=== PATIENT | female | born 1950 | race Caucasian/White ===

== ENCOUNTER 2019-12-15 11:54 | Outpatient (CLI) | payer MEDICARE, MEDICAID, SELFPAY ==
--- NOTE | 2019-12-15 12:04 | US_ITS ---
WS: [id number] ULTRASOUND-GUIDED RIGHT BREAST BIOPSY HISTORY: RIGHT breast masses at 12. COMPARISON: 09/24/2019 Procedure, risks and complications are explained to the patient. Medications are reviewed. Consent is obtained. RIGHT breast mass is localized with ultrasound. Skin is cleansed with ChloraPrep and anesthetized w ith 1% buffered lidocaine. Small dermatome is made. Under sterile conditions mass is biopsied with a 14-gauge Achieve needle. Multiple core biopsies are performed. Material placed in formalin and sent t o pathology for review. No complications encountered. Breast tissue marker ([employer] ultrasound enhanced ribbon): Clip is placed in the mass at 12:00. Patient left the radiology suite with no complications. Patient is instructed to return to [facility] or critical access hospital with any concerns. 1. Uncomplicated core needle biopsy RIGHT breast mass at 12:00. US/[place] [id number] IMPRESSION: PATHOLOGY: Moderately differentiated invasive ductal carcinoma. RECOMMENDATION: Follow-up with oncology and surgeon. 2. There is an additional mass in the posterior RIGHT breast which I cannot jessica ntified by ultrasound or on 2 views of mammography. This additional mass is hig hly suspicious for malignancy. Patient's physical condition limits evaluation o f the breast adequately.
--- NOTE | 2019-12-15 12:04 | US_ITS ---
WS: [id number] ULTRASOUND-GUIDED LEFT BREAST BIOPSY x 2 HISTORY: LEFT breast masses at 10 and 6:00. COMPARISON: 09/24/2019 Procedure, risks and complications are explained to the patient. Medications are reviewed. Consent is obtained. There is an additional hypoechoic mass in the axilla which is probably a sebaceous cyst. No lymph nod es. 2 masses in the LEFT breast are localized with ultrasound. Skin is cleansed with ChloraPrep and anest hetized with 1% buffered lidocaine. Small dermatome is made. Under sterile conditions mass is biopsie d with a 14-gauge Achieve needle. Multiple core biopsies are performed. Material placed in formalin a nd sent to pathology for review. No complications encountered. There is an additional hypoechoic mass in the LEFT axilla just beneath the skin surface without incre ased vascularity. Probably representing a sebaceous cyst. Recommend follow-up ultrasound in 6 months. Breast tissue marker ([employer] ultrasound enhanced ribbon): Yes, clips are LEFT within each biopsy site. Patient left the radiology suite with no complications. Patient is instructed to return to [facility] or [facility] with any concerns. 1. Uncomplicated core needle biopsy LEFT breast mass at 6:00. 2. Uncomplicated core needle biopsy LEFT breast mass at 10:00. US/[place] [id number] IMPRESSION: PATHOLOGY: Fibrocystic changes with apocrine metaplasia. No malignancy. RECOMMENDATION: No excision. PATHOLOGY: Moderately differentiated invasive ductal carcinoma. Breast tumor st udies are pending. RECOMMENDATION: Follow-up with breast surgeon and oncology. 3. Superficial mass in the LEFT axilla may be a sebaceous cyst. Follow-up ultra sound in 6 months. 4. Extremely difficult evaluation of the breast due to patient's clinical condi tion.
[2019-12-15 12:50] LABS: INR 1.01 (0.8-1.2)
[2019-12-23 10:35] LABS: Miscellaneous Test See Scanned Lab Rpt
== END 2019-12-15 11:55 | disposition home or self-care (01) ==
LOC: RAD 11:54
PROVIDERS: Radiology Diagnostic Radiology; Family Provider Nurse Practitioner; PCP Nurse Practitioner; Visit Provider Surgery
DX: C50.912 Malignant neoplasm of unspecified site of left female breast (principal); C50.911 Malignant neoplasm of unspecified site of right female breast; N63.10 Unspecified lump in the right breast, unspecified quadrant; N63.22 Unspecified lump in the left breast, upper inner quadrant; N63.20 Unspecified lump in the left breast, unspecified quadrant; N60.82 Other benign mammary dysplasias of left breast; Z01.812 Encounter for preprocedural laboratory examination
CPT/HCPCS: 19083; 19084; 85610; 88305; 88361; 88367; 88374; J2001

== ENCOUNTER 2019-12-31 13:45 | Outpatient (CLI) | payer MEDICARE, MEDICAID, SELFPAY ==
--- NOTE | 2020-01-01 08:23 | ONC CON_ITS ---
Dr. Ledbetter New Patient Note Patient: Deborah Mchugh Unit #: [id number]: 1950 Dicatated By: Remigio Ledbetter M.D.Date of Visit: Dec 31, 2019 Onc MED New Patient/Consult Referring Physician: Petr Ivy MD Chief Complaint: Breast cancer. History of Present Illness: This is a 69 year-old woman with multifocal, bilateral invasive breast cancer, ER/NH positive and HER-2/shelia negative. 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 She had complete surgical resection with sigmoid colectomy and omentectomy in July 2003, and she was then given adjuvant chemotherapy with 6 cycles of carboplatin/Taxotere, completed in January 2004. She has had no recurrence of either malignancy. I had last seen her for follow-up in April 2014. She had recently presented to [facility] with a palpable mass in the right breast. Bilateral diagnostic mammogram/ultrasound on 09/24/2019 showed a 16.2 mm nodule at the 12 o'clock position corresponding to the palpable mass. An additional mass was present in the posterior central right breast measured 10 mm. A 14 mm nodule was noted in the central left breast just inferior to the nipple and an additional 7 mm nodule is noted in the medial left breast. The right breast ultrasound showed a hypoechoic nodule at the 12 o'clock position measuring 15 x 16 mm, a superficial hypoechoic mass measuring 5 x 3 mm at the 6 o'clock position, an additional hypoechoic masses at 11:00 measuring 8 x 5 mm and at 7:00 measuring 11 mm. The left breast ultrasound showed a 16 x 6 mm mass at 6:00, a 5 x 5 mm hypoechoic mass at 11:00 and an additional adjacent smaller nodule. The findings were BI-RADS 5, highly suggestive of malignancy. She underwent ultrasound guided biopsies of the left breast 10:00 and 6:00 lesions and of the right breast 12:00 lesion. Pathology of the left breast at 6:00 showed fibrocystic changes with no malignancy identified. The left breast 10:00 lesion showed grade 2 invasive ductal carcinoma which was ER positive at 97% and NH positive at 91%. The HER-2/shelia was 2+ by IHC but negative by FISH with amplification ratio 1.1 and 2.0 HER-2 copies/cell. The Ki-67 was favorable at 5%. The right breast 12:00 lesion also showed grade 2 invasive ductal carcinoma. It was ER positive at 96% and NH positive at 97%. HER-2/shelia was 2+ by IHC but negative by FISH with amplification ratio 1.4 and 3.9 HER-2 copies/cell. The KI 67 was intermediate at 14%. She has multiple underlying medical illnesses including hypertension, hyperlipidemia, type II diabetes, hyperthyroidism, COPD, obstructive sleep apnea, GERD, osteoporosis, degenerative arthritis/degenerative disease of the spine, and chronic anxiety. She has a history of depression, history of multiple strokes, and a history of ocular histoplasmosis. In 2013 she had developed nonhealing abdominal wall ulcerations in association with cellulitis which had developed following a prolonged episode of colitis. She had multiple hospitalizations during that time and she required surgical debridement, but it eventually resolved. She is seen for further management of the breast cancer. She says that she does not feel so good. She gets tired very easily, and she has very limited activity. She has had very limited ambulation following ORIF for a traumatic fracture of her distal left femur in August 2018. Her ECOG score is 3. She has good appetite, and she has gained weight. She does not have fever or night sweats. She has hot flashes, which have been getting a little worse. She occasionally has sore throat. She is short of breath, and she is on continuous oxygen. She has nonproductive cough. She does not complain of chest pain. She says she has episodes of nausea about twice a week, and she has been having acid reflux despite taking medication for it. She has constipation. She says her bladder leaks quite a bit. She has arthritis pain in the shoulders and knees. She also has pain in her neck and back. She has chronic swelling in both legs. She does not complain of headache. She has dizziness if she gets up too quick. She has no numbness/paresthesia or other focal neurologic symptoms. Past Medical History: Her medical history includes anxiety, chronic obstructive pulmonary disease, degenerative arthritis, degenerative disease of the spine, gastroesophageal reflux disease, history of abdominal wall cellulitiis, history of depression, history of strokes, hyperlipidemia, hypertension, hyperthyroidism, obstructive sleep apnea, ocular histoplasmosis, osteoporosis, type II diabetes, primary peritoneal carcinoma in 2002, and endometrial cancer in 1978. Past Surgical History: Her surgical/procedural history includes ORIF of distal left femur fracture in 2017, excision of benign abdominal wall mass in 2014, lumbar laminectomy for spinal stenosis in 2014, surgical debridement of necrotic abdominal wall wound in 2013, right total knee arthroplasty in 2012, repair of upper abdominal incisional hernia in 2009, cervical laminectomy in 2009, incisional hernia repair with mesh in 2006, exploratory laparotomy with omentectomy and sigmoid colon resection in 2002, cholecystectomy in 1990, and hysterectomy/bilateral salpingo-oophorectomy for endometrial cancer in 1978. Medications: Allopurinol 1 Tablet (of 100 mg) Oral daily, FLUoxetine HCl Capsule Oral, Furosemide 1.5 Tablet (of 40 mg) Oral daily, Gemfibrozil 600 mg - Take 1 Tablet Oral b.i.d., Hydrocodone-Acetaminophen 10-325 mg - Take 1 Tablet Oral q 4 hours PRN, Levothyroxine Sodium 1 Tablet (of 50 mcg) Oral daily, Lisinopril 1 Tablet (of 2.5 mg) Oral daily, metOLazone 1 Tablet (of 5 mg) Oral daily, Nitrolingual 1 Tablet (of 0.4 mg/spray) Solution Translingual PRN, OLANZapine 1 Tablet (of 5 mg) Oral at bedtime, Pantoprazole Sodium 40 mg - Take 1 Tablet, enteric coated Oral daily, Potassium Chloride ER 1 Tablet (of 20 meq) Tablet, controlled release Oral b.i.d., rOPINIRole HCl 2 Tablet (of 0.5 mg) Oral at bedtime Allergies: teramycin, dilaudid, tagement, tape, morphine, colchine, allopurinol, Social History: Ms. Mchugh is . She has a history of smoking 1 pack of cigarettes daily. She has cut down to 3-5 cigarettes per day. She does not drink alcohol. Family History: Mother of leukemia at age 99. Father of heart attack at age 81. A brother had small cell lung cancer. Review Of Symptoms: Constitutional - She does physical therapy for her knee, but she does not walk very much. Her appetite is good and her weight is stable. No fever, chills, hot flashes, or night sweats. 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 No sinus congestion/drainage. No mouth sores. No sore throat or difficulty swallowing, Hematologic/Lymphatic - No abnormal bruising or bleeding, Respiratory - She has shortness of breath and she wears continuous oxygen. She has a cough. No pleuritic pain or hemoptysis, Cardiovascular - No angina pain. No palpitations, Gastrointestinal - She has nausea and heartburn. She has constipation. No blood in the stool or black stools, Genitourinary (F) - No dysuria or hematuria. No urinary frequency. She has urinary incontinence, Musculoskeletal - She has pain in her shoulders, knees, neck and back, Integumentary - No skin complications, Neurologic - No headache. She has dizziness if she stands up too quickly. No numbness/paresthesias or other focal neurologic symptoms, Psychiatric - She has anxiety and depression. No insomnia. Vital Signs: Performed on Dec 31, 2019 14:26: 5, 39.48 (HIGH), 2.08 sq.m, 64.00 in, 94 % (LOW), 77 /min, 25 /min, 143/68 mm(hg) (HIGH), 97.4 F (LOW), and 230 lbs (LOW). Physical Examination: Constitutional - She has limited mobility, but she does not appear acutely ill. , Eyes - Sclerae nonicteric. Conjunctivae clear, ENMT - No lesions noted in the oral cavity, Neck - There is chronic, generalized soft tissue swelling in the neck area. There is no mass or thyromegaly noted, Hematologic/Lymphatic - No cervical or clavicular adenopathy, Respiratory - Lungs are clear with some decrease in air movement bilaterally, Cardiovascular - Heart rhythm is regular. There is no murmur, gallop, or rub noted, Breasts - There is a firm mass palpable in the superior aspect of the right breast. It measures approximately 1 cm. I am not able to palpate a mass in the left breast. There is a superficial subcutaneous nodule in the left axilla. This clinically appears consistent with a cyst. There is no axillary adenopathy noted, Abdomen - Moderately distended. Liver and spleen are not enlarged. There is no abdominal mass or ascites noted and there is no inguinal adenopathy, Back/Spine - No spine or CVA tenderness noted, Extremities - Chronic lower extremity edema, 2 to 3+, Integumentary - No suspicious skin lesions noted, Neurologic - No focal neurologic deficits noted. Impression: 1. Patient with bilateral breast cancer, both with grade 2 invasive ductal carcinoma, ER/NH positive and HER-2/shelia negative. Staging is incomplete. By imaging, her disease appears to be multifocal in both breasts, but that has not been confirmed histologically. 2. She has multiple underlying medical illnesses and comorbidities, and she would be a very high risk for any type of general anesthesia. 3. In July 2003 she underwent exploratory laparotomy with sigmoid colon resection and omentectomy for metastatic adenocarcinoma, clinically consistent with primary peritoneal carcinoma. She had complete resection of gross disease with the surgery, following which she was given adjuvant chemotherapy with 6 cycles of carboplatin/docetaxel, completed in January 2004. She has had no evidence of recurrence. 4. In 1978 she underwent hysterectomy/bilateral salpingo-oophorectomy for endometrial cancer. Her other medical illnesses include: 5. Hypertension. 6. Hyperlipidemia. 7. Type 2 diabetes. 8. Hyperthyroidism. 9. History of prior strokes. 10. COPD. 11. Obstructive sleep apnea. 12. GERD. 13. Osteoporosis with baseline right proximal femur T score -3.6 in April 2019. 14. Degenerative arthritis/degenerative disease of the spine. 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 16. Chronic anxiety. 17. History of depression. 18. She has a history of abdominal wall cellulitis with nonhealing skin ulcerations. Plan: She has hormone receptor positive breast cancer which appears to be multifocal bilaterally. Ideally she should undergo bilateral mastectomy, but she is a high surgical risk due to her underlying medical illnesses and comorbidities. She had, in fact, been previously advised not to have any further general anesthesia, and I think that pretty much excludes the mastectomy option. She also would be at some risk with a lumpectomy procedure, and even if that were feasible I am not sure she would be able to get through a course of radiation. As such, I think the best option may just be a trial of hormonal therapy, though she is aware that it would have no curative potential. She is agreeable, and she will now begin treatment with anastrozole 1 mg daily. She is aware that it may cause joint pain as a side effect and that it also may worsen her osteoporosis. In that regard I also will have her start treatment with Prolia, subject to verification of insurance coverage. She will have baseline laboratory studies including CBC, CMP, and a 25-hydroxy vitamin D level with her initial Prolia injection, and she will be scheduled for a 3-month interval follow-up visit. Signed By: Remigio Ledbetter M.D. <<Signature on File>>
== END 2019-12-31 13:46 | disposition home or self-care (01) ==
LOC: ONCMED 13:49
PROVIDERS: Family Provider Nurse Practitioner; PCP Nurse Practitioner; Referring Provider Surgery; Visit Provider Internal Medicine Medical Oncology
DX: C50.811 Malignant neoplasm of overlapping sites of right female breast (principal); C50.812 Malignant neoplasm of overlapping sites of left female breast; I10 Essential (primary) hypertension; E78.5 Hyperlipidemia, unspecified; E11.9 Type 2 diabetes mellitus without complications; E05.90 Thyrotoxicosis, unspecified without thyrotoxic crisis or storm; J44.9 Chronic obstructive pulmonary disease, unspecified; G47.33 Obstructive sleep apnea (adult) (pediatric); K21.9 Gastro-esophageal reflux disease without esophagitis; M81.0 Age-related osteoporosis without current pathological fracture; M19.90 Unspecified osteoarthritis, unspecified site; F41.8 Other specified anxiety disorders; F17.210 Nicotine dependence, cigarettes, uncomplicated; Z17.0 Estrogen receptor positive status [ER+]; Z79.891 Long term (current) use of opiate analgesic; Z90.49 Acquired absence of other specified parts of digestive tract; Z92.21 Personal history of antineoplastic chemotherapy; Z85.89 Personal history of malignant neoplasm of other organs and systems; Z86.73 Personal history of transient ischemic attack (TIA), and cerebral infarction without residual deficits; Z85.42 Personal history of malignant neoplasm of other parts of uterus; Z90.710 Acquired absence of both cervix and uterus
CPT/HCPCS: 99205

== ENCOUNTER 2020-01-11 11:57 | Outpatient (CLI) | payer MEDICARE, MEDICAID, SELFPAY ==
[2020-01-11 12:24] LABS: Basophils % 0.3 %; Eosinophils # 0.4 10^3/uL (0.0-0.8); Eosinophils % 4.2 %; Hematocrit 36.9 % (37.0-47.0); Lymphocytes # 1.3 10^3/uL (0.8-4.8); Lymphocytes % 13.4 %; Mean Corpuscular HGB Conc 29.8 g/dL (30.0-36.0); Mean Corpuscular Hemoglobin 28.4 pg (28.0-34.0); Mean Corpuscular Volume 95.3 fL (81-99); Mean Platelet Volume 10.5 fL (7.4-10.4); Monocytes # 0.5 10^3/uL (0.2-0.9); Monocytes % 5.6 %; Neutrophils # 7.3 10^3/uL (1.8-7.7); Neutrophils % 76.2 %; Nucleated Red Blood Cells % 0 %; Platelet Count 284 10^3/cmm (130-400); Red Blood Count 3.87 10^6/uL (4.1-5.3); Red Cell Distribution Width 15.5 % (12.1-15.1); White Blood Count 9.6 10^3/uL (4.0-10.0)
[2020-01-11] MEDS: denosumab 60 mg SDV SUBCUT (12:35)
[2020-01-11 12:44] LABS: Alanine Aminotransferase < 5 U/L (0-33); Albumin Level 3.6 g/dL (3.5-5.2); Alkaline Phosphatase 162 IU/L (35-105); Anion Gap 20.5 (5-19); Aspartate Amino Transferase 13 U/L (0-32); Blood Urea Nitrogen 39 mg/dL (8-23); Calcium 10.3 mg/dL (8.5-10.5); Carbon Dioxide 28 mmol/L (22-29); Chloride 88 mmol/L (98-107); Globulin 3.8 g/dL (1.3-4.6); Glucose 154 mg/dL (65-115); Potassium 4.5 mmol/L (3.5-5.1); Sodium 132 mmol/L (136-145); Total Bilirubin 0.3 mg/dL (0.15-1.2); Total Protein 7.4 g/dL (6.6-8.7)
[2020-01-11 13:04] LABS: 25 Hydroxy Vitamin D 7 ng/mL (30-100)
== END 2020-01-11 11:58 | disposition home or self-care (01) ==
LOC: ONCMED 11:57
PROVIDERS: Family Provider Nurse Practitioner; PCP Nurse Practitioner; Visit Provider Internal Medicine Medical Oncology
DX: M81.0 Age-related osteoporosis without current pathological fracture (principal); C50.811 Malignant neoplasm of overlapping sites of right female breast
CPT/HCPCS: 36415; 80053; 82306; 85025; 96372; J0897

== ENCOUNTER 2020-01-31 05:38 | Emergency (ER) | payer MEDICARE, MEDICAID, SELFPAY ==
[2020-01-31 05:39] VITALS: BP 124/61; PULSE 85; RESP 18; TEMP 36.9; O2SAT 91; BMI 51.5
--- NOTE | 2020-01-31 05:53 | XRR_ITS ---
PROCEDURE INFORMATION: Exam: XR Left Tibia and Fibula Exam date and time: 01/31/2020 6:26 AM Age: 69 years old Clinical indication: Injury or trauma; Fall; Initial encounter; Blunt trauma; Knee and lower leg; Prior surgery; Surgery date: 6+ months; Surgery type: Left femur, date of surgery not provided TECHNIQUE: Imaging protocol: XR Left tibia and fibula. Views: 2 views. COMPARISON: CR Femur 2 views LEFT* [id number] 10/11/2018 10:37 PM FINDINGS: Bones/joints: Prior surgical fixation of the distal femur Osseous structures unremarkable. No erosive changes. No periosteal response. No fracture. No soft tissue calcifications. Mild degenerative changes within the knee. Soft tissues: See Bones/joints Finding. XR/XR tibia fibula LT 2V [id number] IMPRESSION: 1. Osseous structures unremarkable. No erosive changes. No periosteal response. No fracture. No soft tissue calcifications. 2. Mild degenerative changes within the knee.
--- NOTE | 2020-01-31 05:53 | XR_ITS ---
WS: [id number] KNEE LEFT TECHNIQUE: 3 views of the left knee CLINICAL INFORMATION: fall FINDINGS: Prior postoperative changes plate and screw fixation left femur with fracture healing. Fracture appea rs to extend to the femoral articular surface. Hardware is unchanged since December 17, 2018. Osteopen ia. Hypertrophic patella. Small suprapatellar effusion. Soft tissue edema. XR/XR knee LT 3V* [id number] IMPRESSION: 1. Prior postoperative changes plate and screw fixation left femur with fractu re healing. 2. Fracture extends to the femoral articular surface. This appears new since . See following CT for further detail.
--- NOTE | 2020-01-31 05:53 | W.ED.EXTPRO ---
HPI - Extremity Problem General: Chief complaint: Extremity Injury, Lower Stated complaint: LT KNEE PAIN Time Seen by Provider: 01/31/20 05:52 History of Present Illness: MD Complaint: extremity pain and joint swelling Onset (ago): day(s) (3) Pain Consistency: constant Location: left, lower extremity and knee Quality: constant Radiation: none Exacerbating factors: weight bearing Associated symptoms: Deny chest pain, fever(s), myalgias or rash Context: recent travel Review of Systems Const: Denies: fever Eyes: Denies: change in vision ENMT: Denies: painful swallowing, nose bleeds or post nasal drip Card: Denies: chest pain, palpitations, irregular heart rhythm or edema Resp: Denies: shortness of breath, productive cough, non-productive cough or wheezing GI: Denies: abdominal pain, nausea or vomiting : Denies: painful urination Musc: Reports: back pain; Denies: neck pain, redness or joint warmth Skin/Breast: Denies: rash Neuro: Denies: headache, dizziness or vertigo Psych: Denies: anxiety PFSH ED PFSH: Social History Smoking and tobacco status: current every day smoker cigarettes [ Other cigarette details: 11/27-11/25 PPD ] Alcohol intake: never Lives independently: Yes Household members: spouse Marital status: Current occupational status: disabled History of recent travel: No Physical Exam Const: GENERAL APPEARANCE: well developed ORIENTATION/CONSCIOUSNESS: Yes oriented to person, Yes oriented to place and Yes oriented to time HENMT: COMMON NORMALS: external ears normal and external nose normal FACE & SINUS: normal facial exam NOSE: external nose normal and no nasal discharge EXTERNAL EAR: Yes external ears normal Eye: COMMON NORMALS: PERRL, EOMs intact bilaterally and conjunctivae normal EYELID: eyelids normal CONJUNCTIVA: Yes conjunctivae normal PUPIL: Yes PERRL Neck/C-Spine: GENERAL: No tracheal deviation Chest: COMMONS NORMALS: inspection of chest normal CHEST: No tenderness Resp: COMMON NORMALS: clear to auscultation bilaterally EFFORT & INSPECTION: No tachypneic, No respiratory distress, No retractions, No uses accessory muscles and No tracheal deviation AUSCULTATION: clear to auscultation bilaterally, no rhonchi, no wheezes and lung sounds not diminished Cardio: COMMON NORMALS: regular rate and regular rhythm RATE: regular rate RHYTHM: regular rhythm HEART SOUNDS: no murmurs PERIPHERAL PULSES: radial pulses present GI: INSPECTION: No abdominal distension PALPATION: No guarding and No rigid Extremity: LEFT LOWER EXTREMITY: Yes knee joint (Left knee warm effusion present. Limited range of motion, especially flexion due to pain. No deformity. Tenderness to palpation of the patella, and proximal tibia.) Left knee: Yes palpation and Yes ROM Neuro: SENSORIUM/ORIENTATION: Yes oriented to person, Yes oriented to place and Yes oriented to time Psych: COMMON NORMALS: mental status grossly normal Skin: COMMON NORMALS: no rashes or lesions noted GENERAL SKIN EXAM: no rashes or lesions noted Course Vital Signs: Vital signs: Vital Signs Temperature 98.5 F 01/31/20 05:39 Pulse Rate 85 01/31/20 05:39 Respiratory Rate 18 01/31/20 05:39 Blood Pressure 124/61 01/31/20 05:39 Pulse Oximetry 91 01/31/20 05:39 MDM - Extremity (Nontraumatic) MDM Narrative: Medical decision making narrative: Fall 3 days ago with inability to bear weight, knee effusion, and limited range of motion. She is tender. X-rays are pending. Discharge Plan Discharge Prescriptions: No Action potassium chloride 20 mEq packet 20 meq PO BID RF: 0 metolazone 5 mg tablet 5 mg PO QDAY RF: 0 olanzapine 5 mg tablet 5 mg PO QDAY RF: 0 levothyroxine 50 mcg capsule 50 mcg PO QDAY RF: 0 pantoprazole 20 mg tablet,delayed release (DR/EC) 20 mg PO QDAY RF: 0 fluoxetine 10 mg capsule 10 mg PO QDAY RF: 0 cetirizine 10 mg capsule 10 mg PO QDAY RF: 0 ropinirole 0.5 mg tablet 1 mg PO QDAY RF: 0 gemfibrozil 600 mg tablet 600 mg PO BID RF: 0 docusate sodium [Colace] 100 mg capsule 200 mg PO BID RF: 0 allopurinol 100 mg tablet 100 mg PO TID RF: 0 furosemide [Lasix] 40 mg tablet 80 mg PO QDAY RF: 0 simvastatin 40 mg tablet 40 mg PO QDAY RF: 0 Movantik 12.5 mg tablet 12.5 mg PO QAM RF: 0 Narcan 4 mg/actuation spray,non-aerosol 1 spray INTRANASAL Q2M RF: 0 Hysingla ER 40 mg tablet,oral only,ext.rel.24 hr 40 mg PO QDAY RF: 0 hydrocodone-acetaminophen [Russell] 10-325 mg tablet See Rx Instructions PO Q6H PRNRF: 0 albuterol sulfate 2.5 mg /3 mL (0.083 %) solution for nebulization 2.5 mg INHALATION .COMPLEX RF: 0 nitroglycerin [Nitrostat] 0.4 mg tablet, sublingual 0.4 mg SUBLINGUAL Q5M PRNRF: 0 phenolphthalein 90 mg tablet 90 mg PO QDAY RF: 0 Coding Level of Care Code ED [employer]ite [employer]per for Ted San
--- NOTE | 2020-01-31 06:39 | CTR_ITS ---
PROCEDURE INFORMATION: Exam: CT Left Lower Extremity Without Contrast, Knee Exam date and time: 01/31/2020 6:41 AM Age: 69 years old Clinical indication: Injury or trauma; Fall; Initial encounter; Blunt trauma; Knee; Left; Injury date: Today; Prior surgery; Surgery date: 6+ months; Additional info: Tibial platuea fracture - HX of tibial platuea FX, fell and now there is new pain in knee. TECHNIQUE: Imaging protocol: CT of the Left lower extremity without contrast was performed. Exam focused on the knee. Total DLP: 1600.94 mGy-cm Radiation optimization: All CT scans at this facility use at least one of these dose optimization techniques: automated exposure control; mA and/or kV adjustment per patient size (includes targeted exams where dose is matched to clinical indication); or iterative reconstruction. COMPARISON: CR XR knee LT 3V* [id number] 01/31/2020 6:15 AM FINDINGS: Bones/joints: Malleable surgical plate and screws stabilizing the distal femoral metaphyseal complex fracture. Fracture extends to the lateral femoral condyle. Much of this is likely chronic. Moderate joint effusion. Degenerative changes within the proximal tibia. Soft tissues: Swelling/edema in the subcutaneous soft tissues about the proximal calf. Gonzalez cyst. CT/CT lower leg LT wo con* [id number] IMPRESSION: 1. Malleable surgical plate and screws stabilizing the distal femoral metaphyseal complex fracture. Fracture extends to the lateral femoral condyle. Much of this is likely chronic. No significant soft tissue swelling in the adjacent soft tissues. 2. Moderate joint effusion. Hounsfield units of approximately 30. 3. Swelling/edema in the subcutaneous soft tissues about the proximal calf. 4. Gonzalez cyst. 5. Degenerative changes within the proximal tibia. Radiation Dose CTDIVOL = (mGy): DLP = 1600.94 (mGy-cm)
[2020-01-31 09:10] VITALS: BP 145/89; PULSE 79; RESP 20; O2SAT 93
== END 2020-01-31 09:11 | disposition home or self-care (01) ==
PROVIDERS: Emergency Provider Family Medicine; Family Provider Nurse Practitioner; PCP Nurse Practitioner
DX: S83.92XA Sprain of unspecified site of left knee, initial encounter (principal); X58.XXXA Exposure to other specified factors, initial encounter; F17.210 Nicotine dependence, cigarettes, uncomplicated
CPT/HCPCS: 12345; 73562; 73590; 73700; 99281; 99283

== ENCOUNTER 2020-02-02 10:24 | Emergency (ER) | payer MEDICARE, MEDICAID, SELFPAY ==
[2020-02-02 10:25] VITALS: BMI 48.0
[2020-02-02 10:33] VITALS: BP 109/57
--- NOTE | 2020-02-02 10:42 | XRR_ITS ---
PROCEDURE INFORMATION: Exam: XR Left Ankle Exam date and time: 02/02/2020 11:24 AM Age: 69 years old Clinical indication: Injury or trauma; Fall; Initial encounter; Blunt trauma; Ankle; Left; Injury date: Today; Injury details: Fell getting into chair TECHNIQUE: Imaging protocol: XR Left ankle. Views: 1 or 2 views. COMPARISON: No relevant prior studies available. FINDINGS: Bones/joints: The bones are diffusely osteopenic. No fracture. No dislocation. The ankle mortise is intact. Soft tissues: There is superficial soft tissue swelling at the ankle, adjacent lower calf, as well as the mid and hindfoot. XR/XR ankle LT 2V [id number] IMPRESSION: 1. No acute osseous abnormality. 2. Nonspecific superficial soft tissue swelling.
--- NOTE | 2020-02-02 10:42 | XRR_ITS ---
PROCEDURE INFORMATION: Exam: XR Left Knee Exam date and time: 02/02/2020 11:20 AM Age: 69 years old Clinical indication: Injury or trauma; Fall; Initial encounter; Blunt trauma; Knee; Left; Injury date: Today; Injury details: Fell getting into chair; Prior surgery; Surgery type: Orif femur TECHNIQUE: Imaging protocol: XR Left knee. Views: 3 views. COMPARISON: XR LEFT KNEE 01/31/2020 6:15 AM XR LEFT KNEE 10/11/2018 10:37 PM FINDINGS: Bones/joints: Prior ORIF with a side plate and screws across a comminuted fracture of the distal left femur. There has been healing of the fracture with deformity. No acute fracture. No dislocation. Soft tissues: There is superficial soft tissue swelling, more so in the medial distal thigh. XR/XR knee LT 3V* [id number] IMPRESSION: 1. Prior posttraumatic and postsurgical changes. 2. Osteoarthritis.
--- NOTE | 2020-02-02 10:43 | ED_ITS ---
HPI - Fall General: Chief Complaint: Fall Stated Complaint: fall Time Seen by Provider: 02/02/20 10:34 History of Present Illness: HPI Narrative: Patient stumbled at home today and fell landing on her right knee and twisting her left ankle. She arrives here vi a ambulance with complaints of left knee and left ankle pain. complaint: fall Onset (ago): hour(s) Fall from: standing Fall witnessed: no Place fall occurred: home Loss of consciousness: None Prolonged down time: no Symptoms prior to fall: none Context: tripped/slipped Location of injury - extremities: Left: knee and ankle Severity: mild Severity scale (1-10): 3 Quality: aching Associated symptoms-after fall: Reports no associated symptoms; Denies abdominal pain, chest pain or headache(s) Review of Systems Const: Denies: fever, chills or body aches Eyes: Denies: change in vision or blurry vision ENMT: Denies: throat pain or nasal congestion Card: Denies: chest pain or shortness of breath on exertion Resp: Denies: shortness of breath, productive cough or non-productive cough GI: Denies: abdominal pain, nausea or vomiting Musc: Reports: extremity pain (Left knee and left ankle) and joint pain Skin/Breast: Denies: rash Neuro: Denies: headache Psych: Denies: anxiety or depression Jeovanny/Lymph: Reports: other (Appears to have lymphedema and also has webbed neck); Denies: easy bruising PFS ED PFSH: Social History Smoking and tobacco status: current every day smoker cigarettes [ Other cigarette details: 11/27-11/25 PPD ] Alcohol intake: never Lives independently: Yes Household members: spouse Marital status: Current occupational status: disabled History of recent travel: No Physical Exam Const: COMMON NORMALS: no apparent distress, average body habitus and oriented x3 HENMT: COMMON NORMALS: normocephalic HEAD & SCALP: normal to inspection and normocephalic FACE & SINUS: normal facial exam Eye: COMMON NORMALS: conjunctivae normal GENERAL EYE: normal appearance of both eyes CONJUNCTIVA: Yes conjunctivae normal Neck/C-Spine: COMMON NORMALS: no JVD Chest: COMMONS NORMALS: inspection of chest normal Resp: COMMON NORMALS: normal respiratory effort and clear to auscultation bilaterally AUSCULTATION: clear to auscultation bilaterally Cardio: COMMON NORMALS: no JVD, regular rate and regular rhythm RATE: regular rate RHYTHM: regular rhythm GI: COMMON NORMALS: normal to inspection, nondistended, normoactive bowel sounds Extremity: COMMON NORMALS: normal to inspection and full ROM LEFT LOWER EXTREMITY: Yes knee joint (Tender) and Yes ankle joint OTHER: Tender mild swelling Neuro: COMMON NORMALS: oriented x3 Skin: OTHER: Does have lymphedema to lower extremities Course Vital Signs: Vital signs: Vital Signs Blood Pressure 109/57 02/02/20 10:33 Discharge Plan Discharge Prescriptions: No Action potassium chloride 20 mEq packet 20 meq PO BID RF: 0 metolazone 5 mg tablet 5 mg PO QDAY RF: 0 olanzapine 5 mg tablet 5 mg PO QDAY RF: 0 levothyroxine 50 mcg capsule 50 mcg PO QDAY RF: 0 pantoprazole 20 mg tablet,delayed release (DR/EC) 20 mg PO QDAY RF: 0 fluoxetine 10 mg capsule 10 mg PO QDAY RF: 0 cetirizine 10 mg capsule 10 mg PO QDAY RF: 0 ropinirole 0.5 mg tablet 1 mg PO QDAY RF: 0 gemfibrozil 600 mg tablet 600 mg PO BID RF: 0 docusate sodium [Colace] 100 mg capsule 200 mg PO BID RF: 0 allopurinol 100 mg tablet 100 mg PO TID RF: 0 furosemide [Lasix] 40 mg tablet 80 mg PO QDAY RF: 0 simvastatin 40 mg tablet 40 mg PO QDAY RF: 0 Movantik 12.5 mg tablet 12.5 mg PO QAM RF: 0 Narcan 4 mg/actuation spray,non-aerosol 1 spray INTRANASAL Q2M RF: 0 Hysingla ER 40 mg tablet,oral only,ext.rel.24 hr 40 mg PO QDAY RF: 0 hydrocodone-acetaminophen [[place]] 10-325 mg tablet See Rx Instructions PO Q6H PRNRF: 0 albuterol sulfate 2.5 mg /3 mL (0.083 %) solution for nebulization 2.5 mg INHALATION .COMPLEX RF: 0 nitroglycerin [Nitrostat] 0.4 mg tablet, sublingual 0.4 mg SUBLINGUAL Q5M PRNRF: 0 phenolphthalein 90 mg tablet 90 mg PO QDAY RF: 0 Coding Level of Care Code ED Automatic [employer]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
[2020-02-02 12:58] VITALS: BP 109/57; PULSE 96; RESP 18; O2SAT 96
== END 2020-02-02 12:59 | disposition home or self-care (01) ==
PROVIDERS: Emergency Provider Nurse Practitioner Family; Family Provider Nurse Practitioner; PCP Nurse Practitioner
DX: M25.562 Pain in left knee (principal); M25.572 Pain in left ankle and joints of left foot; I89.0 Lymphedema, not elsewhere classified; F17.210 Nicotine dependence, cigarettes, uncomplicated
CPT/HCPCS: 12345; 73562; 73600; 99281; 99283

== ENCOUNTER 2020-05-15 12:27 | Outpatient (CLI) | payer MEDICARE, MEDICAID, SELFPAY ==
--- NOTE | 2020-05-16 08:31 | ONC FU_ITS ---
Dr. Ledbetter Patient Follow-Up Note Patient: Deborah Mchugh Unit #: [id number]: 1950 Dicatated By: Remigio Ledbetter M.D.Date of Visit:May 15, 2020 Onc Med Follow-up/Prog Note Chief Complaint: Breast cancer. History of Present Illness: This is a 70 year-old woman with multifocal, bilateral invasive breast cancer, ER/WV positive and HER-2/shelia negative. 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 She had complete surgical resection with sigmoid colectomy and omentectomy in July 2003, and she was then given adjuvant chemotherapy with 6 cycles of carboplatin/Taxotere, completed in January 2004. She has had no recurrence of either malignancy. I had last seen her for follow-up in April 2014. She has multiple underlying medical illnesses including hypertension, hyperlipidemia, type II diabetes, hyperthyroidism, COPD, obstructive sleep apnea, GERD, osteoporosis, degenerative arthritis/degenerative disease of the spine, and chronic anxiety. She has a history of depression, history of multiple strokes, and a history of ocular histoplasmosis. In 2013 she had developed nonhealing abdominal wall ulcerations in association with cellulitis which had developed following a prolonged episode of colitis. She had multiple hospitalizations during that time and she required surgical debridement, but it eventually resolved. She had presented to [facility] with a palpable mass in the right breast. Bilateral diagnostic mammogram/ultrasound on 09/24/2019 showed a 16.2 mm nodule at the 12 o'clock position corresponding to the palpable mass. An additional mass was present in the posterior central right breast measured 10 mm. A 14 mm nodule was noted in the central left breast just inferior to the nipple and an additional 7 mm nodule is noted in the medial left breast. The right breast ultrasound showed a hypoechoic nodule at the 12 o'clock position measuring 15 x 16 mm, a superficial hypoechoic mass measuring 5 x 3 mm at the 6 o'clock position, an additional hypoechoic masses at 11:00 measuring 8 x 5 mm and at 7:00 measuring 11 mm. The left breast ultrasound showed a 16 x 6 mm mass at 6:00, a 5 x 5 mm hypoechoic mass at 11:00 and an additional adjacent smaller nodule. The findings were BI-RADS 5, highly suggestive of malignancy. She underwent ultrasound guided biopsies of the left breast 10:00 and 6:00 lesions and of the right breast 12:00 lesion. Pathology of the left breast at 6:00 showed fibrocystic changes with no malignancy identified. The left breast 10:00 lesion showed grade 2 invasive ductal carcinoma which was ER positive at 97% and WV positive at 91%. The HER-2/shelia was 2+ by IHC but negative by FISH with amplification ratio 1.1 and 2.0 HER-2 copies/cell. The Ki-67 was favorable at 5%. The right breast 12:00 lesion also showed grade 2 invasive ductal carcinoma. It was ER positive at 96% and WV positive at 97%. HER-2/shelia was 2+ by IHC but negative by FISH with amplification ratio 1.4 and 3.9 HER-2 copies/cell. The KI 67 was intermediate at 14%. She was seen here on 12/31/2019 for further management of the breast cancer. Given her numerous underlying medical illnesses and high risk for any further surgical procedures, we opted to limit treatment to a trial of hormonal therapy with anastrozole 1 mg daily. She is seen for a follow-up visit. Thus far she seems to be tolerating the anastrozole with no adverse effects. She does have chronic pain for which she was started on a fentanyl patch along with her hydrocodone/APAP. That does seem to be knocking the edge off the pain, so that it is more tolerable for her. She still has very limited activity, and she mostly just sits and watches TV. Her ECOG score is 3. She has good appetite. She has no fever, night sweats, or hot flashes. She has no shortness of breath, cough, or chest pain. She has been having episodes of nausea and gagging about every 2 to 3 days. She also has been having some constipation, which she has been managing with Correctol. She has no complaints. Her pain is mainly in the legs, and especially from the knees on down. She also has soreness in her neck. She says her back has not been bothering her too much lately. She has numbness/tingling in her legs, and she has chronic swelling in the lower extremities. Medications: Allopurinol 1 Tablet (of 100 mg) Oral daily, Anastrozole 1 Tablet (of 1 mg) Oral daily, FLUoxetine HCl 1 Capsule (of 10 mg) Oral daily, Furosemide 1.5 Tablet (of 40 mg) Oral daily, Gemfibrozil 600 mg - Take 1 Tablet Oral b.i.d., Hydrocodone-Acetaminophen 10-325 mg - Take 1 Tablet Oral q 4 hours PRN, Levothyroxine Sodium 1 Tablet (of 50 mcg) Oral daily, Lisinopril 1 Tablet (of 2.5 mg) Oral daily, metOLazone 1 Tablet (of 5 mg) Oral daily, Nitrolingual 1 Tablet (of 0.4 mg/spray) Solution Translingual PRN, OLANZapine 1 Tablet (of 5 mg) Oral at bedtime, Pantoprazole Sodium 40 mg - Take 1 Tablet, enteric coated Oral daily, Potassium Chloride ER 1 Tablet (of 20 meq) Tablet, controlled release Oral b.i.d., rOPINIRole HCl 2 Tablet (of 0.5 mg) Oral at bedtime Allergies: teramycin, dilaudid, tagement, tape, morphine, colchine, allopurinol, Review of Systems: Constitutional - She continues to have very limited activity. Appetite is good and weight is stable. No fever, night sweats, or hot flashes. ECOG score is 3, ENMT - She has some sinus congestion/drainage. No mouth sores. No sore throat or difficulty swallowing, Hematologic/Lymphatic - No abnormal bruising or bleeding, Respiratory - No shortness of breath. No cough. No pleuritic pain or hemoptysis, Cardiovascular - No angina pain. No palpitations, Gastrointestinal - She occasionally has nausea/gagging. No heartburn or acid reflux. She has constipation. No blood in the stool or black stools, Genitourinary (F) - No dysuria or hematuria. No urinary frequency. No urgency or incontinence, Musculoskeletal - She has pain in both legs, especially from the knees down. She complains that her neck is sore, Integumentary - No skin rash, Neurologic - No headache or dizziness. She has numbness/tingling in her legs. No other focal neurologic symptoms, Psychiatric - She has anxiety and depression. No insomnia. Vital Signs: Performed on May 15, 2020 12:41 Height - 64.00 in Weight - lbs Temperature - 97.2 F (LOW) Pulse - 72 /min Respiration - 26 /min BP - 132/69 mm(hg) O2 Sat - 98 % Pain - 5 Physical Examination: Constitutional - She appears somewhat weak generally, and she has limited mobility. , Eyes - Sclerae nonicteric. Conjunctivae clear, ENMT - No lesions noted in the oral cavity, Hematologic/Lymphatic - No cervical or clavicular adenopathy, Respiratory - Lungs sound clear, Cardiovascular - Heart rhythm is regular. There is no murmur, gallop, or rub noted, Breasts - There is no residual mass noted in the right breast and there is no axillary adenopathy noted, Abdomen - Distended. Liver and spleen are not enlarged. There is no abdominal mass or ascites noted and there is no inguinal adenopathy, Extremities - Chronic lower extremity edema and induration, Neurologic - No focal neurologic deficits noted. Impression: 1. Patient with bilateral breast cancer, both grade 2 invasive ductal carcinoma, ER/WV positive and HER-2/shelia negative. She did not have complete staging. By imaging her disease appeared to be multifocal in both breasts. 2. Due to her multiple underlying medical illnesses and comorbidities she was felt to be a very high risk for any type of general anesthesia, and her further treatment was limited to tiral of hormonal therapy with anastrozole 1 mg daily, which she started in December 2019. 3. Her baseline DEXA scan on 05/17/2019 showed evidence of osteoporosis with T score -1.8 in the lumbar spine and -3.6 in the right proximal femur. She began treatment with Prolia on 01/11/2020. 4. In July 2003 she underwent exploratory laparotomy with sigmoid colon resection and omentectomy for metastatic adenocarcinoma, clinically consistent with primary peritoneal carcinoma. She had complete resection of gross disease with the surgery, following which she was given adjuvant chemotherapy with 6 cycles of carboplatin/docetaxel, completed in January 2004. She has had no evidence of recurrence. 5. In 1978 she underwent hysterectomy/bilateral salpingo-oophorectomy for endometrial cancer. Her other medical illnesses include: 6. Hypertension. 7. Hyperlipidemia. 8. Type 2 diabetes. 9. Hyperthyroidism. 10. History of prior strokes. 11. COPD. 12. Obstructive sleep apnea. 13. GERD. 14. Degenerative arthritis/degenerative disease of the spine. 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 16. Chronic anxiety. 17. History of depression. 18. She has a history of abdominal wall cellulitis with nonhealing skin ulcerations. She began hormonal therapy with anastrozole 1 mg daily in December 2019. Thus far she appears to be tolerating it with no adverse effects. She appears to be showing a good clinical response with complete resolution of her palpable right breast mass. Her overall clinical status appears stable. Plan: She continues hormonal therapy with anastrozole 1 mg daily. She returns in 2 months, at which time she will be due for her next Prolia injection. In the meantime, she is given instructions for a bowel regimen with senna/docusate, and she is advised to take Correctol only as needed. Signed By: Remigio Ledbetter M.D. <<Signature on File>>
== END 2020-05-15 12:28 | disposition home or self-care (01) ==
LOC: ONCMED 12:41
PROVIDERS: Family Provider Nurse Practitioner; PCP Nurse Practitioner; Visit Provider Internal Medicine Medical Oncology
DX: C50.812 Malignant neoplasm of overlapping sites of left female breast (principal); C50.811 Malignant neoplasm of overlapping sites of right female breast; Z17.0 Estrogen receptor positive status [ER+]; Z79.811 Long term (current) use of aromatase inhibitors; Z85.42 Personal history of malignant neoplasm of other parts of uterus; I10 Essential (primary) hypertension; E78.5 Hyperlipidemia, unspecified; E11.9 Type 2 diabetes mellitus without complications; E05.90 Thyrotoxicosis, unspecified without thyrotoxic crisis or storm; J44.9 Chronic obstructive pulmonary disease, unspecified; G47.33 Obstructive sleep apnea (adult) (pediatric); K21.9 Gastro-esophageal reflux disease without esophagitis; M19.90 Unspecified osteoarthritis, unspecified site; M47.9 Spondylosis, unspecified; F41.9 Anxiety disorder, unspecified; Z86.73 Personal history of transient ischemic attack (TIA), and cerebral infarction without residual deficits; Z86.19 Personal history of other infectious and parasitic diseases; Z86.69 Personal history of other diseases of the nervous system and sense organs
CPT/HCPCS: 99214

== ENCOUNTER 2020-05-18 15:10 | Outpatient (CLI) | payer MEDICARE, MEDICAID, SELFPAY ==
--- NOTE | 2020-05-18 15:17 | US_ITS ---
WS: [id number] ULTRASOUND SOFT TISSUES bilateral neck. HISTORY: ENLARGED LYMPH NODES COMPARISON: None available. TECHNIQUE: 2-D and color Doppler imaging is submitted. Ultrasound is directed along the cervical chains. No enlarged lymph nodes are identified. No solid or cystic masses. Normal soft tissue. US/US soft tissue head neck [id number] IMPRESSION: Normal neck soft tissues. No adenopathy.
== END 2020-05-18 15:11 | disposition home or self-care (01) ==
LOC: RAD 15:15
PROVIDERS: PCP Nurse Practitioner; Visit Provider Nurse Practitioner
DX: R59.1 Generalized enlarged lymph nodes (principal)
CPT/HCPCS: 76536

== ENCOUNTER 2020-07-17 10:37 | Outpatient (CLI) | payer MEDICARE, MEDICAID, SELFPAY ==
[2020-07-17] MEDS: denosumab 60 mg SDV SUBCUT (11:39)
--- NOTE | 2020-07-17 18:42 | ONC FU_ITS ---
Dr. Ledbetter Patient Follow-Up Note Patient: Deborah Mchugh Unit #: [id number]: [id number] Dicatated By: Remigio Ledbetter M.D.Date of Visit:Jul 17, 2020 Onc Med Follow-up/Prog Note Chief Complaint: Breast cancer. History of Present Illness: This is a 70 year-old woman with multifocal, bilateral invasive breast cancer, ER/NY positive and HER-2/shelia negative. 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 She had complete surgical resection with sigmoid colectomy and omentectomy in July 2003, and she was then given adjuvant chemotherapy with 6 cycles of carboplatin/Taxotere, completed in January 2004. She has had no recurrence of either malignancy. I had last seen her for follow-up in April 2014. She has multiple underlying medical illnesses including hypertension, hyperlipidemia, type II diabetes, hyperthyroidism, COPD, obstructive sleep apnea, GERD, osteoporosis, degenerative arthritis/degenerative disease of the spine, and chronic anxiety. She has a history of depression, history of multiple strokes, and a history of ocular histoplasmosis. In 2013 she had developed nonhealing abdominal wall ulcerations in association with cellulitis which had developed following a prolonged episode of colitis. She had multiple hospitalizations during that time and she required surgical debridement, but it eventually resolved. She had presented to [facility] with a palpable mass in the right breast. Bilateral diagnostic mammogram/ultrasound on 09/24/2019 showed a 16.2 mm nodule at the 12 o'clock position corresponding to the palpable mass. An additional mass was present in the posterior central right breast measured 10 mm. A 14 mm nodule was noted in the central left breast just inferior to the nipple and an additional 7 mm nodule is noted in the medial left breast. The right breast ultrasound showed a hypoechoic nodule at the 12 o'clock position measuring 15 x 16 mm, a superficial hypoechoic mass measuring 5 x 3 mm at the 6 o'clock position, an additional hypoechoic masses at 11:00 measuring 8 x 5 mm and at 7:00 measuring 11 mm. The left breast ultrasound showed a 16 x 6 mm mass at 6:00, a 5 x 5 mm hypoechoic mass at 11:00 and an additional adjacent smaller nodule. The findings were BI-RADS 5, highly suggestive of malignancy. She underwent ultrasound guided biopsies of the left breast 10:00 and 6:00 lesions and of the right breast 12:00 lesion. Pathology of the left breast at 6:00 showed fibrocystic changes with no malignancy identified. The left breast 10:00 lesion showed grade 2 invasive ductal carcinoma which was ER positive at 97% and NY positive at 91%. The HER-2/shelia was 2+ by IHC but negative by FISH with amplification ratio 1.1 and 2.0 HER-2 copies/cell. The Ki-67 was favorable at 5%. The right breast 12:00 lesion also showed grade 2 invasive ductal carcinoma. It was ER positive at 96% and NY positive at 97%. HER-2/shelia was 2+ by IHC but negative by FISH with amplification ratio 1.4 and 3.9 HER-2 copies/cell. The KI 67 was intermediate at 14%. She was seen here on 12/31/2019 for further management of the breast cancer. Given her numerous underlying medical illnesses and high risk for any further surgical procedures, we opted to limit treatment to a trial of hormonal therapy with anastrozole 1 mg daily. She is seen for a follow-up visit. She has been feeling okay. Her main complaint is that she continues to have significant pain, mainly in the arms, shoulders, and legs. She does not feel that it is particularly worse, but it is not managed adequately with her current medication. She has very limited activity. She is nonambulatory. ECOG score is 3. She has good appetite and she has gained weight. She does not have fever, night sweats, or hot flashes. She says her breathing is pretty good on oxygen. She does not complain of cough, and she has not been having chest pain. She sometimes has nausea at night. She has had constipation, but lately her bowel function has been better. She has no complaints. She does not have headache or dizziness. She has numbness in the right leg. She says it keeps getting worse. Medications: Allopurinol 1 Tablet (of 100 mg) Oral daily, Anastrozole 1 Tablet (of 1 mg) Oral daily, fentaNYL 1 Patch(es) (of 25 mcg/hr) Patch 72 Hr Transdermal q 72 hours, FLUoxetine HCl 1 Capsule (of 10 mg) Oral daily, Furosemide 1.5 Tablet (of 40 mg) Oral daily, Gemfibrozil 600 mg - Take 1 Tablet Oral b.i.d., Hydrocodone-Acetaminophen 10-325 mg - Take 1 Tablet Oral q 4 hours PRN, Levothyroxine Sodium 1 Tablet (of 50 mcg) Oral daily, Lisinopril 1 Tablet (of 2.5 mg) Oral daily, metOLazone 1 Tablet (of 5 mg) Oral daily, Nitrolingual 1 Tablet (of 0.4 mg/spray) Solution Translingual PRN, OLANZapine 1 Tablet (of 5 mg) Oral at bedtime, Pantoprazole Sodium 40 mg - Take 1 Tablet, enteric coated Oral daily, Potassium Chloride ER 1 Tablet (of 20 meq) Tablet, controlled release Oral b.i.d., rOPINIRole HCl 2 Tablet (of 0.5 mg) Oral at bedtime Allergies: teramycin, dilaudid, tagement, tape, morphine, colchine, allopurinol, Review of Systems: Constitutional - She has very limited activity due to pain. She has been mainly sedentary at home. Her appetite is good. She has gained weight. No fever, night sweats, or hot flashes. ECOG score is 3, ENMT - She has a little sinus drainage. No mouth sores. No sore throat or difficulty swallowing, Hematologic/Lymphatic - No abnormal bruising or bleeding, Respiratory - She has shortness of breath, and she wears continuous oxygen. No cough. No pleuritic pain or hemoptysis, Cardiovascular - No angina pain. No palpitations. She has chronic swelling in her legs, Gastrointestinal - She sometiimes has nausea at night. No heartburn or acid reflux. No diarrhea. She is taking Senna-S for constipation. No blood in the stool or black stools, Genitourinary (F) - No dysuria or hematuria. No urinary frequency. No urgency or incontinence, Musculoskeletal - She is having significant pain in her arms, shoulders, and legs. This is not controlled with her current pain regimen, Neurologic - No headache or dizziness. She has numbness and tingling in her right leg. It has worsened. No other focal neurologic symptoms, Psychiatric - She has depression. No insomnia. Vital Signs: Performed on Jul 17, 2020 11:03 Height - 64.00 in Weight - 282.0 lbs (HIGH) BSA - 2.26 sq.m BMI - 48.41 (HIGH) Temperature - 97.3 F (LOW) Pulse - 77 /min Respiration - 24 /min BP - 114/54 mm(hg) O2 Sat - 92 % (LOW) Pain - 7 Physical Examination: Constitutional - She has very limited mobility. , Eyes - Sclerae nonicteric. Conjunctivae clear, ENMT - No lesions noted in the oral cavity, Hematologic/Lymphatic - No cervical or clavicular adenopathy, Respiratory - Lungs sound clear, Cardiovascular - Heart rhythm is regular. There is no murmur, gallop, or rub noted, Breasts - There are no breast masses noted. There is no axillary adenopathy, Abdomen - Moderately distended. Liver and spleen are not enlarged. There is no abdominal mass or ascites noted and there is no inguinal adenopathy, Extremities - There is 2+ lower extremity edema. It appears chronic, Neurologic - No focal neurologic deficits noted. Lab/Imaging: She recently had lab studies done by [facility], and those results are pending. Impression: 1. Patient with bilateral breast cancer, both grade 2 invasive ductal carcinoma, ER/NY positive and HER-2/shelia negative. She did not have complete staging. By imaging her disease appeared to be multifocal in both breasts. 2. Due to her multiple underlying medical illnesses and comorbidities she was felt to be a very high risk for any type of general anesthesia, and her further treatment was limited to tiral of hormonal therapy with anastrozole 1 mg daily, which she started in December 2019. 3. Her baseline DEXA scan on 05/17/2019 showed evidence of osteoporosis with T score -1.8 in the lumbar spine and -3.6 in the right proximal femur. She began treatment with Prolia on 01/11/2020. 4. In July 2003 she underwent exploratory laparotomy with sigmoid colon resection and omentectomy for metastatic adenocarcinoma, clinically consistent with primary peritoneal carcinoma. She had complete resection of gross disease with the surgery, following which she was given adjuvant chemotherapy with 6 cycles of carboplatin/docetaxel, completed in January 2004. She has had no evidence of recurrence. 5. In 1978 she underwent hysterectomy/bilateral salpingo-oophorectomy for endometrial cancer. Her other medical illnesses include: 6. Hypertension. 7. Hyperlipidemia. 8. Type 2 diabetes. 9. Hyperthyroidism. 10. History of prior strokes. 11. COPD. 12. Obstructive sleep apnea. 13. GERD. 14. Degenerative arthritis/degenerative disease of the spine. 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 16. Chronic anxiety. 17. History of depression. 18. She has a history of abdominal wall cellulitis with nonhealing skin ulcerations. She began hormonal therapy with anastrozole 1 mg daily in December 2019. By clinical evaluation she appears to be showing a good response. She also appears to be tolerating it well, though it is somewhat difficult to determine to what extent it may be contributing to her pain. She has no other obvious side effects with it. Plan: She continues hormonal therapy with anastrozole 1 mg daily. She will be given Prolia 60 mg by subcutaneous injection for the osteoporosis. I will see her again in 6 months. In the meantime, she will increase her fentanyl dosage to 50 mcg/h. She continues hydrocodone/APAP as needed. Signed By: Remigio Ledbetter M.D. <<Signature on File>>
== END 2020-07-17 10:38 | disposition home or self-care (01) ==
LOC: ONCMED 10:40
PROVIDERS: PCP Nurse Practitioner; Visit Provider Internal Medicine Medical Oncology
DX: C50.811 Malignant neoplasm of overlapping sites of right female breast (principal); C50.812 Malignant neoplasm of overlapping sites of left female breast; Z17.0 Estrogen receptor positive status [ER+]; M81.0 Age-related osteoporosis without current pathological fracture; I10 Essential (primary) hypertension; Z85.89 Personal history of malignant neoplasm of other organs and systems; E78.5 Hyperlipidemia, unspecified; E11.9 Type 2 diabetes mellitus without complications; E05.90 Thyrotoxicosis, unspecified without thyrotoxic crisis or storm; Z86.73 Personal history of transient ischemic attack (TIA), and cerebral infarction without residual deficits; J44.9 Chronic obstructive pulmonary disease, unspecified; G47.33 Obstructive sleep apnea (adult) (pediatric); K21.9 Gastro-esophageal reflux disease without esophagitis; M19.90 Unspecified osteoarthritis, unspecified site; M47.9 Spondylosis, unspecified; B39.9 Histoplasmosis, unspecified; F41.9 Anxiety disorder, unspecified; F32.9 Major depressive disorder, single episode, unspecified; Z79.811 Long term (current) use of aromatase inhibitors
CPT/HCPCS: 96372; 99214; J0897

== ENCOUNTER 2021-01-17 12:39 | Outpatient (CLI) | payer MEDICARE, MEDICAID, SELFPAY ==
[2021-01-17 13:15] LABS: Basophils % 0.4 %; Eosinophils # 0.1 10^3/uL (0.0-0.8); Eosinophils % 1.2 %; Hematocrit 33.7 % (37.0-47.0); Hemoglobin 10.3 g/dL (11.5-15.3); Lymphocytes # 1.4 10^3/uL (0.8-4.8); Lymphocytes % 16.4 %; Mean Corpuscular HGB Conc 30.6 g/dL (30.0-36.0); Mean Corpuscular Hemoglobin 29.6 pg (28.0-34.0); Mean Corpuscular Volume 96.8 fL (81-99); Mean Platelet Volume 9.8 fL (7.4-10.4); Monocytes # 0.7 10^3/uL (0.2-0.9); Monocytes % 8.4 %; Neutrophils # 6.06 10^3/uL (1.8-7.7); Neutrophils % 73.4 %; Nucleated Red Blood Cells % 0 %; Platelet Count 378 10^3/cmm (130-400); Red Blood Count 3.48 10^6/uL (4.1-5.3); White Blood Count 8.3 10^3/uL (4.0-10.0)
[2021-01-17 13:51] LABS: 25 Hydroxy Vitamin D 30 ng/mL (30-100); Alanine Aminotransferase < 5 U/L (0-33); Albumin Level 3.8 g/dL (3.5-5.2); Alkaline Phosphatase 120 IU/L (35-105); Anion Gap 13.5 (5-19); Aspartate Amino Transferase 10 U/L (0-32); Blood Urea Nitrogen 26 mg/dL (8-23); Carbon Dioxide 27 mmol/L (22-29); Chloride 99 mmol/L (98-107); Globulin 3.1 g/dL (1.3-4.6); Glucose 101 mg/dL (65-115); Osmolality Calculated 285 mOsm/kg (285-295); Potassium 4.5 mmol/L (3.5-5.1); Sodium 135 mmol/L (136-145); Total Bilirubin 0.2 mg/dL (0.15-1.2); Total Protein 6.9 g/dL (6.6-8.7)
[2021-01-17] MEDS: denosumab 60 mg SDV SUBCUT (14:50)
[2021-01-18 16:20] LABS: Iron 62 ug/dL (37-145); Percent Saturation 23.4 % (20-50); Total Iron Binding Capacity 264 mcg/dl; Unsaturated Iron Binding 202 ug/dL (112-347)
[2021-01-18 16:37] LABS: Vitamin B12 339 pg/mL (232-1245)
--- NOTE | 2021-01-20 16:44 | ONC FU_ITS ---
Dr. Ledbetter Patient Follow-Up Note Patient: Deborah Mchugh Unit #: [id number]: [id number] Dicatated By: Remigio Ledbetter M.D.Date of Visit:Jan 17, 2021 Onc Med Follow-up/Prog Note Chief Complaint: Breast cancer. History of Present Illness: This is a 70 year-old woman with multifocal, bilateral invasive breast cancer, ER/NY positive and HER-2/shelia negative. 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 She had complete surgical resection with sigmoid colectomy and omentectomy in July 2003, and she was then given adjuvant chemotherapy with 6 cycles of carboplatin/Taxotere, completed in January 2004. She has had no recurrence of either malignancy. I had last seen her for follow-up in April 2014. She has multiple underlying medical illnesses including hypertension, hyperlipidemia, type II diabetes, hyperthyroidism, COPD, obstructive sleep apnea, GERD, osteoporosis, degenerative arthritis/degenerative disease of the spine, and chronic anxiety. She has a history of depression, history of multiple strokes, and a history of ocular histoplasmosis. In 2013 she had developed nonhealing abdominal wall ulcerations in association with cellulitis which had developed following a prolonged episode of colitis. She had multiple hospitalizations during that time and she required surgical debridement, but it eventually resolved. She had presented to [facility] with a palpable mass in the right breast. Bilateral diagnostic mammogram/ultrasound on 09/24/2019 showed a 16.2 mm nodule at the 12 o'clock position corresponding to the palpable mass. An additional mass was present in the posterior central right breast measured 10 mm. A 14 mm nodule was noted in the central left breast just inferior to the nipple and an additional 7 mm nodule is noted in the medial left breast. The right breast ultrasound showed a hypoechoic nodule at the 12 o'clock position measuring 15 x 16 mm, a superficial hypoechoic mass measuring 5 x 3 mm at the 6 o'clock position, an additional hypoechoic masses at 11:00 measuring 8 x 5 mm and at 7:00 measuring 11 mm. The left breast ultrasound showed a 16 x 6 mm mass at 6:00, a 5 x 5 mm hypoechoic mass at 11:00 and an additional adjacent smaller nodule. The findings were BI-RADS 5, highly suggestive of malignancy. She underwent ultrasound guided biopsies of the left breast 10:00 and 6:00 lesions and of the right breast 12:00 lesion. Pathology of the left breast at 6:00 showed fibrocystic changes with no malignancy identified. The left breast 10:00 lesion showed grade 2 invasive ductal carcinoma which was ER positive at 97% and NY positive at 91%. The HER-2/shelia was 2+ by IHC but negative by FISH with amplification ratio 1.1 and 2.0 HER-2 copies/cell. The Ki-67 was favorable at 5%. The right breast 12:00 lesion also showed grade 2 invasive ductal carcinoma. It was ER positive at 96% and NY positive at 97%. HER-2/shelia was 2+ by IHC but negative by FISH with amplification ratio 1.4 and 3.9 HER-2 copies/cell. The KI 67 was intermediate at 14%. She was seen here on 12/31/2019 for further management of the breast cancer. Given her numerous underlying medical illnesses and high risk for any further surgical procedures, we opted to limit treatment to a trial of endocrine therapy with anastrozole 1 mg daily. She is seen for a follow-up visit. She complains that she has been sleepy a lot and that she can hardly stay awake. She has limited activity, as before. Her ECOG score is 3. Her appetite is not too good. She does not have fever. She does complain that she sweats a lot. She also complains that her whole body aches. The most significant pain is in her shoulders and arms. She also has pain in her neck and back. She has been itching all over. She broke out in a rash a couple of weeks ago. The distribution was limited to the upper back on the left side and the left arm, I suspect it was herpes zoster. She is sometimes short of breath, but she says her breathing is pretty good. She has nonproductive cough. She does not complain of chest pain. She has nausea and she has constipation. Her acid reflux symptoms are adequately managed with medication. Bladder function has been okay. She has headache and she has dizziness. She has tingling in her hands and feet. Medications: Allopurinol 1 Tablet (of 100 mg) Oral daily, Anastrozole 1 Tablet (of 1 mg) Oral daily, fentaNYL 1 Patch(es) (of 25 mcg/hr) Patch 72 Hr Transdermal q 72 hours, FLUoxetine HCl 1 Capsule (of 10 mg) Oral daily, Furosemide 1.5 Tablet (of 40 mg) Oral daily, Gemfibrozil 600 mg - Take 1 Tablet Oral b.i.d., Hydrocodone-Acetaminophen 10-325 mg - Take 1 Tablet Oral q 4 hours PRN, Levothyroxine Sodium 1 Tablet (of 50 mcg) Oral daily, Lisinopril 1 Tablet (of 2.5 mg) Oral daily, metOLazone 1 Tablet (of 5 mg) Oral daily, Nitrolingual 1 Tablet (of 0.4 mg/spray) Solution Translingual PRN, OLANZapine 1 Tablet (of 5 mg) Oral at bedtime, Pantoprazole Sodium 40 mg - Take 1 Tablet, enteric coated Oral daily, Potassium Chloride ER 1 Tablet (of 20 meq) Tablet, controlled release Oral b.i.d., rOPINIRole HCl 2 Tablet (of 0.5 mg) Oral at bedtime Allergies: teramycin, dilaudid, tagement, tape, morphine, colchine, allopurinol, Vital Signs: Performed on Jan 17, 2021 14:04 Height - 64.00 in Temperature - 97.5 F (LOW) Pulse - 70 /min Respiration - 18 /min BP - 111/76 mm(hg) O2 Sat - 91 % (LOW) Pain - 7 Fatigue - 8 Physical Examination: Constitutional - She appears generally weak and she has very limited mobility. , Eyes - Sclerae nonicteric. Conjunctivae clear, ENMT - No lesions noted in the oral cavity, Hematologic/Lymphatic - No cervical or clavicular adenopathy, Respiratory - Lungs sound clear, Cardiovascular - Heart rhythm is regular. There is no murmur, gallop, or rub noted, Breasts - There are no breast masses noted. There is no axillary adenopathy, Abdomen - Moderately distended. Liver and spleen are not enlarged. There is no abdominal mass or ascites noted and there is no inguinal adenopathy, Extremities - There is chronic lower extremity edema, worse on the right. There are purpuric lesions on both arms, Neurologic - No focal neurologic deficits noted. Lab/Imaging: Test performed on Jan 17, 2021 12:58 Iron 62 mcg/dL Sodium 135 mmol/L Vitamin B12 339 pg/mL Vitamin D (25-Hydroxy), Total 30 ng/mL Iron Binding Capacity (TIBC) 264 mcg/dl Potassium 4.5 mmol/L % Iron Saturation 23.4 % Chloride 99 mmol/L CO2 27 mmol/L UIBC 202 mcg/dL Anion Gap 13.5 BUN 26 mg/dL Creatinine 1.1 mg/dL Cr Clearance (Est) 93.3500 mL/min Glucose 101 mg/dL Osmolality - Calculated 285 mOsm/kg Calcium 10.0 mg/dL Protein, Total 6.9 g/dL Albumin 3.8 g/dL Globulin 3.1 g/dL Bilirubin, Total 0.2 mg/dL ALT (SGPT) < 5 U/L AST (SGOT) 10 U/L Alkaline Phosphatase 120 IU/L WBC 8.3 10 3/uL RBC 3.48 10 6/uL HGB 10.3 g/dL HCT 33.7 % MCV 96.8 fL MCH 29.6 pg MCHC 30.6 g/dL RDW 12.0 % Platelet Count 378 10 3/cmm MPV 9.8 fL Neutrophils 6.06 10 3/uL Lymphocytes 1.4 10 3/uL Monocytes 0.7 10 3/uL Eosinophils 0.1 10 3/uL Basophils 0.0 10 3/uL Neutrophil % 73.4 % Lymphocyte % 16.4 % Monocyte % 8.4 % Eosinophil % 1.2 % Basophils % 0.4 % NRBC % 0 % Problem List: 1. Patient with bilateral breast cancer, both grade 2 invasive ductal carcinoma, ER/NY positive and HER-2/shelia negative. She did not have complete staging. By imaging her disease appeared to be multifocal in both breasts. 2. Due to her multiple underlying medical illnesses and comorbidities she was felt to be a very high risk for any type of general anesthesia, and her further treatment was limited to tiral of endocrine therapy with anastrozole 1 mg daily, which she started in December 2019. 3. Her baseline DEXA scan on 05/17/2019 showed evidence of osteoporosis with T score -1.8 in the lumbar spine and -3.6 in the right proximal femur. She began treatment with Prolia on 01/11/2020. 4. In July 2003 she underwent exploratory laparotomy with sigmoid colon resection and omentectomy for metastatic adenocarcinoma, clinically consistent with primary peritoneal carcinoma. She had complete resection of gross disease with the surgery, following which she was given adjuvant chemotherapy with 6 cycles of carboplatin/docetaxel, completed in January 2004. She has had no evidence of recurrence. 5. In 1978 she underwent hysterectomy/bilateral salpingo-oophorectomy for endometrial cancer. 6. Hypertension. 7. Hyperlipidemia. 8. Type 2 diabetes. 9. Hyperthyroidism. 10. History of prior strokes. 11. COPD. 12. Obstructive sleep apnea. 13. GERD. 14. Degenerative arthritis/degenerative disease of the spine. 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 16. Chronic anxiety. 17. History of depression. 18. She has a history of abdominal wall cellulitis with nonhealing skin ulcerations. Problems Addressed with this Encounter and Plan: 1. Patient with bilateral breast cancer, both grade 2 invasive ductal carcinoma, ER/NY positive and HER-2/shelia negative. She did not have complete staging. By imaging her disease appeared to be multifocal in both breasts. Due to her multiple underlying medical illnesses and comorbidities she was felt to be a very high risk for any type of general anesthesia, and her further treatment was limited to tiral of endocrine therapy with anastrozole 1 mg daily, which she started in December 2019. By clinical exam, she does appear to have had a good response to the anastrozole. However, she comes in now with significant worsening of her musculoskeletal pain. I suspect at least some component of this is due to the anastrozole. As such, I will have her stop treatment. She will be scheduled for a follow-up visit in 1 month. 2. Her baseline DEXA scan on 05/17/2019 showed evidence of osteoporosis with T score -1.8 in the lumbar spine and -3.6 in the right proximal femur. She began treatment with Prolia in December 2019. She also had evidence of vitamin D deficiency, for which she has on replacement therapy. Signed By: Remigio Ledbetter M.D. <<Signature on File>>
== END 2021-01-17 12:40 | disposition home or self-care (01) ==
LOC: ONCMED 12:44
PROVIDERS: PCP Nurse Practitioner; Visit Provider Internal Medicine Medical Oncology
DX: C50.811 Malignant neoplasm of overlapping sites of right female breast (principal); C50.812 Malignant neoplasm of overlapping sites of left female breast; C48.1 Malignant neoplasm of specified parts of peritoneum; D64.9 Anemia, unspecified; M81.0 Age-related osteoporosis without current pathological fracture; I10 Essential (primary) hypertension; E78.5 Hyperlipidemia, unspecified; E11.9 Type 2 diabetes mellitus without complications; Z85.038 Personal history of other malignant neoplasm of large intestine; Z17.0 Estrogen receptor positive status [ER+]; Z79.811 Long term (current) use of aromatase inhibitors
CPT/HCPCS: 80053; 82306; 82607; 83540; 83550; 85025; 96372; 99214; J0897

== ENCOUNTER 2021-02-08 14:05 | Emergency (ER) | payer MEDICARE, MEDICAID, SELFPAY ==
[2021-02-08 14:08] VITALS: BP 141/68; PULSE 75; RESP 18; TEMP 37; O2SAT 97; BMI 34.3
--- NOTE | 2021-02-08 14:16 | CTR_ITS ---
PROCEDURE INFORMATION: Exam: CT Chest With Contrast; Diagnostic Exam date and time: 02/08/2021 2:20 PM Age: 70 years old Clinical indication: Injury or trauma; Fall; Generalized; Blunt trauma (contusions or hematomas); Prior surgery; Surgery type: Gb, hyst, appy; Additional info: Fall, chest pain, abd pain, back pain, hip pain TECHNIQUE: Imaging protocol: Diagnostic computed tomography of the chest with contrast. Radiation optimization: All CT scans at this facility use at least one of these dose optimization techniques: automated exposure control; mA and/or kV adjustment per patient size (includes targeted exams where dose is matched to clinical indication); or iterative reconstruction. Contrast material: VISI 320; Contrast volume: 95 ml; Contrast route: INTRAVENOUS (IV); COMPARISON: CT abdomen pelvis w con* [id number] 05/07/2019 11:08 PM RADIATION DOSE METRICS: Total DLP (mGy-cm): 3111.67 FINDINGS: Lungs: The calcified granuloma in the lateral right upper lobe. No pulmonary hemorrhage. No pulmonary consolidation. No endobronchial lesion. Pleural spaces: Unremarkable. No pneumothorax. No pleural effusion. Heart: Unremarkable. No cardiomegaly. No pericardial effusion. Mediastinal space: Numerous small calcified granulomas in the mediastinum. [place] no mediastinal lymphadenopathy. Aorta: Unremarkable. No aortic aneurysm. Lymph nodes: Multiple small granulomatous lymph nodes in the upper abdomen. Liver: Numerous calcified granulomas in the liver. Spleen: Numerous calcified granulomas in the spleen. Bones/joints: The severe arthritis bilateral shoulders worse on right than left. Bones are diffusely demineralized. Partial visualization of lower cervical spine ACDF. Negative for acute thoracic fracture. Thoracic spinal alignment is anatomic. Soft tissues: Unremarkable. IMPRESSION: No acute thoracic injury. PROCEDURE INFORMATION: Exam: CT Abdomen And Pelvis With Contrast Exam date and time: 02/08/2021 2:20 PM Age: 70 years old Clinical indication: Injury or trauma; Fall; Generalized; Blunt trauma (contusions or hematomas); Prior surgery; Surgery type: Gb, hyst, appy; Additional info: Fall, chest pain, abd pain, back pain, hip pain TECHNIQUE: Imaging protocol: Computed tomography of the abdomen and pelvis with contrast. Radiation optimization: All CT scans at this facility use at least one of these dose optimization techniques: automated exposure control; mA and/or kV adjustment per patient size (includes targeted exams where dose is matched to clinical indication); or iterative reconstruction. Contrast material: VISI 320; Contrast volume: 95 ml; Contrast route: INTRAVENOUS (IV); COMPARISON: CT abdomen pelvis w con* [id number] 05/07/2019 11:08 PM RADIATION DOSE METRICS: Total DLP (mGy-cm): 3111.67 FINDINGS: Liver: Granulomas in the liver. No liver mass. No liver laceration. Gallbladder and bile ducts: Cholecystectomy. No ductal dilation. Pancreas: Mild fatty atrophy of pancreas. No laceration injury. Spleen: Granulomas in the spleen. No splenic injury. No splenomegaly. Adrenal glands: Normal. No mass. Kidneys and ureters: Atrophic renal parenchyma. No hydronephrosis. No renal laceration injury. Within the anterior interpolar renal sinus area of the right kidney is a nodular soft tissue density area measuring 15 mm greatest transverse diameter; 12 mm on comparison 05/07/2019. This may represent normal renal parenchyma, however given its somewhat rounded conspicuous appearance a small mass cannot be excluded. Stomach and bowel: No inflammatory changes of bowel loops. No features of obstruction or perforation. Appendix: No evidence of appendicitis. Intraperitoneal space: Negative for hemoperitoneum. Negative for pneumoperitoneum. Vasculature: Unremarkable. No abdominal aortic aneurysm. Scattered atherosclerotic wall plaque. No dissection. No active bleeding. Lymph nodes: Unremarkable. No enlarged lymph nodes. Urinary bladder: Unremarkable as visualized. Reproductive: Hysterectomy. Bones/joints: No pelvic fractures. Partial visualization of a surgical plate on the lateral side of the proximal left femur. Lumbar spinal alignment is anatomic. Diffuse spondyloarthropathy of lumbar spine. No acute compression fracture. Soft tissues: Small right paramedian periumbilical ventral abdominal wall hernia. CT/CT chest abd pel w con* IMPRESSION: 1. No acute injuries in the abdomen or pelvis. 2. No acute abdominopelvic pathology. 3. Cannot exclude a small nodular right renal anterior interpolar sinus region mass. This is most likely normal renal parenchyma, but there is subtle changes in size from the comparison which is possibly related to slice selection but consideration for follow-up CT scan in 1 year recommended to confirm stability. Radiation Dose CTDIVOL = (mGy): DLP = 3111.67~3111.67 (mGy-cm)
--- NOTE | 2021-02-08 14:16 | XR_ITS ---
WS: [id number] XR shoulder RT min 2V* [id number] REASON FOR EXAM: fall, shoulder pain. FINDINGS: Severe deformity of the glenohumeral articulation secondary to old healed fracture of the surgical ne ck. Severe narrowing of the glenohumeral joint superiorly. Hypertrophic reactive bone. No definite findings of an acute fracture are identified. 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 No definite findings for acute fracture.
--- NOTE | 2021-02-08 14:29 | W.ED.BACK ---
HPI - Back Pain/Injury General: Chief Complaint: Back Pain/Injury Stated Complaint: FALL Time Seen by Provider: 02/08/21 14:05 Source: patient and EMS Mode of arrival: EMS Limitations: no limitations History of Present Illness: HPI Narrative: Patient is a 70-year-old female who is legally blind and who fell when she got out of her bed and try to get onto her bedside commode. She denies hitting her head or losing consciousness. She complains of pain in her back and her left shoulder. She also complains of chest pain and abdominal pain from the fall. MD elicited complaint: back pain, back injury and fall Onset (ago): hour(s) (1) Timing: constant Severity: severe Pain scale (0-10): 9 Similar Symptoms Previously: No Quality: sharp Location: lumbar spine Radiation: none Exacerbating factors: movement Relieving factors: none Context: fall Associated symptoms: Reports abdominal pain and myalgias; Deny arthralgias, chills, change in bowel habits, difficulty walking, dysuria, fatigue, fecal incontinence, fever(s), hematuria, nausea, numbness, syncope, tingling/numbness/burning, urinary frequency, urinary urgency, vomiting or weakness Review of Systems General: Reports: 10 or more systems reviewed and unremarkable except in HPI and below Const: Denies: fever(s), chills or fatigue Eyes: Denies: change in vision or blurry vision ENMT: Denies: throat pain, enlarged tonsils, odynophagia, hoarseness, mouth pain or swelling of lips/tongue Card: Denies: syncope Resp: Denies: dyspnea, productive cough or non-productive cough GI: Reports: abdominal pain; Denies: nausea, vomiting, fecal incontinence or change in bowel habits : Denies: dysuria, urinary urgency or hematuria Musc: Denies: neck pain, back pain or extremity swelling Skin/Breast: Denies: rash, pruritus or erythema Neuro: Denies: difficulty walking Endo: Denies: polyuria, polydipsia or tired all the time PFS ED PFSH: Medical History Anxiety COPD (chronic obstructive pulmonary disease) CVA (cerebral vascular accident) GERD (gastroesophageal reflux disease) Hyperlipidemia Hypertension Hyperthyroidism Morbid obesity ROSEMARIE (obstructive sleep apnea) Surgical History H/O cervical spine surgery H/O: hysterectomy History of bilateral breast biopsy History of cholecystectomy History of colon resection History of open reduction and internal fixation (ORIF) procedure left femur Status post right knee replacement Family History Grandfather Diabetes Maternal Grandmother Diabetes Maternal Kidney failure Maternal Grandmother Diabetes Paternal Grandfather Diabetes Paternal Family/Other Diabetes Aunt Mother , Age 99 Hypertension Cancer Leukemia Father Myocardial infarction Hypertension Brother Hypertension Cancer Prostate Denies family history of Anesthesia complication Bleeding disorder Social History Smoking and tobacco status: current every day smoker cigarettes [ Other cigarette details: 11/27-11/25 PPD ] Alcohol intake: never Lives independently: Yes Household members: spouse Marital status: Current occupational status: disabled History of recent travel: No Physical Exam Const: COMMON NORMALS: no acute distress, average body habitus, patient oriented x3, no limitations, healthy appearing, alert and well nourished HENMT: COMMON NORMALS: normocephalic, atraumatic and moist oral mucous membranes HEAD & SCALP: normocephalic and atraumatic Neck/C-Spine: COMMON NORMALS: full ROM, supple, no meningeal signs, no JVD and No carotid bruits Chest: COMMONS NORMALS: normal inspection of the chest CHEST: Yes tenderness (diffuse chest tenderness) Resp: COMMON NORMALS: normal respiratory effort, No retractions, No use of accessory muscles, clear to auscultation bilaterally and percussion normal AUSCULTATION: clear to auscultation bilaterally PERCUSSION: percussion normal Cardio: COMMON NORMALS: no JVD, regular rate, regular rhythm, S1 normal heart sound present, S2 normal heart sound present, No gallops present (Cardio), No clicks present (Cardio), No murmurs present (Cardio), No rub (Cardio) and Peripheral pulses 2+ throughout RATE: regular rate RHYTHM: regular rhythm HEART SOUNDS: S1 normal heart sound present and S2 normal heart sound present PERIPHERAL PULSES: Peripheral pulses 2+ throughout GI: COMMON NORMALS: Normal to inspection, nondistended, normoactive bowel sounds present, Soft to palpation, No hepatosplenomegaly present, no masses and no bruits PALPATION: Yes Soft to palpation, Yes Tenderness to palpation present (GI) and Yes No hepatosplenomegaly present : COMMON NORMALS: Yes no CVA tenderness BLADDER/KIDNEY EXAM: Yes no CVA tenderness Back/Pelvis: COMMON NORMALS: no CVA tenderness Extremity: COMMON NORMALS: normal to inspection, full ROM, capillary refill normal, no calf tenderness and no pedal edema Neuro: COMMON NORMALS: patient oriented x3 SENSORIUM/ORIENTATION: Yes alert MENINGEAL SIGNS: Yes no meningeal signs Skin: COMMON NORMALS: no rashes or lesions noted, no wounds, turgor normal, no jaundice, no petechiae and no mottling GENERAL SKIN EXAM: no rashes or lesions noted and turgor normal Procedures EJ/Peripheral Line Arm L: Time Out Performed: Yes Skin Cleansed in Sterile Fashion: Yes Size (gauge): 20 IV Secured and Dressing Applied: Yes Patient Tolerated Procedure: well Additional Comments: The nurses had difficulty obtaining a peripheral IV on this patient including via ultrasound. I therefore attempted unsuccessfully obtained a peripheral IV is in the left cephalic vein at the first attempt with a 20-gauge IV catheter. Course Reevaluation(s): Reevaluation #1: Discussed imaging findings with her, negative for acute findings. We will discharge her home with no new orders. She voiced understanding and is in agreement with the plan. Time: 16:53 Vital Signs: Vital signs: Vital Signs Temperature 98.6 F 02/08/21 14:08 Pulse Rate 72 02/08/21 17:21 Respiratory Rate 24 H 02/08/21 17:21 Blood Pressure 141/68 02/08/21 14:08 Pulse Oximetry 98 02/08/21 17:21 MDM - Back Pain/Injury MDM Narrative: Medical decision making narrative: 70-year-old female patient who fell while trying to get on her bedside commode. She complained of back pain and abdominal and chest pain following the fall. Imaging done in the emergency department was negative for acute findings and she is discharged home with no new orders. She already has a prescription for fentanyl and hydrocodone. Medical Records: Attestation: I reviewed the patient's medical records. Imaging Data^: CT Abd/Pel: Attestation: I personally reviewed and interpreted this imaging study as follows: Radiologist's impression: [address] [place] [address] CT Scan Report Signed Patient: Deborah Mchugh #: [id number] : 8Acct#:[id number] Age/Sex: 70 / FADM Date: 02/08/21 Loc: ERRoom/Bed: Attending Dr: Ordering Provider/Ordering MD: Whitney Webb MD, [facility] [place] Date of Service: 02/08/21 Procedure(s): CT chest abd pel w con* Accession Number(s): [id number] Report Number: [id number] PROCEDURE INFORMATION: Exam: CT Chest With Contrast; Diagnostic Exam date and time: 02/08/2021 2:20 PM Age: 70 years old Clinical indication: Injury or trauma; Fall; Generalized; Blunt trauma (contusions or hematomas); Prior surgery; Surgery type: Gb, hyst, appy; Additional info: Fall, chest pain, abd pain, back pain, hip pain TECHNIQUE: Imaging protocol: Diagnostic computed tomography of the chest with contrast. Radiation optimization: All CT scans at this facility use at least one of these dose optimization techniques: automated exposure control; mA and/or kV adjustment per patient size (includes targeted exams where dose is matched to clinical indication); or iterative reconstruction. Contrast material: VISI 320; Contrast volume: 95 ml; Contrast route: INTRAVENOUS (IV); COMPARISON: CT abdomen pelvis w con* [id number] 05/07/2019 11:08 PM RADIATION DOSE METRICS: Total DLP (mGy-cm): 3111.67 FINDINGS: Lungs: The calcified granuloma in the lateral right upper lobe. No pulmonary hemorrhage. No pulmonary consolidation. No endobronchial lesion. Pleural spaces: Unremarkable. No pneumothorax. No pleural effusion. Heart: Unremarkable. No cardiomegaly. No pericardial effusion. Mediastinal space: Numerous small calcified granulomas in the mediastinum. [place] no mediastinal lymphadenopathy. Aorta: Unremarkable. No aortic aneurysm. Lymph nodes: Multiple small granulomatous lymph nodes in the upper abdomen. Liver: Numerous calcified granulomas in the liver. Spleen: Numerous calcified granulomas in the spleen. Bones/joints: The severe arthritis bilateral shoulders worse on right than left. Bones are diffusely demineralized. Partial visualization of lower cervical spine ACDF. Negative for acute thoracic fracture. Thoracic spinal alignment is anatomic. Soft tissues: Unremarkable. IMPRESSION: No acute thoracic injury. PROCEDURE INFORMATION: Exam: CT Abdomen And Pelvis With Contrast Exam date and time: 02/08/2021 2:20 PM Age: 70 years old Clinical indication: Injury or trauma; Fall; Generalized; Blunt trauma (contusions or hematomas); Prior surgery; Surgery type: Gb, hyst, appy; Additional info: Fall, chest pain, abd pain, back pain, hip pain TECHNIQUE: Imaging protocol: Computed tomography of the abdomen and pelvis with contrast. Radiation optimization: All CT scans at this facility use at least one of these dose optimization techniques: automated exposure control; mA and/or kV adjustment per patient size (includes targeted exams where dose is matched to clinical indication); or iterative reconstruction. Contrast material: VISI 320; Contrast volume: 95 ml; Contrast route: INTRAVENOUS (IV); COMPARISON: CT abdomen pelvis w con* [id number] 05/07/2019 11:08 PM RADIATION DOSE METRICS: Total DLP (mGy-cm): 3111.67 FINDINGS: Liver: Granulomas in the liver. No liver mass. No liver laceration. Gallbladder and bile ducts: Cholecystectomy. No ductal dilation. Pancreas: Mild fatty atrophy of pancreas. No laceration injury. Spleen: Granulomas in the spleen. No splenic injury. No splenomegaly. Adrenal glands: Normal. No mass. Kidneys and ureters: Atrophic renal parenchyma. No hydronephrosis. No renal laceration injury. Within the anterior interpolar renal sinus area of the right kidney is a nodular soft tissue density area measuring 15 mm greatest transverse diameter; 12 mm on comparison 05/07/2019. This may represent normal renal parenchyma, however given its somewhat rounded conspicuous appearance a small mass cannot be excluded. Stomach and bowel: No inflammatory changes of bowel loops. No features of obstruction or perforation. Appendix: No evidence of appendicitis. Intraperitoneal space: Negative for hemoperitoneum. Negative for pneumoperitoneum. Vasculature: Unremarkable. No abdominal aortic aneurysm. Scattered atherosclerotic wall plaque. No dissection. No active bleeding. Lymph nodes: Unremarkable. No enlarged lymph nodes. Urinary bladder: Unremarkable as visualized. Reproductive: Hysterectomy. Bones/joints: No pelvic fractures. Partial visualization of a surgical plate on the lateral side of the proximal left femur. Lumbar spinal alignment is anatomic. Diffuse spondyloarthropathy of lumbar spine. No acute compression fracture. Soft tissues: Small right paramedian periumbilical ventral abdominal wall hernia. CT/CT chest abd pel w con* IMPRESSION: 1. No acute injuries in the abdomen or pelvis. 2. No acute abdominopelvic pathology. 3. Cannot exclude a small nodular right renal anterior interpolar sinus region mass. This is most likely normal renal parenchyma, but there is subtle changes in size from the comparison which is possibly related to slice selection but consideration for follow-up CT scan in 1 year recommended to confirm stability. Radiation Dose CTDIVOL = (mGy): DLP = 3111.67~3111.67 (mGy-cm) Dictated By:Sorin Napoles Signed By:Sara Napolesigned Date/Time:02/08/211632 DD/ 163 Xray Ortho: Attestation: I personally reviewed and interpreted this imaging study as follows: Radiologist's impression: MARQUIS Isbell [id number] XRay Report Signed Patient: Deborah Mchugh #: [id number] : 8Acct#:[id number] Age/Sex: 70 / FADM Date: 02/08/21 Loc: ERRoom/Bed: Attending Dr: Ordering Provider/Ordering MD: Whitney Webb MD, [facility] [place] Date of Service: 02/08/21 Procedure(s): XR shoulder RT min 2V* [id number] Accession Number(s): [id number] Report Number: [id number] WS: [id number] XR shoulder RT min 2V* [id number] REASON FOR EXAM: fall, shoulder pain. FINDINGS: Severe deformity of the glenohumeral articulation secondary to old healed fracture of the surgical neck. Severe narrowing of the glenohumeral joint superiorly. Hypertrophic reactive bone. No definite findings of an acute fracture are identified. XR/XR shoulder RT min 2V* [id number] IMPRESSION: Old healed proximal humeral fracture with severe degenerative arthropathy in the right shoulder joint. No definite findings for acute fracture. Dictated By:Kris Shaw Jr, MD Signed By:Kris Shaw Jr MDSigned Date/Time:02/08/21 1502 DD/ 1454 Discharge Plan Discharge Patient Disposition: Home Clinical Impression: Fall Qualifiers: Encounter type: initial encounter Qualified Code(s): W19.XXXA - Unspecified fall, initial encounter Condition: Stable Prescriptions: Continued pantoprazole 20 mg tablet,delayed release (DR/EC) 20 mg PO BID@ RF: 0 ropinirole 0.5 mg tablet 0.5 mg PO TID RF: 0 gemfibrozil 600 mg tablet 600 mg PO BID@ RF: 0 docusate sodium [Colace] 100 mg capsule 200 mg PO DAILY@08 RF: 0 furosemide [Lasix] 40 mg tablet See Rx Instructions .ROUTE .COMPLEX RF: 0 simvastatin 40 mg tablet 40 mg PO BEDTIME RF: 0 Narcan 4 mg/actuation spray,non-aerosol See Rx Instructions .ROUTE .COMPLEX PRN (Reason: overdose) RF: 0 albuterol sulfate 2.5 mg /3 mL (0.083 %) solution for nebulization 2.5 mg INHALATION Q4H PRN (Reason: Shortness Of Breath) RF: 0 nitroglycerin [Nitrostat] 0.4 mg tablet, sublingual 0.4 mg SUBLINGUAL Q5M PRN (Reason: Chest Pain) RF: 0 fluoxetine 40 mg capsule 40 mg PO DAILY RF: 0 fentanyl 50 mcg/hr patch 72 hour 50 mcg transdermal Q72H RF: 0 hydrocodone-acetaminophen 10-325 mg tablet See Rx Instructions .ROUTE .COMPLEX RF: 0 potassium chloride 20 mEq tablet,ER particles/crystals 20 meq PO BID@ RF: 0 ibuprofen 200 mg Tablet 400 mg PO PRN RF: 0 hydroxyzine HCl 10 mg tablet See Rx Instructions .ROUTE .COMPLEX RF: 0 spironolactone 25 mg Tablet 25 mg PO DAILY RF: 0 ergocalciferol (vitamin D2) 1,250 mcg (50,000 unit) Capsule 50,000 unit PO Q30D RF: 0 lisinopril 2.5 mg Tablet 2.5 mg PO DAILY@08 RF: 0 anastrozole 1 mg tablet 1 mg PO DAILY@08 RF: 0 Discharge Orders: Discharge ED (Routine); Ordered 02/08/21 Ordered By: Whitney Webb Referrals: Lo Avalos [facility] [Primary Care Provider] - 1-3 days Discharge Diet: Usual diet Discharge Activity: Increase activity as tolerated Patient Instructions: Opioid Safety Activity Restrictions/Additional Instructions: Return for any new or worsening symptoms. Follow-up with your primary care provider within 3 days. Continue home medications. Your pain will probably get worse over the next few days before it starts to get better. Coding Level of Care Code ED Assistant Manager [employer] for [employer] Fwd Exam Comprehensive
[2021-02-08] MEDS: fentaNYL 50 mcg/mL INJ 2mL IVP (15:39)
[2021-02-08] MEDS: iodixanol 320 mg/mL 100mL Btl IV (15:52)
[2021-02-08 16:06] VITALS: PULSE 72; RESP 18; O2SAT 92
[2021-02-08] MEDS: ketorolac 30 mg/mL INJ 15 MG IVP (17:05)
[2021-02-08 17:21] VITALS: PULSE 72; RESP 24; O2SAT 98
== END 2021-02-08 17:22 | disposition home or self-care (01) ==
PROVIDERS: Emergency Provider Family Medicine; PCP Nurse Practitioner
DX: M54.9 Dorsalgia, unspecified (principal); R07.9 Chest pain, unspecified; W06.XXXA Fall from bed, initial encounter; J44.9 Chronic obstructive pulmonary disease, unspecified; Z86.73 Personal history of transient ischemic attack (TIA), and cerebral infarction without residual deficits; E78.5 Hyperlipidemia, unspecified; I10 Essential (primary) hypertension; F17.210 Nicotine dependence, cigarettes, uncomplicated
CPT/HCPCS: 71260; 73030; 74177; 96374; 96375; 99284; J1885; J3010; Q9967

== ENCOUNTER 2021-02-14 10:09 | Outpatient (CLI) | payer MEDICARE, MEDICAID, SELFPAY ==
[2021-02-14 11:26] LABS: Basophils % 0.3 %; Eosinophils # 0.2 10^3/uL (0.0-0.8); Eosinophils % 2.6 %; Hematocrit 34.2 % (37.0-47.0); Hemoglobin 10.1 g/dL (11.5-15.3); Lymphocytes # 0.8 10^3/uL (0.8-4.8); Lymphocytes % 9.2 %; Mean Corpuscular HGB Conc 29.5 g/dL (30.0-36.0); Mean Corpuscular Hemoglobin 29.5 pg (28.0-34.0); Mean Platelet Volume 9.8 fL (7.4-10.4); Monocytes # 0.8 10^3/uL (0.2-0.9); Monocytes % 8.9 %; Neutrophils % 78.7 %; Nucleated Red Blood Cells % 0 %; Platelet Count 350 10^3/cmm (130-400); Red Blood Count 3.42 10^6/uL (4.1-5.3); Red Cell Distribution Width 12.6 % (12.1-15.1); White Blood Count 8.9 10^3/uL (4.0-10.0)
[2021-02-14 12:06] LABS: 25 Hydroxy Vitamin D 24 ng/mL (30-100); Alanine Aminotransferase < 5 U/L (0-33); Albumin Level 3.6 g/dL (3.5-5.2); Alkaline Phosphatase 146 IU/L (35-105); Anion Gap 16.6 (5-19); Aspartate Amino Transferase 9 U/L (0-32); Blood Urea Nitrogen 20 mg/dL (8-23); Calcium 8.8 mg/dL (8.5-10.5); Carbon Dioxide 24 mmol/L (22-29); Chloride 103 mmol/L (98-107); Globulin 3.1 g/dL (1.3-4.6); Glucose 89 mg/dL (65-115); Osmolality Calculated 290 mOsm/kg (285-295); Potassium 4.6 mmol/L (3.5-5.1); Sodium 139 mmol/L (136-145); Total Bilirubin 0.2 mg/dL (0.15-1.2); Total Protein 6.7 g/dL (6.6-8.7)
--- NOTE | 2021-02-22 08:56 | ONC FU_ITS ---
[facility] Patient Note Patient: Deborah Mchugh Unit #: [id number]: [id number] Dictated By: Alonso FelizDate of Visit: Feb 14, 2021 Onc MED Follow-Up/Prog Note Chief Complaint: Breast cancer. History of Present Illness: Ms Mchugh is a 70 year-old woman with multifocal, bilateral invasive breast cancer, ER/TN positive and HER-2/shelia negative. 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 She had complete surgical resection with sigmoid colectomy and omentectomy in July 2003, and she was then given adjuvant chemotherapy with 6 cycles of carboplatin/Taxotere, completed in January 2004. She has had no recurrence of either malignancy. Dr Ledbetter had last seen her for follow-up in April 2014. She has multiple underlying medical illnesses including hypertension, hyperlipidemia, type II diabetes, hyperthyroidism, COPD, obstructive sleep apnea, GERD, osteoporosis, degenerative arthritis/degenerative disease of the spine, and chronic anxiety. She has a history of depression, history of multiple strokes, and a history of ocular histoplasmosis. In 2013 she had developed nonhealing abdominal wall ulcerations in association with cellulitis which had developed following a prolonged episode of colitis. She had multiple hospitalizations during that time and she required surgical debridement, but it eventually resolved. She had presented to [facility] with a palpable mass in the right breast. Bilateral diagnostic mammogram/ultrasound on 09/24/2019 showed a 16.2 mm nodule at the 12 o'clock position corresponding to the palpable mass. An additional mass was present in the posterior central right breast measured 10 mm. A 14 mm nodule was noted in the central left breast just inferior to the nipple and an additional 7 mm nodule is noted in the medial left breast. The right breast ultrasound showed a hypoechoic nodule at the 12 o'clock position measuring 15 x 16 mm, a superficial hypoechoic mass measuring 5 x 3 mm at the 6 o'clock position, an additional hypoechoic masses at 11:00 measuring 8 x 5 mm and at 7:00 measuring 11 mm. The left breast ultrasound showed a 16 x 6 mm mass at 6:00, a 5 x 5 mm hypoechoic mass at 11:00 and an additional adjacent smaller nodule. The findings were BI-RADS 5, highly suggestive of malignancy. She underwent ultrasound guided biopsies of the left breast 10:00 and 6:00 lesions and of the right breast 12:00 lesion. Pathology of the left breast at 6:00 showed fibrocystic changes with no malignancy identified. The left breast 10:00 lesion showed grade 2 invasive ductal carcinoma which was ER positive at 97% and TN positive at 91%. The HER-2/shelia was 2+ by IHC but negative by FISH with amplification ratio 1.1 and 2.0 HER-2 copies/cell. The Ki-67 was favorable at 5%. The right breast 12:00 lesion also showed grade 2 invasive ductal carcinoma. It was ER positive at 96% and TN positive at 97%. HER-2/shelia was 2+ by IHC but negative by FISH with amplification ratio 1.4 and 3.9 HER-2 copies/cell. The KI 67 was intermediate at 14%. She was seen here on 12/31/2019 for further management of the breast cancer. Given her numerous underlying medical illnesses and high risk for any further surgical procedures, we opted to limit treatment to a trial of endocrine therapy with anastrozole 1 mg daily. Mrs. Mchugh is here today for follow-up. She presents today with pain in her ribs that is not controlled with her current dose of Duragesic. She is on 50 mcg every 72 hours. She states she is having some constipation but is using stool softeners and that seems to be working relatively well for her right now. She feels that she needs better pain control. She states that she has not had any fever or chills. She denies any new shortness of breath orthopnea. She states that her ribs shoulders and arms continue to hurt pretty well. She is also having pain in her neck and back. She denies any hemoptysis. She denies any nausea or vomiting. She still has some tingling in her hands and feet but states is no worse than what it has been. She has occasional headache and occasional dizziness. But she has no other new concerns today. Her ECOG is 3. Past Medical History: Anxiety Chronic obstructive pulmonary disease Degenerative arthritis Degenerative disease of the spine Gastroesophageal reflux disease History of abdominal wall cellulitiis History of depression History of strokes Hyperlipidemia Hypertension Hyperthyroidism Obstructive sleep apnea Ocular histoplasmosis Osteoporosis Type II diabetes Primary peritoneal carcinoma in 2002 Endometrial cancer in 1978 Past Surgical History: ORIF of distal left femur fracture in 2018 Excision of benign abdominal wall mass in 2014 Lumbar laminectomy for spinal stenosis in 2014 Surgical debridement of necrotic abdominal wall wound in 2013 Right total knee arthroplasty in 2012 Repair of upper abdominal incisional hernia in 2009 Cervical laminectomy in 2009 Incisional hernia repair with mesh in 2006 Exploratory laparotomy with omentectomy and sigmoid colon resection in 2002 Cholecystectomy in 1990 Hysterectomy/bilateral salpingo-oophorectomy for endometrial cancer in 1978 Allergies: teramycin, dilaudid, tagement, tape, morphine, colchine, allopurinol, Medications: Allopurinol 1 Tablet (of 100 mg) Oral daily Anastrozole 1 Tablet (of 1 mg) Oral daily fentaNYL 1 Patch(es) (of 25 mcg/hr) Patch 72 Hr Transdermal q 72 hours FLUoxetine HCl 1 Capsule (of 10 mg) Oral daily Furosemide 1.5 Tablet (of 40 mg) Oral daily Gemfibrozil 600 mg - Take 1 Tablet Oral b.i.d. Hydrocodone-Acetaminophen 10-325 mg - Take 1 Tablet Oral q 4 hours PRN Levothyroxine Sodium 1 Tablet (of 50 mcg) Oral daily Lisinopril 1 Tablet (of 2.5 mg) Oral daily metOLazone 1 Tablet (of 5 mg) Oral daily Nitrolingual 1 Tablet (of 0.4 mg/spray) Solution Translingual PRN OLANZapine 1 Tablet (of 5 mg) Oral at bedtime Pantoprazole Sodium 40 mg - Take 1 Tablet, enteric coated Oral daily Potassium Chloride ER 1 Tablet (of 20 meq) Tablet, controlled release Oral b.i.d. rOPINIRole HCl 2 Tablet (of 0.5 mg) Oral at bedtime Family History: Ms. Mchugh's mother at age 99: medical history includes leukemia (cause of ). Ms. Mchugh's father at age 81: heart attack. Mother of leukemia at age 99. Father of heart attack at age 81. A brother had small cell lung cancer. Social History: Ms. Mchugh is . She is a daily smoker who has smoked 1.0 pack/day for 37 years. She has no history of drinking. She has a history of smoking 1 pack of cigarettes daily. She has cut down to 3-5 cigarettes per day. She does not drink alcohol. Review Of Symptoms: Constitutional Denies fevers, chills, night sweats or weight loss. She has fatigue. Allergic/Immunologic No reactions. Eyes Denies significant visual changes. No diplopia. No amaurosis. ENMT Denies changes in hearing, sore throat, mouth sores, difficulty or changes in swallowing ability, and/or sinus drainage. Hematologic/Lymphatic Denies easy bruising or bleeding. The patient denies any tender or palpable lymph nodes. Respiratory Denies dyspnea on exertion, chest pain, cough or hemoptysis. Denies orthopnea. Cardiovascular Denies anginal chest pain, palpitations or orthopnea. Gastrointestinal Denies nausea, vomiting, diarrhea, GI bleeding, or constipation. Denies change in bowel habits and/or stool color, no heartburn or early satiety. Genitourinary (F) No hematuria, hesitancy, incontinence, vaginal bleeding, discharge or other problems with urination. Musculoskeletal see above Integumentary Denies chronic rashes, inflammation, ulcerations or skin changes. Neurologic Denies headache, blurred vision, and no areas of focal weakness or numbness. assisted gait. No sensory problems. Psychiatric Denies insomnia, depression, milan or mood swings. Vital Signs: Performed on Feb 14, 2021 11:26 Height - 64.00 in Temperature - 96.9 F (LOW) Pulse - 73 /min Respiration - 20 /min BP - 134/81 mm(hg) O2 Sat - 93 % (LOW) Pain - 8 Fatigue - 9,3 - Capable of only limited self-care, confined to bed or chair more than 50% of waking hours. (ECOG) Physical Examination: Constitutional Alert, oriented, no acute distress. Skin pink, warm and dry. Head Normocephalic; atraumatic. Eyes Conjunctivae and sclerae are clear and without icterus. Pupils are reactive and equal. Neck Supple without masses or thyromegaly. No jugular venous distension. Hematologic/Lymphatic No petechiae or purpura. No tender or palpable lymph nodes in the cervical or supraclavicular areas. Respiratory Lungs are clear to auscultation without rhonchi or wheezing. Cardiovascular Regular rate and rhythm of heart without murmurs,clicks, gallops or rubs. Abdomen Non-tender, non-distended, no masses or ascites. Good bowel sounds noted in all quads. No guarding or rebound tenderness. No pulsatile masses. Back/Spine Non-tender to palpation. Extremities No visible deformities, no cyanosis, clubbing or edema. Musculoskeletal No tenderness or swelling, normal range of motion without obvious weakness. Integumentary No rashes or lesions. Neurologic No sensory or motor deficits, normal cerebellar function, normal gait. Psychiatric Alert and oriented times three. Coherent speech. Verbalizes understanding of our discussions today. Laboratory:Test performed on Feb 14, 2021 11:08 Sodium 139 mmol/L Vitamin D (25-Hydroxy), Total 24 ng/mL Potassium 4.6 mmol/L Chloride 103 mmol/L CO2 24 mmol/L Anion Gap 16.6 BUN 20 mg/dL Creatinine 1.0 mg/dL Cr Clearance (Est) 102.6900 mL/min Glucose 89 mg/dL Osmolality - Calculated 290 mOsm/kg Calcium 8.8 mg/dL Protein, Total 6.7 g/dL Albumin 3.6 g/dL Globulin 3.1 g/dL Bilirubin, Total 0.2 mg/dL ALT (SGPT) < 5 U/L AST (SGOT) 9 U/L Alkaline Phosphatase 146 IU/L WBC 8.9 10 3/uL RBC 3.42 10 6/uL HGB 10.1 g/dL HCT 34.2 % MCV 100.0 fL MCH 29.5 pg MCHC 29.5 g/dL RDW 12.6 % Platelet Count 350 10 3/cmm MPV 9.8 fL Neutrophils 7.00 10 3/uL Lymphocytes 0.8 10 3/uL Monocytes 0.8 10 3/uL Eosinophils 0.2 10 3/uL Basophils 0.0 10 3/uL Neutrophil % 78.7 % Lymphocyte % 9.2 % Monocyte % 8.9 % Eosinophil % 2.6 % Basophils % 0.3 % NRBC % 0 % Test performed on Jan 17, 2021 12:58 Iron 62 mcg/dL Vitamin B12 339 pg/mL Iron Binding Capacity (TIBC) 264 mcg/dl % Iron Saturation 23.4 % UIBC 202 mcg/dL Impression: 1. Patient with bilateral breast cancer, both grade 2 invasive ductal carcinoma, ER/TN positive and HER-2/shelia negative. She did not have complete staging. By imaging her disease appeared to be multifocal in both breasts. 2. Due to her multiple underlying medical illnesses and comorbidities she was felt to be a very high risk for any type of general anesthesia, and her further treatment was limited to tiral of endocrine therapy with anastrozole 1 mg daily, which she started in December 2019. 3. Her baseline DEXA scan on 05/17/2019 showed evidence of osteoporosis with T score -1.8 in the lumbar spine and -3.6 in the right proximal femur. She began treatment with Prolia on 01/11/2020. 4. In July 2003 she underwent exploratory laparotomy with sigmoid colon resection and omentectomy for metastatic adenocarcinoma, clinically consistent with primary peritoneal carcinoma. She had complete resection of gross disease with the surgery, following which she was given adjuvant chemotherapy with 6 cycles of carboplatin/docetaxel, completed in January 2004. She has had no evidence of recurrence. 5. In 1978 she underwent hysterectomy/bilateral salpingo-oophorectomy for endometrial cancer. 6. Hypertension. 7. Hyperlipidemia. 8. Type 2 diabetes. 9. Hyperthyroidism. 10. History of prior strokes. 11. COPD. 12. Obstructive sleep apnea. 13. GERD. 14. Degenerative arthritis/degenerative disease of the spine. 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 16. Chronic anxiety. 17. History of depression. 18. She has a history of abdominal wall cellulitis with nonhealing skin ulcerations. Plan: 1. Patient with bilateral breast cancer, both grade 2 invasive ductal carcinoma, ER/TN positive and HER-2/shelia negative. She did not have complete staging. By imaging her disease appeared to be multifocal in both breasts. Due to her multiple underlying medical illnesses and comorbidities she was felt to be a very high risk for any type of general anesthesia, and her further treatment was limited to tiral of endocrine therapy with anastrozole 1 mg daily, which she started in December 2019. By clinical exam, she does appear to have had a good response to the anastrozole. However, she comes in with significant worsening of her musculoskeletal pain. It is suspectd at least some component of this is due to the anastrozole. She stopped anastrozole in December 2020. She has been on Duragesic 50 mcg but does not think that is controlling her pain. A. She will continue to hold anastrozole. B. Today's labs reviewed in detail with . Mrs. Mchugh and a copy was given to them. WBC 8.9, hemoglobin 10.1 platelets 350,000 ANC is 7000. C. After consulting with Dr. Ledbetter she is advised to increase her Duragesic to 75 mcg every 72 hours. She does have 25 mcg patches as well as the 50 mcg patches and will just add 25 patch to the 50 and see how this works for her over the weekend. D. She is encouraged to let us know early next week how she is doing so that we could get her a new prescription. I would like to try her on the name brand if insurance will allow as she does have itching underneath the patch which is most likely due to the adhesive. She is currently receiving the generic fentanyl. 2. Her baseline DEXA scan on 05/17/2019 showed evidence of osteoporosis with T score -1.8 in the lumbar spine and -3.6 in the right proximal femur. A. She began treatment with Prolia in December 2019. Her last dose was on January 17, 2021. B. She also had evidence of vitamin D deficiency, for which she has on replacement therapy. Her vitamin D level on January 17, 2021 was 30. She will continue her current replacement therapy. 3. Follow-up plan A. We will plan to see her back within 1 month to reevaluate her pain B. I encouraged him to call us prior to that she will need prescriptions for the Duragesic we also wanted know how it is working for her pain. C. . Ms. Mchugh were encouraged to contact us in interim should any questions or problems arise. Signed By: Alonso Feliz-, [facility] Remigio Ledbetter MD <<Signature on File>>
== END 2021-02-14 10:10 | disposition home or self-care (01) ==
LOC: ONCMED 10:13
PROVIDERS: PCP Nurse Practitioner; Visit Provider Nurse Practitioner
DX: C50.812 Malignant neoplasm of overlapping sites of left female breast (principal); C50.811 Malignant neoplasm of overlapping sites of right female breast; M79.10 Myalgia, unspecified site; T45.1X5D Adverse effect of antineoplastic and immunosuppressive drugs, subsequent encounter; L29.9 Pruritus, unspecified; M81.0 Age-related osteoporosis without current pathological fracture; Z85.42 Personal history of malignant neoplasm of other parts of uterus; Z85.038 Personal history of other malignant neoplasm of large intestine; Z17.0 Estrogen receptor positive status [ER+]; Z92.23 Personal history of estrogen therapy; Z79.891 Long term (current) use of opiate analgesic; Z90.49 Acquired absence of other specified parts of digestive tract
CPT/HCPCS: 36415; 80053; 82306; 85025; 99214

== ENCOUNTER 2021-03-26 12:55 | Outpatient (CLI) | payer MEDICARE, MEDICAID, SELFPAY ==
[2021-03-26 14:40] LABS: Alanine Aminotransferase < 5 U/L (0-33); Albumin Level 3.9 g/dL (3.5-5.2); Alkaline Phosphatase 118 IU/L (35-105); Aspartate Amino Transferase 9 U/L (0-32); Blood Urea Nitrogen 23 mg/dL (8-23); Calcium 8.8 mg/dL (8.5-10.5); Carbon Dioxide 28 mmol/L (22-29); Chloride 102 mmol/L (98-107); Globulin 2.4 g/dL (1.3-4.6); Glucose 83 mg/dL (65-115); Osmolality Calculated 289 mOsm/kg (285-295); Sodium 138 mmol/L (136-145); Total Bilirubin 0.2 mg/dL (0.15-1.2); Total Protein 6.3 g/dL (6.6-8.7)
[2021-03-26 15:02] LABS: Basophils % 0.5 %; Eosinophils # 0.2 10^3/uL (0.0-0.8); Eosinophils % 3.8 %; Hematocrit 33.7 % (37.0-47.0); Hemoglobin 9.9 g/dL (11.5-15.3); Lymphocytes # 1.4 10^3/uL (0.8-4.8); Lymphocytes % 23.3 %; Mean Corpuscular HGB Conc 29.4 g/dL (30.0-36.0); Mean Corpuscular Hemoglobin 29.4 pg (28.0-34.0); Mean Platelet Volume 10.2 fL (7.4-10.4); Monocytes # 0.6 10^3/uL (0.2-0.9); Monocytes % 9.8 %; Neutrophils # 3.62 10^3/uL (1.8-7.7); Neutrophils % 62.4 %; Nucleated Red Blood Cells % 0 %; Platelet Count 291 10^3/cmm (130-400); Red Blood Count 3.37 10^6/uL (4.1-5.3); White Blood Count 5.8 10^3/uL (4.0-10.0)
--- NOTE | 2021-04-02 07:12 | ONC FU_ITS ---
Dr. Ledbetter Patient Follow-Up Note Patient: Deborah Mchugh Unit #: [id number]: 1950 Dicatated By: Remigio Ledbetter M.D.Date of Visit:March 26, 2021 Onc Med Follow-up/Prog Note Chief Complaint: Breast cancer. History of Present Illness: This is a 70 year-old woman with multifocal, bilateral invasive breast cancer, ER/TX positive and HER-2/shelia negative. 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 She had complete surgical resection with sigmoid colectomy and omentectomy in July 2003, and she was then given adjuvant chemotherapy with 6 cycles of carboplatin/Taxotere, completed in January 2004. She has had no recurrence of either malignancy. I had last seen her for follow-up in April 2014. She has multiple underlying medical illnesses including hypertension, hyperlipidemia, type II diabetes, hyperthyroidism, COPD, obstructive sleep apnea, GERD, osteoporosis, degenerative arthritis/degenerative disease of the spine, and chronic anxiety. She has a history of depression, history of multiple strokes, and a history of ocular histoplasmosis. In 2013 she had developed nonhealing abdominal wall ulcerations in association with cellulitis which had developed following a prolonged episode of colitis. She had multiple hospitalizations during that time and she required surgical debridement, but it eventually resolved. She had presented to [facility] with a palpable mass in the right breast. Bilateral diagnostic mammogram/ultrasound on 09/24/2019 showed a 16.2 mm nodule at the 12 o'clock position corresponding to the palpable mass. An additional mass was present in the posterior central right breast measured 10 mm. A 14 mm nodule was noted in the central left breast just inferior to the nipple and an additional 7 mm nodule is noted in the medial left breast. The right breast ultrasound showed a hypoechoic nodule at the 12 o'clock position measuring 15 x 16 mm, a superficial hypoechoic mass measuring 5 x 3 mm at the 6 o'clock position, an additional hypoechoic masses at 11:00 measuring 8 x 5 mm and at 7:00 measuring 11 mm. The left breast ultrasound showed a 16 x 6 mm mass at 6:00, a 5 x 5 mm hypoechoic mass at 11:00 and an additional adjacent smaller nodule. The findings were BI-RADS 5, highly suggestive of malignancy. She underwent ultrasound guided biopsies of the left breast 10:00 and 6:00 lesions and of the right breast 12:00 lesion. Pathology of the left breast at 6:00 showed fibrocystic changes with no malignancy identified. The left breast 10:00 lesion showed grade 2 invasive ductal carcinoma which was ER positive at 97% and TX positive at 91%. The HER-2/shelia was 2+ by IHC but negative by FISH with amplification ratio 1.1 and 2.0 HER-2 copies/cell. The Ki-67 was favorable at 5%. The right breast 12:00 lesion also showed grade 2 invasive ductal carcinoma. It was ER positive at 96% and TX positive at 97%. HER-2/shelia was 2+ by IHC but negative by FISH with amplification ratio 1.4 and 3.9 HER-2 copies/cell. The KI 67 was intermediate at 14%. She was seen here on 12/31/2019 for further management of the breast cancer. Given her numerous underlying medical illnesses and high risk for any further surgical procedures, we opted to limit treatment to a trial of endocrine therapy with anastrozole 1 mg daily. During follow-up she appeared to have a very good clinical response to the anastrozole. Initially she was tolerating it well. However, as of her follow-up visit in December 2020 I did opt to put her treatment on hold due to increased musculoskeletal pain. She is seen for a follow-up visit. Thus far she has remained off the anastrozole. She continues to have significant musculoskeletal pain, particularly in her neck and shoulders. It is being managed with a combination of fentanyl and hydrocodone/APAP. She still has very limited activity. Her ECOG score is 3. Her appetite is not good and she has early satiety. She says she is eating very little. She has not had fever. She has occasional hot flashes and sweating. She has had sinus drainage and she has been having a cough productive of thick clear sputum. The cough, though, is improving. She has shortness of breath and she sometimes has chest pain. She reports having vomiting or gagging on a pretty regular basis, least every 2 to 3 days if not up to daily. She developed diarrhea taking laxatives, and she now has constipation again. She has some bladder incontinence. She does not complain of headache. She sometimes has dizziness. She has numbness/tingling in her hands and feet. She reports having some depression despite taking fluoxetine. Medications: Allopurinol 1 Tablet (of 100 mg) Oral daily, Anastrozole 1 Tablet (of 1 mg) Oral daily, fentaNYL 1 Patch(es) (of 25 mcg/hr) Patch 72 Hr Transdermal q 72 hours, FLUoxetine HCl 1 Capsule (of 10 mg) Oral daily, Furosemide 1.5 Tablet (of 40 mg) Oral daily, Gemfibrozil 600 mg - Take 1 Tablet Oral b.i.d., Hydrocodone-Acetaminophen 10-325 mg - Take 1 Tablet Oral q 4 hours PRN, Levothyroxine Sodium 1 Tablet (of 50 mcg) Oral daily, Lisinopril 1 Tablet (of 2.5 mg) Oral daily, metOLazone 1 Tablet (of 5 mg) Oral daily, MiraLax (17 g) Pack Oral daily, Nitrolingual 1 Tablet (of 0.4 mg/spray) Solution Translingual PRN, OLANZapine 1 Tablet (of 5 mg) Oral at bedtime, Pantoprazole Sodium 40 mg - Take 1 Tablet, enteric coated Oral daily, Potassium Chloride ER 1 Tablet (of 20 meq) Tablet, controlled release Oral b.i.d., rOPINIRole HCl 2 Tablet (of 0.5 mg) Oral at bedtime Allergies: teramycin, dilaudid, tagement, tape, morphine, colchine, allopurinol, Vital Signs: Performed on March 26, 2021 14:37 Height - 64.00 in Weight - 280 lbs (LOW) BSA - 2.26 sq.m BMI - 48.06 (HIGH) Temperature - 96.8 F (LOW) Pulse - 68 /min Respiration - 18 /min BP - 90/56 mm(hg) O2 Sat - 94 % (LOW) Pain - 9 Fatigue - 5 Physical Examination: Constitutional - She appears generally weak. , Eyes - Sclerae nonicteric. Conjunctivae clear, ENMT - No lesions noted in the oral cavity, Hematologic/Lymphatic - No cervical or clavicular adenopathy, Respiratory - Lungs sound clear, Cardiovascular - Heart rhythm is regular. There is no murmur, gallop, or rub noted, Breasts - There are no breast masses noted. There is no axillary adenopathy, Abdomen - Moderately distended. Liver and spleen are not enlarged. There is no abdominal mass or ascites noted and there is no inguinal adenopathy, Extremities - There is chronic lower extremity edema, 2 to 3+, Neurologic - No focal neurologic deficits noted. Lab/Imaging: Test performed on March 26, 2021 14:45 WBC 5.8 10 3/uL RBC 3.37 10 6/uL HGB 9.9 g/dL HCT 33.7 % MCV 100.0 fL MCH 29.4 pg MCHC 29.4 g/dL RDW 13.0 % Platelet Count 291 10 3/cmm MPV 10.2 fL Neutrophils 3.62 10 3/uL Lymphocytes 1.4 10 3/uL Monocytes 0.6 10 3/uL Eosinophils 0.2 10 3/uL Basophils 0.0 10 3/uL Neutrophil % 62.4 % Lymphocyte % 23.3 % Monocyte % 9.8 % Eosinophil % 3.8 % Basophils % 0.5 % NRBC % 0 % Problem List: 1. Patient with bilateral breast cancer, both grade 2 invasive ductal carcinoma, ER/TX positive and HER-2/shelia negative. She did not have complete staging. By imaging her disease appeared to be multifocal in both breasts. 2. Due to her multiple underlying medical illnesses and comorbidities she was felt to be a very high risk for any type of general anesthesia, and her further treatment was limited to tiral of endocrine therapy with anastrozole 1 mg daily, which she started in December 2019. 3. Her baseline DEXA scan on 05/17/2019 showed evidence of osteoporosis with T score -1.8 in the lumbar spine and -3.6 in the right proximal femur. She began treatment with Prolia on 01/11/2020. 4. In July 2003 she underwent exploratory laparotomy with sigmoid colon resection and omentectomy for metastatic adenocarcinoma, clinically consistent with primary peritoneal carcinoma. She had complete resection of gross disease with the surgery, following which she was given adjuvant chemotherapy with 6 cycles of carboplatin/docetaxel, completed in January 2004. She has had no evidence of recurrence. 5. In 1978 she underwent hysterectomy/bilateral salpingo-oophorectomy for endometrial cancer. 6. Hypertension. 7. Hyperlipidemia. 8. Type 2 diabetes. 9. Hyperthyroidism. 10. History of prior strokes. 11. COPD. 12. Obstructive sleep apnea. 13. GERD. 14. Degenerative arthritis/degenerative disease of the spine. 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 16. Chronic anxiety. 17. History of depression. 18. She has a history of abdominal wall cellulitis with nonhealing skin ulcerations. Problems Addressed with this Encounter and Plan: 1. Patient with bilateral breast cancer, both grade 2 invasive ductal carcinoma, ER/TX positive and HER-2/shelia negative. She did not have complete staging. By imaging her disease appeared to be multifocal in both breasts. Due to her multiple underlying medical illnesses and comorbidities she was felt to be a very high risk for any type of general anesthesia, and her further treatment was limited to tiral of endocrine therapy with anastrozole 1 mg daily, which she started in December 2019. By clinical exam, she has had a good response to the anastrozole. However, As of December 2020 her treatment was put on hold due to increasing musculoskeletal pain. The pain has been severe enough to require an increase in her opiate medication. However, it really has not changed significantly after stopping treatment. As such, she will now restart the anastrozole at 1 mg daily. She will continue her fentanyl and hydrocodone at the same dosages. I will see her again in 3 months, or sooner as needed. 2. Her baseline DEXA scan on 05/17/2019 showed evidence of osteoporosis with T score -1.8 in the lumbar spine and -3.6 in the right proximal femur. She has continued treatment with Prolia and vitamin D supplementation. Signed By: Remigio Ledbetter M.D. <<Signature on File>>
== END 2021-03-26 12:56 | disposition home or self-care (01) ==
PROVIDERS: PCP Nurse Practitioner; Visit Provider Internal Medicine Medical Oncology
DX: C50.811 Malignant neoplasm of overlapping sites of right female breast (principal); C50.812 Malignant neoplasm of overlapping sites of left female breast; Z17.0 Estrogen receptor positive status [ER+]; M81.0 Age-related osteoporosis without current pathological fracture; I10 Essential (primary) hypertension; E78.5 Hyperlipidemia, unspecified; E11.9 Type 2 diabetes mellitus without complications; E05.00 Thyrotoxicosis with diffuse goiter without thyrotoxic crisis or storm; J44.9 Chronic obstructive pulmonary disease, unspecified; G47.33 Obstructive sleep apnea (adult) (pediatric); K21.9 Gastro-esophageal reflux disease without esophagitis; M47.9 Spondylosis, unspecified; B39.9 Histoplasmosis, unspecified; F41.9 Anxiety disorder, unspecified; F32.9 Major depressive disorder, single episode, unspecified; Z86.73 Personal history of transient ischemic attack (TIA), and cerebral infarction without residual deficits; Z87.2 Personal history of diseases of the skin and subcutaneous tissue; Z86.31 Personal history of diabetic foot ulcer; Z85.41 Personal history of malignant neoplasm of cervix uteri; Z79.899 Other long term (current) drug therapy; Z79.811 Long term (current) use of aromatase inhibitors
CPT/HCPCS: 36415; 80053; 85025; 99214

== ENCOUNTER 2021-05-15 19:53 | Inpatient (IN) | payer MEDICARE, MEDICAID, SELFPAY ==
[2021-05-15 19:54] VITALS: BP 127/68; PULSE 67; RESP 26; TEMP 36.8; O2SAT 95; BMI 51.5
--- NOTE | 2021-05-15 20:04 | ECG_ITS ---
[facility] Test Date: 2021-05-15 Pat Name: Deborah Mchugh Department: Room: 112 Gender: Female [employer] Operator: : 1950 Requested By: Harvey Ramirez Order Number: [id number] Ramirez MD: Rose Blanca M.D. Measurements Intervals [place] Rate: 69 P: 43 DE: 172 QRS: 44 QRSD: 90 T: 40 QT: 444 QTc: 476 Interpretive Statements SINUS RHYTHM LOW QRS VOLTAGE IN PRECORDIAL LEADS [QRS DEFLECTION < 1.0 mV IN CHEST LEADS] Compared to ECG 11/06/2019 03:59:57 Myocardial infarct finding no longer present Electronically Signed On 05-16-2021 20:02:20 CDT by Rose Blanca M.D. [email or web address]
--- NOTE | 2021-05-15 20:06 | ED_ITS ---
HPI - Abdominal Pain General: Chief Complaint: Abdominal Pain Stated Complaint: abd pain, n/v Time Seen by Provider: 05/15/21 20:02 History of Present Illness: HPI narrative: Patient is a 71-year-old female comes to the ED with abdominal pain, nausea, vomiting. Past medical history of GERD, hypertension, COPD, heart failure, breast cancer. Patient is also on 3 L of O2 at home continuously. Patient says she had her first Covid shot on Friday, May 11. She states yesterday she started developing abdominal pain, nausea and vomiting. She said multiple episodes of emesis since onset of symptoms yesterday. She has a body aches as well. She says her abdominal pain is severe and she rates it a 9 out of 10. The pain is located in the right lower quadrant of the abdomen. She also is complaining of having pain in between her shoulder blades as well. She denies any current diarrhea, constipation or blood in the stool. Denies fever, chills, dysuria or hematuria. She also is complaining of having some mild on and off again chest tightness for the past 24 hours as well. She says currently she is not having any chest pain here in the ED. Associated Symptoms: Reports nausea and vomiting; Denies chills, constipation, diarrhea, dysuria, fever(s), hematochezia and hematuria Review of Systems Const: Reports: body aches and malaise; Denies: fever(s), chills or fatigue Eyes: Denies: change in vision or eye discomfort ENMT: Denies: throat pain, odynophagia, nasal discharge or nasal congestion Card: Reports: chest pain (Earlier today, but it resolved well before coming to ED); Denies: palpitations, edema, swelling of feet/ankles, dyspnea on exertion or orthopnea Resp: Denies: dyspnea, productive cough or non-productive cough GI: Reports: abdominal pain, nausea and vomiting; Denies: diarrhea, constipation or hematochezia : Denies: flank pain, dysuria or hematuria Musc: Denies: neck pain, back pain or extremity swelling Skin/Breast: Denies: rash or new lesions Neuro: Denies: headache(s), numbness in extremities or weakness in extremities PFS ED PFSH: Medical History Anxiety COPD (chronic obstructive pulmonary disease) CVA (cerebral vascular accident) GERD (gastroesophageal reflux disease) Hyperlipidemia Hypertension Hyperthyroidism Morbid obesity ROSEMARIE (obstructive sleep apnea) Surgical History H/O cervical spine surgery H/O: hysterectomy History of bilateral breast biopsy History of cholecystectomy History of colon resection History of open reduction and internal fixation (ORIF) procedure left femur Status post right knee replacement Family History Grandfather Diabetes Maternal Grandmother Diabetes Maternal Kidney failure Maternal Grandmother Diabetes Paternal Grandfather Diabetes Paternal Family/Other Diabetes Aunt Mother , Age 99 Hypertension Cancer Leukemia Father Myocardial infarction Hypertension Brother Hypertension Cancer Prostate Denies family history of Anesthesia complication Bleeding disorder Social History Smoking and tobacco status: current every day smoker cigarettes [ Other cigarette details: 11/27-11/25 PPD ] Alcohol intake: never Lives independently: Yes Household members: spouse Marital status: Current occupational status: disabled History of recent travel: No Physical Exam Const: COMMON NORMALS: patient oriented x3 and alert GENERAL APPEARANCE: cooperative and in distress (Patient is breathing heavy and seen she is in a lot of pain.) NUTRITIONAL APPEARANCE: obese morbidly obese HENMT: COMMON NORMALS: normocephalic HEAD & SCALP: normocephalic MOUTH: Normal oral and palatal mucosa present THROAT: posterior oropharynx normal and uvula midline Neck/C-Spine: COMMON NORMALS: supple GENERAL: Yes normal visual inspection Resp: COMMON NORMALS: normal respiratory effort, No retractions, No use of accessory muscles and clear to auscultation bilaterally EFFORT & INSPECTION: Yes tachypneic AUSCULTATION: clear to auscultation bilaterally Cardio: COMMON NORMALS: regular rate, regular rhythm, S1 normal heart sound present, S2 normal heart sound present, No gallops present (Cardio), No clicks present (Cardio), No murmurs present (Cardio) and Peripheral pulses 2+ throughout RATE: regular rate RHYTHM: regular rhythm HEART SOUNDS: S1 normal heart sound present and S2 normal heart sound present PERIPHERAL PULSES: Peripheral pulses 2+ throughout GI: COMMON NORMALS: Normal to inspection, nondistended, normoactive bowel sounds present, Soft to palpation and no masses INSPECTION: Yes central obesity PALPATION: Yes Soft to palpation and Yes Tenderness to palpation present (GI) Details: RLQ : COMMON NORMALS: Yes no CVA tenderness BLADDER/KIDNEY EXAM: Yes no CVA tenderness Back/Pelvis: COMMON NORMALS: no CVA tenderness Extremity: COMMON NORMALS: normal to inspection Neuro: COMMON NORMALS: patient oriented x3 SENSORIUM/ORIENTATION: Yes alert GAIT: Yes Normal gait present Skin: GENERAL SKIN EXAM: dry skin Course Consultations: Consultation #1: Dr. Henry the hospitalist was here in the ED so I spoke with him in person about patient case. He agreed to have patient put on observation. Vital Signs: Vital signs: Vital Signs Temperature 98.2 F 05/15/21 19:54 Pulse Rate 57 L 05/16/21 00:51 Respiratory Rate 18 05/16/21 00:51 Blood Pressure 135/71 05/16/21 00:51 Pulse Oximetry 94 05/16/21 00:51 MDM - Abdominal Pain MDM Narrative: Medical decision making narrative: Patient is a 71-year-old female comes to the ED with abdominal pain, nausea and vomiting. Patient is morbidly obese and has a history of CHF, COPD, hyperlipidemia, hypertension and breast cancer. Patient is on 3 L of oxygen at home continuously. Patient also described having some mild chest pain that resolved earlier today but did endorse having some pain between her shoulder blades while here in the ED. Hemoglobin 9.8 and creatinine of 1.3. Rest of CBC and CMP were unremarkable. Lipase 73 and BNP was 338. Patient had a positive delta troponin of 22.78. EKG showed no acute CO findings. Chest x-ray showed no acute findings. CT of abdomen pelvis showed no acute findings. Due to patient's elevated 2-hour troponin I contacted the hospitalist Dr. Henry and told him about patient case and he decided to have patient put on observation. Dr. Knight put in the obs orders. Lab Data: Attestation: I reviewed the patient's lab results. Labs: Lab Results 05/15/21 05/15/21 05/15/21 Range/Units 21:10 21:10 21:10 WBC Cancelled Corrected WBC Cancelled RBC Cancelled Hgb Cancelled Hct Cancelled MCV Cancelled MCH Cancelled MCHC Cancelled RDW Cancelled Plt Count Cancelled MPV Cancelled Gran % Cancelled Neut % (Auto) Cancelled Lymph % (Auto) Cancelled [place] % (Auto) Cancelled Eos % (Auto) Cancelled Baso % (Auto) Cancelled Neut # (Auto) Cancelled Lymph # (Auto) Cancelled [place] # (Auto) Cancelled Eos # (Auto) Cancelled Baso # (Auto) Cancelled Absolute Gran (aut o) Cancelled Nucleated RBC % (a uto) Cancelled Nucleated RBCs # Cancelled PT (12.1-14.9) SECO NDS INR (0.8-1.2) APTT (23.9-36.7) SECO NDS D-Dimer (0-0.59) ug/mIFE U Sodium Cancelled Potassium Cancelled Chloride Cancelled Carbon Dioxide Cancelled Anion Gap Cancelled BUN Cancelled Creatinine Cancelled GFR Calculation Cancelled Glucose Cancelled Calculated Osmolal ity Cancelled Calcium Cancelled Total Bilirubin Cancelled AST Cancelled ALT Cancelled Alkaline Phosphata se Cancelled Troponin T Baselin e Cancelled Troponin T 120 Min [place] (0-10) ng/L Delta Troponin T (0-10) ABS# NT-Pro-B Natriuret Pep Cancelled Total Protein Cancelled Albumin Cancelled Globulin Cancelled Lipase Cancelled Urine Color (Yellow) Urine Appearance (CLEAR) Urine pH (5-7) Ur Specific Gravit y (1.005-1.030) Urine Protein (Negative) Urine Glucose (UA) (Normal) Urine Ketones (Negative) Urine Blood (Negative) Urine Nitrate (Negative) Urine Bilirubin (Negative) Urine Urobilinogen (Negative) mg/dL Ur Leukocyte Yaa ase (Negative) Urine RBC (0-2) /hpf Urine WBC (0-5) /hpf Ur Squamous Epith Cells (0-5) /hpf Amorphous Sediment Urine Bacteria (NONE) /hpf 05/15/21 05/15/21 05/15/21 Range/Units 21:35 21:35 21:35 WBC 10.0 Corrected WBC RBC 3.30 L Hgb 9.8 L Hct 31.6 L MCV 95.8 MCH 29.7 MCHC 31.0 RDW 12.4 Plt Count 287 MPV 9.9 Gran % Neut % (Auto) 80.2 Lymph % (Auto) 10.3 [place] % (Auto) 7.8 Eos % (Auto) 1.0 Baso % (Auto) 0.3 Neut # (Auto) 8.02 H Lymph # (Auto) 1.0 [place] # (Auto) 0.8 Eos # (Auto) 0.1 Baso # (Auto) 0.0 Absolute Gran (aut o) Nucleated RBC % (a uto) 0 Nucleated RBCs # 0.0 PT 13.90 (12.1-14.9) SECO NDS INR 1.03 (0.8-1.2) APTT 25.7 (23.9-36.7) SECO NDS D-Dimer (0-0.59) ug/mIFE U Sodium 141 Potassium 4.1 Chloride 100 Carbon Dioxide 28 Anion Gap 17.1 BUN 25 H Creatinine 1.3 H GFR Calculation Not Reportable Glucose 106 Calculated Osmolal ity 297 H Calcium 9.7 Total Bilirubin 0.2 AST 11 ALT < 5 Alkaline Phosphata se 134 H Troponin T Baselin e Troponin T 120 Min [place] (0-10) ng/L Delta Troponin T (0-10) ABS# NT-Pro-B Natriuret Pep 338 H Total Protein 5.9 L Albumin 3.7 Globulin 2.2 Lipase 73 H Urine Color (Yellow) Urine Appearance (CLEAR) Urine pH (5-7) Ur Specific Gravit y (1.005-1.030) Urine Protein (Negative) Urine Glucose (UA) (Normal) Urine Ketones (Negative) Urine Blood (Negative) Urine Nitrate (Negative) Urine Bilirubin (Negative) Urine Urobilinogen (Negative) mg/dL Ur Leukocyte Yaa ase (Negative) Urine RBC (0-2) /hpf Urine WBC (0-5) /hpf Ur Squamous Epith Cells (0-5) /hpf Amorphous Sediment Urine Bacteria (NONE) /hpf 05/15/21 05/15/21 05/15/21 Range/Units 21:35 21:35 23:29 WBC Corrected WBC RBC Hgb Hct MCV MCH MCHC RDW Plt Count MPV Gran % Neut % (Auto) Lymph % (Auto) [place] % (Auto) Eos % (Auto) Baso % (Auto) Neut # (Auto) Lymph # (Auto) [place] # (Auto) Eos # (Auto) Baso # (Auto) Absolute Gran (aut o) Nucleated RBC % (a uto) Nucleated RBCs # PT (12.1-14.9) SECO NDS INR (0.8-1.2) APTT (23.9-36.7) SECO NDS D-Dimer 0.46 (0-0.59) ug/mIFE U Sodium Potassium Chloride Carbon Dioxide Anion Gap BUN Creatinine GFR Calculation Glucose Calculated Osmolal ity Calcium Total Bilirubin AST ALT Alkaline Phosphata se Troponin T Baselin e 13 H Troponin T 120 Min [place] 35.78 H (0-10) ng/L Delta Troponin T 22.78 H* (0-10) ABS# NT-Pro-B Natriuret Pep Total Protein Albumin Globulin Lipase Urine Color (Yellow) Urine Appearance (CLEAR) Urine pH (5-7) Ur Specific Gravit y (1.005-1.030) Urine Protein (Negative) Urine Glucose (UA) (Normal) Urine Ketones (Negative) Urine Blood (Negative) Urine Nitrate (Negative) Urine Bilirubin (Negative) Urine Urobilinogen (Negative) mg/dL Ur Leukocyte Yaa ase (Negative) Urine RBC (0-2) /hpf Urine WBC (0-5) /hpf Ur Squamous Epith Cells (0-5) /hpf Amorphous Sediment Urine Bacteria (NONE) /hpf 05/16/21 Range/Units 00:10 WBC Corrected WBC RBC Hgb Hct MCV MCH MCHC RDW Plt Count MPV Gran % Neut % (Auto) Lymph % (Auto) [place] % (Auto) Eos % (Auto) Baso % (Auto) Neut # (Auto) Lymph # (Auto) [place] # (Auto) Eos # (Auto) Baso # (Auto) Absolute Gran (aut o) Nucleated RBC % (a uto) Nucleated RBCs # PT (12.1-14.9) SECO NDS INR (0.8-1.2) APTT (23.9-36.7) SECO NDS D-Dimer (0-0.59) ug/mIFE U Sodium Potassium Chloride Carbon Dioxide Anion Gap BUN Creatinine GFR Calculation Glucose Calculated Osmolal ity Calcium Total Bilirubin AST ALT Alkaline Phosphata se Troponin T Baselin e Troponin T 120 Min [place] (0-10) ng/L Delta Troponin T (0-10) ABS# NT-Pro-B Natriuret Pep Total Protein Albumin Globulin Lipase Urine Color Yellow (Yellow) Urine Appearance Clear (CLEAR) Urine pH 7 (5-7) Ur Specific Gravit y 1.005 (1.005-1.030) Urine Protein Neg (Negative) Urine Glucose (UA) Norm (Normal) Urine Ketones Negative (Negative) Urine Blood 2+ H (Negative) Urine Nitrate Positive H (Negative) Urine Bilirubin Neg (Negative) Urine Urobilinogen Norm (Negative) mg/dL Ur Leukocyte Yaa ase 2+ H (Negative) Urine RBC 0-4 H (0-2) /hpf Urine WBC 25-40 H (0-5) /hpf Ur Squamous Epith Cells 0-4 H (0-5) /hpf Amorphous Sediment Not Reportable Urine Bacteria 4+ H (NONE) /hpf Imaging Data ^: CXR: Attestation: I personally reviewed and interpreted this imaging study as follows: Radiologist's impression: [place] [address] XRay Report Signed Patient: Deborah Mchugh Unit #: [id number] : 1950 Age/Sex: 71 / F ADM Date: 05/15/21 Loc: ER Room/Bed: Attending Dr: Ordering Provider/Ordering MD: Harvey Ramirez Date of Service: 05/15/21 Procedure(s): XR chest 1V portable [id number] Accession Number(s): [id number] Report Number: [id number] PROCEDURE INFORMATION: Exam: XR Chest Exam date and time: 05/15/2021 8:28 PM Age: 71 years old Clinical indication: Other: Abd pain/n/v moderna shot 05/14/21; Prior surgery; Surgery date: 6+ months; Surgery type: Breast biopsy-clip left behind for marker she says; Patient HX: Tachypnea; Abd pain, n/v, moderna shot 05/14/21 TECHNIQUE: Imaging protocol: XR of the chest. Views: 1 view. Total images: 1 COMPARISON: 1. CT chest abd pel w con* 02/08/2021 4:02 PM 2. CR Chest 1 [place] [id number] 11/09/2019 7:56 AM 3. [place] Chest 1 [place] [id number] 11/08/2019 4:[address] Chest 1 [place] [id number] 11/07/2019 3:10 AM FINDINGS: Lungs: No visible active interstitial or alveolar airspace disease. Calcified granulomas of antecedent disease. Pleural spaces: No pleural effusion. No pneumothorax. Heart/Mediastinum: Cardiac structures and configuration with mild arteriosclerosis. Bones/joints: Previous cervical fusion. 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 Other findings: Obesity. XR/XR chest 1V portable [id number] IMPRESSION: Nonacute. Dictated By: Chase Payne Signed By: Chase Payne Signed Date/Time: 05/15/212227 DD/ 26 CT Abd/Pel: Attestation: I personally reviewed and interpreted this imaging study as follows: Radiologist's impression: [id number] [place], [place] [address]IN Scan ReportSigned Patient: Deborah Mchugh #: [id number]: 8Acct#:[id number]/Sex: 71 / FADM Date: 05/15/21Loc: ERRoom/Bed:Attending Dr: Ordering Provider/Ordering MD: Harvey Ramirez Date of Service: 05/15/21 Procedure(s): CT abdomen pelvis wo con [id number] Accession Number(s): [id number] Report Number: [id number] PROCEDURE INFORMATION: Exam: CT Abdomen And Pelvis Without Contrast Exam date and time: 05/15/2021 9:42 PM Age: 71 years old Clinical indication: Nausea and vomiting; Abdominal pain; Generalized; Prior surgery; Surgery type: Gb. Hysterectomy. Appy. ; Patient HX: Abd pain with n/v S/P moderna vaccine. History of breast/uterine cancer. ; Additional info: Abdom pain, n/v TECHNIQUE: Imaging protocol: Computed tomography of the abdomen and pelvis without contrast. Total images: 272 Radiation optimization: All CT scans at this facility use at least one of these dose optimization techniques: automated exposure control; mA and/or kV adjustment per patient size (includes targeted exams where dose is matched to clinical indication); or iterative reconstruction. COMPARISON: 1. CT chest abd pel w con* 02/08/2021 4:[address] abdomen pelvis w con* [id number] 05/07/2019 11:08 PM RADIATION DOSE METRICS: Total DLP (mGy-cm): 1822.12 FINDINGS: Lungs: Limited assessment of the lung bases fails to reveal evidence for active cardiopulmonary process. Calcified granulomas of antecedent disease. Rare bullous/bleb. Liver: No visible hepatic mass or cystic structure. Numerous scattered calcified granulomas of antecedent disease. Gallbladder and bile ducts: Status post cholecystectomy. Pancreas: Pancreas is unremarkable. No visible pancreatic ductal ectasia. Spleen: Numerous calcified splenic granulomas of antecedent disease. Spleen otherwise unremarkable. Adrenal glands: Adrenal glands unremarkable. Kidneys and ureters: No hydronephrosis or perinephric fluid. No visible nephrolithiasis. Stomach and bowel: Assessment of the hollow viscus fails to reveal evidence of active or acute pathology. Nonobstructed bowel pattern. No visible acute diverticulitis. No visible adynamic or reactive ileus. Incidental note of a small 1 cm gastric antrum lipoma. Appendix: Status post appendectomy. Intraperitoneal space: No visible evidence of mesenteric lymphadenitis or active mesenteritis/panniculitis. No visible pneumoperitoneum or intraperitoneal ascites. Vasculature: The abdominal aorta is nonaneurysmal. Moderate arterial sclerotic disease. Lymph nodes: No current visible evidence of active mesenteric or retroperitoneal lymphadenopathy. Urinary bladder: Urinary bladder unremarkable. Reproductive: Status post hysterectomy. Bones/joints: No visible active or acute osseous pathology. Osteopenia/osteoporosis. Degenerative disease and degenerative disc disease of the spine with degenerative disc disease most advanced L2/L3, L4/L5, and L5/S1. Facet arthrosis. Diffuse idiopathic skeletal hyperostosis. Mild scoliotic curvature of the spine. Soft tissues: Small right paraumbilical ventral hernia containing fat only. Other findings: Marked obesity. Increased quantum mottle artifact. CT/CT abdomen pelvis wo con [id number] IMPRESSION: 1. Currently no visible evidence for acute abdominal or pelvic pathologic process. 2. Other nonurgent, nonemergent, chronic, postoperative, and age related findings as detailed in text above. Radiation Dose CTDIVOL = (mGy): DLP = 1822.12 (mGy-cm) Dictated By:Wilma Payne By:Wilma Payne Date/Time:05/15/212238DD/ 37 EKG Data ^: EKG 1: Attestation: I personally reviewed and interpreted this EKG as follows: EKG interpretation date: 05/15/21 Interpretation: Normal sinus rhythm, 69 bpm, no ST segment elevation or depression seen. EKG 2: Attestation: I personally reviewed and interpreted this EKG as follows: EKG interpretation date: 05/15/21 Interpretation: 2-hour EKG?normal sinus rhythm, 66 bpm, no ST segment elevation or depression seen. No acute changes compared to EKG done at today @2019. Discharge Plan Discharge Patient Disposition: Placed in Observation Admit Provider: Tia Henry Coding Level of Care Code ED Hay Farmer for Chg Fwd Exam Comprehensive
--- NOTE | 2021-05-15 20:28 | XRR_ITS ---
PROCEDURE INFORMATION: Exam: XR Chest Exam date and time: 05/15/2021 8:28 PM Age: 71 years old Clinical indication: Other: Abd pain/n/v moderna shot 05/14/21; Prior surgery; Surgery date: 6+ months; Surgery type: Breast biopsy-clip left behind for marker she says; Patient HX: Tachypnea; Abd pain, n/v, moderna shot 05/14/21 TECHNIQUE: Imaging protocol: XR of the chest. Views: 1 view. Total images: 1 COMPARISON: 1. CT chest abd pel w con* 02/08/2021 4:02 PM 2. CR Chest 1 [place] [id number] 11/09/2019 7:56 AM 3. CR Chest 1 [place] [id number] 11/08/2019 4:39 AM 4. [place] Chest 1 [place] [id number] 11/07/2019 3:10 AM FINDINGS: Lungs: No visible active interstitial or alveolar airspace disease. Calcified granulomas of antecedent disease. Pleural spaces: No pleural effusion. No pneumothorax. Heart/Mediastinum: Cardiac structures and configuration with mild arteriosclerosis. Bones/joints: Previous cervical fusion. 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 Other findings: Obesity. XR/XR chest 1V portable [id number] IMPRESSION: Nonacute.
--- NOTE | 2021-05-15 21:42 | CTR_ITS ---
PROCEDURE INFORMATION: Exam: CT Abdomen And Pelvis Without Contrast Exam date and time: 05/15/2021 9:42 PM Age: 71 years old Clinical indication: Nausea and vomiting; Abdominal pain; Generalized; Prior surgery; Surgery type: Gb. Hysterectomy. Appy. ; Patient HX: Abd pain with n/v S/P moderna vaccine. History of breast/uterine cancer. ; Additional info: Abdom pain, n/v TECHNIQUE: Imaging protocol: Computed tomography of the abdomen and pelvis without contrast. Total images: 272 Radiation optimization: All CT scans at this facility use at least one of these dose optimization techniques: automated exposure control; mA and/or kV adjustment per patient size (includes targeted exams where dose is matched to clinical indication); or iterative reconstruction. COMPARISON: 1. CT chest abd pel w con* 02/08/2021 4:[address] abdomen pelvis w con* [id number] 05/07/2019 11:08 PM RADIATION DOSE METRICS: Total DLP (mGy-cm): 1822.12 FINDINGS: Lungs: Limited assessment of the lung bases fails to reveal evidence for active cardiopulmonary process. Calcified granulomas of antecedent disease. Rare bullous/bleb. Liver: No visible hepatic mass or cystic structure. Numerous scattered calcified granulomas of antecedent disease. Gallbladder and bile ducts: Status post cholecystectomy. Pancreas: Pancreas is unremarkable. No visible pancreatic ductal ectasia. Spleen: Numerous calcified splenic granulomas of antecedent disease. Spleen otherwise unremarkable. Adrenal glands: Adrenal glands unremarkable. Kidneys and ureters: No hydronephrosis or perinephric fluid. No visible nephrolithiasis. Stomach and bowel: Assessment of the hollow viscus fails to reveal evidence of active or acute pathology. Nonobstructed bowel pattern. No visible acute diverticulitis. No visible adynamic or reactive ileus. Incidental note of a small 1 cm gastric antrum lipoma. Appendix: Status post appendectomy. Intraperitoneal space: No visible evidence of mesenteric lymphadenitis or active mesenteritis/panniculitis. No visible pneumoperitoneum or intraperitoneal ascites. Vasculature: The abdominal aorta is nonaneurysmal. Moderate arterial sclerotic disease. Lymph nodes: No current visible evidence of active mesenteric or retroperitoneal lymphadenopathy. Urinary bladder: Urinary bladder unremarkable. Reproductive: Status post hysterectomy. Bones/joints: No visible active or acute osseous pathology. Osteopenia/osteoporosis. Degenerative disease and degenerative disc disease of the spine with degenerative disc disease most advanced L2/L3, L4/L5, and L5/S1. Facet arthrosis. Diffuse idiopathic skeletal hyperostosis. Mild scoliotic curvature of the spine. Soft tissues: Small right paraumbilical ventral hernia containing fat only. Other findings: Marked obesity. Increased quantum mottle artifact. CT/CT abdomen pelvis wo con [id number] IMPRESSION: 1. Currently no visible evidence for acute abdominal or pelvic pathologic process. 2. Other nonurgent, nonemergent, chronic, postoperative, and age related findings as detailed in text above. Radiation Dose CTDIVOL = (mGy): DLP = 1822.12 (mGy-cm)
[2021-05-15 21:44] LABS: Basophils % 0.3 %; Eosinophils # 0.1 10^3/uL (0.0-0.8); Hematocrit 31.6 % (37.0-47.0); Hemoglobin 9.8 g/dL (11.5-15.3); Lymphocytes % 10.3 %; Mean Corpuscular Hemoglobin 29.7 pg (28.0-34.0); Mean Corpuscular Volume 95.8 fL (81-99); Mean Platelet Volume 9.9 fL (7.4-10.4); Monocytes # 0.8 10^3/uL (0.2-0.9); Monocytes % 7.8 %; Neutrophils # 8.02 10^3/uL (1.8-7.7); Neutrophils % 80.2 %; Nucleated Red Blood Cells % 0 %; Platelet Count 287 10^3/cmm (130-400); Red Cell Distribution Width 12.4 % (12.1-15.1)
[2021-05-15 22:03] LABS: INR 1.03 (0.8-1.2)
[2021-05-15 22:04] LABS: Partial Thromboplastin Time 25.7 SECONDS (23.9-36.7)
--- NOTE | 2021-05-15 22:04 | ECG_ITS ---
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 Measurements Intervals Dafter Rate: 66 P: 85 NE: 199 QRS: 51 QRSD: 87 T: 42 QT: 443 QTc: 465 Interpretive Statements SINUS RHYTHM LOW QRS VOLTAGE IN PRECORDIAL LEADS [QRS DEFLECTION < 1.0 mV IN CHEST LEADS] Compared to ECG 11/06/2019 03:59:57 Myocardial infarct finding no longer present Electronically Signed On 05-16-2021 20:09:35 CDT by Rose Blanca M.D. [email or web address]
[2021-05-15 22:24] LABS: Alanine Aminotransferase < 5 U/L (0-33); Albumin Level 3.7 g/dL (3.5-5.2); Alkaline Phosphatase 134 IU/L (35-105); Anion Gap 17.1 (5-19); Aspartate Amino Transferase 11 U/L (0-32); Blood Urea Nitrogen 25 mg/dL (8-23); Calcium 9.7 mg/dL (8.5-10.5); Carbon Dioxide 28 mmol/L (22-29); Chloride 100 mmol/L (98-107); Creatinine Clr Calc Pharmacy 53.0871; Globulin 2.2 g/dL (1.3-4.6); Glucose 106 mg/dL (65-115); Lipase 73 U/L (13-60); NT Pro B Type Natriuretic Pept 338 pg/mL (0-125); Osmolality Calculated 297 mOsm/kg (285-295); Potassium 4.1 mmol/L (3.5-5.1); Sodium 141 mmol/L (136-145); Total Bilirubin 0.2 mg/dL (0.15-1.2); Total Protein 5.9 g/dL (6.6-8.7)
[2021-05-15 22:28] LABS: Troponin(5th) Baseline 13 ng/L (0-10)
[2021-05-15 23:09] VITALS: BP 153/81; PULSE 66; RESP 18; O2SAT 94
[2021-05-15] MEDS: HYDROcodone-acetaminophen 7.5-325 mg Tablet 1 TAB PO (23:21)
[2021-05-15] MEDS: ondansetron 2 mg/ML SDV 2 mL 4 MG IVP (23:22)
[2021-05-15 23:52] LABS: Troponin 5 2HR 35.78 ng/L (0-10)
[2021-05-15 23:55] LABS: Troponin 5 2HR Delta 22.78 ABS# (0-10)
[2021-05-16] VITALS (11 sets, daily range): BP systolic 128–149; BP diastolic 65–93; PULSE 57–80; RESP 17–22; TEMP 36.6–36.9; O2SAT 91–98
[2021-05-16 00:40] LABS: Add Urine Culture? Yes; Bacteria Urine 4+ /hpf; Bilirubin Urine Neg (Negative); Blood Urine 2+ (Negative); Glucose Urine UA Norm (Normal); Ketones Urine Negative (Negative); Leukocyte Esterase Urine 2+ (Negative); Nitrate Urine Positive (Negative); Protein Urine Neg (Negative); RBC Urine 0-4 /hpf (0-2); Specific Gravity, Urine 1.005 (1.005-1.030); Squamous Epithelial Cell Urine 0-4 /hpf (0-5); Urine Appearance Clear (CLEAR); Urine Color Yellow (Yellow); Urobilinogen Urine Norm (Negative); WBC Urine 25-40 /hpf (0-5); pH Urine 7 (5-7)
[2021-05-16 00:47] LABS: D Dimer 0.46 ug/mIFEU (0-0.59)
--- NOTE | 2021-05-16 01:33 | PM.HP ---
Providers/Chief Complaint Admitting Physician: Tia Henry MD Primary Care Provider: Lo Avalos APN Chief Complaint: abd pain/n/v, maderna shot friday History of Present Illness Deborah Mchugh is a 71 year old female who carries history of morbid obesity, diastolic congestive heart failure BiPAP for sleep apnea, history of pulmonary embolism, preserved ejection fraction heart failure oxygen dependent COPD uses 3 L of oxygen, bilateral multifocal invasive breast cancer follows up with Dr. Ledbetter on anastrozole presented today with chief complaint of nausea, vomiting and abdominal pain. Patient is stating that for last few days she has not been feeling well, she received COVID-19 vaccine on Friday and since then she is extremely lethargic and fatigued, she has not noticed any fever, she is experiencing midepigastric discomfort with nausea and dry heaves. She denies dysuria. She is also noticing some chest heaviness which she describing as butterflies sensation she would not call it chest discomfort. No acute shortness of breath from her baseline. Diagnostics in the ER revealed normal CBC and BMP other than creatinine 1.3 which is around baseline, significant delta troponin, patient is not endorsing active chest pain, EKG showing T wave inversion in lead V1 V2, in comparison to previous EKG from 2019 these changes are not new, at the time of my evaluation she was complaining of midepigastric pain secondary to her hernia however no visible mass or protuberance noted Review of Systems Const: Reports: chills, body aches and fatigue Eyes: Denies: change in vision ENMT: Denies: throat pain Card: Reports: dyspnea on exertion; Denies: chest pain Resp: Reports: dyspnea GI: Reports: abdominal pain and nausea : Denies: flank pain Musc: Denies: neck pain Skin/Breast: Reports: lesions Neuro: Reports: headache(s) Psych: Reports: anxiety Endo: Denies: polyuria Jeovanny/Lymph: Denies: easy bruising All/Imm: Denies: urticaria Medications/Allergies Home Medications Medication Instructions Recorded Confirmed Last Taken Type albuterol sulfate 2.5 mg INHALATION Q4H PRN 12/23/19 04/04/21 02/01/20 History docusate sodium 100 mg capsule 200 mg PO DAILY@08 cap 12/23/19 04/04/21 02/07/21 History furosemide 40 mg tablet See Rx Instructions .ROUTE 12/23/19 04/04/21 02/07/21 History .COMPLEX tab gemfibrozil 600 mg tablet 600 mg PO BID@12/23/19 04/04/21 02/07/21 History naloxone 4 mg/actuation nasal spray See Rx Instructions .ROUTE 12/23/19 04/04/21 Unknown History .COMPLEX PRN nitroglycerin 0.4 mg sublingual 0.4 mg SUBLINGUAL Q5M PRN 12/23/19 04/04/21 Unknown History tablet pantoprazole 20 mg tablet,delayed 20 mg PO BID@12/23/19 04/04/21 02/07/21 History release ropinirole 0.5 mg tablet 0.5 mg PO TID tab 12/23/19 04/04/21 02/07/21 History simvastatin 40 mg tablet 40 mg PO BEDTIME 12/23/19 04/04/21 02/07/21 History ergocalciferol (vitamin D2) 50,000 unit PO Q30D 02/02/20 04/04/21 02/07/21 History lisinopril 2.5 mg PO DAILY@08 02/02/20 04/04/21 02/07/21 History spironolactone 25 mg PO DAILY 02/02/20 04/04/21 02/07/21 History anastrozole 1 mg tablet 1 mg PO DAILY@08 03/21/20 04/04/21 02/07/21 History fentanyl 50 mcg TRANSDERMAL Q72H 02/08/21 04/04/21 02/07/21 History PUT NEW PATCH ON fluoxetine 40 mg PO DAILY 02/08/21 04/04/21 02/07/21 History hydrocodone-acetaminophen See Rx Instructions .ROUTE .COMPLEX 02/08/21 04/04/21 Unknown History hydroxyzine HCl See Rx Instructions .ROUTE .COMPLEX 02/08/21 04/04/21 Unknown History ibuprofen 400 mg PO PRN 02/08/21 04/04/21 Unknown History potassium chloride 20 meq PO BID@02/08/21 04/04/21 02/07/21 History Allergies Allergy/AdvReac Type Severity Reaction Status Date / Time adhesive tape Allergy ALGY-Rash Verified 04/04/21 10:33 heparin (porcine) Allergy Unknown Verified 04/04/21 10:33 morphine Allergy ALGY-Hives Verified 04/04/21 10:33 oxytetracycline Allergy ALGY-Anaphy Verified 04/04/21 10:33 [From Terramycin] laxis Tetanus Vaccines and Toxoid Allergy Unknown Verified 04/04/21 10:33 cimetidine [From Tagamet] AdvReac ADR-Abdominal Verified 04/04/21 10:33 Pain hydromorphone [From Dilaudid] AdvReac ADR-Halluci Verified 04/04/21 10:33 nating PFSH Acute PFSH: Medical History Anxiety COPD (chronic obstructive pulmonary disease) CVA (cerebral vascular accident) GERD (gastroesophageal reflux disease) Hyperlipidemia Hypertension Hyperthyroidism Morbid obesity ROSEMARIE (obstructive sleep apnea) Surgical History H/O cervical spine surgery H/O: hysterectomy History of bilateral breast biopsy History of cholecystectomy History of colon resection History of open reduction and internal fixation (ORIF) procedure left femur Status post right knee replacement Family History Grandfather Diabetes Maternal Grandmother Diabetes Maternal Kidney failure Maternal Grandmother Diabetes Paternal Grandfather Diabetes Paternal Family/Other Diabetes Aunt Mother , Age 99 Hypertension Cancer Leukemia Father Myocardial infarction Hypertension Brother Hypertension Cancer Prostate Denies family history of Anesthesia complication Bleeding disorder Social History Smoking and tobacco status: current every day smoker cigarettes [ Other cigarette details: 11/27-11/25 PPD ] Alcohol intake: never Lives independently: Yes Household members: spouse Marital status: Current occupational status: disabled History of recent travel: No Vitals/I&O/Wt Last Vital Signs Temp 98.2 F 05/15/21 19:54 Pulse 57 L 05/16/21 00:51 Resp 18 05/16/21 00:51 BP 135/71 05/16/21 00:51 Pulse Ox 94 05/16/21 00:51 Weight last 48 hrs Weight 136.078 kg Physical Exam Narrative: EXAM NARRATIVE: Elderly female She was laying comfortably in supine position in her bed Saturating well on 3 L nasal cannula Variable S1-S2 No overt signs of congestive heart failure She is very sensitive to touch, slightest bit of touch around lower extremity would cause pain Central obesity, soft abdomen, mild tenderness on deep palpation in right lower quadrant, bowel sounds hyperactive Lower extremity no edema [employer] spots all over EOMI, PERRLA no neurological deficit In distress because abdominal pain Data : 05/15/21 21:35 05/15/21 21:35 A&P Assessment and plan (1) Epigastric pain: Status: Acute (2) Morbid obesity: Status: Acute (3) ROSEMARIE (obstructive sleep apnea): Status: Acute (4) GERD (gastroesophageal reflux disease): Status: Acute Additional A&P Information Epigastric pain with dry heaves History of breast cancer with metastases status post exploratory laparotomy with sigmoid colon resection and omentectomy for metastatic adenocarcinoma with peritoneal carcinoma CT abdomen with nonacute findings Mild tenderness to deep palpation in right lower quadrant no visual protuberance or masses No active chest pain however celebratory troponin noted EKG showing T wave inversion V1 V2 these changes are not new as compared to previous EKG from 2019, will monitor 6-hour troponin, if that is trending down she can probably be discharged in the morning, rising troponin most likely secondary to chronic kidney disease, 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 medications hence needing IV opioids requiring overnight stay in the hospital For sleep apnea would use BiPAP overnight Continue Protonix and sucralfate for GERD Full code Cardiac diet/consistent carb DVT prophylaxis Heparin Attestations Medical Necessity Statement*: Patient is experiencing dry heaves cannot take p.o. medications at home for her pain management, requiring overnight IV fluid hydration and opioids Anticipating discharge within 48 hours Time Spent in Patient Care: 35mins Coding Level of Care Code Acute Nutrition Coordinator for Chg Fwd Diagnoses Epigastric pain R10.13 Morbid obesity E66.01 ROSEMARIE (obstructive sleep apnea) G47.33 GERD (gastroesophageal reflux disease) K21.9
--- NOTE | 2021-05-16 02:04 | ECG_ITS ---
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 Measurements Intervals [place] Rate: 61 P: 41 [place]: 186 QRS: 47 QRSD: 86 T: 39 QT: 477 QTc: 481 Interpretive Statements SINUS RHYTHM LOW QRS VOLTAGE IN PRECORDIAL LEADS [QRS DEFLECTION < 1.0 mV IN CHEST LEADS] PROLONGED QT INTERVAL Compared to ECG 05/15/2021 22:23:44 Prolonged QT interval now present Electronically Signed On 05-16-2021 20:10:28 CDT by Rose Blanca M.D. [id number]
--- NOTE | 2021-05-16 02:15 | PC.ADMIT ---
[address] Admission Note: The patient,Deborah Mchugh,71 y/o, admitted to [facility], was given verbal information (patient blind) regarding hospital policies, unit procedures and contact persons. Patient's smoking status: current every day smoker. Vital Signs - 8 hr 05/15/21 19:54 05/15/21 23:09 05/16/21 00:51 Temperature 98.2 F Pulse Rate 66 57 L Pulse Rate [Monitor] 67 Respiratory Rate 26 H 18 18 Blood Pressure 153/81 135/71 Blood Pressure [Right Arm] 127/68 Pulse Oximetry 95 94 94 05/16/21 01:37 Temperature 98.1 F Pulse Rate 63 Pulse Rate [Monitor] Respiratory Rate 20 H Blood Pressure 143/93 Blood Pressure [Right Arm] Pulse Oximetry 98
--- NOTE | 2021-05-16 02:17 | PC.NURSE ---
Patient states she breaks out in hives when given heparin. Notified Dr. Henry. Orders received to hold Lovenox.
[2021-05-16 04:27] LABS: Troponin 5 6HR 42.92 ng/L (0-10)
[2021-05-16 04:41] LABS: Troponin 5 6HR Delta 29.92 ng/L (0-12)
[2021-05-16] MEDS: sodium chloride 0.9% 1,000 ML 30 ML IV (06:09)
[2021-05-16 06:27] LABS: Glucose Point of Care 101 mg/dL (70-110)
[2021-05-16] MEDS: pantoprazole DR 40 mg Tablet 20 MG PO ×2 (09:02→20:49)
[2021-05-16] MEDS: fluoxetine 20 mg Capsule 40 MG PO (09:02)
[2021-05-16] MEDS: sennosides-docusate Tablet 1 TAB PO (09:03)
[2021-05-16] MEDS: ropinirole 0.25 mg Tablet 0.5 MG PO ×3 (09:03→20:49)
[2021-05-16] MEDS: anastrozole 1 mg Tablet PO (09:13)
--- NOTE | 2021-05-16 10:02 | PC.CHAP ---
Pastoral Care Encounter/Spiritual Assessment Type of Contact [] Declined organic extractions technician visit [] Patient/Family/Request visit [] Outpatient visit [] Follow-up visit [] Physician referral [] Code/Alert [x] Routine visit [] Staff referral [] Actively dying [] Patient sleeping [x] Family support [] [] Out of room [] Palliative care [] [] Receiving care in room [] Pre-surgical visit [] Trauma [] Long length of stay [] ICU visit [] Other: Relational/Emotional Strength [] Patient feels connected with others/family/visitors/staff [] Distress [] Loneliness/isolation [] Abandonment Spirituality of Patient [x] Person of Yadi [] Attends Caodaism of their Yadi [] Believes in Prayer [] Reads Bible or Anglican materials [] There are Spiritual issues to be addressed Zipper Cutter Interventions [x] Prayer [x] Active listening [x] Non-anxious presence [x] Spiritual/emotional support [] Crisis/trauma care [] Spiritual counseling [] Bereavement support [] Provided bereavement packet [] Provided Bible/devotional materials [] Provided toy/stuffed animal, coloring book to patient or family member [] Provided Communion [] Anointing/[place] [] Salvation [x] Completed spiritual assessment [] Other: Impact on Illness or Injury [] Angry [] Fearful [] Anxious [] Often cries [] Exhaustion [] Unable to work [] Unable to attend jewish [] Unable to walk/stand [] Unable to read [] Unable to drive [] Unable to eat/drink [] Unable to sleep [] Unable to be with family [] Patient intubated [] Other: Summary gentle woman.... present.. they both have concerns, but they also have yadi Time spent with patient 10 min
--- NOTE | 2021-05-16 11:00 | PC.NURSE ---
IV insertion IV inserted in right inner forearm by nursing staff development coordinator instructor, Supriya Rosa. IV infiltrated, selling underwriter d/c IV, applied pressure dressing and elevated right extremity.
[2021-05-16 11:11] LABS: Glucose Point of Care 107 mg/dL (70-110)
[2021-05-16] MEDS: HYDROmorphone 1 mg/mL INJ 1 mL 0.4 MG IVP (12:25)
--- NOTE | 2021-05-16 13:20 | USCV_ITS ---
Deborah Mchugh Age: 71 Gender: F : 1950 Exam Date: 05/16/2021 15:32 Ordering Phys: Susana Fair MD Technologist: Exam Location: [facility] [place] Indication: CHEST PAIN BP: 137 / 74 HR: 67 Rhythm: Sinus Technical Quality: Good MEASUREMENTS (Male / Female) Normal Values 2D ECHO LV Diastolic Diameter PLAX 4.7 cm 4.2 - 5.9 / 3.9 - 5.3 cm LV Systolic Diameter PLAX 3.0 cm IVS Diastolic Thickness 0.9 cm 0.6 - 1.0 / 0.6 - 0.9 cm IVS Systolic Thickness 1.8 cm LVPW Diastolic Thickness 0.9 cm 0.6 - 1.0 / 0.6 - 0.9 cm LVPW Systolic Thickness 1.2 cm LVOT Diameter 2.0 cm LV Ejection Fraction 2D Teich 65.3 % LV Ejection Fraction MOD 2C 57.6 % LV Ejection Fraction 2C AL 57.4 % LA Diameter 3.5 cm LA Width 7.7 cm DOPPLER AV Peak Velocity 184.0 cm/s LVOT Peak Velocity 105.0 cm/s AV Area Cont Eq vti 1.8 cm squared AV Area Cont Eq pk 1.8 cm squared MV Area PHT 5.0 cm squared Mitral E to A Ratio 0.8 MV E' Velocity 55.0 cm/s Mitral E to MV E' Ratio 11.6 Mitral E to LV E' Lateral Ratio 11.1 Mitral E to LV E' Septal Ratio 12.3 TR Peak Velocity 149.3 cm/s TR Peak Gradient 8.9 mmHg TV Peak E Velocity 89.0 cm/s Right Atrial Pressure 3.0 mmHg Pulmonary Artery Systolic Pressu 11.9 mmHg FINDINGS Left Ventricle Normal left ventricular size, systolic function and wall thickness, with no regional wall motion abnormalities. Left ventricular ejection fraction is estimated at 65 %. Normal diastolic function. Right Ventricle Normal right ventricular size and systolic function, RVSP 11.9 mmHg. Right Atrium Normal right atrial size. Right atrial pressure estimated at 3 mmHg. Left Atrium Normal left atrial size. Mitral Valve Mild mitral annular calcification. Mildly thickened mitral valve. No mitral valve stenosis. Trace mitral valve regurgitation. Aortic Valve Structurally normal trileaflet aortic valve. No aortic valve stenosis. No aortic valve regurgitation. Tricuspid Valve Trace tricuspid valve regurgitation. Pulmonic Valve Pulmonic valve not well visualized. No pulmonary valve stenosis. Pericardium No pericardial effusion. Aorta Normal size aortic root. Normal-sized inferior vena cava with normal respiratory variation. CONCLUSIONS 1. This is a technically difficult study. Ultrasound enhancing agent Optison was used per protocol. 2. Normal left ventricular size, systolic function and wall thickness, with no regional wall motion abnormalities. Left ventricular ejection fraction is estimated at 65 %. Normal diastolic function. 3. Normal right ventricular size and systolic function. 4. Normal pulmonary artery pressure. 5. No significant change when compared to echocardiogram dated 14 October 2018. Sheyla Rea MD (Electronically Signed) Final Date: 16 May 2021 18:26 S
--- NOTE | 2021-05-16 14:23 | PM.PN ---
Subjective Subjective: Interval history: Patient continued complaint of intermittent episodes of epigastric pain. Denies shortness of breath. No fever chills. No nausea vomiting since arrival. Medications: Reviewed: Yes Vitals/I&O/Wt Last Vital Signs Temp 97.8 F 05/16/21 13:00 Pulse 77 05/16/21 13:00 Resp 19 H 05/16/21 13:00 BP 137/74 05/16/21 13:00 Pulse Ox 91 05/16/21 13:00 05/15/21 05/16/21 05/16/21 22:59 06:59 14:59 Intake Total 100 / 100 520 / 520 Output Total 200 / 200 Balance -100 / -100 520 / 520 Weight last 48 hrs Weight 136.078 kg Physical Exam Narrative: EXAM NARRATIVE: General- morbidly obese female HEENT- grossly unremarkable CVS- regular rate rhythm Chest- clear to auscultation -difficult to assess due to body habitus Abdomen- no focal areas of tenderness Extremities- mild bilateral lower extremity edema Data : 05/15/21 21:35 05/15/21 21:35 A&P Assessment and plan (1) Epigastric pain: CT abdomen pelvis -no acute abnormality Zofran p.r.n. nausea Status: Acute (2) Morbid obesity: Status: Acute (3) ROSEMARIE (obstructive sleep apnea): Continue CPAP Status: Acute (4) GERD (gastroesophageal reflux disease): Continue Protonix and sucralfate Status: Acute (5) Elevated troponin: Will obtain echocardiogram with contrast NPO midnight Nuclear stress test in a.m. Discussed cardiology Asa 81 mg PO daily Lipid panel in am a1c in am Status: Acute (6) Abnormal finding on urinalysis: Suspected possible urinary tract infection Positive nitrate and leukocyte esterase Will empirically start Rocephin 2 g IV Q 24 Follow-up on cultures Status: Acute Additional A&P Information History of breast cancer with metastases status post exploratory laparotomy with sigmoid colon resection and omentectomy for metastatic adenocarcinoma with peritoneal carcinoma - Outpatient management with Oncology Full code Cardiac diet/consistent carb DVT prophylaxis Heparin Attestations Medical Necessity Statement*: Continue hospitalization for management of positive troponin. Time Spent in Patient Care: Greater than 35 minutes (>than 50% of time spent in counselling and/or direct pt care on unit). Coding Level of Care Code Acute School Curriculum Developer for Chg Fwd Diagnoses Epigastric pain R10.13 Morbid obesity E66.01 ROSEMARIE (obstructive sleep apnea) G47.33 GERD (gastroesophageal reflux disease) K21.9 Elevated troponin R77.8 Abnormal finding on urinalysis R82.90
[2021-05-16] MEDS: perflutren protein-a microsphr 0.22 mg/mL SDV 3 mL IV (15:08)
[2021-05-16] MEDS: cefTRIAXone 2,000 MG in sodium chloride 0.9% (plus) 50 ML 100 MG IV (15:25)
[2021-05-16 16:09] LABS: Glucose Point of Care 103 mg/dL (70-110)
[2021-05-16 20:24] LABS: Glucose Point of Care 121 mg/dL (70-110)
[2021-05-16] MEDS: ALPRAZolam 0.25 mg Tablet PO (20:49)
[2021-05-17] VITALS: BP 152/86; PULSE 72; RESP 18; O2SAT 95
[2021-05-17 04:00] VITALS: BP 152/86; PULSE 73; RESP 18; O2SAT 94
[2021-05-17 04:05] LABS: Basophils % 0.5 %; Eosinophils # 0.1 10^3/uL (0.0-0.8); Eosinophils % 1.5 %; Hematocrit 33.4 % (37.0-47.0); Lymphocytes # 1.4 10^3/uL (0.8-4.8); Lymphocytes % 16.3 %; Mean Corpuscular HGB Conc 29.9 g/dL (30.0-36.0); Mean Corpuscular Hemoglobin 29.2 pg (28.0-34.0); Mean Corpuscular Volume 97.4 fL (81-99); Mean Platelet Volume 10.3 fL (7.4-10.4); Monocytes # 0.6 10^3/uL (0.2-0.9); Monocytes % 6.9 %; Neutrophils # 6.33 10^3/uL (1.8-7.7); Neutrophils % 74.6 %; Nucleated Red Blood Cells % 0 %; Platelet Count 293 10^3/cmm (130-400); Red Blood Count 3.43 10^6/uL (4.1-5.3); Red Cell Distribution Width 12.6 % (12.1-15.1); White Blood Count 8.5 10^3/uL (4.0-10.0)
[2021-05-17 04:23] LABS: Estmated Average Glucose 103; Hemoglobin A1C 5.2 % (4.0-6.0)
[2021-05-17 04:24] LABS: Alanine Aminotransferase < 5 U/L (0-33); Albumin Level 3.6 g/dL (3.5-5.2); Alkaline Phosphatase 116 IU/L (35-105); Anion Gap 13.4 (5-19); Aspartate Amino Transferase 14 U/L (0-32); Blood Urea Nitrogen 20 mg/dL (8-23); Calcium 9.4 mg/dL (8.5-10.5); Carbon Dioxide 30 mmol/L (22-29); Chloride 103 mmol/L (98-107); Chol HDL Ratio 2.29 mg/dL (0.0-4.40); Cholesterol 103 mg/dL (0-200); Globulin 2.3 g/dL (1.3-4.6); Glucose 94 mg/dL (65-115); HDL Cholesterol 45 mg/dL (60-100); LDL Cholesterol Calculated 35 mg/dL (50-129); LDL HDL Ratio 0.78 RATIO (0.00-3.22); Osmolality Calculated 298 mOsm/kg (285-295); Potassium 3.4 mmol/L (3.5-5.1); Sodium 143 mmol/L (136-145); Total Bilirubin 0.2 mg/dL (0.15-1.2); Total Protein 5.9 g/dL (6.6-8.7); Triglycerides 113 mg/dL (0-150)
[2021-05-17 06:50] LABS: Glucose Point of Care 94 mg/dL (70-110)
[2021-05-17] MEDS: ondansetron 2 mg/ML SDV 2 mL 4 MG IVP (06:50)
--- NOTE | 2021-05-17 07:30 | PC.NURSE ---
Patient left floor for stress test.
[2021-05-17 08:00] VITALS: BP 145/72; PULSE 68; RESP 19; TEMP 37.2; O2SAT 97
--- NOTE | 2021-05-17 08:10 | PC.NURSE ---
Pt returned from stress test. Unable to perform test due to patients size and cooperation.
--- NOTE | 2021-05-17 08:37 | SUR.PREOP ---
STRESS TEST Patient unable to complete nuclear scans. Notified by Greg WATTS. Floor nurse made aware that test cannot be completed. Dr Fair aware, no new orders at this time.
[2021-05-17] MEDS: fluoxetine 20 mg Capsule 40 MG PO (08:48)
[2021-05-17] MEDS: aspirin 81 mg EC Tablet PO (08:48)
[2021-05-17] MEDS: ALPRAZolam 0.25 mg Tablet PO (08:48)
[2021-05-17] MEDS: ropinirole 0.25 mg Tablet 0.5 MG PO (08:48)
[2021-05-17] MEDS: pantoprazole DR 40 mg Tablet 20 MG PO (08:48)
[2021-05-17] MEDS: anastrozole 1 mg Tablet PO (08:48)
[2021-05-17] MEDS: sennosides-docusate Tablet 1 TAB PO (08:48)
[2021-05-17 10:29] VITALS: BP 145/72; PULSE 68; RESP 19; TEMP 37.2; O2SAT 97
--- NOTE | 2021-05-17 10:33 | PC.NURSE ---
Pt education provided to self and spouse. No questions or concerns. Pt pushed out by wheelchair and left with spouse.
--- NOTE | 2021-05-17 10:44 | PC.CHAP ---
Pastoral Care Encounter/Spiritual Assessment Type of Contact [] Declined mail truck driver visit [] Patient/Family/Request visit [] Outpatient visit [] Follow-up visit [] Physician referral [] Code/Alert [x] Routine visit [] Staff referral [] Actively dying [] Patient sleeping [] Family support [] [] Out of room [] Palliative care [] [x] Receiving care in room [] Pre-surgical visit [] Trauma [] Long length of stay [] ICU visit [] Other: Relational/Emotional Strength [x] Patient feels connected with others/family/visitors/staff [] Distress [] Loneliness/isolation [] Abandonment Spirituality of Patient [x] Person of Yadi [] Attends Catholic of their Yadi [x] Believes in Prayer [] Reads Bible or Yazidi materials [] There are Spiritual issues to be addressed Outside Barrel Lathe Operator Interventions [x] Prayer [x] Active listening [x] Non-anxious presence [x] Spiritual/emotional support [] Crisis/trauma care [x] Spiritual counseling [] Bereavement support [] Provided bereavement packet [] Provided Bible/devotional materials [] Provided toy/stuffed animal, coloring book to patient or family member [] Provided Communion [] Anointing/[place] [] Salvation [x] Completed spiritual assessment [] Other: Impact on Illness or Injury [] Angry [] Fearful [] Anxious [] Often cries [] Exhaustion [] Unable to work [] Unable to attend uatsdin [] Unable to walk/stand [] Unable to read [] Unable to drive [] Unable to eat/drink [] Unable to sleep [] Unable to be with family [] Patient intubated [] Other: Summary abd pain is going home today has a good attitude feels good +1 hudband Time spent with patient
--- NOTE | 2021-05-17 11:20 | PC.RESP ---
SMOKING CESSATION AND PULMONARY REHAB INFORMATION SENT TO PATIENT.
--- NOTE | 2021-05-19 20:13 | P.DS_ITS ---
Discharge Providers Date of Admission: 05/16/21 16:20 Date of Discharge: May 19, 2021 Attending Provider at Admission: Tia Henry MD Attending Provider at Discharge: Susana Fair Primary Care Provider: [facility] Diagnoses at Discharge Discharge Diagnosis (1) Epigastric pain: Status: Resolved (2) Morbid obesity: Status: Acute (3) ROSEMARIE (obstructive sleep apnea): Status: Acute (4) GERD (gastroesophageal reflux disease): Status: Acute (5) Elevated troponin: Status: Resolved (6) Abnormal finding on urinalysis: Status: Resolved Reason for Visit Reason for Visit: abd pain/n/v, maderna shot friday Hospital Course Hospital Course 71 year old female who carries history of morbid obesity, diastolic congestive heart failure BiPAP for sleep apnea, history of pulmonary embolism, preserved ejection fraction heart failure oxygen dependent COPD uses 3 L of oxygen, bilateral multifocal invasive breast cancer follows up with Dr. Ledbetter on anastrozole presented today with chief complaint of nausea, vomiting and abdominal pain. Patient is stating that for last few days she has not been feeling well, she received COVID-19 vaccine on Friday and since then she is extremely lethargic and fatigued, she has not noticed any fever, she is exper iencing midepigastric discomfort with nausea and dry heaves. She denies dysuria. She is also noticing some chest heaviness which she describing as butterflies sensation she would not call it chest discomfort. No acute shortness of breath from her baseline. Diagnostics in the ER revealed normal CBC and BMP other than creatinine 1.3 which is around baseline, significant delta troponin, patient is not endorsing active chest pain, EKG showing T wave inversion in lead V1 V2, in comparison to previous EKG from 2019 these changes are not new, at the time of my evaluation she was complaining of midepigastric pain secondary to her hernia however no visible mass or protuberance noted. Troponin were noted to be elevated. D/w cardiology who recommended ECHO and Nuclear stress test. EF was preserved and no clear regional wall motion abnormality was noted on Echo. Attempted to a nuclear stress test however due to patients body habitus she was not able to complete this test. She was adamant on being discharged. Additinally started on Rocephin for UTI , urine culture was pending however pateint did not want to wait till this reported. She was started on cefdinir. No further episode of nausea or vomiting. Was discharged in stable condition to follow up with PCP and cardiology soon after discharge. Physical Exam Narrative: EXAM NARRATIVE: General- morbidly obese female HEENT- grossly unremarkable CVS- regular rate rhythm Chest- clear to auscultation -difficult to assess due to body habitus Abdomen- no focal areas of tenderness Extremities- mild bilateral lower extremity edema Discharge Data Data Completed and Pending: Completed Studies During Hospitalization Category Date Time Status CT abdomen pelvis wo con [id number] Urge nt Cat Scan 05/15/21 21:42 Completed XR chest 1V susy ble [id number] Stat Exams 05/15/21 20:28 Completed CV echo wo/w cont rast [id number] Routine Ultrasound 05/16/21 13:20 Completed Pending at discharge Category Date Time Status Sestamibi Stress Test Request Casperi ne Exams 05/16/21 13:16 Ordered Vitals: Last Vital Signs Temp 98.9 F 05/17/21 10:29 Pulse 68 05/17/21 10:29 Resp 19 H 05/17/21 10:29 BP 145/72 05/17/21 10:29 Pulse Ox 97 05/17/21 10:29 Discharge Plan Discharge Patient Disposition: Home Condition: Stable Prescriptions: New aspirin 81 mg Tablet,Delayed Release (Dr/Ec) 81 mg PO DAILY Qty: 30 RF: 0 cefdinir 300 mg capsule 300 mg PO BID 5 Days Qty: 10 RF: 0 Continued pantoprazole 20 mg tablet,delayed release (DR/EC) 20 mg PO BID@ RF: 0 ropinirole 0.5 mg tablet 0.5 mg PO TID RF: 0 gemfibrozil 600 mg tablet 600 mg PO BID@ RF: 0 docusate sodium [Colace] 100 mg capsule 200 mg PO DAILY@08 RF: 0 furosemide [Lasix] 40 mg tablet 60 mg PO DAILY@08 RF: 0 simvastatin 40 mg tablet 40 mg PO BEDTIME RF: 0 Narcan 4 mg/actuation spray,non-aerosol See Rx Instructions .ROUTE .COMPLEX PRN (Reason: overdose) RF: 0 albuterol sulfate 2.5 mg /3 mL (0.083 %) solution for nebulization 2.5 mg INHALATION Q4H PRN (Reason: Shortness Of Breath) RF: 0 nitroglycerin [Nitrostat] 0.4 mg tablet, sublingual 0.4 mg SUBLINGUAL Q5M PRN (Reason: Chest Pain) RF: 0 fluoxetine 40 mg capsule 40 mg PO DAILY RF: 0 fentanyl 50 mcg/hr patch 72 hour 50 mcg transdermal Q72H RF: 0 hydrocodone-acetaminophen 10-325 mg tablet See Rx Instructions .ROUTE .COMPLEX RF: 0 potassium chloride 20 mEq tablet,ER particles/crystals 20 meq PO BID@08,21 RF: 0 hydroxyzine HCl 10 mg tablet 10 mg PO QID PRN (Reason: Itching) RF: 0 spironolactone 25 mg Tablet 25 mg PO DAILY RF: 0 ergocalciferol (vitamin D2) 1,250 mcg (50,000 unit) Capsule 50,000 unit PO Q7D RF: 0 lisinopril 2.5 mg Tablet 2.5 mg PO DAILY@08 RF: 0 anastrozole 1 mg tablet 1 mg PO DAILY@08 RF: 0 Discontinued ibuprofen 200 mg Tablet 400 mg PO PRN RF: 0 Discharge Orders: Discharge Order (Routine); Ordered 05/17/21 Ordered By: Susana Fair Referrals: [facility] [Outside] Sheyla Rea MD [Physician] - 05/25/21 10:45 am (You have a cardiology followup with Dr. Rea at [facility] on May 25 at 10:45am) Discharge Diet: As Directed Discharge Activity: Increase activity as tolerated Patient Instructions: Aspirin (By mouth), Cefdinir (By mouth), Urinary Tract Infection in Women (DC), Opioid Safety Discharge Attestations Time Spent in Discharge Care*: greater than 30 min Specific Discharge Activities: educating patient, educating and/or supporting family/caregiver, discussing with pcp/other providers, discussing with case picker/social workers/dc planners, documenting/other paperwork and evaluating patient/reviewing data Status at Discharge: Cognitive status at discharge: cognitively intact , Behavioral status at discharge: can be uncooperative , Functional status at discharge: independent ambulation Overall status at discharge: patient is progressing back to baseline Quality Metrics Clinical Quality Measures During this hospital stay, did patient experience: None Coding Level of Care Code Acute Chg FW DC note Diagnoses Epigastric pain R10.13 Morbid obesity E66.01 ROSEMARIE (obstructive sleep apnea) G47.33 GERD (gastroesophageal reflux disease) K21.9 Elevated troponin R77.8 Abnormal finding on urinalysis R82.90
== END 2021-05-17 10:36 | disposition home or self-care (01) | DRG 948 ==
LOC: ER 20:34 → CSU 05-16 00:50
PROVIDERS: Admitting Provider Internal Medicine; Emergency Provider Physician Assistant; PCP Nurse Practitioner; Visit Provider Hospitalist
DX: R77.8 Other specified abnormalities of plasma proteins (principal); Z68.43 Body mass index [BMI] 50.0-59.9, adult; I50.30 Unspecified diastolic (congestive) heart failure; N39.0 Urinary tract infection, site not specified; E66.01 Morbid (severe) obesity due to excess calories; I11.0 Hypertensive heart disease with heart failure; G47.33 Obstructive sleep apnea (adult) (pediatric); Z86.711 Personal history of pulmonary embolism; Z99.81 Dependence on supplemental oxygen; J44.9 Chronic obstructive pulmonary disease, unspecified; C50.912 Malignant neoplasm of unspecified site of left female breast; C50.911 Malignant neoplasm of unspecified site of right female breast; Z79.811 Long term (current) use of aromatase inhibitors; F41.9 Anxiety disorder, unspecified; Z86.73 Personal history of transient ischemic attack (TIA), and cerebral infarction without residual deficits; K21.9 Gastro-esophageal reflux disease without esophagitis; E78.5 Hyperlipidemia, unspecified; Z90.49 Acquired absence of other specified parts of digestive tract; Z96.651 Presence of right artificial knee joint; F17.210 Nicotine dependence, cigarettes, uncomplicated; R10.13 Epigastric pain; Z85.038 Personal history of other malignant neoplasm of large intestine; M19.90 Unspecified osteoarthritis, unspecified site; Z79.891 Long term (current) use of opiate analgesic
CPT/HCPCS: 36415; 36416; 71045; 74176; 80053; 80061; 81001; 82962; 83036; 83690; 83880; 84484; 85025; 85378; 85610; 85730; 87077; 87086; 87186; 93005; 96374; 99285; C8929; G0378; J0696; J1170; J2405; J7030; J8999; Q9956

== ENCOUNTER 2021-06-25 12:56 | Outpatient (CLI) | payer MEDICARE, MEDICAID, SELFPAY ==
[2021-06-25 13:39] LABS: Basophils % 0.5 %; Eosinophils # 0.2 10^3/uL (0.0-0.8); Eosinophils % 2.1 %; Hematocrit 33.3 % (37.0-47.0); Hemoglobin 10.3 g/dL (11.5-15.3); Lymphocytes # 1.6 10^3/uL (0.8-4.8); Lymphocytes % 19.4 %; Mean Corpuscular HGB Conc 30.9 g/dL (30.0-36.0); Mean Corpuscular Hemoglobin 28.9 pg (28.0-34.0); Mean Corpuscular Volume 93.5 fL (81-99); Mean Platelet Volume 10.5 fL (7.4-10.4); Monocytes # 0.8 10^3/uL (0.2-0.9); Monocytes % 9.8 %; Neutrophils # 5.49 10^3/uL (1.8-7.7); Nucleated Red Blood Cells % 0 %; Platelet Count 321 10^3/cmm (130-400); Red Blood Count 3.56 10^6/uL (4.1-5.3); Red Cell Distribution Width 12.1 % (12.1-15.1); White Blood Count 8.1 10^3/uL (4.0-10.0)
[2021-06-25 14:04] LABS: Alanine Aminotransferase < 5 U/L (0-33); Albumin Level 3.6 g/dL (3.5-5.2); Alkaline Phosphatase 126 IU/L (35-105); Anion Gap 15.7 (5-19); Carbon Dioxide 27 mmol/L (22-29); Chloride 101 mmol/L (98-107); Glucose 105 mg/dL (65-115); Potassium 4.7 mmol/L (3.5-5.1); Sodium 139 mmol/L (136-145); Total Bilirubin 0.2 mg/dL (0.15-1.2); Total Protein 6.6 g/dL (6.6-8.7)
[2021-06-25 14:10] LABS: Aspartate Amino Transferase 10 U/L (0-32); Calcium 9.2 mg/dL (8.5-10.5)
[2021-06-25 14:18] LABS: Blood Urea Nitrogen 30 mg/dL (8-23); Osmolality Calculated 295 mOsm/kg (285-295)
[2021-06-25] MEDS: denosumab 60 mg SDV SUBCUT (15:05)
--- NOTE | 2021-06-29 14:13 | ONC FU_ITS ---
Dr. Ledbetter Patient Follow-Up Note Patient: Deborah Mchugh Unit #: [id number]: [id number] Dicatated By: Remigio Ledbetter M.D.Date of Visit:Jun 25, 2021 Onc Med Follow-up/Prog Note Chief Complaint: Breast cancer. History of Present Illness: This is a 71 year-old woman with multifocal, bilateral invasive breast cancer, ER/MD positive and HER-2/shelia negative. 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 She had complete surgical resection with sigmoid colectomy and omentectomy in July 2003, and she was then given adjuvant chemotherapy with 6 cycles of carboplatin/Taxotere, completed in January 2004. She has had no recurrence of either malignancy. I had last seen her for follow-up in April 2014. She has multiple underlying medical illnesses including hypertension, hyperlipidemia, type II diabetes, hyperthyroidism, COPD, obstructive sleep apnea, GERD, osteoporosis, degenerative arthritis/degenerative disease of the spine, and chronic anxiety. She has a history of depression, history of multiple strokes, and a history of ocular histoplasmosis. In 2013 she had developed nonhealing abdominal wall ulcerations in association with cellulitis which had developed following a prolonged episode of colitis. She had multiple hospitalizations during that time and she required surgical debridement, but it eventually resolved. She had presented to [facility] with a palpable mass in the right breast. Bilateral diagnostic mammogram/ultrasound on 09/24/2019 showed a 16.2 mm nodule at the 12 o'clock position corresponding to the palpable mass. An additional mass was present in the posterior central right breast measured 10 mm. A 14 mm nodule was noted in the central left breast just inferior to the nipple and an additional 7 mm nodule is noted in the medial left breast. The right breast ultrasound showed a hypoechoic nodule at the 12 o'clock position measuring 15 x 16 mm, a superficial hypoechoic mass measuring 5 x 3 mm at the 6 o'clock position, an additional hypoechoic masses at 11:00 measuring 8 x 5 mm and at 7:00 measuring 11 mm. The left breast ultrasound showed a 16 x 6 mm mass at 6:00, a 5 x 5 mm hypoechoic mass at 11:00 and an additional adjacent smaller nodule. The findings were BI-RADS 5, highly suggestive of malignancy. She underwent ultrasound guided biopsies of the left breast 10:00 and 6:00 lesions and of the right breast 12:00 lesion. Pathology of the left breast at 6:00 showed fibrocystic changes with no malignancy identified. The left breast 10:00 lesion showed grade 2 invasive ductal carcinoma which was ER positive at 97% and MD positive at 91%. The HER-2/shelia was 2+ by IHC but negative by FISH with amplification ratio 1.1 and 2.0 HER-2 copies/cell. The Ki-67 was favorable at 5%. The right breast 12:00 lesion also showed grade 2 invasive ductal carcinoma. It was ER positive at 96% and MD positive at 97%. HER-2/shelia was 2+ by IHC but negative by FISH with amplification ratio 1.4 and 3.9 HER-2 copies/cell. The KI 67 was intermediate at 14%. She was seen here on 12/31/2019 for further management of the breast cancer. Given her numerous underlying medical illnesses and high risk for any further surgical procedures, we opted to limit treatment to a trial of endocrine therapy with anastrozole 1 mg daily. During follow-up she appeared to have a very good clinical response to the anastrozole. Initially she was tolerating it well. However, as of her follow-up visit in December 2020 I did opt to put her treatment on hold due to increased musculoskeletal pain. The pain was severe enough to require an increase in her opiate pain medication. However, really did not improve significantly after stopping the anastrozole, and as of her follow-up visit on 03/26/2021 she restarted anastrozole at 1 mg daily. She is seen for a follow-up visit. She continues to have very limited activity. She is able to do some minimal walking at home. Her ECOG score is three. She has good appetite. She has no fever or night sweats. Overall her pain control has been better. However, she complains that her hands are intermittently shaky and she is sometimes been dropping objects. She also reports having pain in her fingers like needles sticking in them. Her pain is otherwise mainly in the knees and shoulders. Recently she has had some new pain in the left side of the neck and left shoulder area. She has some shortness of breath. She does not have cough and she does not complain of chest pain. She occasionally throws up phlegm. Her acid reflux is adequately managed with Protonix. She has constipation, but bowel function has been adequate with laxatives. She still has some abdominal pain. She has urinary frequency with some urgency and incontinence. She does not complain of headache. She does have dizziness. She has numbness/tingling in her arms and legs. Medications: Allopurinol 1 Tablet (of 100 mg) Oral daily, Anastrozole 1 Tablet (of 1 mg) Oral daily, fentaNYL 1 Patch(es) (of 25 mcg/hr) Patch 72 Hr Transdermal q 72 hours, FLUoxetine HCl 1 Capsule (of 10 mg) Oral daily, Furosemide 1.5 Tablet (of 40 mg) Oral daily, Gemfibrozil 600 mg - Take 1 Tablet Oral b.i.d., Hydrocodone-Acetaminophen 10-325 mg - Take 1 Tablet Oral q 4 hours PRN, Levothyroxine Sodium 1 Tablet (of 50 mcg) Oral daily, Lisinopril 1 Tablet (of 2.5 mg) Oral daily, metOLazone 1 Tablet (of 5 mg) Oral daily, MiraLax (17 g) Pack Oral daily, Nitrolingual 1 Tablet (of 0.4 mg/spray) Solution Translingual PRN, OLANZapine 1 Tablet (of 5 mg) Oral at bedtime, Pantoprazole Sodium 40 mg - Take 1 Tablet, enteric coated Oral daily, Potassium Chloride ER 1 Tablet (of 20 meq) Tablet, controlled release Oral b.i.d., rOPINIRole HCl 2 Tablet (of 0.5 mg) Oral at bedtime Allergies: teramycin, dilaudid, tagement, tape, morphine, colchine, allopurinol, Vital Signs: Performed on Jun 25, 2021 15:46 Height - 64.00 in Temperature - 97.8 F (LOW) Pulse - 91 /min Respiration - 18 /min BP - 110/81 mm(hg) O2 Sat - 93 % (LOW) Pain - 5 Fatigue - 8 Physical Examination: Constitutional - She appears generally weak. , Eyes - Sclerae nonicteric. Conjunctivae clear, ENMT - No lesions noted in the oral cavity, Hematologic/Lymphatic - No cervical, clavicular, or axillary adenopathy, Respiratory - Lungs sound clear, Cardiovascular - Heart rhythm is regular. There is no murmur, gallop, or rub noted, Abdomen - Moderately distended. Liver and spleen are not enlarged. There is no abdominal mass or ascites noted and there is no inguinal adenopathy, Extremities - There is mild lower extremity edema, Neurologic - No focal neurologic deficits noted. Lab/Imaging: Test performed on Jun 25, 2021 13:12 WBC 8.1 10 3/uL RBC 3.56 10 6/uL HGB 10.3 g/dL HCT 33.3 % MCV 93.5 fL MCH 28.9 pg MCHC 30.9 g/dL RDW 12.1 % Platelet Count 321 10 3/cmm MPV 10.5 fL Neutrophils 5.49 10 3/uL Lymphocytes 1.6 10 3/uL Monocytes 0.8 10 3/uL Eosinophils 0.2 10 3/uL Basophils 0.0 10 3/uL Neutrophil % 68.0 % Lymphocyte % 19.4 % Monocyte % 9.8 % Eosinophil % 2.1 % Basophils % 0.5 % NRBC % 0 % Test performed on Jun 25, 2021 12:58 Sodium 139 mmol/L Potassium 4.7 mmol/L Chloride 101 mmol/L CO2 27 mmol/L Anion Gap 15.7 BUN 30 mg/dL Creatinine 1.4 mg/dL Cr Clearance (Est) 71.7600 mL/min Glucose 105 mg/dL Osmolality - Calculated 295 mOsm/kg Calcium 9.2 mg/dL Protein, Total 6.6 g/dL Albumin 3.6 g/dL Globulin 3.0 g/dL Bilirubin, Total 0.2 mg/dL ALT (SGPT) < 5 U/L AST (SGOT) 10 U/L Alkaline Phosphatase 126 IU/L Problem List: 1. Patient with bilateral breast cancer, both grade 2 invasive ductal carcinoma, ER/MD positive and HER-2/shelia negative. She did not have complete staging. By imaging her disease appeared to be multifocal in both breasts. 2. Due to her multiple underlying medical illnesses and comorbidities she was felt to be a very high risk for any type of general anesthesia, and her further treatment was limited to tiral of endocrine therapy with anastrozole 1 mg daily, which she started in December 2019. 3. Her baseline DEXA scan on 05/17/2019 showed evidence of osteoporosis with T score -1.8 in the lumbar spine and -3.6 in the right proximal femur. She began treatment with Prolia on 01/11/2020. 4. In July 2003 she underwent exploratory laparotomy with sigmoid colon resection and omentectomy for metastatic adenocarcinoma, clinically consistent with primary peritoneal carcinoma. She had complete resection of gross disease with the surgery, following which she was given adjuvant chemotherapy with 6 cycles of carboplatin/docetaxel, completed in January 2004. She has had no evidence of recurrence. 5. In 1978 she underwent hysterectomy/bilateral salpingo-oophorectomy for endometrial cancer. 6. Hypertension. 7. Hyperlipidemia. 8. Type 2 diabetes. 9. Hyperthyroidism. 10. History of prior strokes. 11. COPD. 12. Obstructive sleep apnea. 13. GERD. 14. Degenerative arthritis/degenerative disease of the spine. 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 16. Chronic anxiety. 17. History of depression. 18. She has a history of abdominal wall cellulitis with nonhealing skin ulcerations. Problems Addressed with this Encounter and Plan: 1. Patient with bilateral breast cancer, both grade 2 invasive ductal carcinoma, ER/MD positive and HER-2/shelia negative. She did not have complete staging. By imaging her disease appeared to be multifocal in both breasts. Due to her multiple underlying medical illnesses and comorbidities she was felt to be a very high risk for any type of general anesthesia, and her further treatment was limited to tiral of endocrine therapy with anastrozole 1 mg daily, which she started in December 2019. By clinical exam, she has had a good response to the anastrozole. However, As of December 2020 her treatment was put on hold due to increasing musculoskeletal pain. The pain has been severe enough to require an increase in her opiate medication. However, it really did not change significantly after stopping treatment and as of her followup visit on 03/26/2021 she restarted the anastrozole at 1 mg daily. Since then her pain control has remained adequate with her medication. She does seem to be having increased neuropathy symptoms in the upper extremities. There has been no obvious recurrence/progression of the breast cancer. She will continue hormonal therapy with anastrozole 1 mg daily. I will see her again in 3 months. 2. Her baseline DEXA scan on 05/17/2019 showed evidence of osteoporosis with T score -1.8 in the lumbar spine and -3.6 in the right proximal femur. She will be given Prolia 60 mg by subcutaneous injection and she will continue vitamin D supplementation. Signed By: Remigio Ledbetter M.D. <<Signature on File>>
== END 2021-06-25 12:57 | disposition home or self-care (01) ==
PROVIDERS: PCP Nurse Practitioner; Visit Provider Internal Medicine Medical Oncology
DX: C50.811 Malignant neoplasm of overlapping sites of right female breast (principal); C50.812 Malignant neoplasm of overlapping sites of left female breast; Z17.0 Estrogen receptor positive status [ER+]; M81.0 Age-related osteoporosis without current pathological fracture; I10 Essential (primary) hypertension; E78.5 Hyperlipidemia, unspecified; E11.9 Type 2 diabetes mellitus without complications; E05.00 Thyrotoxicosis with diffuse goiter without thyrotoxic crisis or storm; J44.9 Chronic obstructive pulmonary disease, unspecified; G47.33 Obstructive sleep apnea (adult) (pediatric); K21.9 Gastro-esophageal reflux disease without esophagitis; M47.9 Spondylosis, unspecified; B39.9 Histoplasmosis, unspecified; F41.9 Anxiety disorder, unspecified; F32.9 Major depressive disorder, single episode, unspecified; Z86.73 Personal history of transient ischemic attack (TIA), and cerebral infarction without residual deficits; Z79.811 Long term (current) use of aromatase inhibitors; Z85.42 Personal history of malignant neoplasm of other parts of uterus; Z90.710 Acquired absence of both cervix and uterus; Z87.2 Personal history of diseases of the skin and subcutaneous tissue; Z92.21 Personal history of antineoplastic chemotherapy; Z79.899 Other long term (current) drug therapy
CPT/HCPCS: 36415; 80053; 85025; 96372; 99214; J0897

== ENCOUNTER 2021-10-11 11:21 | Outpatient (CLI) | payer MEDICARE, MEDICAID, SELFPAY ==
[2021-10-11 12:19] LABS: Basophils % 0.5 %; Eosinophils # 0.2 10^3/uL (0.0-0.8); Eosinophils % 2.6 %; Hematocrit 32.8 % (37.0-47.0); Hemoglobin 10.6 g/dL (11.5-15.3); Lymphocytes % 16.7 %; Mean Corpuscular HGB Conc 32.3 g/dL (30.0-36.0); Mean Corpuscular Volume 89.9 fl (81-99); Mean Platelet Volume 10.5 fL (7.4-10.4); Monocytes # 0.6 10^3/uL (0.2-0.9); Neutrophils # 4.42 10^3/uL (1.8-7.7); Neutrophils % 70.9 %; Nucleated Red Blood Cells % 0 %; Platelet Count 282 10^3/cmm (130-400); Red Blood Count 3.65 10^6/uL (4.1-5.3); Red Cell Distribution Width 12.4 % (12.1-15.1); White Blood Count 6.2 10^3/uL (4.0-10.0)
[2021-10-11 12:50] LABS: Alanine Aminotransferase < 5 U/L (0-33); Alkaline Phosphatase 104 IU/L (35-105); Aspartate Amino Transferase 11 U/L (0-32); Blood Urea Nitrogen 44 mg/dL (8-23); Calcium 9.8 mg/dL (8.5-10.5); Carbon Dioxide 22 mmol/L (22-29); Chloride 98 mmol/L (98-107); Globulin 3.2 g/dL (1.3-4.6); Glucose 95 mg/dL (65-115); Osmolality Calculated 293 mOsm/kg (285-295); Sodium 136 mmol/L (136-145); Total Bilirubin 0.2 mg/dL (0.15-1.2); Total Protein 7.2 g/dL (6.6-8.7)
[2021-10-11 12:51] LABS: Anion Gap 21.2 (5-19); Potassium 5.2 mmol/L (3.5-5.1)
--- NOTE | 2021-10-14 15:11 | ONC FU_ITS ---
Dr. Ledbetter Patient Follow-Up Note Patient: Deborah Mchugh Unit #: [id number]: 1950 Dicatated By: Remigio Ledbetter M.D.Date of Visit:Oct 11, 2021 Onc Med Follow-up/Prog Note Chief Complaint: Breast cancer. History of Present Illness: This is a 71 year-old woman with multifocal, bilateral invasive breast cancer, ER/AL positive and HER-2/shelia negative. 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 She had complete surgical resection with sigmoid colectomy and omentectomy in July 2003, and she was then given adjuvant chemotherapy with 6 cycles of carboplatin/Taxotere, completed in January 2004. She has had no recurrence of either malignancy. I had last seen her for follow-up in April 2014. She has multiple underlying medical illnesses including hypertension, hyperlipidemia, type II diabetes, hyperthyroidism, COPD, obstructive sleep apnea, GERD, osteoporosis, degenerative arthritis/degenerative disease of the spine, and chronic anxiety. She has a history of depression, history of multiple strokes, and a history of ocular histoplasmosis. In 2013 she had developed nonhealing abdominal wall ulcerations in association with cellulitis which had developed following a prolonged episode of colitis. She had multiple hospitalizations during that time and she required surgical debridement, but it eventually resolved. She had presented to [facility] with a palpable mass in the right breast. Bilateral diagnostic mammogram/ultrasound on 09/24/2019 showed a 16.2 mm nodule at the 12 o'clock position corresponding to the palpable mass. An additional mass was present in the posterior central right breast measured 10 mm. A 14 mm nodule was noted in the central left breast just inferior to the nipple and an additional 7 mm nodule is noted in the medial left breast. The right breast ultrasound showed a hypoechoic nodule at the 12 o'clock position measuring 15 x 16 mm, a superficial hypoechoic mass measuring 5 x 3 mm at the 6 o'clock position, an additional hypoechoic masses at 11:00 measuring 8 x 5 mm and at 7:00 measuring 11 mm. The left breast ultrasound showed a 16 x 6 mm mass at 6:00, a 5 x 5 mm hypoechoic mass at 11:00 and an additional adjacent smaller nodule. The findings were BI-RADS 5, highly suggestive of malignancy. She underwent ultrasound guided biopsies of the left breast 10:00 and 6:00 lesions and of the right breast 12:00 lesion. Pathology of the left breast at 6:00 showed fibrocystic changes with no malignancy identified. The left breast 10:00 lesion showed grade 2 invasive ductal carcinoma which was ER positive at 97% and AL positive at 91%. The HER-2/shelia was 2+ by IHC but negative by FISH with amplification ratio 1.1 and 2.0 HER-2 copies/cell. The Ki-67 was favorable at 5%. The right breast 12:00 lesion also showed grade 2 invasive ductal carcinoma. It was ER positive at 96% and AL positive at 97%. HER-2/shelia was 2+ by IHC but negative by FISH with amplification ratio 1.4 and 3.9 HER-2 copies/cell. The KI 67 was intermediate at 14%. She was seen here on 12/31/2019 for further management of the breast cancer. Given her numerous underlying medical illnesses and high risk for any further surgical procedures, we opted to limit treatment to a trial of endocrine therapy with anastrozole 1 mg daily. During follow-up she appeared to have a very good clinical response to the anastrozole. Initially she was tolerating it well. However, as of her follow-up visit in December 2020 I did opt to put her treatment on hold due to increased musculoskeletal pain. The pain was severe enough to require an increase in her opiate pain medication. However, really did not improve significantly after stopping the anastrozole, and as of her follow-up visit on 03/26/2021 she restarted anastrozole at 1 mg daily. She is seen for a follow-up visit. She has not been feeling good. She continues to complain that she constantly itches all over. She reports having dry skin, but no actual rash. She continues to have very limited activity. ECOG score is 3. Her appetite is not very good and she has early satiety. She has not had fever. She does have some sweating at night. She has not had sore throat or difficulty swallowing. She does have some cough, but she does not complain of shortness of breath or chest pain. She sometimes has nausea. She has ongoing symptoms of acid reflux and she has chronic constipation. She has been having urgency with urination. She has generalized joint pain, which has been getting worse. She has occasional headache and she sometimes has dizziness. She has numbness/tingling in her hands and feet. Medications: Allopurinol 1 Tablet (of 100 mg) Oral daily, Anastrozole 1 Tablet (of 1 mg) Oral daily, fentaNYL 1 Patch(es) (of 25 mcg/hr) Patch 72 Hr Transdermal q 72 hours, FLUoxetine HCl 1 Capsule (of 10 mg) Oral daily, Furosemide 1.5 Tablet (of 40 mg) Oral daily, Gemfibrozil 600 mg - Take 1 Tablet Oral b.i.d., Hydrocodone-Acetaminophen 10-325 mg - Take 1 Tablet Oral q 4 hours PRN, Levothyroxine Sodium 1 Tablet (of 50 mcg) Oral daily, Lisinopril 1 Tablet (of 2.5 mg) Oral daily, metOLazone 1 Tablet (of 5 mg) Oral daily, MiraLax (17 g) Pack Oral daily, Nitrolingual 1 Tablet (of 0.4 mg/spray) Solution Translingual PRN, OLANZapine 1 Tablet (of 5 mg) Oral at bedtime, Pantoprazole Sodium 40 mg - Take 1 Tablet, enteric coated Oral daily, Potassium Chloride ER 1 Tablet (of 20 meq) Tablet, controlled release Oral b.i.d., rOPINIRole HCl 2 Tablet (of 0.5 mg) Oral at bedtime Allergies: teramycin, dilaudid, tagement, tape, morphine, colchine, allopurinol, Vital Signs: Performed on Oct 11, 2021 13:26 Height - 64.00 in Weight - 247.6 lbs (LOW) BSA - 2.14 sq.m BMI - 42.50 (HIGH) Temperature - 97.0 F (LOW) Pulse - 77 /min Respiration - 18 /min BP - 97/62 mm(hg) O2 Sat - 95 % (LOW) Pain - 8 Fatigue - 5 Physical Examination: Constitutional - She appears generally weak. , Eyes - Sclerae nonicteric. Conjunctivae clear, ENMT - No lesions noted in the oral cavity, Hematologic/Lymphatic - No cervical, clavicular, or axillary adenopathy, Respiratory - Lungs sound clear, Cardiovascular - Heart rhythm is regular. There is no murmur, gallop, or rub noted, Abdomen - Moderately distended. Liver and spleen are not enlarged. There is no abdominal mass or ascites noted and there is no inguinal adenopathy, Extremities - Mild lower extremity edema, Neurologic - No focal neurologic deficits noted. Lab/Imaging: Test performed on Oct 11, 2021 11:45 Sodium 136 mmol/L Potassium 5.2 mmol/L Chloride 98 mmol/L CO2 22 mmol/L Anion Gap 21.2 BUN 44 mg/dL Creatinine 1.8 mg/dL Cr Clearance (Est) 49.35 mL/min Glucose 95 mg/dL Osmolality - Calculated 293 mOsm/kg Calcium 9.8 mg/dL Protein, Total 7.2 g/dL Albumin 4.0 g/dL Globulin 3.2 g/dL Bilirubin, Total 0.2 mg/dL ALT (SGPT) < 5 U/L AST (SGOT) 11 U/L Alkaline Phosphatase 104 IU/L WBC 6.2 10 3/uL RBC 3.65 10 6/uL HGB 10.6 g/dL HCT 32.8 % MCV 89.9 fl MCH 29.0 pg MCHC 32.3 g/dL RDW 12.4 % Platelet Count 282 10 3/cmm MPV 10.5 fL Neutrophils 4.42 10 3/uL Lymphocytes 1.0 10 3/uL Monocytes 0.6 10 3/uL Eosinophils 0.2 10 3/uL Basophils 0.0 10 3/uL Neutrophil % 70.9 % Lymphocyte % 16.7 % Monocyte % 9.0 % Eosinophil % 2.6 % Basophils % 0.5 % NRBC % 0 % Problem List: 1. Patient with bilateral breast cancer, both grade 2 invasive ductal carcinoma, ER/AL positive and HER-2/shelia negative. She did not have complete staging. By imaging her disease appeared to be multifocal in both breasts. 2. Due to her multiple underlying medical illnesses and comorbidities she was felt to be a very high risk for any type of general anesthesia, and her further treatment was limited to tiral of endocrine therapy with anastrozole 1 mg daily, which she started in December 2019. 3. Her baseline DEXA scan on 05/17/2019 showed evidence of osteoporosis with T score -1.8 in the lumbar spine and -3.6 in the right proximal femur. She began treatment with Prolia on 01/11/2020. 4. In July 2003 she underwent exploratory laparotomy with sigmoid colon resection and omentectomy for metastatic adenocarcinoma, clinically consistent with primary peritoneal carcinoma. She had complete resection of gross disease with the surgery, following which she was given adjuvant chemotherapy with 6 cycles of carboplatin/docetaxel, completed in January 2004. She has had no evidence of recurrence. 5. In 1978 she underwent hysterectomy/bilateral salpingo-oophorectomy for endometrial cancer. 6. Hypertension. 7. Hyperlipidemia. 8. Type 2 diabetes. 9. Hyperthyroidism. 10. History of prior strokes. 11. COPD. 12. Obstructive sleep apnea. 13. GERD. 14. Degenerative arthritis/degenerative disease of the spine. 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 16. Chronic anxiety. 17. History of depression. 18. She has a history of abdominal wall cellulitis with nonhealing skin ulcerations. Problems Addressed with this Encounter and Plan: 1. Patient with bilateral breast cancer, both grade 2 invasive ductal carcinoma, ER/AL positive and HER-2/shelia negative. She did not have complete staging. By imaging her disease appeared to be multifocal in both breasts. Due to her multiple underlying medical illnesses and comorbidities she was felt to be a very high risk for any type of general anesthesia, and her further treatment was limited to tiral of endocrine therapy with anastrozole 1 mg daily, which she started in December 2019. By clinical exam, she has had a good response to the anastrozole. However, As of December 2020 her treatment was put on hold due to increasing musculoskeletal pain. The pain has been severe enough to require an increase in her opiate medication. However, it really did not change significantly after stopping treatment and as of her followup visit on 03/26/2021 she restarted the anastrozole at 1 mg daily. During follow-up she has had ongoing complaints with her musculoskeletal pain, and recently that has significantly worsened. As such, I am going to have her try stopping the anastrozole again. Thus far there has been no evidence of recurrence/progression of the breast cancer. 2. She has had a significant decline in her renal function with her BUN increased to 44 mg/dL and creatinine 1.8 mg/dL compared to 20 and 1.0 respectively in March 2021. She also has mildly elevated potassium at 5.2 mmol/L and her blood pressure is relatively low. With those findings she is advised to stop furosemide, metolazone, and lisinopril, and she will also stop her potassium supplement. She will be scheduled for a follow-up visit in 1 month. Signed By: Remigio Ledbetter M.D. <<Signature on File>>
== END 2021-10-11 11:22 | disposition home or self-care (01) ==
PROVIDERS: PCP Nurse Practitioner; Visit Provider Internal Medicine Medical Oncology
DX: C50.811 Malignant neoplasm of overlapping sites of right female breast (principal); C50.812 Malignant neoplasm of overlapping sites of left female breast; Z17.0 Estrogen receptor positive status [ER+]; Z79.811 Long term (current) use of aromatase inhibitors; M81.0 Age-related osteoporosis without current pathological fracture; I10 Essential (primary) hypertension; E78.5 Hyperlipidemia, unspecified; E11.9 Type 2 diabetes mellitus without complications; E05.90 Thyrotoxicosis, unspecified without thyrotoxic crisis or storm; J44.9 Chronic obstructive pulmonary disease, unspecified; G47.33 Obstructive sleep apnea (adult) (pediatric); M47.9 Spondylosis, unspecified; B39.9 Histoplasmosis, unspecified; F41.9 Anxiety disorder, unspecified; F32.9 Major depressive disorder, single episode, unspecified; Z85.038 Personal history of other malignant neoplasm of large intestine; Z85.41 Personal history of malignant neoplasm of cervix uteri; Z86.73 Personal history of transient ischemic attack (TIA), and cerebral infarction without residual deficits; Z87.2 Personal history of diseases of the skin and subcutaneous tissue; Z79.899 Other long term (current) drug therapy
CPT/HCPCS: 36415; 80053; 85025; 99214

== ENCOUNTER 2021-12-20 12:03 | Outpatient (CLI) | payer OTHER, MEDICARE, MEDICAID, SELFPAY ==
[2021-12-20 13:16] LABS: Basophils % 0.2 %; Eosinophils # 0.1 10^3/uL (0.0-0.8); Hematocrit 32.8 % (37.0-47.0); Hemoglobin 9.8 g/dL (11.5-15.3); Lymphocytes # 0.9 10^3/uL (0.8-4.8); Lymphocytes % 20.1 %; Mean Corpuscular HGB Conc 29.9 g/dL (30.0-36.0); Mean Corpuscular Hemoglobin 29.1 pg (28.0-34.0); Mean Corpuscular Volume 97.3 fl (81-99); Mean Platelet Volume 10.8 fL (7.4-10.4); Monocytes # 0.3 10^3/uL (0.2-0.9); Monocytes % 5.7 %; Neutrophils # 3.24 10^3/uL (1.8-7.7); Neutrophils % 71.6 %; Nucleated Red Blood Cells % 0 %; Platelet Count 221 10^3/cmm (130-400); Red Blood Count 3.37 10^6/uL (4.1-5.3); Red Cell Distribution Width 13.2 % (12.1-15.1); White Blood Count 4.5 10^3/uL (4.0-10.0)
[2021-12-20 13:42] LABS: Alanine Aminotransferase < 5 U/L (0-33); Albumin Level 3.8 g/dL (3.5-5.2); Alkaline Phosphatase 117 IU/L (35-105); Anion Gap 16.2 (5-19); Aspartate Amino Transferase 14 U/L (0-32); Blood Urea Nitrogen 14 mg/dL (8-23); Calcium 9.8 mg/dL (8.5-10.5); Carbon Dioxide 25 mmol/L (22-29); Chloride 102 mmol/L (98-107); Ferritin 292 ng/mL (15-150); Globulin 2.7 g/dL (1.3-4.6); Glucose 87 mg/dL (65-115); Iron 45 ug/dL (37-145); Osmolality Calculated 288 mOsm/kg (285-295); Percent Saturation 17.1 % (20-50); Potassium 4.2 mmol/L (3.5-5.1); Sodium 139 mmol/L (136-145); Total Bilirubin 0.2 mg/dL (0.15-1.2); Total Iron Binding Capacity 263 mcg/dl; Total Protein 6.5 g/dL (6.6-8.7); Unsaturated Iron Binding 218 ug/dL (112-347)
--- NOTE | 2021-12-21 07:00 | ONC FU_ITS ---
Dr. Ledbetter Patient Follow-Up Note Patient: Deborah Mchugh Unit #: [id number]: [id number] Dicatated By: Remigio Ledbetter M.D.Date of Visit:Dec 20, 2021 Onc Med Follow-up/Prog Note Chief Complaint: Breast cancer. History of Present Illness: This is a 71 year-old woman with multifocal, bilateral invasive breast cancer, ER/AZ positive and HER-2/shelia negative. 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 She had complete surgical resection with sigmoid colectomy and omentectomy in July 2003, and she was then given adjuvant chemotherapy with 6 cycles of carboplatin/Taxotere, completed in January 2004. She has had no recurrence of either malignancy. I had last seen her for follow-up in April 2014. She has multiple underlying medical illnesses including hypertension, hyperlipidemia, type II diabetes, hyperthyroidism, COPD, obstructive sleep apnea, GERD, osteoporosis, degenerative arthritis/degenerative disease of the spine, and chronic anxiety. She has a history of depression, history of multiple strokes, and a history of ocular histoplasmosis. In 2013 she had developed nonhealing abdominal wall ulcerations in association with cellulitis which had developed following a prolonged episode of colitis. She had multiple hospitalizations during that time and she required surgical debridement, but it eventually resolved. She had presented to [facility] with a palpable mass in the right breast. Bilateral diagnostic mammogram/ultrasound on 09/24/2019 showed a 16.2 mm nodule at the 12 o'clock position corresponding to the palpable mass. An additional mass was present in the posterior central right breast measured 10 mm. A 14 mm nodule was noted in the central left breast just inferior to the nipple and an additional 7 mm nodule is noted in the medial left breast. The right breast ultrasound showed a hypoechoic nodule at the 12 o'clock position measuring 15 x 16 mm, a superficial hypoechoic mass measuring 5 x 3 mm at the 6 o'clock position, an additional hypoechoic masses at 11:00 measuring 8 x 5 mm and at 7:00 measuring 11 mm. The left breast ultrasound showed a 16 x 6 mm mass at 6:00, a 5 x 5 mm hypoechoic mass at 11:00 and an additional adjacent smaller nodule. The findings were BI-RADS 5, highly suggestive of malignancy. She underwent ultrasound guided biopsies of the left breast 10:00 and 6:00 lesions and of the right breast 12:00 lesion. Pathology of the left breast at 6:00 showed fibrocystic changes with no malignancy identified. The left breast 10:00 lesion showed grade 2 invasive ductal carcinoma which was ER positive at 97% and AZ positive at 91%. The HER-2/shelia was 2+ by IHC but negative by FISH with amplification ratio 1.1 and 2.0 HER-2 copies/cell. The Ki-67 was favorable at 5%. The right breast 12:00 lesion also showed grade 2 invasive ductal carcinoma. It was ER positive at 96% and AZ positive at 97%. HER-2/shelia was 2+ by IHC but negative by FISH with amplification ratio 1.4 and 3.9 HER-2 copies/cell. The KI 67 was intermediate at 14%. She was seen here on 12/31/2019 for further management of the breast cancer. Given her numerous underlying medical illnesses and high risk for any further surgical procedures, we opted to limit treatment to a trial of endocrine therapy with anastrozole 1 mg daily. During follow-up she appeared to have a very good clinical response to the anastrozole. As of her follow-up visit in December 2020 her treatment was put on hold due to increased musculoskeletal pain. I had her try restarting it in March, but it was stopped again in August. She is seen for a follow-up visit. Her main complaint is that she recently started having a new pain in her lower back. The pain occurs as she is getting up from a sitting position, and it is severe enough that it grabs her and takes her breath away. It does tend to get better, though, once she has straightened up. She continues to have joint pain, especially in the hips and knees, which is about the same. She has limited activity, but she has been walking a little more and she is able to do some very light work. Her ECOG score is 2. She has good appetite. Last week she ran some low-grade fever, but just overnight. The maximum was 101 degrees. She had some chills and sweating. She has sinus drainage and cough. She has some shortness of breath, but she says her breathing has been pretty good. She does not complain of chest pain. She currently has no GI or complaints. She says her bowel function has improved. She has had some slight headaches. She sometimes has dizziness. She has neuropathy, mainly in her feet, and she says it drives her crazy. Medications: fentaNYL 1 Patch(es) (of 25 mcg/hr) Patch 72 Hr Transdermal q 72 hours, FLUoxetine HCl 1 Capsule (of 40 mg) Oral daily, Gemfibrozil 600 mg - Take 1 Tablet Oral b.i.d., Hydrocodone-Acetaminophen (10-325 mg) Tablet Oral Take as Directed, Nitroglycerin Tablet, sublingual Sublingual PRN, Pantoprazole Sodium 1 (20 mg) Tablet, enteric coated Oral b.i.d., rOPINIRole HCl 1 Tablet (of 0.5 mg) Oral t.i.d., Simvastatin 1 Tablet (of 40 mg/5mL) Suspension Oral daily, Spironolactone 1 Tablet (of 25 mg/5mL) Suspension Oral daily Allergies: teramycin, dilaudid, tagement, tape, morphine, colchine, allopurinol, Vital Signs: Performed on Dec 20, 2021 15:32 Height - 64.00 in Temperature - 98.2 F (LOW) Pulse - 61 /min Respiration - 18 /min BP - 123/73 mm(hg) O2 Sat - 90 % (LOW) Pain - 8 Fatigue - 7 Physical Examination: Constitutional - She appears generally weak. , Eyes - Sclerae nonicteric. Conjunctivae clear, ENMT - No lesions noted in the oral cavity, Hematologic/Lymphatic - No cervical, clavicular, or axillary adenopathy, Respiratory - Lungs sound clear, Cardiovascular - Heart rhythm is regular. There is a II/ systolic murmur. There is no gallop or rub noted, Abdomen - Moderately distended. Liver and spleen are not enlarged. There is no abdominal mass or ascites noted and there is no inguinal adenopathy, Back/Spine - There is an area of focal tenderness in the lower lumbar/sacral area just to the left of the midline, Extremities - Mild lower extremity edema, Neurologic - No focal neurologic deficits noted. Lab/Imaging: Test performed on Dec 20, 2021 12:36 Ferritin 292 ng/mL Iron 45 mcg/dL Sodium 139 mmol/L Iron Binding Capacity (TIBC) 263 mcg/dl Potassium 4.2 mmol/L % Iron Saturation 17.1 % Chloride 102 mmol/L CO2 25 mmol/L UIBC 218 mcg/dL Anion Gap 16.2 BUN 14 mg/dL Creatinine 0.8 mg/dL Cr Clearance (Est) 111.0400 mL/min Glucose 87 mg/dL Osmolality - Calculated 288 mOsm/kg Calcium 9.8 mg/dL Protein, Total 6.5 g/dL Albumin 3.8 g/dL Globulin 2.7 g/dL Bilirubin, Total 0.2 mg/dL ALT (SGPT) < 5 U/L AST (SGOT) 14 U/L Alkaline Phosphatase 117 IU/L WBC 4.5 10 3/uL RBC 3.37 10 6/uL HGB 9.8 g/dL HCT 32.8 % MCV 97.3 fl MCH 29.1 pg MCHC 29.9 g/dL RDW 13.2 % Platelet Count 221 10 3/cmm MPV 10.8 fL Neutrophils 3.24 10 3/uL Lymphocytes 0.9 10 3/uL Monocytes 0.3 10 3/uL Eosinophils 0.1 10 3/uL Basophils 0.0 10 3/uL Neutrophil % 71.6 % Lymphocyte % 20.1 % Monocyte % 5.7 % Eosinophil % 2.0 % Basophils % 0.2 % NRBC % 0 % Problem List: 1. Patient with bilateral breast cancer, both grade 2 invasive ductal carcinoma, ER/AZ positive and HER-2/shelia negative. She did not have complete staging. By imaging her disease appeared to be multifocal in both breasts. 2. Due to her multiple underlying medical illnesses and comorbidities she was felt to be a very high risk for any type of general anesthesia, and her further treatment was limited to tiral of endocrine therapy with anastrozole 1 mg daily, which she started in December 2019. 3. Her baseline DEXA scan on 05/17/2019 showed evidence of osteoporosis with T score -1.8 in the lumbar spine and -3.6 in the right proximal femur. She began treatment with Prolia on 01/11/2020. 4. In July 2003 she underwent exploratory laparotomy with sigmoid colon resection and omentectomy for metastatic adenocarcinoma, clinically consistent with primary peritoneal carcinoma. She had complete resection of gross disease with the surgery, following which she was given adjuvant chemotherapy with 6 cycles of carboplatin/docetaxel, completed in January 2004. She has had no evidence of recurrence. 5. In 1978 she underwent hysterectomy/bilateral salpingo-oophorectomy for endometrial cancer. 6. Hypertension. 7. Hyperlipidemia. 8. Type 2 diabetes. 9. Hyperthyroidism. 10. History of prior strokes. 11. COPD. 12. Obstructive sleep apnea. 13. GERD. 14. Degenerative arthritis/degenerative disease of the spine. 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 16. Chronic anxiety. 17. History of depression. 18. She has a history of abdominal wall cellulitis with nonhealing skin ulcerations. Problems Addressed with this Encounter and Plan: 1. Patient with bilateral breast cancer, both grade 2 invasive ductal carcinoma, ER/AZ positive and HER-2/shelia negative. She did not have complete staging. By imaging her disease appeared to be multifocal in both breasts. Due to her multiple underlying medical illnesses and comorbidities she was felt to be a very high risk for any type of general anesthesia, and her further treatment was limited to tiral of endocrine therapy with anastrozole 1 mg daily, which she started in December 2019. By clinical exam, she had a good response to the anastrozole. However, As of December 2020 her treatment was put on hold due to increasing musculoskeletal pain. The pain was severe enough to require an increase in her opiate medication. At her follow-up visit in March 2021 I had her try restarting the anastrozole, but she stopped it in August, again due to increased pain. Since then her clinical status has remained stable other than she recently developed some new pain in her lower lumbar/sacral area. It is associated with a focal area of bony tenderness just to the left of the midline. She will be scheduled return for x-rays of the lumbosacral spine and pelvis, and she will have further evaluation as indicated. At some point I will want to transition her to second line treatment with exemestane, as I do not think she will be able to tolerate the anastrozole. 2. She has been mildly anemic. With her transferrin saturation low at 17%, she will begin oral iron supplementation. Signed By: Remigio Ledbetter M.D. <<Signature on File>>
== END 2021-12-20 12:04 | disposition home or self-care (01) ==
PROVIDERS: PCP Nurse Practitioner; Visit Provider Internal Medicine Medical Oncology
DX: C50.912 Malignant neoplasm of unspecified site of left female breast (principal); C50.911 Malignant neoplasm of unspecified site of right female breast; Z17.0 Estrogen receptor positive status [ER+]; D64.9 Anemia, unspecified; M81.8 Other osteoporosis without current pathological fracture; Z85.030 Personal history of malignant carcinoid tumor of large intestine; Z90.710 Acquired absence of both cervix and uterus; Z90.722 Acquired absence of ovaries, bilateral; Z85.42 Personal history of malignant neoplasm of other parts of uterus; I10 Essential (primary) hypertension; E78.5 Hyperlipidemia, unspecified; E11.9 Type 2 diabetes mellitus without complications; E03.9 Hypothyroidism, unspecified; Z86.73 Personal history of transient ischemic attack (TIA), and cerebral infarction without residual deficits; Z87.891 Personal history of nicotine dependence; J44.9 Chronic obstructive pulmonary disease, unspecified; G47.33 Obstructive sleep apnea (adult) (pediatric); K21.9 Gastro-esophageal reflux disease without esophagitis; M47.819 Spondylosis without myelopathy or radiculopathy, site unspecified; B39.9 Histoplasmosis, unspecified; F41.9 Anxiety disorder, unspecified; F32.A Depression, unspecified; L98.499 Non-pressure chronic ulcer of skin of other sites with unspecified severity; Z79.811 Long term (current) use of aromatase inhibitors; Z79.899 Other long term (current) drug therapy
CPT/HCPCS: 36415; 80053; 82728; 83540; 83550; 85025; 99214

== ENCOUNTER 2021-12-22 14:56 | Emergency (ER) | payer OTHER, MEDICARE, MEDICAID, SELFPAY ==
[2021-12-22 14:58] VITALS: BP 141/77; PULSE 61; RESP 17; O2SAT 99
--- NOTE | 2021-12-22 15:08 | W.ED.WEAKNES ---
HPI - Weakness General: Chief complaint: Weakness Stated complaint: LETHARGIC Time Seen by Provider: 12/22/21 14:58 History of Present Illness: Ms Mchugh is a 71-year-old lady with history of hypertension, hyperlipidemia, breast cancer currently on hospice, obesity who presents to the emergency department due to generalized symptoms. Patient was noticed to be increasing lately somnolent and having difficulty standing. The patient herself reports bilateral back rib pain as well as low back pain as well as increasing cough. Symptom onset was gradual starting yesterday. Symptoms have worsened in intensity and are now moderate to severe. She reports back pain is sharp and significantly worse with cough. Denies other infectious symptoms. She reports that she has tried her home medications without significant relief. She has not had return of her baseline oxygen. No other specific changes in health, exacerbating, relieving factors identified. Onset (ago): day(s) Duration: constant and progressively worsening Location: other Severity: moderate Quality: aching and sharp Relieving factors: none Exacerbating factors: other Context: other Associated symptoms: Reports other Review of Systems General: Reports: 10 or more systems reviewed and unremarkable except in HPI and below PFSH ED PFSH: Medical History Anxiety COPD (chronic obstructive pulmonary disease) CVA (cerebral vascular accident) GERD (gastroesophageal reflux disease) Hyperlipidemia Hypertension Hyperthyroidism Morbid obesity ROSEMARIE (obstructive sleep apnea) Surgical History H/O cervical spine surgery H/O: hysterectomy History of bilateral breast biopsy History of cholecystectomy History of colon resection History of open reduction and internal fixation (ORIF) procedure left femur Status post right knee replacement Family History Grandfather Diabetes Maternal Grandmother Diabetes Maternal Kidney failure Maternal Grandmother Diabetes Paternal Grandfather Diabetes Paternal Family/Other Diabetes Aunt Mother , Age 99 Hypertension Cancer Leukemia Father Myocardial infarction Hypertension Brother Hypertension Cancer Prostate Denies family history of Anesthesia complication Bleeding disorder Social History Alcohol intake: never Lives independently: Yes Household members: spouse Marital status: Current occupational status: disabled History of recent travel: No Physical Exam Const: COMMON NORMALS: alert GENERAL APPEARANCE: cooperative, well developed, in distress (pain that is significantly worsened with cough) and ill appearing (Somewhat) NUTRITIONAL APPEARANCE: obese HENMT: COMMON NORMALS: normocephalic and atraumatic HEAD & SCALP: normocephalic and atraumatic THROAT: posterior oropharynx normal Eye: COMMON NORMALS: conjunctivae normal CONJUNCTIVA: Yes conjunctivae normal SCLERA: sclerae normal Neck/C-Spine: COMMON NORMALS: supple GENERAL: Yes trachea midline Resp: COMMON NORMALS: normal respiratory effort EFFORT & INSPECTION: Yes able to speak in complete sentences Cardio: COMMON NORMALS: regular rate and regular rhythm RATE: regular rate RHYTHM: regular rhythm GI: COMMON NORMALS: Soft to palpation PALPATION: Yes Soft to palpation and No Tenderness to palpation present (GI) PERCUSSION: normal to percussion Extremity: GENERAL: Yes normal exam except as noted and No edema Neuro: COMMON NORMALS: moves all extremities SENSORIUM/ORIENTATION: Yes alert and No Orientation impaired Psych: COMMON NORMALS: mental status grossly normal and Normal thought process present THOUGHT PROCESS: Normal thought process present Course ED course: - Patient was seen and evaluated by me at bedside - Patient placed on cardiac monitors, IV access obtained - Initial evaluation notable for mild somnolence, nontoxic. Coarse breath sounds. -Symptom treatment ordered - Labs notable for no leukocytosis, mildly decreased hemoglobin without evidence of bleeding in history of clinical exam. No acute electrolyte derangement. BNP minimally elevated. Initial troponin mildly elevated. The patient declined repeat troponin, this is likely reasonable in the context of patient being on hospice as well as better explanation for patient's symptoms. Urinalysis is concerning for urinary tract infection. - Imaging notable for possible pneumonia - Antibiotic given - Given hypercapnia on initial blood gas and the repeat was obtained and was improved spontaneously. - Upon serial reexamination after treatment the patient was significantly improved - Based on patient history, evaluation, labs, and imaging as interpreted the most likely cause of the patient's condition is pneumonia and urinary tract infection which will be treated with antibiotics. Patient feels markedly improved and clinically appears better. - The results of ED evaluation were discussed with the patient including prescriptions and/or symptomatic cares (if applicable) including appropriate and responsible use, followup plan, and return precautions. The patient verbalized understanding and felt safe for discharge. - Patient discharged in satisfactory condition. Note: Click bubbles or prepopulated paulino in note writing are used for assistance with data collection and billing and are inherently more limited than narrative and other text portions of this note. Please use narrative for additional clinical history and defer to narrative/free test for any case of contradictory information. If information appears in only free text or click bubble it should be considered present or absent as reported. Please contact note sql report writer for clarifications of clinical information or contradictory information. MDM is a brief summary, contradictory or erroneous seeming information should be clarified and full note should be reviewed. Vital Signs: Vital signs: Vital Signs Pulse Rate 63 12/22/21 18:26 Respiratory Rate 22 H 12/22/21 18:26 Blood Pressure 150/81 12/22/21 18:26 Pulse Oximetry 100 12/22/21 18:26 MDM - Weakness Medical Decision Making 71-year-old lady with significant past medical history of breast cancer currently on hospice presenting with mental status change and generalized symptoms. Patient found to have pneumonia and urinary tract infection. Throughout ED evaluation patient had marked improvement in overall clinical appearance and symptoms. She felt comfortable with outpatient treatment. Satisfactory for discharge. Medical Records I reviewed the patient's medical records. Lab Data I reviewed the patient's lab results. : 12/22/21 16:10 12/22/21 16:10 Radiology Impressions Chest X-Ray 12/22/21 15:19 IMPRESSION: Mild nonspecific bilateral pulmonary opacities most consistent with pneumonia. Laboratory Results WBC 6.3 10^3/uL (4.0-10.0) 12/22/21 16:10 RBC 3.32 10^6/uL (4.1-5.3) L 12/22/21 16:10 Hgb 9.6 g/dL (11.5-15.3) L 12/22/21 16:10 Hct 32.8 % (37.0-47.0) L 12/22/21 16:10 MCV 98.8 fl (81-99) 12/22/21 16:10 MCH 28.9 pg (28.0-34.0) 12/22/21 16:10 MCHC 29.3 g/dL (30.0-36.0) L 12/22/21 16:10 RDW 13.2 % (12.1-15.1) 12/22/21 16:10 Plt Count 196 10^3/cmm (130-400) 12/22/21 16:10 MPV 11.4 fL (7.4-10.4) H 12/22/21 16:10 Neut % (Auto) 77.5 % 12/22/21 16:10 Lymph % (Auto) 14.5 % 12/22/21 16:10 [place] % (Auto) 5.8 % 12/22/21 16:10 Eos % (Auto) 1.3 % 12/22/21 16:10 Baso % (Auto) 0.3 % 12/22/21 16:10 Neut # (Auto) 4.90 10^3/uL (1.8-7.7) 12/22/21 16:10 Lymph # (Auto) 0.9 10^3/uL (0.8-4.8) 12/22/21 16:10 [place] # (Auto) 0.4 10^3/uL (0.2-0.9) 12/22/21 16:10 Eos # (Auto) 0.1 10^3/uL (0.0-0.8) 12/22/21 16:10 Baso # (Auto) 0.0 10^3/uL (0.0-0.1) 12/22/21 16:10 Nucleated RBC % (auto) 0 % 12/22/21 16:10 Nucleated RBCs # 0.0 /100WBC 12/22/21 16:10 Specimen Type Arterial 12/22/21 18:28 Sample Site Radial, right 12/22/21 18:28 ABG pH 7.40 (7.35-7.45) 12/22/21 18:28 ABG pCO2 53.3 mmHg (35-45) H 12/22/21 18:28 ABG pO2 99.5 mmHg (80.0-100.0) 12/22/21 18:28 ABG HCO3 33.0 mmol/L (22-26) H 12/22/21 18:28 ABG Base Excess 7.2 mmol/L (-2.0-2.0) H 12/22/21 18:28 Kyle Test Pos 12/22/21 18:28 Hematocrit 27.9 % (37-47) L 12/22/21 18:28 O2 Delivery Device Nc 12/22/21 18:28 O2 Liters/Min 2.0 % 12/22/21 18:28 FiO2 28.0 % 12/22/21 18:28 Diversified Crops I Farmworker ID Ed 12/22/21 18:28 Sodium 138 mmol/L (136-145) 12/22/21 16:10 Potassium 4.4 mmol/L (3.5-5.1) 12/22/21 16:10 Chloride 101 mmol/L (98-107) 12/22/21 16:10 Carbon Dioxide 24 mmol/L (22-29) 12/22/21 16:10 Anion Gap 17.4 (5-19) 12/22/21 16:10 BUN 13 mg/dL (8-23) 12/22/21 16:10 Creatinine 0.8 mg/dL (0.5-0.9) 12/22/21 16:10 GFR Calculation Not Reportable 12/22/21 16:10 Glucose 92 mg/dL (65-115) 12/22/21 16:10 Calculated Osmolality 286 mOsm/kg (285-295) 12/22/21 16:10 Calcium 9.6 mg/dL (8.5-10.5) 12/22/21 16:10 Total Bilirubin 0.2 mg/dL (0.15-1.2) 12/22/21 16:10 AST 13 U/L (0-32) 12/22/21 16:10 ALT < 5 U/L (0-33) 12/22/21 16:10 Alkaline Phosphatase 113 IU/L (35-105) H 12/22/21 16:10 Troponin T Baseline 21 ng/L (0-10) H 12/22/21 16:10 Troponin T 120 Minute Cancelled 12/22/21 17:41 Delta Troponin T Cancelled 12/22/21 17:41 NT-Pro-B Natriuret Pep 569 pg/mL (0-125) H 12/22/21 16:10 Total Protein 5.9 g/dL (6.6-8.7) L 12/22/21 16:10 Albumin 3.3 g/dL (3.5-5.2) L 12/22/21 16:10 Globulin 2.6 g/dL (1.3-4.6) 12/22/21 16:10 Procalcitonin 0.06 ng/mL (0-0.5) 12/22/21 16:10 TSH 1.13 uIU/mL (0.27-4.20) 12/22/21 16:10 Urine Color Straw (Yellow) 12/22/21 16:21 Urine Appearance Hazy (CLEAR) A 12/22/21 16:21 Urine pH 5 (5-7) 12/22/21 16:21 Ur Specific [place] 1.020 (1.005-1.030) 12/22/21 16:21 Urine Protein 1+ (Negative) H 12/22/21 16:21 Urine Glucose (UA) Norm (Normal) 12/22/21 16:21 Urine Ketones Negative (Negative) 12/22/21 16:21 Urine Blood 3+ (Negative) H 12/22/21 16:21 Urine Nitrate Positive (Negative) H 12/22/21 16:21 Urine Bilirubin Neg (Negative) 12/22/21 16:21 Urine Urobilinogen Norm mg/dL (Negative) 12/22/21 16:21 Ur Leukocyte Esterase 2+ (Negative) H 12/22/21 16:21 Urine RBC 15-25 /hpf (0-2) H 12/22/21 16:21 Urine WBC 40-55 /hpf (0-5) H 12/22/21 16:21 Ur Squamous Epith Cells 0-4 /hpf (0-5) H 12/22/21 16:21 Amorphous Sediment Not Reportable 12/22/21 16:21 Urine Bacteria 3+ /hpf (NONE) H 12/22/21 16:21 SARS-CoV-2 Ag (Rapid) Negative (Negative) 12/22/21 18:23 EKG Data EKG 1: I personally reviewed and interpreted this EKG as follows: EKG interpretation date: 12/22/21 EKG interpretation time: 16:15 Interpretation: Twelve-lead EKG shows a regular rhythm at a rate of 61. IL interval 175, castration 90, QTc 442. Normal axis. Interpretation: Sinus rhythm. Discharge Plan Discharge Patient Disposition: Home Clinical Impression: Cough, Back pain, Urinary tract infection, Pneumonia Condition: Stable Prescriptions: New levofloxacin 750 mg tablet 750 mg PO DAILY 4 Days Qty: 4 0RF No Action pantoprazole 20 mg tablet,delayed release (DR/EC) 20 mg PO BID@08,21 0RF ropinirole 0.5 mg tablet 0.5 mg PO TID 0RF gemfibrozil 600 mg tablet 600 mg PO BID@08,21 0RF docusate sodium [Colace] 100 mg capsule 200 mg PO DAILY@08 0RF simvastatin 40 mg tablet 40 mg PO BEDTIME 0RF Narcan 4 mg/actuation spray,non-aerosol See Rx Instructions .ROUTE .COMPLEX PRN (Reason: overdose) 0RF Rx Instructions: DIRECTED PRN OVERDOSE albuterol sulfate 2.5 mg /3 mL (0.083 %) solution for nebulization 2.5 mg INHALATION Q4H PRN (Reason: Shortness Of Breath) 0RF nitroglycerin [Nitrostat] 0.4 mg tablet, sublingual 0.4 mg SUBLINGUAL Q5M PRN (Reason: Chest Pain) 0RF fluoxetine 40 mg capsule 40 mg PO DAILY 0RF fentanyl 50 mcg/hr patch 72 hour 50 mcg transdermal Q72H 0RF hydrocodone-acetaminophen 10-325 mg tablet See Rx Instructions .ROUTE .COMPLEX 0RF Rx Instructions: 1-2 TABS PO Q4-6H PRN PAIN (MAX OF 8 TABS PER DAY) hydroxyzine HCl 10 mg tablet 10 mg PO QID PRN (Reason: Itching) 0RF spironolactone 25 mg Tablet 25 mg PO DAILY 0RF ergocalciferol (vitamin D2) 1,250 mcg (50,000 unit) Capsule 50,000 unit PO Q7D 0RF Rx Instructions: on FRI aspirin 81 mg Tablet,Delayed Release (Dr/Ec) 81 mg PO DAILY Qty: 30 0RF Discharge Orders: Discharge ED (Routine); Ordered 12/22/21 Ordered By: Jeremy Sanchez Referrals: Lo Avalos APN [Primary Care Provider] - Discharge Diet: Usual diet Discharge Activity: Resume usual activity Patient Instructions: Urinary Tract Infection in Women (ED), Community Acquired Pneumonia (ED) Activity Restrictions/Additional Instructions: Thank you for visiting the emergency department. You were seen and evaluated for cough associated with pain as well as generalized weakness/somnolence. The exact cause of your symptoms is likely multifactorial. You have evidence of pneumonia as well as a urinary tract infection which will be treated with antibiotics. Your blood gas did show mild increase in carbon dioxide, please ensure that you are wearing your CPAP as instructed. Please follow-up with home health and your primary care provider. Please return to the emergency department for worsening symptoms or anything else that you are concerned about and feel needs emergency department evaluation. Coding Level of Care Code ED Loom Overhauler for Chg Fwd Exam Comprehensive
--- NOTE | 2021-12-22 15:19 | XRR_ITS ---
PROCEDURE INFORMATION: Exam: XR Chest Exam date and time: 12/22/2021 3:19 PM Age: 71 years old Clinical indication: Cough and shortness of breath; Patient HX: Cough w/sob; Additional info: Cough, SOB TECHNIQUE: Imaging protocol: XR of the chest. Views: 1 view. COMPARISON: CR XR chest 1V portable [id number] 05/15/2021 9:21 PM FINDINGS: Lungs: Mild nonspecific bilateral pulmonary opacities most consistent with pneumonia. Pleural spaces: Unremarkable. No pleural effusion. No pneumothorax. Heart/Mediastinum: Unremarkable. No cardiomegaly. Bones/joints: Stable postoperative metallic fixation of the cervical spine with or without metallic artifact. Moderate thoracic spondylosis. XR/XR chest 1V portable [id number] IMPRESSION: Mild nonspecific bilateral pulmonary opacities most consistent with pneumonia.
--- NOTE | 2021-12-22 15:20 | ECG_ITS ---
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
[2021-12-22 15:44] LABS: ABG PH Result 7.33 (7.35-7.45); Base Excess ABG 6.3 mmol/L (-2.0-2.0); Blood Gas Allen Test Pos; Blood Gas Operator Identificat ED; Blood Gas Sample Site Radial, left; Blood Gas Sample Type Arterial; HCO3 ABG 33.4 mmol/L (22-26); Oxygen Device NC
[2021-12-22 15:45] LABS: ABG PCO2 62.8 mmHg (35-45)
[2021-12-22 15:52] VITALS: BP 146/78; PULSE 65; RESP 18; O2SAT 100
[2021-12-22 16:13] VITALS: BP 153/83; PULSE 59; RESP 20; O2SAT 100
[2021-12-22 16:26] LABS: Basophils % 0.3 %; Eosinophils # 0.1 10^3/uL (0.0-0.8); Eosinophils % 1.3 %; Hematocrit 32.8 % (37.0-47.0); Hemoglobin 9.6 g/dL (11.5-15.3); Lymphocytes # 0.9 10^3/uL (0.8-4.8); Lymphocytes % 14.5 %; Mean Corpuscular HGB Conc 29.3 g/dL (30.0-36.0); Mean Corpuscular Hemoglobin 28.9 pg (28.0-34.0); Mean Corpuscular Volume 98.8 fl (81-99); Mean Platelet Volume 11.4 fL (7.4-10.4); Monocytes # 0.4 10^3/uL (0.2-0.9); Monocytes % 5.8 %; Neutrophils % 77.5 %; Nucleated Red Blood Cells % 0 %; Platelet Count 196 10^3/cmm (130-400); Red Blood Count 3.32 10^6/uL (4.1-5.3); Red Cell Distribution Width 13.2 % (12.1-15.1); White Blood Count 6.3 10^3/uL (4.0-10.0)
[2021-12-22 16:42] LABS: Slide Review Slide Review Perform
[2021-12-22 16:45] LABS: Add Urine Microscopic? YES; Bilirubin Urine Neg (Negative); Blood Urine 3+ (Negative); Glucose Urine UA Norm (Normal); Ketones Urine Negative (Negative); Leukocyte Esterase Urine 2+ (Negative); Nitrate Urine Positive (Negative); Protein Urine 1+ (Negative); Urine Appearance Hazy (CLEAR); Urine Color Straw (Yellow); Urobilinogen Urine Norm (Negative); pH Urine 5 (5-7)
[2021-12-22 16:46] LABS: Add Urine Culture? Yes; Bacteria Urine 3+ /hpf; RBC Urine 15-25 /hpf (0-2); Squamous Epithelial Cell Urine 0-4 /hpf (0-5); WBC Urine 40-55 /hpf (0-5)
[2021-12-22 16:55] LABS: Troponin(5th) Baseline 21 ng/L (0-10)
[2021-12-22 17:02] LABS: NT Pro B Type Natriuretic Pept 569 pg/mL (0-125); Procalcitonin 0.06 ng/mL (0-0.5); Thyroid Stimulating Hormone 1.13 uIU/mL (0.27-4.20)
[2021-12-22 17:13] LABS: Alanine Aminotransferase < 5 U/L (0-33); Albumin Level 3.3 g/dL (3.5-5.2); Alkaline Phosphatase 113 IU/L (35-105); Anion Gap 17.4 (5-19); Aspartate Amino Transferase 13 U/L (0-32); Blood Urea Nitrogen 13 mg/dL (8-23); Calcium 9.6 mg/dL (8.5-10.5); Carbon Dioxide 24 mmol/L (22-29); Chloride 101 mmol/L (98-107); Globulin 2.6 g/dL (1.3-4.6); Glucose 92 mg/dL (65-115); Osmolality Calculated 286 mOsm/kg (285-295); Potassium 4.4 mmol/L (3.5-5.1); Sodium 138 mmol/L (136-145); Total Bilirubin 0.2 mg/dL (0.15-1.2); Total Protein 5.9 g/dL (6.6-8.7)
[2021-12-22] MEDS: levoFLOXacin 750 mg Tablet PO (17:48)
[2021-12-22 18:26] VITALS: BP 150/81; PULSE 63; RESP 22; O2SAT 100
[2021-12-22 18:38] LABS: ABG PCO2 53.3 mmHg (35-45); Arterial Blood Gas Hematocrit 27.9 % (37-47); Base Excess ABG 7.2 mmol/L (-2.0-2.0); Blood Gas Allen Test Pos; Blood Gas Sample Type Arterial; PO2 ABG 99.5 mmHg (80.0-100.0)
[2021-12-22 18:39] LABS: Blood Gas Operator Identificat ED; Blood Gas Sample Site Radial, right; Oxygen Device NC
[2021-12-22 18:59] LABS: SARS Covid-2 Antigen Negative (Negative)
== END 2021-12-22 19:51 | disposition home or self-care (01) ==
PROVIDERS: Emergency Provider Emergency Medicine; PCP Nurse Practitioner
DX: J44.0 Chronic obstructive pulmonary disease with (acute) lower respiratory infection (principal); J18.9 Pneumonia, unspecified organism; N39.0 Urinary tract infection, site not specified; M54.9 Dorsalgia, unspecified; Z79.82 Long term (current) use of aspirin; Z86.73 Personal history of transient ischemic attack (TIA), and cerebral infarction without residual deficits; E78.5 Hyperlipidemia, unspecified; I10 Essential (primary) hypertension; Z20.822 Contact with and (suspected) exposure to COVID-19
CPT/HCPCS: 36415; 36600; 51701; 71045; 80053; 81001; 82803; 83880; 84145; 84443; 84484; 85025; 87077; 87086; 87186; 87426; 93005; 99283

== ENCOUNTER 2022-01-08 11:21 | Outpatient (CLI) | payer MEDICARE, MEDICAID, SELFPAY ==
--- NOTE | 2022-01-08 11:33 | XRR_ITS ---
PROCEDURE INFORMATION: Exam: XR Pelvis Exam date and time: 01/08/2022 11:33 AM Age: 71 years old Clinical indication: Other: Low back pain; Additional info: Breast cancer/low back pain TECHNIQUE: Imaging protocol: XR pelvis. Views: 1 or 2 view. COMPARISON: CT abdomen pelvis con [id number] 05/15/2021 9:52 PM FINDINGS: Bones/joints: Osteopenia and osteoarthritis lumbar spine Soft tissues: Metallic surgical clips are present in the soft tissues of the pelvis. XR/XR pelvis 1-2V* [id number] IMPRESSION: 1. No acute findings. 2. Surgical clips soft tissues of the pelvis. 3. Osteopenia and osteoarthritis
--- NOTE | 2022-01-08 11:33 | XRR_ITS ---
PROCEDURE INFORMATION: Exam: XR Lumbosacral Spine Exam date and time: 01/08/2022 11:33 AM Age: 71 years old Clinical indication: Low back pain; Additional info: Breast cancer/low back pain TECHNIQUE: Imaging protocol: XR of the lumbosacral spine. Views: 2 or 3 views. COMPARISON: CT abdomen pelvis wo con [id number] 05/15/2021 9:52 PM FINDINGS: Bones/joints: There is osteopenia is seen. Multi level intervertebral disc space narrowing with vacuum phenomena is seen consistent with osteoarthritis. No acute fracture. Normal alignment. Soft tissues: A the abdominal aorta is calcified without aneurysm. XR/XR lumbar spine 2-3V* [id number] IMPRESSION: 1. No acute findings. 2. Lumbar osteopenia and osteoarthritis. 3. Calcified aorta without aneurysm or
== END 2022-01-08 11:22 | disposition home or self-care (01) ==
PROVIDERS: PCP Nurse Practitioner; Visit Provider Internal Medicine Medical Oncology
DX: C50.811 Malignant neoplasm of overlapping sites of right female breast (principal); C50.812 Malignant neoplasm of overlapping sites of left female breast; M54.50 Low back pain, unspecified; M85.80 Other specified disorders of bone density and structure, unspecified site; M81.0 Age-related osteoporosis without current pathological fracture
CPT/HCPCS: 72100; 72170

== ENCOUNTER 2022-01-24 09:50 | Outpatient (CLI) | payer MEDICARE, MEDICAID, SELFPAY ==
--- NOTE | 2022-01-27 12:06 | ONC FU_ITS ---
Dr. Ledbetter Patient Follow-Up Note Patient: Deborah Mchugh Unit #: [id number]: 1950 Dicatated By: Remigio Ledbetter M.D.Date of Visit:Jan 24, 2022 Onc Med Follow-up/Prog Note Chief Complaint: Breast cancer. History of Present Illness: This is a 71 year-old woman with multifocal, bilateral invasive breast cancer, ER/ND positive and HER-2/shelia negative. 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 She had complete surgical resection with sigmoid colectomy and omentectomy in July 2003, and she was then given adjuvant chemotherapy with 6 cycles of carboplatin/Taxotere, completed in January 2004. She has had no recurrence of either malignancy. I had last seen her for follow-up in April 2014. She has multiple underlying medical illnesses including hypertension, hyperlipidemia, type II diabetes, hyperthyroidism, COPD, obstructive sleep apnea, GERD, osteoporosis, degenerative arthritis/degenerative disease of the spine, and chronic anxiety. She has a history of depression, history of multiple strokes, and a history of ocular histoplasmosis. In 2013 she had developed nonhealing abdominal wall ulcerations in association with cellulitis which had developed following a prolonged episode of colitis. She had multiple hospitalizations during that time and she required surgical debridement, but it eventually resolved. She had presented to [facility] with a palpable mass in the right breast. Bilateral diagnostic mammogram/ultrasound on 09/24/2019 showed a 16.2 mm nodule at the 12 o'clock position corresponding to the palpable mass. An additional mass was present in the posterior central right breast measured 10 mm. A 14 mm nodule was noted in the central left breast just inferior to the nipple and an additional 7 mm nodule is noted in the medial left breast. The right breast ultrasound showed a hypoechoic nodule at the 12 o'clock position measuring 15 x 16 mm, a superficial hypoechoic mass measuring 5 x 3 mm at the 6 o'clock position, an additional hypoechoic masses at 11:00 measuring 8 x 5 mm and at 7:00 measuring 11 mm. The left breast ultrasound showed a 16 x 6 mm mass at 6:00, a 5 x 5 mm hypoechoic mass at 11:00 and an additional adjacent smaller nodule. The findings were BI-RADS 5, highly suggestive of malignancy. She underwent ultrasound guided biopsies of the left breast 10:00 and 6:00 lesions and of the right breast 12:00 lesion. Pathology of the left breast at 6:00 showed fibrocystic changes with no malignancy identified. The left breast 10:00 lesion showed grade 2 invasive ductal carcinoma which was ER positive at 97% and ND positive at 91%. The HER-2/shelia was 2+ by IHC but negative by FISH with amplification ratio 1.1 and 2.0 HER-2 copies/cell. The Ki-67 was favorable at 5%. The right breast 12:00 lesion also showed grade 2 invasive ductal carcinoma. It was ER positive at 96% and ND positive at 97%. HER-2/shelia was 2+ by IHC but negative by FISH with amplification ratio 1.4 and 3.9 HER-2 copies/cell. The KI 67 was intermediate at 14%. She was seen here on 12/31/2019 for further management of the breast cancer. Given her numerous underlying medical illnesses and high risk for any further surgical procedures, we opted to limit treatment to a trial of endocrine therapy with anastrozole 1 mg daily. During follow-up she appeared to have a very good clinical response to the anastrozole. As of her follow-up visit in December 2020 her treatment was put on hold due to increased musculoskeletal pain. I had her try restarting it in March, but it was stopped again in August. As of her follow-up visit in November 2021 she continued to have significant joint pain, at that point she had also reported development of a new pain in her lower back. X-rays of the lumbar spine and pelvis showed no acute findings. There was no evidence of metastatic disease. She continued symptomatic management. She is seen for a follow-up visit. She indicates that she recently has been referred for hospice and that they will be taking care of her pain prescriptions. She continues have very limited activity. She is able to get up and around slowly. She is mostly sedentary. ECOG score is 3. She has good appetite. She has not had fever. She sometimes has sweating. She has not had sore mouth or throat and she does not complain of cough. She has some shortness of breath, but her breathing overall has been pretty good. She has not been having chest pain. She sometimes has nausea and she also has some acid reflux. She has pain in the mid to lower abdomen associated with the hernia. She says her bowels lately have been better. Bladder function has been okay. She continues to have significant pain in her back and shoulders and also in her hands and feet. She has numbness a lot in her legs and feet. Medications: fentaNYL 1 Patch(es) (of 25 mcg/hr) Patch 72 Hr Transdermal q 72 hours, FLUoxetine HCl 1 Capsule (of 40 mg) Oral daily, Gemfibrozil 600 mg - Take 1 Tablet Oral b.i.d., Hydrocodone-Acetaminophen (10-325 mg) Tablet Oral Take as Directed, Nitroglycerin Tablet, sublingual Sublingual PRN, Pantoprazole Sodium 1 (20 mg) Tablet, enteric coated Oral b.i.d., rOPINIRole HCl 1 Tablet (of 0.5 mg) Oral t.i.d., Simvastatin 1 Tablet (of 40 mg/5mL) Suspension Oral daily, Spironolactone 1 Tablet (of 25 mg/5mL) Suspension Oral daily Allergies: teramycin, dilaudid, tagement, tape, morphine, colchine, allopurinol, Vital Signs: Performed on Jan 24, 2022 10:34 Height - 64.00 in Temperature - 97.2 F (LOW) Pulse - 63 /min Respiration - 18 /min BP - 113/74 mm(hg) O2 Sat - 92 % (LOW) Pain - 7 Fatigue - 5 Physical Examination: Constitutional - She appears somewhat weak generally, Eyes - Sclerae nonicteric. Conjunctivae clear, ENMT - No lesions noted in the oral cavity, Hematologic/Lymphatic - No cervical or clavicular adenopathy, Respiratory - Lungs sound clear, Cardiovascular - Heart rhythm is regular. There is a II/ systolic murmur. There is no gallop or rub noted, Breasts - There are no breast masses noted at this time, and there is no axillary adenopathy noted, Abdomen - Moderately distended. Liver and spleen are not enlarged. There is no abdominal mass or ascites noted and there is no inguinal adenopathy, Extremities - Mild lower extremity edema, Neurologic - No focal neurologic deficits noted. Problem List: 1. Patient with bilateral breast cancer, both grade 2 invasive ductal carcinoma, ER/ND positive and HER-2/shelia negative. She did not have complete staging. By imaging her disease appeared to be multifocal in both breasts. 2. Due to her multiple underlying medical illnesses and comorbidities she was felt to be a very high risk for any type of general anesthesia, and her further treatment was limited to tiral of endocrine therapy with anastrozole 1 mg daily, which she started in December 2019. 3. Her baseline DEXA scan on 05/17/2019 showed evidence of osteoporosis with T score -1.8 in the lumbar spine and -3.6 in the right proximal femur. She began treatment with Prolia on 01/11/2020. 4. In July 2003 she underwent exploratory laparotomy with sigmoid colon resection and omentectomy for metastatic adenocarcinoma, clinically consistent with primary peritoneal carcinoma. She had complete resection of gross disease with the surgery, following which she was given adjuvant chemotherapy with 6 cycles of carboplatin/docetaxel, completed in January 2004. She has had no evidence of recurrence. 5. In 1978 she underwent hysterectomy/bilateral salpingo-oophorectomy for endometrial cancer. 6. Hypertension. 7. Hyperlipidemia. 8. Type 2 diabetes. 9. Hyperthyroidism. 10. History of prior strokes. 11. COPD. 12. Obstructive sleep apnea. 13. GERD. 14. Degenerative arthritis/degenerative disease of the spine. 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 16. Chronic anxiety. 17. History of depression. 18. She has a history of abdominal wall cellulitis with nonhealing skin ulcerations. Problems Addressed with this Encounter and Plan: 1. Patient with bilateral breast cancer, both grade 2 invasive ductal carcinoma, ER/ND positive and HER-2/shelia negative. She did not have complete staging. By imaging her disease appeared to be multifocal in both breasts. Due to her multiple underlying medical illnesses and comorbidities she was felt to be a very high risk for any type of general anesthesia, and her further treatment was limited to tiral of endocrine therapy with anastrozole 1 mg daily, which she started in December 2019. By clinical exam, she had a good response to the anastrozole. However, As of December 2020 her treatment was put on hold due to increasing musculoskeletal pain. The pain was severe enough to require an increase in her opiate medication. At her follow-up visit in March 2021 I had her try restarting the anastrozole, but she stopped it in August, again due to increased pain. As of her follow-up visit in November 2021 she continued to have significant pain, especially in her shoulders and back. X-rays of the lumbar spine and pelvis were unrevealing. She has since then continued symptomatic management. As yet she has had no further treatment for the breast cancer, but she apparently now has been referred to hospice, and that issue will have to be clarified before any consideration of a second line endocrine therapy. 2. She has been mildly anemic. With her transferrin saturation low at 17%, she was recommended to begin an oral iron supplement.. Signed By: Remigio Ledbetter M.D. <<Signature on File>>
== END 2022-01-24 09:51 | disposition home or self-care (01) ==
PROVIDERS: PCP Family Medicine; Visit Provider Internal Medicine Medical Oncology
DX: C50.811 Malignant neoplasm of overlapping sites of right female breast (principal); C50.812 Malignant neoplasm of overlapping sites of left female breast; Z17.0 Estrogen receptor positive status [ER+]; M81.0 Age-related osteoporosis without current pathological fracture; I10 Essential (primary) hypertension; E78.5 Hyperlipidemia, unspecified; E11.9 Type 2 diabetes mellitus without complications; E05.90 Thyrotoxicosis, unspecified without thyrotoxic crisis or storm; J44.9 Chronic obstructive pulmonary disease, unspecified; G47.33 Obstructive sleep apnea (adult) (pediatric); K21.9 Gastro-esophageal reflux disease without esophagitis; G31.89 Other specified degenerative diseases of nervous system; B39.9 Histoplasmosis, unspecified; F41.9 Anxiety disorder, unspecified; Z85.038 Personal history of other malignant neoplasm of large intestine; Z85.41 Personal history of malignant neoplasm of cervix uteri; Z90.710 Acquired absence of both cervix and uterus; Z86.73 Personal history of transient ischemic attack (TIA), and cerebral infarction without residual deficits; Z86.59 Personal history of other mental and behavioral disorders; Z87.2 Personal history of diseases of the skin and subcutaneous tissue; Z79.818 Long term (current) use of other agents affecting estrogen receptors and estrogen levels
CPT/HCPCS: 99214

== ENCOUNTER → 2022-05-10 10:58 | Outpatient (BNVA) | payer MEDICARE, MEDICAID, SELFPAY | PROVIDERS: PCP Family Medicine; Visit Provider Internal Medicine Cardiovascular Disease | DX: I11.0 Hypertensive heart disease with heart failure (principal); I50.32 Chronic diastolic (congestive) heart failure; E78.5 Hyperlipidemia, unspecified; G47.33 Obstructive sleep apnea (adult) (pediatric); E66.01 Morbid (severe) obesity due to excess calories; Z68.41 Body mass index [BMI] 40.0-44.9, adult; C50.912 Malignant neoplasm of unspecified site of left female breast; C50.911 Malignant neoplasm of unspecified site of right female breast | CPT/HCPCS: 99214 ==

== ENCOUNTER 2022-06-05 12:07 | Oncology outpatient (recurring) (ONCR) | payer OTHER, MEDICARE, MEDICAID, SELFPAY ==
[2022-06-05 14:10] LABS: Basophils % 0.4 %; Eosinophils # 0.2 10^3/uL (0.0-0.8); Eosinophils % 2.3 %; Hematocrit 32.8 % (37.0-47.0); Hemoglobin 10.2 g/dL (11.5-15.3); Lymphocytes # 1.1 10^3/uL (0.8-4.8); Mean Corpuscular HGB Conc 31.1 g/dL (30.0-36.0); Mean Corpuscular Volume 96.5 fl (81-99); Mean Platelet Volume 10.3 fL (7.4-10.4); Monocytes # 0.5 10^3/uL (0.2-0.9); Monocytes % 7.3 %; Neutrophils # 5.55 10^3/uL (1.8-7.7); Neutrophils % 74.7 %; Nucleated Red Blood Cells % 0 %; Platelet Count 262 10^3/cmm (130-400); White Blood Count 7.4 10^3/uL (4.0-10.0)
== END 2022-06-23 23:59 | disposition home or self-care (01) ==
PROVIDERS: PCP Family Medicine; Referring Provider Surgery; Visit Provider Nurse Practitioner Family
DX: C50.812 Malignant neoplasm of overlapping sites of left female breast (principal); C50.811 Malignant neoplasm of overlapping sites of right female breast; Z17.0 Estrogen receptor positive status [ER+]; D64.9 Anemia, unspecified; J44.9 Chronic obstructive pulmonary disease, unspecified; G89.3 Neoplasm related pain (acute) (chronic); R53.83 Other fatigue
CPT/HCPCS: 36415; 80053; 85025; 99214

== ENCOUNTER 2022-06-18 02:54 | Observation (INO) | payer MEDICARE, MEDICAID, SELFPAY ==
[2022-06-18] VITALS (23 sets, daily range): BP systolic 105–153; BP diastolic 57–84; PULSE 60–87; RESP 14–32; TEMP 36.4–37.1; O2SAT 83–100; BMI 42.9
--- NOTE | 2022-06-18 03:00 | CTR_ITS ---
PROCEDURE INFORMATION: Exam: CT Abdomen And Pelvis Without Contrast Exam date and time: 06/18/2022 3:20 AM Age: 72 years old Clinical indication: Injury or trauma; Fall; Blunt; Generalized; Additional info: Fall back/hip pain TECHNIQUE: Imaging protocol: Computed tomography of the abdomen and pelvis without contrast. Radiation optimization: All CT scans at this facility use at least one of these dose optimization techniques: automated exposure control; mA and/or kV adjustment per patient size (includes targeted exams where dose is matched to clinical indication); or iterative reconstruction. COMPARISON: CT abdomen pelvis wo con [id number] 05/15/2021 9:52 PM RADIATION DOSE METRICS: Total DLP (mGy-cm): 1304.14 FINDINGS: Lungs: Small calcified granuloma noted in the right middle lobe. No consolidation. Heart: Normal heart size. Coronary atherosclerotic calcifications seen. No pericardial effusion. Liver: There is tiny calcific densities scattered throughout the liver, likely sequela of previous granulomatous disease. The liver is otherwise unremarkable. Gallbladder and bile ducts: The gallbladder has been surgically removed. Pancreas: Normal. No ductal dilation. Spleen: There is tiny calcific densities scattered throughout the spleen, likely sequela of previous granulomatous disease. The spleen is otherwise unremarkable. Adrenal glands: Normal. No mass. Kidneys and ureters: Loss of volume in both kidneys is again seen. No hydronephrosis or nephrolithiasis. Slightly increased prominence of incompletely characterized nodular density in the right mid to upper kidney, measuring approximately 2.3 cm. Stomach and bowel: Unremarkable. No obstruction. No mucosal thickening. Appendix: No evidence of appendicitis. Intraperitoneal space: Unremarkable. No free air. No significant fluid collection. Vasculature: Mild diffuse atherosclerotic disease is present. Lymph nodes: Unremarkable. No enlarged lymph nodes. Urinary bladder: Unremarkable as visualized. Reproductive: The uterus is surgically absent. Bones/joints: Degenerative changes of the spine seen. Left femur ORIF hardware noted. Soft tissues: Mid anterior abdominal wall surgical changes and small fat containing ventral hernia noted. CT/CT abdomen pelvis wo con [id number] IMPRESSION: 1. No acute injury. 2. Slightly increased prominence of incompletely characterized lesion in the right mid to upper kidney. Further evaluation with contrast enhanced abdomen MRI or CT utilizing mass protocol in a non emergent basis is recommended.
--- NOTE | 2022-06-18 03:00 | CTR_ITS ---
PROCEDURE INFORMATION: Exam: CT Thoracic Spine Without Contrast Exam date and time: 06/18/2022 3:24 AM Age: 72 years old Clinical indication: Injury or trauma; Fall; Blunt trauma (contusions or hematomas) TECHNIQUE: Imaging protocol: Computed tomography of the thoracic spine without contrast. Radiation optimization: All CT scans at this facility use at least one of these dose optimization techniques: automated exposure control; mA and/or kV adjustment per patient size (includes targeted exams where dose is matched to clinical indication); or iterative reconstruction. COMPARISON: [place]acic [place]* [id number] 05/17/2018 2:28 AM RADIATION DOSE METRICS: Total DLP (mGy-cm): 1930.6 FINDINGS: Bones/joints: Cervical spine fusion hardware noted. Mild dextrocurvature of the thoracic spine is present. The normal thoracic kyphosis is preserved, without listhesis. No acute fracture identified. Vertebral body heights are well maintained. Old healed fracture deformities noted in the right posterior ribcage. Discs/Spinal canal/Neural foramina: There is multilevel degenerative changes, manifested by intervertebral disc space narrowing, endplate osteophytes and facet joint arthrosis. No significant disc protrusion. No severe spinal canal stenosis. No significant neural foraminal narrowing. Soft tissues: Unremarkable. Vasculature: Coronary atherosclerotic calcifications seen. Mild diffuse atherosclerotic disease is present. Lymph nodes: Multiple mediastinal and right hilar small calcified lymph nodes noted, likely sequela of previous granulomatous disease. Liver: There is tiny calcific densities scattered throughout the liver, likely sequela of previous granulomatous disease. The liver is otherwise unremarkable. Spleen: There is tiny calcific densities scattered throughout the spleen, likely sequela of previous granulomatous disease. The spleen is otherwise unremarkable. CT/CT thoracic spin wo con* [id number] IMPRESSION: No acute injury.
--- NOTE | 2022-06-18 03:01 | ED_ITS ---
HPI - Fall General: Chief Complaint: Fall Stated Complaint: BACK PAIN/ FALL 2 DAYS AGO Time Seen by Provider: 06/18/22 02:59 Source: patient and EMS Mode of arrival: EMS Limitations: no limitations History of Present Illness: 72-year-old female who states she had fell on Friday. She states she is transferring from her wheelchair to the couch and her legs gave out and she fell backwards onto her and couch. States that since then she has been having thoracic low back pain along with some slight hip pain. Patient denies hitting her head denies any neck pain denies any extremity pain. Associated symptoms-after fall: Denies abdominal pain, chest pain, headache(s) or neck pain Review of Systems Const: Denies: fever(s), chills, body aches or change in appetite Eyes: Denies: blurry vision or eye discomfort ENMT: Denies: throat pain or dental pain Card: Denies: chest pain Resp: Denies: dyspnea GI: Denies: abdominal pain, nausea, vomiting or diarrhea : Denies: dysuria Musc: Reports: back pain; Denies: neck pain Skin/Breast: Denies: rash Neuro: Denies: headache(s) Psych: Denies: depression Jeovanny/Lymph: Denies: easy bruising All/Imm: Denies: urticaria PFSH ED PFSH: Medical History Anxiety Bilateral malignant neoplasm of breast in female COPD (chronic obstructive pulmonary disease) CVA (cerebral vascular accident) GERD (gastroesophageal reflux disease) Hyperlipidemia Hypertension Hyperthyroidism Morbid obesity ROSEMARIE (obstructive sleep apnea) Surgical History H/O cervical spine surgery H/O: hysterectomy History of bilateral breast biopsy History of cholecystectomy History of colon resection History of open reduction and internal fixation (ORIF) procedure left femur Status post right knee replacement Family History Grandfather Diabetes Maternal Grandmother Diabetes Maternal Kidney failure Maternal Grandmother Diabetes Paternal Grandfather Diabetes Paternal Family/Other Diabetes Aunt Mother , Age 99 Hypertension Cancer Leukemia Father Myocardial infarction Hypertension Brother Hypertension Cancer Prostate Denies family history of Anesthesia complication Bleeding disorder Social History Smoking and tobacco status: current every day smoker (1 ppd) cigarettes [ Other cigarette details: 11/27-11/25 PPD] Alcohol intake: never Lives independently: Yes Household members: spouse Marital status: Current occupational status: disabled History of recent travel: No Physical Exam Const: COMMON NORMALS: no acute distress, patient oriented x3 and healthy appearing HENMT: COMMON NORMALS: normocephalic and atraumatic HEAD & SCALP: normocephalic and atraumatic Eye: COMMON NORMALS: Equal, round and reactive pupils present and EOMs intact bilaterally PUPIL: Yes Equal, round and reactive pupils present Neck/C-Spine: COMMON NORMALS: full ROM and supple Chest: COMMONS NORMALS: normal inspection of the chest and normal palpation of entire chest wall Resp: COMMON NORMALS: normal respiratory effort, No retractions, No use of accessory muscles and clear to auscultation bilaterally AUSCULTATION: clear to auscultation bilaterally Cardio: COMMON NORMALS: regular rate, regular rhythm and No murmurs present (Cardio) RATE: regular rate RHYTHM: regular rhythm GI: COMMON NORMALS: Normal to inspection, nondistended, normoactive bowel sounds present, Soft to palpation, non-tender and no masses PALPATION: Yes So ft to palpation Back/Pelvis: OTHER: thoracic and lumbar tenderness no obvious abnormality Extremity: COMMON NORMALS: normal to inspection and full ROM NARRATIVE EXTREMITY EXAM: bilateral hip tenderness Neuro: COMMON NORMALS: patient oriented x3, moves all extremities and no focal motor deficits Psych: COMMON NORMALS: mental status grossly normal, Normal thought process present and cooperative THOUGHT PROCESS: Normal thought process present Skin: COMMON NORMALS: no rashes or lesions noted and no wounds GENERAL SKIN EXAM: no rashes or lesions noted Course Vital Signs: Vital signs: Vital Signs Temperature 98.8 F 06/18/22 02:56 Pulse Rate 67 06/18/22 03:44 Respiratory Rate 18 06/18/22 03:44 Blood Pressure 113/57 06/18/22 03:44 Pulse Oximetry 97 06/18/22 03:44 MDM - Fall Medical Decision Making Patient presents here with a contusion from a fall she does have back pain likely muscular CT scan here is negative CT of her abdomen pelvis is negative as well she is stable for discharge she is to follow-up with PCP and return if worsening she understands agrees to plan. Lab Data Radiology Impressions Abdomen/Pelvis CT 06/18/22 03:00 IMPRESSION: 1. No acute injury. 2. Slightly increased prominence of incompletely characterized lesion in the right mid to upper kidney. Further evaluation with contrast enhanced abdomen MRI or CT utilizing mass protocol in a non emergent basis is recommended. Thoracic Spine CT 06/18/22 03:00 IMPRESSION: No acute injury. Discharge Plan Discharge Patient Disposition: Home Clinical Impression: Lumbar contusion Fall Qualifiers: Encounter type: initial encounter Qualified Code(s): W19.XXXA - Unspecified fall, initial encounter Condition: Stable Prescriptions: No Action pantoprazole 20 mg tablet,delayed release (DR/EC) 20 mg PO BID@08,21 0RF ropinirole 0.5 mg tablet 0.5 mg PO TID 0RF gemfibrozil 600 mg tablet 600 mg PO BID@08,21 0RF docusate sodium [Colace] 100 mg capsule 200 mg PO DAILY@08 0RF simvastatin 40 mg tablet 40 mg PO BEDTIME 0RF Narcan 4 mg/actuation spray,non-aerosol See Rx Instructions .ROUTE .COMPLEX PRN (Reason: overdose) 0RF Rx Instructions: DIRECTED PRN OVERDOSE albuterol sulfate 2.5 mg /3 mL (0.083 %) solution for nebulization 2.5 mg INHALATION Q4H PRN (Reason: Shortness Of Breath) 0RF nitroglycerin [Nitrostat] 0.4 mg tablet, sublingual 0.4 mg SUBLINGUAL Q5M PRN (Reason: Chest Pain) 0RF lorazepam 0.5 mg tablet 0.25 mg PO .HS 0RF exemestane 25 mg tablet 25 mg PO DAILY Qty: 90 3RF Rx Instructions: must administer after a meal fluoxetine 40 mg capsule 40 mg PO DAILY 0RF fentanyl 50 mcg/hr patch 72 hour 50 mcg transdermal Q72H 0RF hydrocodone-acetaminophen 10-325 mg tablet See Rx Instructions .ROUTE .COMPLEX 0RF Rx Instructions: 1-2 TABS PO Q4-6H PRN PAIN (MAX OF 8 TABS PER DAY) hydroxyzine HCl 10 mg tablet 10 mg PO QID PRN (Reason: Itching) 0RF spironolactone 25 mg Tablet 25 mg PO DAILY 0RF ergocalciferol (vitamin D2) 1,250 mcg (50,000 unit) Capsule 50,000 unit PO Q7D 0RF Rx Instructions: on FRI Discharge Orders: Discharge ED (Routine); Ordered 06/18/22 Ordered By: Leeroy Knight Referrals: Elayne Wyatt DO [Primary Care Provider] - Discharge Diet: Advance as tolerated Discharge Activity: Resume usual activity Patient Instructions: Back Pain (ED) Coding Level of Care Code ED Frame Pulley Mortising Machine Operator for Chg Fwd Exam Comprehensive
[2022-06-18] MEDS: HYDROcodone-acetaminophen 5-325 mg Tablet 1 TAB PO (03:10)
--- NOTE | 2022-06-18 04:34 | PC.NURSE ---
Patient to be discharged home accompanied by , currently on oxygen 5 lpm, [place]. Personal home oxygen not present with patient. Patient unabe to maintain oxygen saturation 90% or greater on room air for 5 minutes. Patient with not c/o SOB and no distress noted. will return home to retrieve patients home oxygen prior to discharge, will continue to monitor.
--- NOTE | 2022-06-18 05:45 | ECG_ITS ---
[facility] Test Date: 2022-06-18 Pat Name: Deborah Mchugh Department: Room: Gender: Female Administrative And Program Specialist: : [id number] Requested By: Leeroy Knight Order Number: [id number] James MD: Sheyla Rea M.D. Measurements Intervals [place] Rate: 70 P: SD: QRS: 17 QRSD: 93 T: 44 QT: 385 QTc: 417 Interpretive Statements Sinus rhythm LOW QRS VOLTAGE IN PRECORDIAL LEADS [QRS DEFLECTION < 1.0 mV IN CHEST LEADS] POSSIBLE ANTERIOR MYOCARDIAL INFARCTION , PROBABLY OLD Compared to ECG 12/22/2021 16:11:34 Myocardial infarct finding now present Sinus rhythm no longer present Electronically Signed On 06-18-2022 12:08:41 CDT by Sheyla Rea M.D. [email or web address]
[2022-06-18] MEDS: ondansetron 2 mg/ML SDV 2 mL 4 MG IM (06:02)
--- NOTE | 2022-06-18 06:05 | XRR_ITS ---
PROCEDURE INFORMATION: Exam: XR Chest Exam date and time: 06/18/2022 6:10 AM Age: 72 years old Clinical indication: Shortness of breath; Patient HX: SOB x 2 weeks; Additional info: Dyspnea TECHNIQUE: Imaging protocol: Radiologic exam of the chest. Views: 1 view. COMPARISON: CR (CHEST, ) 12/22/2021 3:52 PM FINDINGS: Lungs: Slightly increased lung markings, which may be secondary to mild pulmonary congestion. No consolidation. Pleural spaces: Unremarkable. No pleural effusion. No pneumothorax. Heart/Mediastinum: Stable cardiomediastinal silhouette. Bones/joints: Cervical spine fusion hardware noted. XR/XR chest 1V portable [id number] IMPRESSION: Imaging findings suggestive of mild pulmonary congestion. No consolidation.
--- NOTE | 2022-06-18 06:12 | PC.NURSE ---
Discharge summary initiated and completed with patient and spouse. While attempting to assist patient to standing position from WC, pt became unresponsive, responding to painful stimulus to stimulate and acheive a patient response. Patient aroused and gradually responding and following commands, disoriented to location. Patient with c/o of nausea and having dry heaves. Returned patient to assigned room in assistd by two nurse, notifed ER physician, placed on [facility] and attached to monitors.
--- NOTE | 2022-06-18 06:16 | PC.NURSE ---
Discharge instructions given. Patient presents with extreme difficulty ambulating from bed to wheelchair with assistance. Patient stated she felt nauseated and vomited small amount while in wheelchair. Patient taken outside and before transfer to vehicle, patient's head fell backwards and she was momentarily unresponsive to verbal stimuli. Patient responded to painful stimuli and was unable to keep her eyes open. When asked where the patient was, she replied Home . Decision was made to bring patient back into the ED.
[2022-06-18 06:56] LABS: Basophils % 0.2 %; Eosinophils # 0.2 10^3/uL (0.0-0.8); Eosinophils % 1.8 %; Hematocrit 30.5 % (37.0-47.0); Hemoglobin 8.9 g/dL (11.5-15.3); Lymphocytes % 11.5 %; Mean Corpuscular HGB Conc 29.2 g/dL (30.0-36.0); Mean Corpuscular Hemoglobin 30.2 pg (28.0-34.0); Mean Corpuscular Volume 103.4 fl (81-99); Mean Platelet Volume 11.5 fL (7.4-10.4); Monocytes # 0.8 10^3/uL (0.2-0.9); Monocytes % 9.2 %; Neutrophils # 6.45 10^3/uL (1.8-7.7); Neutrophils % 76.8 %; Nucleated Red Blood Cells % 0 %; Platelet Count 188 10^3/cmm (130-400); Red Blood Count 2.95 10^6/uL (4.1-5.3); Red Cell Distribution Width 12.7 % (12.1-15.1); White Blood Count 8.4 10^3/uL (4.0-10.0)
[2022-06-18] MEDS: FUROsemide 10 mg/mL SDV 10mL 60 MG IVP (07:06)
[2022-06-18 07:10] LABS: Alanine Aminotransferase < 5 U/L (0-33); Albumin Level 3.6 g/dL (3.5-5.2); Alkaline Phosphatase 132 IU/L (35-105); Blood Urea Nitrogen 30 mg/dL (8-23); Calcium 9.7 mg/dL (8.5-10.5); Carbon Dioxide 29 mmol/L (22-29); Chloride 99 mmol/L (98-107); Globulin 2.4 g/dL (1.3-4.6); Glucose 100 mg/dL (65-115); NT Pro B Type Natriuretic Pept 977 pg/mL (0-125); Osmolality Calculated 290 mOsm/kg (285-295); Sodium 137 mmol/L (136-145); Total Bilirubin 0.2 mg/dL (0.15-1.2)
[2022-06-18 07:15] LABS: Anion Gap 13.9 (5-19); Aspartate Amino Transferase 10 U/L (0-32); Potassium 4.9 mmol/L (3.5-5.1)
[2022-06-18 07:40] LABS: Slide Review Slide Review Perform
[2022-06-18 07:44] LABS: ABG PCO2 75.5 mmHg (35-45); ABG PH Result 7.24 (7.35-7.45); Alveolar-Arterial Oxygen Gradi 12.9 mmHg (5-10); Arterial Blood Gas Hematocrit 27.4 % (37-47); Base Excess ABG 3.6 mmol/L (-2.0-2.0); Blood Gas Allen Test Pos; Blood Gas Operator Identificat GD; Blood Gas Sample Site Radial, left; Blood Gas Sample Type Arterial; Carboxyhemoglobin 1.2 %THgb (0.4-20.1); HCO3 ABG 32.2 mmol/L (22-26); HGB O2 Sat 95.3 % (95-100); Ionized Calcium Level - ABG 1.4 mmol/L (1.1-1.4); Oxygen Device NC; Oxygen Saturation ABG 97.5; PO2 ABG 94.9 mmHg (80.0-100.0); Potassium Level - ABG 4.8 mmol/L (3.5-5.0); Total Hemoglobin 8.9 g/dL (12-16)
[2022-06-18] MEDS: morphine 4 mg/mL SDV 1 mL 2 MG IVP (09:12)
[2022-06-18] MEDS: diphenhydrAMINE 50 mg/mL SDV 1mL 25 MG IVP (09:12)
--- NOTE | 2022-06-18 09:43 | DCPLANNER ---
ER physician wanted [facility] contacted about patient. The intensive care unit registered nurse called [facility], they will see patient when patient is on the floor. A choice sheet will need to be provided to patient to sign.
[2022-06-18] MEDS: morphine 4 mg/mL SDV 1 mL IVP (09:47)
--- NOTE | 2022-06-18 11:47 | PC.PHAR ---
pt was unable to verify medications but stated she last took her medications on 06/17/22 - called [facility] and received home med list - med list updated with medications filled at pharmacy and per hospice records.
--- NOTE | 2022-06-18 14:12 | PM.HP ---
Providers/Chief Complaint Admitting Physician: Henrique Noe MD Primary Care Provider: Elayne Wyatt DO Chief Complaint: BACK PAIN/ FALL 2 DAYS AGO History of Present Illness Deborah Mchugh is a 72 year old female with past medical history of obstructive sleep apnea, COPD, hypertension, hyperlipidemia, breast cancer on oral hormonal chemotherapy who was brought into the ER by her last night because of back pain which started after she had fallen on Friday while trying to get out of bed and go to wheelchair. Patient had work-up done in the ER and was being discharged home. While being transferring from wheelchair to car patient had an episode of syncope again hence ABG was done and she was found to be in hypercapnic respiratory failure with PCO2 of 74 so hospital service was requested for admission. Patient seen admitted on the floor with at bedside. Patient is on BiPAP. Is an awake and alert. On further interview both patient and patient's stated that patient is on hospice secondary to COPD and breast cancer. It was confirmed by the patient again and she confirmed that as she is on hospice and wants to continue being on hospice. She understands being hospice needs to have goals of remaining comfortable, no active treatment and to be not hospitalized. states he brought her to the hospital only because of back pain. He was not aware that he should have called the hospice company. Hospice company present at bedside as well. was counseled in detail regarding treatment plan of keeping patient comfortable with pain medication for back pain, not actively treating for COPD with BiPAP ventilation, multiple blood work including ABG. Both and the 5 are agreeable with the treatment plan elevated that plan is to make her comfortable and then possible eventual . Review of Systems General: Reports: 10 or more systems reviewed and unremarkable except in HPI and below Const: Denies: fever(s), chills, body aches, change in appetite, change in weight, malaise, night sweats, diaphoresis, change in sleep pattern, daytime sleepiness or snoring Eyes: Denies: change in vision, blurry vision, photophobia, eye discomfort or eye discharge ENMT: Denies: throat pain, enlarged tonsils, hoarseness, mouth pain, oral sores, dry mouth, tinnitus, nasal congestion or post nasal drip Card: Denies: chest pain, palpitations, irregular heart rhythm, edema, swelling of feet/ankles, lightheadedness, syncope, pre-syncope, dyspnea on exertion, orthopnea, leg pain with exertion or acrocyanosis Resp: Denies: dyspnea, productive cough, non-productive cough, wheezing, stridor, pain on inspiration, change in phlegm color, hemoptysis or chest congestion GI: Denies: abdominal pain, nausea, vomiting, hematemesis, coffee ground emesis, dysphagia, heartburn, diarrhea, constipation, bloating, GI cramping, change in bowel habits, pain on defecation, hematochezia or melena : Denies: flank pain, dysuria, urinary frequency, urinary urgency, urinary hesitancy, nocturia or hematuria Musc: Denies: neck pain, back pain, extremity pain, joint pain, joint swelling, joint redness, joint stiffness or limited range of motion Neuro: Denies: headache(s), numbness in extremities, weakness in extremities, sensory changes, lack of coordination, difficulty walking, frequent falls, dizziness, vertigo, confusion, Slurred speech present, difficulty communicating thoughts or seizure-like activity Psych: Denies: anxiety, depression, mood swings, panic attacks, hopelessness or irritability Endo: Denies: polyuria, polydipsia, tired all the time, cold intolerance, excessive sweating, flushing or heat intolerance Jeovanny/Lymph: Denies: easy bruising or easy bleeding All/Imm: Denies: tongue swelling, facial swelling or acute wheezing Medications/Allergies Home Medications Medication Instructions Recorded Confirmed Last Taken Type albuterol sulfate 2.5 mg INHALATION Q4H PRN 12/23/19 06/18/22 02/01/20 History docusate sodium 100 mg capsule 200 mg PO DAILY@08 cap 12/23/19 06/18/22 06/17/22 History (Colace) gemfibrozil 600 mg tablet 600 mg PO BID@08,21 12/23/19 06/18/22 06/17/22 History naloxone 4 mg/actuation nasal See Rx Instructions .ROUTE 12/23/19 06/18/22 Unknown History spray (Narcan) .COMPLEX PRN nitroglycerin 0.4 mg sublingual 0.4 mg SUBLINGUAL Q5M PRN 12/23/19 06/18/22 Unknown History tablet (Nitrostat) pantoprazole 20 mg tablet,delayed 20 mg PO BID@08,12/23/19 06/18/22 06/17/22 History release simvastatin 40 mg tablet 40 mg PO BEDTIME 12/23/19 06/18/22 06/17/22 History ergocalciferol (vitamin D2) 1,250 50,000 unit PO Q7D 02/02/20 06/18/22 02/07/21 History mcg (50,000 unit) capsule fluoxetine 40 mg capsule 40 mg PO DAILY 02/08/21 06/18/22 06/17/22 History hydrocodone 10 mg-acetaminophen See Rx Instructions .ROUTE .COMPLEX 02/08/21 06/18/22 Unknown History 325 mg tablet hydroxyzine HCl 10 mg tablet 10 mg PO QID PRN 02/08/21 06/18/22 Unknown History exemestane 25 mg tablet 25 mg PO DAILY #90 tab 03/25/22 06/18/22 06/17/22 Rx albuterol sulfate 90 mcg/actuation 2 puff INHALATION QID PRN 06/18/22 06/18/22 Unknown History aerosol inhaler aspirin 81 mg chewable tablet 81 mg PO DAILY 06/18/22 06/18/22 Unknown History fentanyl 100 mcg/hr transdermal 100 mcg TRANSDERMAL Q72H 06/18/22 06/18/22 06/18/22 History patch fluticasone 500 mcg-salmeterol 50 1 inh INHALATION BID 06/18/22 06/18/22 06/17/22 History mcg/dose blistr powdr for inhalation (Advair Diskus) furosemide 20 mg tablet (Lasix) 20 mg PO DAILY 06/18/22 06/18/22 06/17/22 History lisinopril 2.5 mg tablet 2.5 mg PO DAILY 06/18/22 06/18/22 06/17/22 History lorazepam 2 mg/mL oral concentrate 0.5 - 1 mg PO Q2H PRN 06/18/22 06/18/22 Unknown History (Lorazepam Intensol) nitrofurantoin 100 mg PO BID 06/18/22 06/18/22 06/17/22 History monohydrate/macrocrystals 100 mg capsule (Macrobid) ondansetron 4 mg disintegrating 4 mg PO Q6H PRN 06/18/22 06/18/22 Unknown History tablet oxycodone 5 mg/5 mL oral solution 5 - 10 mg PO Q2H PRN 06/18/22 06/18/22 Unknown History polyethylene glycol 3350 17 17 g PO DAILY 06/18/22 06/18/22 Unknown History gram/dose oral powder (Miralax) ropinirole 5 mg tablet 5 mg PO TID 06/18/22 06/18/22 Unknown History tiotropium bromide 18 mcg capsule 1 cap INHALATION DAILY 06/18/22 06/18/22 Unknown History with inhalation device (Spiriva with HandiHaler) Allergies Allergy/AdvReac Type Severity Reaction Status Date / Time adhesive tape Allergy Unknown ALGY-Hives Verified 06/05/22 14:31 heparin (porcine) Allergy Unknown Verified 06/05/22 14:31 morphine Allergy ALGY-Hives Verified 06/05/22 14:31 oxytetracycline Allergy ALGY-Anaphy Verified 06/05/22 14:31 [From Terramycin] laxis Tetanus Vaccines and Toxoid Allergy Unknown Verified 06/05/22 14:31 cimetidine [From Tagamet] AdvReac ADR-Abdominal Verified 06/05/22 14:31 Pain hydromorphone [From Dilaudid] AdvReac ADR-Halluci Verified 06/05/22 14:31 nating PFSH Acute PFSH: Medical History (Updated 06/18/22 @ 14:17 by Henrique Noe MD) Anxiety Bilateral malignant neoplasm of breast in female COPD (chronic obstructive pulmonary disease) CVA (cerebral vascular accident) GERD (gastroesophageal reflux disease) Hospice care Hyperlipidemia Hypertension Hyperthyroidism Morbid obesity ROSEMARIE (obstructive sleep apnea) Surgical History H/O cervical spine surgery H/O: hysterectomy History of bilateral breast biopsy History of cholecystectomy History of colon resection History of open reduction and internal fixation (ORIF) procedure left femur Status post right knee replacement Family History Grandfather Diabetes Maternal Grandmother Diabetes Maternal Kidney failure Maternal Grandmother Diabetes Paternal Grandfather Diabetes Paternal Family/Other Diabetes Aunt Mother , Age 99 Hypertension Cancer Leukemia Father Myocardial infarction Hypertension Brother Hypertension Cancer Prostate Denies family history of Anesthesia complication Bleeding disorder Social History Smoking and tobacco status: current every day smoker (1 ppd) cigarettes [ Other cigarette details: 11/27-11/25 PPD] Alcohol intake: never Lives independently: Yes Household members: spouse Marital status: Current occupational status: disabled History of recent travel: No Vitals/I&O/Wt Last Vital Signs Temp 98.4 F 06/18/22 11:30 Pulse 70 06/18/22 11:30 Resp 18 06/18/22 11:30 BP 135/72 06/18/22 11:30 Pulse Ox 94 06/18/22 11:30 Weight last 48 hrs Weight 113.398 kg Physical Exam Narrative: General: No acute distress, AO x3, placed back on nasal cannula, comfortable with occasional episodes of back spasms HEENT: PERRLA, pupils bilaterally equal and reactive Chest: Normal vesicular breath sounds, no added sounds, equal good air entry bilaterally CVS: S1-S2 regular, no murmurs, no tachycardia, no gallops, no rubs Abdomen: Soft, nontender, no organomegaly, bowel sounds present Neuro: No focal deficits, no facial deformity, AO x3, power 5/5 in all limbs Urinary Catheter Management: [place]: Cath Placed During This Visit: yes Urinary Catheter Date of Insertion: 06/18/22 Urinary Catheter Time of Insertion: 12:30 Data : 06/18/22 06:30 06/18/22 06:30 Other Labs: Radiology Impressions Abdomen/Pelvis CT 06/18/22 03:00 IMPRESSION: 1. No acute injury. 2. Slightly increased prominence of incompletely characterized lesion in the right mid to upper kidney. Further evaluation with contrast enhanced abdomen MRI or CT utilizing mass protocol in a non emergent basis is recommended. Thoracic Spine CT 06/18/22 03:00 IMPRESSION: No acute injury. Chest X-Ray 06/18/22 06:05 IMPRESSION: Imaging findings suggestive of mild pulmonary congestion. No consolidation. A&P Assessment and plan (1) Fall: Status: Acute Qualifiers: Encounter type: initial encounter Qualified Code(s): W19.XXXA - Unspecified fall, initial encounter (2) Lumbar contusion: Status: Acute (3) Hospice care: Status: Acute (4) Breast cancer, left: Status: Acute (5) Breast cancer, right: Status: Acute (6) ROSEMARIE (obstructive sleep apnea): Status: Acute (7) COPD (chronic obstructive pulmonary disease): Status: Acute Plan 72 old female who is on hospice care with past medical history of COPD, septic sleep apnea and breast cancer was brought into the ER for back pain and had an episode of syncope while being transferred back to [place] and found to be in hypercapnic. Had a long goals of care discussion with both patient and patient's at bedside. They want to continue with hospice care. Hospice care team present at bedside. They are agreeable with no active treatment of COPD. Wants to remain DNR/DNI. Oxygen supplementation keeping saturation over 92%. Normal blood work, ABG. DuoNeb 6-hour, desonide twice daily. Continue with home dose of Lasix. Normal IV fluids. Back pain most likely secondary to lumbar contusion. CT scans done in the ER. Continue with fentanyl patch, hydrocodone. DNR/DNI. Hospice care. Regular diet Protonix OPD prophylaxis. No SCDs or medical DVT prophylaxis given hospice care. Attestations Medical Necessity Statement*: Admission for less than 2 midnights under observation for back pain and the patient who is on hospice care with past medical history of breast cancer and COPD, obstructive sleep apnea Time Spent in Patient Care: Greater than 35 minutes Coding Level of Care Code Acute Sales Team Manager for Chg Fwd Diagnoses Fall W19.XXXA Encounter type: initial encounter Lumbar contusion S30.0XXA Hospice care Z51.5 Breast cancer, left C50.912 Breast cancer, right C50.911 ROSEMARIE (obstructive sleep apnea) G47.33 COPD (chronic obstructive pulmonary disease) J44.9
[2022-06-18] MEDS: ropinirole 1 mg Tablet PO ×2 (16:18→20:14)
[2022-06-18] MEDS: ropinirole 2 mg Tablet 4 MG PO ×2 (16:18→20:14)
--- NOTE | 2022-06-18 19:00 | PC.NURSE ---
Bedside report given to Kristina ROWELL at this time
[2022-06-18] MEDS: pantoprazole DR 40 mg Tablet PO (20:13)
[2022-06-18] MEDS: atorvastatin 40 mg Tablet PO (20:14)
[2022-06-18] MEDS: gemfibrozil 600 mg Tablet PO (20:14)
[2022-06-18] MEDS: ipratropium-albuterol 3 mL Neb INHALATION (21:08)
[2022-06-18] MEDS: budesonide 0.5 mg/2 mL Neb INHALATION (21:08)
[2022-06-19] VITALS (9 sets, daily range): BP systolic 120–129; BP diastolic 67–79; PULSE 69–88; RESP 15–20; TEMP 36.6–36.9; O2SAT 93–98
[2022-06-19] MEDS: ipratropium-albuterol 3 mL Neb INHALATION ×3 (02:15→14:30)
[2022-06-19] MEDS: ALPRAZolam 0.5 mg Tablet 0.25 MG PO (04:40)
--- NOTE | 2022-06-19 06:51 | PC.NURSE ---
pt had a bout of emesis at 0330, was given zofran. became upset and fearful, stating she was scared and didn't know why, was also uncomfortable so was repositioned. pt was still in pain and anxious at 0420 and was given a norco to treat pain, see paper mar for administration d/t [employer] system being down. after pain pill pt had another episode of emesis, was even more frantic, breathing rapidly saying she was going to . pt was spoken to and attempted to calm down, to no avail. dr moreno was called and RBTO received to give 0.25mg xanax, one time order for anxiety. order called to pharmacy and stock med dose of xanax 0.5mg was critical override placed due to downed computer system. xanax was pulled and 0.25mg of the medication was given and 0.25mg of the xanax pill was wasted with Clover Castellanos RN, night charge as witness. correct order was placed once computer system came back on.
[2022-06-19] MEDS: budesonide 0.5 mg/2 mL Neb INHALATION (08:13)
[2022-06-19] MEDS: FUROsemide 20 mg Tablet PO (09:22)
[2022-06-19] MEDS: docusate sodium 100 mg Capsule 200 MG PO (09:22)
[2022-06-19] MEDS: lisinopril 2.5 mg Tablet PO (09:22)
[2022-06-19] MEDS: pantoprazole DR 40 mg Tablet PO (09:22)
[2022-06-19] MEDS: aspirin 81 mg Chew Tablet PO (09:22)
[2022-06-19] MEDS: ropinirole 1 mg Tablet PO (09:22)
[2022-06-19] MEDS: ropinirole 2 mg Tablet 4 MG PO (09:22)
[2022-06-19] MEDS: fluoxetine 20 mg Capsule 40 MG PO (09:22)
[2022-06-19] MEDS: gemfibrozil 600 mg Tablet PO (09:24)
--- NOTE | 2022-06-19 11:37 | P.DS_ITS ---
Discharge Providers Date of Admission: 06/18/22 08:00 Date of Discharge: June 19, 2022 Attending Provider at Admission: Henrique Noe MD Attending Provider at Discharge: eHnrique Noe MD Primary Care Provider: Elayne Wyatt DO Diagnoses at Discharge Discharge Diagnosis (1) Fall: Status: Acute Qualifiers: Encounter type: initial encounter Qualified Code(s): W19.XXXA - Unspecified fall, initial encounter (2) Lumbar contusion: Status: Acute (3) Hospice care: Status: Acute (4) Breast cancer, left: Status: Acute (5) Breast cancer, right: Status: Acute (6) ROSEMARIE (obstructive sleep apnea): Status: Acute (7) COPD (chronic obstructive pulmonary disease): Status: Acute Reason for Visit Reason for Visit: BACK PAIN/ FALL 2 DAYS AGO Hospital Course Hospital Course Deborah Mchugh is a 72 year old female with past medical history of obstructive sleep apnea, COPD, hypertension, hyperlipidemia, breast cancer on oral hormonal chemotherapy who was brought into the ER by her last night because of back pain which started after she had fallen on Friday while trying to get out of bed and go to wheelchair.? Patient had work-up done in the ER and was being discharged home.? While being transferring from wheelchair to car patient had an episode of syncope again hence ABG was done and she was found to be in hypercapnic respiratory failure with PCO2 of 74 so hospital service was requested for admission. Patient seen admitted on the floor with at bedside.? Patient is on BiPAP.? Is an awake and alert.? On further interview both patient and patient's stated that patient is on hospice secondary to COPD and breast cancer.? It was confirmed by the patient again and she confirmed that as she is on hospice and wants to continue being on hospice.? She understands being hospice needs to have goals of remaining comfortable, no active treatment and to be not hospitalized.? states he brought her to the hospital only because of back pain.? He was not aware that he should have called the hospice company.? Hospice company present at bedside as well. was counseled in detail regarding treatment plan of keeping patient comfortable with pain medication for back pain, not actively treating for COPD with BiPAP ventilation, multiple blood work including ABG.? Both and the patient are agreeable with the treatment plan and understand that plan is to make her comfortable which could even mean possible eventual . Patient to the hospital for further evaluation and management. She was started on aggressive pain medication for back pain as per her goals of care. She is been discharged back home with hospice and is to continue her hospice care as before. Physical Exam Narrative: General: No acute distress, AO x3, placed back on nasal cannula, comfortable with occasional episodes of back spasms HEENT: PERRLA, pupils bilaterally equal and reactive Chest: Normal vesicular breath sounds, no added sounds, equal good air entry bilaterally CVS: S1-S2 regular, no murmurs, no tachycardia, no gallops, no rubs Abdomen: Soft, nontender, no organomegaly, bowel sounds present Neuro: No focal deficits, no facial deformity, AO x3, power 5/5 in all limbs Urinary Catheter Management: Carlton: Cath Placed During This Visit: yes Reason for Continuing Indwelling Catheter: Other Urinary Catheter Date of Insertion: 06/18/22 Urinary Catheter Time of Insertion: 12:30 Discharge Data Studies Completed and Pending Completed Studies During Hospitalization Category Date Time Status CT abdomen pelvis wo con [id number] Urgent Cat Scan 06/18/22 03:[address] thoracic spin wo con* [id number] Urgent Cat Scan 06/18/22 03:00 Completed XR chest 1V portable [id number] Stat Exams 06/18/22 06:05 Completed Radiology Impressions Abdomen/Pelvis CT 06/18/22 03:00 IMPRESSION: 1. No acute injury. 2. Slightly increased prominence of incompletely characterized lesion in the right mid to upper kidney. Further evaluation with contrast enhanced abdomen MRI or CT utilizing mass protocol in a non emergent basis is recommended. Thoracic Spine CT 06/18/22 03:00 IMPRESSION: No acute injury. Chest X-Ray 06/18/22 06:05 IMPRESSION: Imaging findings suggestive of mild pulmonary congestion. No consolidation. Laboratory Results WBC 8.4 10^3/uL (4.0-10.0) 06/18/22 06:30 RBC 2.95 10^6/uL (4.1-5.3) L 06/18/22 06:30 Hgb 8.9 g/dL (11.5-15.3) L 06/18/22 06:30 Hct 30.5 % (37.0-47.0) L 06/18/22 06:30 MCV 103.4 fl (81-99) H 06/18/22 06:30 MCH 30.2 pg (28.0-34.0) 06/18/22 06:30 MCHC 29.2 g/dL (30.0-36.0) L 06/18/22 06:30 RDW 12.7 % (12.1-15.1) 06/18/22 06:30 Plt Count 188 10^3/cmm (130-400) 06/18/22 06:30 MPV 11.5 fL (7.4-10.4) H 06/18/22 06:30 Neut % (Auto) 76.8 % 06/18/22 06:30 Lymph % (Auto) 11.5 % 06/18/22 06:30 [place] % (Auto) 9.2 % 06/18/22 06:30 Eos % (Auto) 1.8 % 06/18/22 06:30 Baso % (Auto) 0.2 % 06/18/22 06:30 Neut # (Auto) 6.45 10^3/uL (1.8-7.7) 06/18/22 06:30 Lymph # (Auto) 1.0 10^3/uL (0.8-4.8) 06/18/22 06:30 [place] # (Auto) 0.8 10^3/uL (0.2-0.9) 06/18/22 06:30 Eos # (Auto) 0.2 10^3/uL (0.0-0.8) 06/18/22 06:30 Baso # (Auto) 0.0 10^3/uL (0.0-0.1) 06/18/22 06:30 Nucleated RBC % (auto) 0 % 06/18/22 06:30 Nucleated RBCs # 0.0 /100WBC 06/18/22 06:30 Specimen Type Arterial 06/18/22 07:25 Sample Site Radial, left 06/18/22 07:25 ABG pH 7.24 (7.35-7.45) L 06/18/22 07:25 ABG pCO2 75.5 mmHg (35-45) H* 06/18/22 07:25 ABG pO2 94.9 mmHg (80.0-100.0) 06/18/22 07:25 ABG HCO3 32.2 mmol/L (22-26) H 06/18/22 07:25 ABG O2 Saturation 97.5 06/18/22 07:25 ABG Base Excess 3.6 mmol/L (-2.0-2.0) H 06/18/22 07:25 Kyle Test Pos 06/18/22 07:25 A-a O2 Gradient 12.9 mmHg (5-10) H 06/18/22 07:25 Hematocrit 27.4 % (37-47) L 06/18/22 07:25 Hgb O2 Saturation 95.3 % (95-100) 06/18/22 07:25 Carboxyhemoglobin 1.2 %THgb (0.4-20.1) 06/18/22 07:25 Methemoglobin 1.0 % (0.4-1.5) 06/18/22 07:25 Total Hemoglobin 8.9 g/dL (12-16) L 06/18/22 07:25 Sodium 139.0 mmol/L (131-143) 06/18/22 07:25 Potassium 4.8 mmol/L (3.5-5.0) 06/18/22 07:25 Glucose 108.0 mg/dL (70-115) 06/18/22 07:25 Ionized Calcium 1.4 mmol/L (1.1-1.4) 06/18/22 07:25 O2 Delivery Device Nc 06/18/22 07:25 O2 Liters/Min 5.0 % 06/18/22 07:25 FiO2 40.0 % 06/18/22 07:25 Dental Detail Representative ID Gd 06/18/22 07:25 Sodium 137 mmol/L (136-145) 06/18/22 06:30 Potassium 4.9 mmol/L (3.5-5.1) 06/18/22 06:30 Chloride 99 mmol/L (98-107) 06/18/22 06:30 Carbon Dioxide 29 mmol/L (22-29) 06/18/22 06:30 Anion Gap 13.9 (5-19) 06/18/22 06:30 BUN 30 mg/dL (8-23) H 06/18/22 06:30 Creatinine 1.1 mg/dL (0.5-0.9) H 06/18/22 06:30 GFR Calculation Not Reportable 06/18/22 06:30 Glucose 100 mg/dL (65-115) 06/18/22 06:30 Calculated Osmolality 290 mOsm/kg (285-295) 06/18/22 06:30 Calcium 9.7 mg/dL (8.5-10.5) 06/18/22 06:30 Total Bilirubin 0.2 mg/dL (0.15-1.2) 06/18/22 06:30 AST 10 U/L (0-32) 06/18/22 06:30 ALT < 5 U/L (0-33) 06/18/22 06:30 Alkaline Phosphatase 132 IU/L (35-105) H 06/18/22 06:30 NT-Pro-B Natriuret Pep 977 pg/mL (0-125) H 06/18/22 06:30 Total Protein 6.0 g/dL (6.6-8.7) L 06/18/22 06:30 Albumin 3.6 g/dL (3.5-5.2) 06/18/22 06:30 Globulin 2.4 g/dL (1.3-4.6) 06/18/22 06:30 Vitals Last Vital Signs Temp 98.0 F 06/19/22 08:00 Pulse 82 06/19/22 08:21 Resp 16 06/19/22 08:05 BP 128/79 06/19/22 08:00 Pulse Ox 94 06/19/22 08:05 O2 Del Method 06/19/22 08:05 O2 Flow Rate 4 06/19/22 08:05 FiO2 30 06/18/22 21:19 Discharge Plan Discharge Patient Disposition: Hospice - Home Condition: Stable Prescriptions: Continued pantoprazole 20 mg tablet,delayed release (DR/EC) 20 mg PO BID@, gemfibrozil 600 mg tablet 600 mg PO BID@,21 docusate sodium [Colace] 100 mg capsule 200 mg PO DAILY@08 simvastatin 40 mg tablet 40 mg PO BEDTIME Narcan 4 mg/actuation spray,non-aerosol See Rx Instructions .ROUTE .COMPLEX PRN (Reason: overdose) Rx Instructions: DIRECTED PRN OVERDOSE albuterol sulfate 2.5 mg /3 mL (0.083 %) solution for nebulization 2.5 mg INHALATION Q4H PRN (Reason: Shortness Of Breath) nitroglycerin [Nitrostat] 0.4 mg tablet, sublingual 0.4 mg SUBLINGUAL Q5M PRN (Reason: Chest Pain) exemestane 25 mg tablet 25 mg PO DAILY Qty: 90 3RF Rx Instructions: must administer after a meal fluoxetine 40 mg capsule 40 mg PO DAILY hydrocodone-acetaminophen 10-325 mg tablet See Rx Instructions .ROUTE .COMPLEX Rx Instructions: 1-2 TABS PO Q4-6H PRN PAIN (MAX OF 8 TABS PER DAY) hydroxyzine HCl 10 mg tablet 10 mg PO QID PRN (Reason: Itching) ergocalciferol (vitamin D2) 1,250 mcg (50,000 unit) Capsule 50,000 unit PO Q7D Rx Instructions: on FRI fentanyl 100 mcg/hr patch 72 hour 100 mcg transdermal Q72H ondansetron 4 mg tablet,disintegrating 4 mg PO Q6H PRN (Reason: Nausea) lisinopril 2.5 mg Tablet 2.5 mg PO DAILY Macrobid 100 mg Capsule 100 mg PO BID Rx Instructions: must administer with a meal/food oxycodone 5 mg/5 mL Solution 5 - 10 mg PO Q2H PRN (Reason: Pain) Advair Diskus 500-50 mcg/dose Blister With Device 1 inh INHALATION BID aspirin 81 mg Tablet,Chewable 81 mg PO DAILY Lasix 20 mg Tablet 20 mg PO DAILY Miralax 17 gram/dose Powder 17 g PO DAILY albuterol sulfate 90 mcg/actuation Hfa Aerosol Inhaler 2 puff INHALATION QID PRN (Reason: Shortness Of Breath) ropinirole 5 mg Tablet 5 mg PO TID Lorazepam Intensol 2 mg/mL Concentrate 0.5 - 1 mg PO Q2H PRN (Reason: Anxiety) Spiriva with HandiHaler 18 mcg Capsule, W/Inhalation Device 1 cap INHALATION DAILY Rx Instructions: puncture 1 cap using device; one dose = 2 inhalations Discharge Orders: Discharge Order (Routine); Ordered 06/19/22 Ordered By: Henrique Noe Referrals: Jonathan [Outside] Elayne Wyatt DO [Primary Care Provider] - Discharge Diet: Advance as tolerated Discharge Activity: Resume usual activity Patient Instructions: Hospice Care, Back Pain (ED) Activity Restrictions/Additional Instructions: hospice care Discharge Attestations Time Spent in Discharge Care*: greater than 30 min Specific Discharge Activities: educating patient, educating and/or supporting family/caregiver, discussing with telehealth case manager/social workers/dc planners, documenting/other paperwork and evaluating patient/reviewing data Status at Discharge: Cognitive status at discharge: cognitively intact , Behavioral status at discharge: cooperative , Functional status at discharge: other assisted ambulation , Overall status at discharge: patient is back to baseline Quality Metrics Clinical Quality Measures [ No reported AMI, CVA or VTE this stay] Coding Level of Care Code Acute Chg FW DC note Diagnoses Fall W19.XXXA Encounter type: initial encounter Lumbar contusion S30.0XXA Hospice care Z51.5 Breast cancer, left C50.912 Breast cancer, right C50.911 ROSEMARIE (obstructive sleep apnea) G47.33 COPD (chronic obstructive pulmonary disease) J44.9
--- NOTE | 2022-06-19 14:58 | PC.NURSE ---
patient and verbalized understanding of discharge instructions, home medications, and follow up with hospice. patient transported via EMS.
== END 2022-06-19 15:02 | disposition hospice, home (50) ==
LOC: ER 08:07 → MEDSURG 14:43
PROVIDERS: Emergency Medicine; Admitting Provider Student in an Organized Health Care Education/Training Program; Emergency Provider Family Medicine; PCP Family Medicine; Visit Provider Student in an Organized Health Care Education/Training Program
DX: S30.0XXA Contusion of lower back and pelvis, initial encounter (principal); W19.XXXA Unspecified fall, initial encounter; Z51.5 Encounter for palliative care; C50.912 Malignant neoplasm of unspecified site of left female breast; C50.911 Malignant neoplasm of unspecified site of right female breast; G47.33 Obstructive sleep apnea (adult) (pediatric); J44.9 Chronic obstructive pulmonary disease, unspecified; I10 Essential (primary) hypertension; E78.5 Hyperlipidemia, unspecified; F17.210 Nicotine dependence, cigarettes, uncomplicated; R06.02 Shortness of breath; E66.01 Morbid (severe) obesity due to excess calories; Z68.41 Body mass index [BMI] 40.0-44.9, adult; E03.9 Hypothyroidism, unspecified; Z90.49 Acquired absence of other specified parts of digestive tract
CPT/HCPCS: 36600; 51702; 71045; 72128; 74176; 80051; 80053; 82330; 82805; 83880; 85025; 93005; 94640; 94660; 96372; 96374; 96375; 96376; 99285; G0378; J1200; J1940; J2270; J2405; J7626

== ENCOUNTER 2022-07-16 11:08 | Inpatient (IN) | payer MEDICARE, MEDICAID, SELFPAY ==
[2022-07-16] VITALS (10 sets, daily range): BP systolic 90–136; BP diastolic 49–86; PULSE 65–72; RESP 14–20; TEMP 36.9; O2SAT 93–100
--- NOTE | 2022-07-16 11:16 | XRR_ITS ---
PROCEDURE INFORMATION: Exam: XR Pelvis Exam date and time: 07/16/2022 11:43 AM Age: 72 years old Clinical indication: Injury or trauma; Fall; Blunt trauma (contusions or hematomas); Does not apply; Pelvic region TECHNIQUE: Imaging protocol: Radiologic exam of the pelvis. Views: 1 or 2 view. COMPARISON: CT abdomen pelvis con [id number] 06/18/2022 3:20 AM FINDINGS: Bones/joints: No definite fracture, dislocation or subluxation. Soft tissues: Unremarkable. Intraperitoneal space: Examination is more of a frogleg than AP view of the pelvis. Internal fixation incompletely visualized left femur. Surgical clips are seen in the right lower quadrant. XR/XR pelvis 1-2V* [id number] IMPRESSION: No definite fracture however, this is a nonstandard view.
--- NOTE | 2022-07-16 11:19 | W.ED.GENADLT ---
HPI - General Adult General: Chief complaint: Fall Stated complaint: fall Time Seen by Provider: 07/16/22 11:09 History of Present Illness: 72-year-old female presenting today with hip pain. Patient is on hospice for metastatic cancer. Patient was noted to be weaker than normal today. Stood up from her bed. When she fell down. Striking her left hip on the ground. Note significant left hip and low back pain. She did not strike her head. Did not strike her upper back. She notes the pain is unbearable. Worse with movement somewhat relieved with rest. Review of Systems General: Reports: 10 or more systems reviewed and unremarkable except in HPI and below PFSH ED PFSH: Medical History Anxiety Bilateral malignant neoplasm of breast in female COPD (chronic obstructive pulmonary disease) CVA (cerebral vascular accident) GERD (gastroesophageal reflux disease) Hospice care Hyperlipidemia Hypertension Hyperthyroidism Morbid obesity ROSEMARIE (obstructive sleep apnea) Surgical History H/O cervical spine surgery H/O: hysterectomy History of bilateral breast biopsy History of cholecystectomy History of colon resection History of open reduction and internal fixation (ORIF) procedure left femur Status post right knee replacement Family History Grandfather Diabetes Maternal Grandmother Diabetes Maternal Kidney failure Maternal Grandmother Diabetes Paternal Grandfather Diabetes Paternal Family/Other Diabetes Aunt Mother , Age 99 Hypertension Cancer Leukemia Father Myocardial infarction Hypertension Brother Hypertension Cancer Prostate Denies family history of Anesthesia complication Bleeding disorder Social History Smoking and tobacco status: current every day smoker (1 ppd) cigarettes [ Other cigarette details: 11/27-11/25 PPD] Alcohol intake: never Lives independently: Yes Household members: spouse Marital status: Current occupational status: disabled History of recent travel: No Physical Exam Const: COMMON NORMALS: no acute distress, patient oriented x3 and alert GENERAL APPEARANCE: cooperative ORIENTATION/CONSCIOUSNESS: Yes awake, Yes oriented to person, Yes oriented to place and Yes oriented to time HENMT: COMMON NORMALS: normocephalic, atraumatic, external ears normal, Normal external nose present and moist oral mucous membranes HEAD & SCALP: normal to inspection, normocephalic and atraumatic NOSE: Normal external nose present GENERAL EAR: hearing grossly impaired EXTERNAL EAR: Yes external ears normal Eye: COMMON NORMALS: Equal, round and reactive pupils present, EOMs intact bilaterally, conjunctivae normal and no scleral icterus GENERAL EYE: appearance normal, both eyes and all related structures EYELID: eyelids normal CONJUNCTIVA: Yes conjunctivae normal SCLERA: sclerae normal PUPIL: Yes Equal, round and reactive pupils present Neck/C-Spine: COMMON NORMALS: full ROM, supple and no JVD GENERAL: Yes normal visual inspection Lymph: LYMPHATIC: no lymphadenopathy noted and no lymphedema noted Chest: COMMONS NORMALS: normal inspection of the chest Resp: COMMON NORMALS: normal respiratory effort, No retractions and No use of accessory muscles Cardio: COMMON NORMALS: no JVD, regular rate and regular rhythm RATE: regular rate RHYTHM: regular rhythm GI: COMMON NORMALS: Normal to inspection, nondistended, normoactive bowel sounds present : COMMON NORMALS: Yes no CVA tenderness BLADDER/KIDNEY EXAM: Yes no CVA tenderness Back/Pelvis: COMMON NORMALS: no CVA tenderness and thoracic and lumbar spine normal to inspection Extremity: COMMON NORMALS: normal to inspection, full ROM and capillary refill normal GENERAL: Yes normal exam except as noted Neuro: COMMON NORMALS: patient oriented x3, CN's II-XII intact bilaterally, moves all extremities, no focal motor deficits, no sensory deficits noted and gait normal SENSORIUM/ORIENTATION: Yes alert, Yes oriented to person, Yes oriented to place and Yes oriented to time Psych: COMMON NORMALS: mental status grossly normal, Normal thought process present, cooperative and normal affect THOUGHT PROCESS: Normal thought process present Skin: COMMON NORMALS: no rashes or lesions noted and no wounds GENERAL SKIN EXAM: no rashes or lesions noted Course Vital Signs: Vital signs: Vital Signs Temperature 98.5 F 07/16/22 21:20 Pulse Rate 70 07/16/22 21:20 Respiratory Rate 18 07/16/22 21:39 Blood Pressure 114/74 07/16/22 21:20 Pulse Oximetry 98 07/16/22 21:39 Oxygen Delivery Me thod 07/16/22 20:00 Oxygen Flow Rate 5 07/16/22 20:00 [facility] - General Adult Medical Decision Making 72-year-old female presenting today with fall. Significant left hip and low back pain. CT abdomen pelvis without acute changes. Does demonstrate an old L1 compression fracture. Knee x-ray with evidence of comminuted fracture of the distal femur. Discussed risks and benefits of surgery with patient. Patient wishing to speak to orthopedic surgeon before making a final decision. patient wishing to be admitted after discussion. She was admitted in stable condition. Lab Data : 07/16/22 12:00 07/16/22 12:00 Radiology Impressions Pelvis X-Ray 07/16/22 11:16 IMPRESSION: No definite fracture however, this is a nonstandard view. Lumbar Spine X-Ray 07/16/22 12:22 IMPRESSION: Limited examination due to the patient's size. No definite fracture seen. Abdomen/Pelvis CT 07/16/22 12:24 IMPRESSION: 1. Mild compression of the inferior endplate at L1 with sclerosis appears new or better seen since June 18, 2022. No significant retropulsion. 2. No other visualized compression fractures. 3. No other significant changes compared to June 18, 2022. 4. Previously described RIGHT upper pole renal lesion measuring 14 mm is indeterminant and solid renal neoplasm not excluded. Recommend continued surveillance in 6 months with contrast-enhanced CT abdomen pelvis 5. No other acute findings. Notified Doug Bird DO at 07/16/2022 1:[address] 07/16/22 15:27 IMPRESSION: Comminuted displaced distal femoral metaphyseal fracture above an intact well-aligned total knee prosthesis. Femur X-Ray 07/16/22 15:27 IMPRESSION: No acute fracture. Internal fixation of a distal femoral fracture. The fracture appears healed since the previous examination. Knee X-Ray 07/16/22 15:27 IMPRESSION: Effusion. Other chronic changes with arthritis. Laboratory Results WBC 10.5 10^3/uL (4.0-10.0) H 07/16/22 12:00 RBC 2.87 10^6/uL (4.1-5.3) L 07/16/22 12:00 Hgb 8.7 g/dL (11.5-15.3) L 07/16/22 12:00 Hct 28.7 % (37.0-47.0) L 07/16/22 12:00 MCV 100.0 fl (81-99) H 07/16/22 12:00 MCH 30.3 pg (28.0-34.0) 07/16/22 12:00 MCHC 30.3 g/dL (30.0-36.0) 07/16/22 12:00 RDW 12.6 % (12.1-15.1) 07/16/22 12:00 Plt Count 233 10^3/cmm (130-400) 07/16/22 12:00 MPV 9.9 fL (7.4-10.4) 07/16/22 12:00 Neut % (Auto) 85.5 % 07/16/22 12:00 Lymph % (Auto) 7.3 % 07/16/22 12:00 [place] % (Auto) 6.1 % 07/16/22 12:00 Eos % (Auto) 0.5 % 07/16/22 12:00 Baso % (Auto) 0.2 % 07/16/22 12:00 Neut # (Auto) 9.02 10^3/uL (1.8-7.7) H 07/16/22 12:00 Lymph # (Auto) 0.8 10^3/uL (0.8-4.8) 07/16/22 12:00 [place] # (Auto) 0.6 10^3/uL (0.2-0.9) 07/16/22 12:00 Eos # (Auto) 0.1 10^3/uL (0.0-0.8) 07/16/22 12:00 Baso # (Auto) 0.0 10^3/uL (0.0-0.1) 07/16/22 12:00 Nucleated RBC % (auto) 0 % 07/16/22 12:00 Nucleated RBCs # 0.0 /100WBC 07/16/22 12:00 Sodium 140 mmol/L (136-145) 07/16/22 12:00 Potassium 5.0 mmol/L (3.5-5.1) 07/16/22 12:00 Chloride 98 mmol/L (98-107) 07/16/22 12:00 Carbon Dioxide 32 mmol/L (22-29) H 07/16/22 12:00 Anion Gap 15.0 (5-19) 07/16/22 12:00 BUN 31 mg/dL (8-23) H 07/16/22 12:00 Creatinine 1.2 mg/dL (0.5-0.9) H 07/16/22 12:00 GFR Calculation Not Reportable 07/16/22 12:00 Glucose 95 mg/dL (65-115) 07/16/22 12:00 Calculated Osmolality 296 mOsm/kg (285-295) H 07/16/22 12:00 Calcium 10.2 mg/dL (8.5-10.5) 07/16/22 12:00 Total Bilirubin 0.2 mg/dL (0.15-1.2) 07/16/22 12:00 AST 12 U/L (0-32) 07/16/22 12:00 ALT < 5 U/L (0-33) 07/16/22 12:00 Alkaline Phosphatase 184 U/L (35-105) H 07/16/22 12:00 Total Protein 6.2 g/dL (6.6-8.7) L 07/16/22 12:00 Albumin 3.8 g/dL (3.5-5.2) 07/16/22 12:00 Globulin 2.4 g/dL (1.3-4.6) 07/16/22 12:00 Discharge Plan Discharge Patient Disposition: Admitted As Inpatient Admit Provider: Magda Michaels Clinical Impression: Fall, Compression fracture, Closed femur fracture Condition: Stable Discharge Diet: Advance as tolerated Discharge Activity: Resume usual activity Coding Level of Care Code ED [employer] Consultant for Chg Fwd Exam Comprehensive
[2022-07-16 12:08] LABS: Basophils % 0.2 %; Eosinophils # 0.1 10^3/uL (0.0-0.8); Eosinophils % 0.5 %; Hematocrit 28.7 % (37.0-47.0); Hemoglobin 8.7 g/dL (11.5-15.3); Lymphocytes # 0.8 10^3/uL (0.8-4.8); Lymphocytes % 7.3 %; Mean Corpuscular HGB Conc 30.3 g/dL (30.0-36.0); Mean Corpuscular Hemoglobin 30.3 pg (28.0-34.0); Mean Platelet Volume 9.9 fL (7.4-10.4); Monocytes # 0.6 10^3/uL (0.2-0.9); Monocytes % 6.1 %; Neutrophils # 9.02 10^3/uL (1.8-7.7); Neutrophils % 85.5 %; Nucleated Red Blood Cells % 0 %; Platelet Count 233 10^3/cmm (130-400); Red Blood Count 2.87 10^6/uL (4.1-5.3); Red Cell Distribution Width 12.6 % (12.1-15.1); White Blood Count 10.5 10^3/uL (4.0-10.0)
[2022-07-16] MEDS: acetaminophen 1,000 MG/100 ML PIGGYBACK 400 MG IV (12:19)
[2022-07-16] MEDS: fentaNYL 50 mcg/mL INJ 2mL 150 MCG IVP (12:20)
[2022-07-16] MEDS: ketorolac 30 mg/mL INJ 15 MG IVP (12:20)
--- NOTE | 2022-07-16 12:22 | XRR_ITS ---
PROCEDURE INFORMATION: Exam: XR Lumbosacral Spine Exam date and time: 07/16/2022 12:41 PM Age: 72 years old Clinical indication: Pain and injury or trauma; Fall; Blunt trauma (contusions or hematomas); Low back pain; Prior surgery; Surgery type: Breast, hystero; Patient HX: HX of breast and ovarian cancer TECHNIQUE: Imaging protocol: Radiologic exam of the lumbosacral spine. Views: 2 or 3 views. COMPARISON: CR XR lumbar spine 2-3V* [id number] 01/08/2022 11:35 AM FINDINGS: Bones/joints: The examination is compromised due to underexposed lateral views due to patient's size. There is moderate scoliosis. Chronic degenerative changes are present. No definite compression fractures are seen. Soft tissues: Unremarkable. XR/XR lumbar spine 2-3V* [id number] IMPRESSION: Limited examination due to the patient's size. No definite fracture seen.
--- NOTE | 2022-07-16 12:24 | CT_ITS ---
WS: [id number] CT ABDOMEN PELVIS TECHNIQUE: Contrast-enhanced CT of the abdomen and pelvis with coronal and sagittal reformatted image s. CLINICAL INFORMATION: trauma COMPARISON: June 18, 2022 DLP: 1353.[address] scans at [facility] use at least one of these dose optimization techniques: automated e xposure control; mA and/or kV adjustment per patient size (includes targeted exams where dose is matc hed to clinical indication); or iterative reconstruction. FINDINGS:Mild compression of the inferior endplate at L1 with sclerosis appears new since June 18. No significant retropulsion. No definite visualized pelvic fractures. Osteopenia somewhat limits fracture detection. Splenic and hepatic granulomas. Normal GE junction. Proximal stomach is normal. Moderate pancreatic a trophy. Normal portal vein and splenic vein. Prior cholecystectomy. Mild diffuse fatty infiltration l iver. Cardiomegaly. Calcified granulomas in the lung bases. Slight bibasilar atelectasis. Normal sigmoid colon. No high-grade small or large bowel obstruction. Fat-containing umbilical hernia . Pelvic phleboliths. RIGHT adrenal adenoma measuring 17 mm. Bilateral renal cortical atrophy. No hydronephrosis. Indetermi haresh RIGHT upper pole renal lesion previously described unchanged measuring 14 mm. Recommend continue d surveillance. Small renal neoplasm not excluded. Normal caliber abdominal aorta. Aortic calcification. No free fluid in the abdomen or pelvis. Advanced spondylitic changes lower thor acic and lumbar spine. Osteopenia. CT/CT abdomen pelvis w con* [id number] IMPRESSION: 1. Mild compression of the inferior endplate at L1 with sclerosis appears new or better seen since June 18, 2022. No significant retropulsion. 2. No other visualized compression fractures. 3. No other significant changes compared to June 18, 2022. 4. Previously described RIGHT upper pole renal lesion measuring 14 mm is indet erminant and solid renal neoplasm not excluded. Recommend continued surveillanc e in 6 months with contrast-enhanced CT abdomen pelvis 5. No other acute findings. Notified Doug Bird DO at 07/16/2022 1:56 PM.
--- NOTE | 2022-07-16 12:30 | XRR_ITS ---
PROCEDURE INFORMATION: Exam: XR Right Knee Exam date and time: 07/16/2022 12:41 PM Age: 72 years old Clinical indication: Pain and injury or trauma; Fall; Blunt trauma; Knee; Right; Patient HX: HX of breast and ovarian cancer TECHNIQUE: Imaging protocol: Radiologic exam of the Right knee. Views: 3 views. COMPARISON: CR Knee 2 views, RIGHT [id number] 08/20/2019 3:45 PM FINDINGS: Bones/joints: A total knee prosthesis is present. There is a comminuted fracture of the distal metaphysis of the femur above the femoral component of the prosthesis. There is prominent anterior tilting of the distal femoral fragment and about 2.5 cm of lateral displacement. Soft tissues: Normal. XR/XR knee RT 3V* [id number] IMPRESSION: Comminuted displaced and angulated fracture of the distal metaphysis of the femur.
[2022-07-16 12:34] LABS: Alanine Aminotransferase < 5 U/L (0-33); Albumin Level 3.8 g/dL (3.5-5.2); Alkaline Phosphatase 184 U/L (35-105); Aspartate Amino Transferase 12 U/L (0-32); Blood Urea Nitrogen 31 mg/dL (8-23); Calcium 10.2 mg/dL (8.5-10.5); Carbon Dioxide 32 mmol/L (22-29); Chloride 98 mmol/L (98-107); Globulin 2.4 g/dL (1.3-4.6); Glucose 95 mg/dL (65-115); Osmolality Calculated 296 mOsm/kg (285-295); Sodium 140 mmol/L (136-145); Total Bilirubin 0.2 mg/dL (0.15-1.2); Total Protein 6.2 g/dL (6.6-8.7)
[2022-07-16] MEDS: haloperidol inj 5 mg/mL INJ 1 mL 2 MG IVP (14:50)
--- NOTE | 2022-07-16 15:27 | XRR_ITS ---
PROCEDURE INFORMATION: Exam: XR Left Femur Exam date and time: 07/16/2022 3:43 PM Age: 72 years old Clinical indication: Injury or trauma; Fall; Blunt trauma; Thigh or upper leg; Left; Prior surgery TECHNIQUE: Imaging protocol: Radiologic exam of the Left femur. Views: 2 views. COMPARISON: CR Femur 2 views LEFT* [id number] 10/11/2018 10:37 PM FINDINGS: Bones/joints: Fixation plate with deformity distal femur. No evidence of an acute fracture. Arthritic changes at the knee and the hip. Soft tissues: Unremarkable. Organs: IV contrast question in the urinary bladder. XR/XR femur LT min 2V* [id number] IMPRESSION: No acute fracture. Internal fixation of a distal femoral fracture. The fracture appears healed since the previous examination.
--- NOTE | 2022-07-16 15:27 | XRR_ITS ---
PROCEDURE INFORMATION: Exam: XR Left Knee Exam date and time: 07/16/2022 3:46 PM Age: 72 years old Clinical indication: Injury or trauma; Fall; Blunt trauma; Knee; Left; Prior surgery TECHNIQUE: Imaging protocol: Radiologic exam of the Left knee. Views: 1 or 2 views. COMPARISON: CR XR knee LT 3V* [id number] 02/02/2020 11:04 AM FINDINGS: Bones/joints: Distal femoral fracture discussed in the femur exam. Arthritic changes at the knee progressed since the previous examination. Moderate medial and mild lateral joint space narrowing with irregularity to the articulating surfaces. Osteopenia. Soft tissues: Normal. Other findings: Large effusion. XR/XR knee LT 1-2V [id number] IMPRESSION: Effusion. Other chronic changes with arthritis.
--- NOTE | 2022-07-16 15:27 | CTR_ITS ---
PROCEDURE INFORMATION: Exam: CT Right Lower Extremity Without Contrast Exam date and time: 07/16/2022 4:51 PM Age: 72 years old Clinical indication: Injury or trauma; Fall; Blunt trauma; Thigh or upper leg and knee; Right; Prior surgery; Surgery date: 6+ months; Additional info: Fracture planning TECHNIQUE: Imaging protocol: CT of the Right lower extremity without contrast was performed. Radiation optimization: All CT scans at this facility use at least one of these dose optimization techniques: automated exposure control; mA and/or kV adjustment per patient size (includes targeted exams where dose is matched to clinical indication); or iterative reconstruction. COMPARISON: CR XR knee RT 3V* [id number] 07/16/2022 12:41 PM RADIATION DOSE METRICS: Total DLP (mGy-cm): 1142.58 FINDINGS: Bones/joints: There is a comminuted displaced fracture of the distal femoral metaphysis above the femoral component of the total knee prosthesis. The fracture lies immediately adjacent to the superior margin of the prosthesis anteromedially. There is no displacement of the prosthesis. Femorotibial alignment is satisfactory. The visible portion of the tibia, fibula and patella are intact. Bones are diffusely osteopenic. The visible portion of the pelvis is intact. Alignment of the hip is normal. Soft tissues: There is muscle atrophy in the gluteal region, thigh and upper calf. There is a small volume of intramuscular blood and displaced marrow fat associated with the femoral fracture. There is no significant hematoma. CT/CT femur RT wo con* [id number] IMPRESSION: Comminuted displaced distal femoral metaphyseal fracture above an intact well-aligned total knee prosthesis.
--- NOTE | 2022-07-16 16:11 | PC.PHAR ---
pts states he takes care of the pts medications-medications entered on 06/18/22 advair diskus 1p bid,aspirin 81mg daily,colace 200mg daily,vitamin d2 32538 units q7d,hydroxyzine hcl 10mg qid prn,lasix 40mg daily,miralax 17g daily,oxycodone 5-10mg q2h prn pts states the pt is no longer taking-states the pt hasnt taken lasix for a month or so-waiting for med list from [facility]exemestane 25mg qam ext shows last filled 02/08/22-prozac 40mg daily ext med history shows last filled 11/08/21- ropinirole 0.5mg 2 tabs (1mg)hs rx filled 0.5mg tid on 02/11/22 90d/s-pt states pt still taking- notes are made in the pharmacy comments-
--- NOTE | 2022-07-16 16:29 | P.CONIM_ITS ---
Providers/Reason For Consult Consulting Physician/Specialty*: Ang Ramirez DO/orthopedic surgery Reason for Consult*: Comminuted displaced right supracondylar periprosthetic femur fracture Requesting Physician: Dr. Gambino Primary Care Provider: Elayne Wyatt DO History of Present Illness History of Present Illness Deborah Mchugh is a 72 year old female presents with ground-level fall with pain to the right lower extremity. Patient has a complex past medical history consistent with metastatic breast cancer as well as COPD and currently on hospice per ED physician as well as discussing with patient's who was in the ED on my evaluation. Patient allegedly stood up from her bed when she fell down. Had immediate pain and deformity to the right femur. She subsequently brought to the emergency department and found to have a right periprosthetic supracondylar femur fracture. Orthopedics was consulted. Patient does have past history of ORIF left femur. Patient as well as unsure of when right total knee was placed. Review of Systems General: Reports: 10 or more systems reviewed and unremarkable except in HPI and below Medications/Allergies Home Medications Medication Instructions Recorded Confirmed Last Taken Type albuterol sulfate 2.5 mg inhalation Q4H PRN 12/23/19 07/16/22 02/01/20 History Shortness Of Breath gemfibrozil 600 mg tablet 600 mg PO BID@12/23/19 07/16/22 07/16/22 History naloxone 4 mg/actuation nasal See Rx Instructions .Route 12/23/19 07/16/22 Unknown History spray (Narcan) .COMPLEX PRN overdose pantoprazole 20 mg tablet,delayed 20 mg PO BID@12/23/19 07/16/22 07/16/22 History release simvastatin 40 mg tablet 40 mg PO BEDTIME 12/23/19 07/16/22 07/15/22 History fluoxetine 40 mg capsule 40 mg PO QAM 02/08/21 07/16/22 07/16/22 History hydrocodone 10 mg-acetaminophen See Rx Instructions .Route .COMPLEX 02/08/21 07/16/22 07/16/22 10:00 History 325 mg tablet albuterol sulfate 90 mcg/actuation 2 puff inhalation Q6H PRN 06/18/22 07/16/22 Unknown History aerosol inhaler Shortness Of Breath fentanyl 100 mcg/hr transdermal 100 mcg transdermal Q72H 06/18/22 07/16/22 07/16/22 History patch on pts back per [facility] lisinopril 2.5 mg tablet 2.5 mg PO QAM 06/18/22 07/16/22 07/16/22 History lorazepam 2 mg/mL oral concentrate 0.5 - 1 mg PO Q2H PRN Anxiety 06/18/22 07/16/22 Unknown History (Lorazepam Intensol) nitrofurantoin 100 mg PO BID 06/18/22 07/16/22 07/16/22 History monohydrate/macrocrystals 100 mg capsule (Macrobid) ondansetron 4 mg disintegrating 4 mg PO Q6H PRN Nausea 06/18/22 07/16/22 Unknown History tablet tiotropium bromide 18 mcg capsule 1 cap inhalation DAILY 06/18/22 07/16/22 Unknown History with inhalation device (Spiriva with HandiHaler) exemestane 25 mg tablet 25 mg PO QAM 07/16/22 07/16/22 07/16/22 History nitroglycerin 0.4 mg sublingual 0.4 mg sublingual Q5M PRN Chest 07/16/22 07/16/22 Unknown History tablet (Nitrostat) Pain nystatin 100,000 unit/gram topical 1 applic topical BID 07/16/22 07/16/22 Unknown History powder (Nystop) ropinirole 0.5 mg tablet 1 mg PO BEDTIME 07/16/22 07/16/22 07/15/22 History Allergies Allergy/AdvReac Type Severity Reaction Status Date / Time adhesive tape Allergy Unknown ALGY-Hives Verified 06/05/22 14:31 heparin (porcine) Allergy Unknown Verified 06/05/22 14:31 morphine Allergy ALGY-Hives Verified 06/05/22 14:31 oxytetracycline Allergy ALGY-Anaphy Verified 06/05/22 14:31 [From Terramycin] laxis Tetanus Vaccines and Toxoid Allergy Unknown Verified 06/05/22 14:31 cimetidine [From Tagamet] AdvReac ADR-Abdominal Verified 06/05/22 14:31 Pain hydromorphone [From Dilaudid] AdvReac ADR-Halluci Verified 06/05/22 14:31 nating PFSH Acute PFSH: Medical History (Updated 07/16/22 @ 14:24 by Doug Bird DO) Anxiety Bilateral malignant neoplasm of breast in female COPD (chronic obstructive pulmonary disease) CVA (cerebral vascular accident) GERD (gastroesophageal reflux disease) Hospice care Hyperlipidemia Hypertension Hyperthyroidism Morbid obesity ROSEMARIE (obstructive sleep apnea) Surgical History H/O cervical spine surgery H/O: hysterectomy History of bilateral breast biopsy History of cholecystectomy History of colon resection History of open reduction and internal fixation (ORIF) procedure left femur Status post right knee replacement Family History Grandfather Diabetes Maternal Grandmother Diabetes Maternal Kidney failure Maternal Grandmother Diabetes Paternal Grandfather Diabetes Paternal Family/Other Diabetes Aunt Mother , Age 99 Hypertension Cancer Leukemia Father Myocardial infarction Hypertension Brother Hypertension Cancer Prostate Denies family history of Anesthesia complication Bleeding disorder Social History Smoking and tobacco status: current every day smoker (1 ppd) cigarettes [ Other cigarette details: 11/27-11/25 PPD] Alcohol intake: never Lives independently: Yes Household members: spouse Marital status: Current occupational status: disabled History of recent travel: No Vitals/I&O/Wt Last Vital Signs Temp 98.5 F 07/16/22 11:44 Pulse 65 07/16/22 14:56 Resp 14 07/16/22 14:56 BP 91/49 07/16/22 14:56 Pulse Ox 100 07/16/22 14:56 O2 Del Method 07/16/22 14:56 O2 Flow Rate 5 07/16/22 14:56 Physical Exam Narrative: Patient significantly morbidly obese female. She is in severe discomfort and distress secondary to pain. Patient is responsive follows commands and is able to converse but given her pain she is unable to have low conversations. Examination of her bilateral upper extremity joints shoulder, elbow, wrist and hands she is able to actively move these with no discomfort and no tenderness to palpation. Gross motor and sensation appears intact with brisk capillary refill less than 2 seconds radial pulse 2+. Patient has a noticeable deformity to the right lower extremity with significant tenderness and swelling to palpation over the right femur. She has no tenderness palpation of the groin of the hip. No logroll or further tests were performed right lower extremity given patient's fracture. She did have a palpable dorsalis pedis as well as posterior tib pulse. Her right foot was warm and well-perfused. She was able to wiggle her toes and endorses sensation intact to light touch to the SPN/DPN/sural/saphenous/tibial nerve distribution. She was able to subtly plantarflex and dorsiflex her ankle. Examination of the left lower extremity demonstrates no tenderness to palpation over the anterior aspect of the hip she is able to actively move and flex her knee and hip but does complain of some discomfort. She has a previous surgical incision over the left knee and femur for previous ORIF these are well-healed with no signs of infection. She does have some tenderness to palpation over the distal femur of the left knee. She is able to wiggle her toes as well as plantarflex dorsiflex ankle to the left lower extremity. Sensation tact light touch in left lower extremity and distal pulses palpable. Const: GENERAL APPEARANCE: in distress HENMT: COMMON NORMALS: normocephalic and atraumatic HEAD & SCALP: normocephalic and atraumatic Resp: COMMON NORMALS: normal respiratory effort Cardio: COMMON NORMALS: Peripheral pulses 2+ throughout PERIPHERAL PULSES: Peripheral pulses 2+ throughout Data : 07/16/22 12:00 07/16/22 12:00 Xray Ortho: My impression: X-rays of the right knee demonstrate right supracondylar periprosthetic femur fracture. Fracture is significantly comminuted and displaced. There does not appear to be evidence of implant loosening or unstable. A&P Assessment and plan (1) Closed femur fracture: right displaced and comminuted periprosthetic supracondylar femur fracture Status: Acute Plan -Patient be admitted by hospitalist for medical management and preoperative optimization for surgical intervention -X-rays reviewed confirming diagnosis, further advanced imaging of right knee CT scan to rule out implant instability as well as x-rays of the left knee and femur as patient had pain on evaluation -Patient may have diet today -Pain control per internal medicine team -Preoperative labs per primary admitting team -Patient to be n.p.o. at midnight -Plan for OR tomorrow for right periprosthetic distal femur fracture open reduction internal fixation with retrograde nail -Hold a.m. anticoagulation may have DVT prophylaxis today. MDM: Patient is a morbidly obese female with significant past medical history and currently on hospice. She presented today for emergency department found to have a right periprosthetic supracondylar femur fracture with significant comminution and displacement. No evidence of neurovascular injury on examination. This point time despite her being on hospice I would recommend patient undergo a right femur retrograde nailing of this fracture in order to help optimize patient's comfort from a pain standpoint as well as to help her with mobility and transfers as her leg is currently deformed. I detailed discussion with her as well as her at bedside emergency department and they understand the risk benefits complications alternatives to nonoperative as well as operative intervention and agreed to proceed with surgery. Understand the risks include but are not limited to make it better, make it worse heart attack, stroke, on the table, infection, malunion, nonunion, loss of limb, function or life. With this understanding they agree to proceed with surgery. All questions answered. Coding Level of Care Code Acute Orthopedic Radiologic Technologist for [facility] Diagnoses Closed femur fracture S72.90XA Time Spent (min) 55
--- NOTE | 2022-07-16 16:29 | P.HP_ITS ---
Providers/Chief Complaint Primary Care Provider: Elayne Wyatt DO Chief Complaint: fall History of Present Illness Deborah Mchugh is a 72 year old female with past medical history of obstructive sleep apnea, COPD, hypertension, hyperlipidemia, breast cancer recently discharged on 06/19 after management of hypercapnic respiratory failure. Patient is on hospice secondary to COPD and breast cancer with goals of keeping patient comfortable with pain medication for back pain. She was brought to the hospital today by her after suffering a mechanical fall as she was getting out of bed. Fell onto her left side. There was no head injury. X-ray of the right leg showed comminuted displaced and angulated fracture of the distal metaphysis of the femur. Additional L1 endplate fracture is noted. ER discussed the case with on-call orthopedics. It was opined that given patient's location with the fracture there is a chance of neurovascular damage and management of the fracture surgically would still be in keeping with goals of care of palliation and quality of life. N patient is agreeable for surgical intervention und erstanding the high risk nature of the surgery. Review of Systems General: Reports: 10 or more systems reviewed and unremarkable except in HPI and below Const: Denies: fever(s), chills or body aches Eyes: Denies: change in vision, blurry vision or photophobia ENMT: Reports: hoarseness; Denies: throat pain, enlarged tonsils, odynophagia or nasal congestion Card: Denies: chest pain, palpitations, irregular heart rhythm, edema, swelling of feet/ankles, lightheadedness, pre-syncope, dyspnea on exertion or orthopnea Resp: Denies: dyspnea, productive cough, non-productive cough, wheezing, stridor, pain on inspiration, change in phlegm color, hemoptysis or chest conge stion GI: Denies: abdominal pain, nausea, vomiting, hematemesis, coffee ground emesis, dysphagia, heartburn, diarrhea, constipation, GI cramping, change in stool character, hematochezia or melena : Denies: flank pain, difficulty voiding, dysuria, urinary frequency, urinary urgency, urinary hesitancy or hematuria Musc: Denies: neck pain, back pain, extremity pain, joint swelling, joint warmth or deformity Neuro: Denies: headache(s), numbness in extremities, weakness in extremities, sensory changes, difficulty walking, frequent falls, dizziness, vertigo, behavioral changes, Slurred speech present or seizure-like activity Psych: Denies: anxiety, depression, suicidal ideation or homicidal ideation Endo: Denies: polyuria, polydipsia, tired all the time, cold intolerance or hot flashes Jeovanny/Lymph: Denies: easy bruising or easy bleeding Medications/Allergies Home Medications Medication Instructions Recorded Confirmed Last Taken Type albuterol sulfate 2.5 mg inhalation Q4H PRN 12/23/19 07/16/22 02/01/20 History Shortness Of Breath gemfibrozil 600 mg tablet 600 mg PO BID@12/23/19 07/16/22 07/16/22 History naloxone 4 mg/actuation nasal See Rx Instructions .Route 12/23/19 07/16/22 Unknown History spray (Narcan) .COMPLEX PRN overdose pantoprazole 20 mg tablet,delayed 20 mg PO BID@12/23/19 07/16/22 07/16/22 History release simvastatin 40 mg tablet 40 mg PO BEDTIME 12/23/19 07/16/22 07/15/22 History fluoxetine 40 mg capsule 40 mg PO QAM 02/08/21 07/16/22 07/16/22 History hydrocodone 10 mg-acetaminophen See Rx Instructions .Route .COMPLEX 02/08/21 07/16/22 07/16/22 10:00 History 325 mg tablet albuterol sulfate 90 mcg/actuation 2 puff inhalation Q6H PRN 06/18/22 07/16/22 Unknown History aerosol inhaler Shortness Of Breath fentanyl 100 mcg/hr transdermal 100 mcg transdermal Q72H 06/18/22 07/16/22 07/16/22 History patch on pts back per husb lisinopril 2.5 mg tablet 2.5 mg PO QAM 06/18/22 07/16/22 07/16/22 History lorazepam 2 mg/mL oral concentrate 0.5 - 1 mg PO Q2H PRN Anxiety 06/18/22 07/16/22 Unknown History (Lorazepam Intensol) nitrofurantoin 100 mg PO BID 06/18/22 07/16/22 07/16/22 History monohydrate/macrocrystals 100 mg capsule (Macrobid) ondansetron 4 mg disintegrating 4 mg PO Q6H PRN Nausea 06/18/22 07/16/22 Unknown History tablet tiotropium bromide 18 mcg capsule 1 cap inhalation DAILY 06/18/22 07/16/22 Unknown History with inhalation device (Spiriva with HandiHaler) exemestane 25 mg tablet 25 mg PO QAM 07/16/22 07/16/22 07/16/22 History nitroglycerin 0.4 mg sublingual 0.4 mg sublingual Q5M PRN Chest 07/16/22 07/16/22 Unknown History tablet (Nitrostat) Pain nystatin 100,000 unit/gram topical 1 applic topical BID 07/16/22 07/16/22 Unknown History powder (Nystop) ropinirole 0.5 mg tablet 1 mg PO BEDTIME 07/16/22 07/16/22 07/15/22 History Allergies Allergy/AdvReac Type Severity Reaction Status Date / Time adhesive tape Allergy Unknown ALGY-Hives Verified 06/05/22 14:31 heparin (porcine) Allergy Unknown Verified 06/05/22 14:31 morphine Allergy ALGY-Hives Verified 06/05/22 14:31 oxytetracycline Allergy ALGY-Anaphy Verified 06/05/22 14:31 [From Terramycin] laxis Tetanus Vaccines and Toxoid Allergy Unknown Verified 06/05/22 14:31 cimetidine [From Tagamet] AdvReac ADR-Abdominal Verified 06/05/22 14:31 Pain hydromorphone [From Dilaudid] AdvReac ADR-Halluci Verified 06/05/22 14:31 nating PFSH Acute PFSH: Medical History Anxiety Bilateral malignant neoplasm of breast in female COPD (chronic obstructive pulmonary disease) CVA (cerebral vascular accident) GERD (gastroesophageal reflux disease) Hospice care Hyperlipidemia Hypertension Hyperthyroidism Morbid obesity ROSEMARIE (obstructive sleep apnea) Surgical History H/O cervical spine surgery H/O: hysterectomy History of bilateral breast biopsy History of cholecystectomy History of colon resection History of open reduction and internal fixation (ORIF) procedure left femur Status post right knee replacement Family History Grandfather Diabetes Maternal Grandmother Diabetes Maternal Kidney failure Maternal Grandmother Diabetes Paternal Grandfather Diabetes Paternal Family/Other Diabetes Aunt Mother , Age 99 Hypertension Cancer Leukemia Father Myocardial infarction Hypertension Brother Hypertension Cancer Prostate Denies family history of Anesthesia complication Bleeding disorder Social History Smoking and tobacco status: current every day smoker (1 ppd) cigarettes [ Other cigarette details: 11/27-11/25 PPD] Alcohol intake: never Lives independently: Yes Household members: spouse Marital status: Current occupational status: disabled History of recent travel: No Vitals/I&O/Wt Last Vital Signs Temp 98.5 F 07/16/22 11:44 Pulse 65 07/16/22 14:56 Resp 14 07/16/22 14:56 BP 91/49 07/16/22 14:56 Pulse Ox 100 07/16/22 14:56 O2 Del Method 07/16/22 14:56 O2 Flow Rate 5 07/16/22 14:56 Physical Exam Narrative: General: No acute distress, AO x3 HEENT: PERRLA, pupils bilaterally equal and reactive Chest: Normal vesicular breath sounds, no added sounds, equal good air entry bilaterally CVS: S1-S2 regular, no murmurs, no tachycardia, no gallops, no rubs Abdomen: Soft, nontender, no organomegaly, bowel sounds present Neuro: No focal deficits Data : 07/16/22 12:00 07/16/22 12:00 Other Labs: Radiology Impressions Pelvis X-Ray 07/16/22 11:16 IMPRESSION: No definite fracture however, this is a nonstandard view. Lumbar Spine X-Ray 07/16/22 12:22 IMPRESSION: Limited examination due to the patient's size. No definite fracture seen. Abdomen/Pelvis CT 07/16/22 12:24 IMPRESSION: 1. Mild compression of the inferior endplate at L1 with sclerosis appears new or better seen since June 18, 2022. No significant retropulsion. 2. No other visualized compression fractures. 3. No other significant changes compared to June 18, 2022. 4. Previously described RIGHT upper pole renal lesion measuring 14 mm is i ndeterminant and solid renal neoplasm not excluded. Recommend continued surveillance in 6 months with contrast-enhanced CT abdomen pelvis 5. No other acute findings. Notified Doug Bird DO at 07/16/2022 1:56 PM. Femur X-Ray 07/16/22 15:27 IMPRESSION: No acute fracture. Internal fixation of a distal femoral fracture. The fracture appears healed since the previous examination. Knee X-Ray 07/16/22 15:27 IMPRESSION: Effusion. Other chronic changes with arthritis. Laboratory Results WBC 10.5 10^3/uL (4.0-10.0) H 07/16/22 12:00 RBC 2.87 10^6/uL (4.1-5.3) L 07/16/22 12:00 Hgb 8.7 g/dL (11.5-15.3) L 07/16/22 12:00 Hct 28.7 % (37.0-47.0) L 07/16/22 12:00 MCV 100.0 fl (81-99) H 07/16/22 12:00 MCH 30.3 pg (28.0-34.0) 07/16/22 12:00 MCHC 30.3 g/dL (30.0-36.0) 07/16/22 12:00 RDW 12.6 % (12.1-15.1) 07/16/22 12:00 Plt Count 233 10^3/cmm (130-400) 07/16/22 12:00 MPV 9.9 fL (7.4-10.4) 07/16/22 12:00 Neut % (Auto) 85.5 % 07/16/22 12:00 Lymph % (Auto) 7.3 % 07/16/22 12:00 Keith % (Auto) 6.1 % 07/16/22 12:00 Eos % (Auto) 0.5 % 07/16/22 12:00 Baso % (Auto) 0.2 % 07/16/22 12:00 Neut # (Auto) 9.02 10^3/uL (1.8-7.7) H 07/16/22 12:00 Lymph # (Auto) 0.8 10^3/uL (0.8-4.8) 07/16/22 12:00 Keith # (Auto) 0.6 10^3/uL (0.2-0.9) 07/16/22 12:00 Eos # (Auto) 0.1 10^3/uL (0.0-0.8) 07/16/22 12:00 Baso # (Auto) 0.0 10^3/uL (0.0-0.1) 07/16/22 12:00 Nucleated RBC % (auto) 0 % 07/16/22 12:00 Nucleated RBCs # 0.0 /100WBC 07/16/22 12:00 Sodium 140 mmol/L (136-145) 07/16/22 12:00 Potassium 5.0 mmol/L (3.5-5.1) 07/16/22 12:00 Chloride 98 mmol/L (98-107) 07/16/22 12:00 Carbon Dioxide 32 mmol/L (22-29) H 07/16/22 12:00 Anion Gap 15.0 (5-19) 07/16/22 12:00 BUN 31 mg/dL (8-23) H 07/16/22 12:00 Creatinine 1.2 mg/dL (0.5-0.9) H 07/16/22 12:00 GFR Calculation Not Reportable 07/16/22 12:00 Glucose 95 mg/dL (65-115) 07/16/22 12:00 Calculated Osmolality 296 mOsm/kg (285-295) H 07/16/22 12:00 Calcium 10.2 mg/dL (8.5-10.5) 07/16/22 12:00 Total Bilirubin 0.2 mg/dL (0.15-1.2) 07/16/22 12:00 AST 12 U/L (0-32) 07/16/22 12:00 ALT < 5 U/L (0-33) 07/16/22 12:00 Alkaline Phosphatase 184 U/L (35-105) H 07/16/22 12:00 Total Protein 6.2 g/dL (6.6-8.7) L 07/16/22 12:00 Albumin 3.8 g/dL (3.5-5.2) 07/16/22 12:00 Globulin 2.4 g/dL (1.3-4.6) 07/16/22 12:00 A&P Assessment and plan (1) Closed femur fracture: Closed fracture of the femur Orthopedics consult Plan for surgical fixation tomorrow per discussion with the ER Pain control with fentanyl patch, hydrocodone APAP Status: Acute (2) COPD (chronic obstructive pulmonary disease): Advanced COPD, patient currently on hospice management for the same. Given her goals of care, will hold off on doing any frequent ABGs. BiPAP if tolerates and compatible with goals of care Status: Acute (3) Hospice care: Discharge back to hospice once fracture is surgically corrected. Status: Acute Plan Optimal pain control, planned surgery tomorrow. N.p.o. postmidnight. 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
[2022-07-16] MEDS: nitrofurantoin SR (BID) 100 mg Capsule PO (21:39)
[2022-07-16] MEDS: oxyCODONE-APAP 10-325 mg Tablet 1 TAB PO (21:39)
[2022-07-16] MEDS: ropinirole 1 mg Tablet PO (22:48)
[2022-07-16] MEDS: atorvastatin 40 mg Tablet 20 MG PO (22:50)
[2022-07-17] VITALS (24 sets, daily range): BP systolic 83–117; BP diastolic 44–76; PULSE 67–91; RESP 15–21; TEMP 36.4–37; O2SAT 93–100; BMI 43.7
--- NOTE | 2022-07-17 | XR_ITS ---
WS: [id number] Right femur and thigh, C-arm fluoroscopy views, 07/17/2022 Clinical Data: HIWOT PIC Comparison: Right knee, 07/16/2022. Findings: A long intramedullary marleny extends the length of the femur. There are transverse screws fixing the pro ximal and distal portions of the marleny to the femur. The knee arthroplasty remains in position. XR/XR femur RT min 2V* [id number] Impression: Internal fixation of distal right femoral fracture.
--- NOTE | 2022-07-17 | SCC_ITS ---
Procedure done: Right periprosthetic distal femur fracture retrograde nail 185.7 seconds of fluoroscopic guidance, for a cumulative dose of 12.78 mGy, was provided to Dr. Ramirez by the radiology department. C-arm images of the RIGHT femur were saved for the patient's permanent record. [facility]
[2022-07-17] MEDS: oxyCODONE-APAP 10-325 mg Tablet 1 TAB PO (04:49)
[2022-07-17 05:41] LABS: Basophils % 0.2 %; Eosinophils % 0.4 %; Hematocrit 25.1 % (37.0-47.0); Hemoglobin 7.4 g/dL (11.5-15.3); Lymphocytes % 12.9 %; Mean Corpuscular HGB Conc 29.5 g/dL (30.0-36.0); Mean Corpuscular Hemoglobin 30.3 pg (28.0-34.0); Mean Corpuscular Volume 102.9 fl (81-99); Mean Platelet Volume 10.6 fL (7.4-10.4); Monocytes % 11.9 %; Neutrophils # 5.99 10^3/uL (1.8-7.7); Neutrophils % 74.2 %; Nucleated Red Blood Cells % 0 %; Platelet Count 218 10^3/cmm (130-400); Red Blood Count 2.44 10^6/uL (4.1-5.3); Red Cell Distribution Width 13.1 % (12.1-15.1); White Blood Count 8.1 10^3/uL (4.0-10.0)
[2022-07-17 06:02] LABS: Alanine Aminotransferase < 5 U/L (0-33); Albumin Level 3.3 g/dL (3.5-5.2); Alkaline Phosphatase 151 U/L (35-105); Aspartate Amino Transferase 14 U/L (0-32); Blood Urea Nitrogen 35 mg/dL (8-23); Calcium 9.3 mg/dL (8.5-10.5); Carbon Dioxide 32 mmol/L (22-29); Chloride 99 mmol/L (98-107); Globulin 2.4 g/dL (1.3-4.6); Glucose 95 mg/dL (65-115); Osmolality Calculated 296 mOsm/kg (285-295); Sodium 139 mmol/L (136-145); Total Bilirubin 0.2 mg/dL (0.15-1.2); Total Protein 5.7 g/dL (6.6-8.7)
[2022-07-17 06:08] LABS: Anion Gap 12.9 (5-19); Potassium 4.9 mmol/L (3.5-5.1)
[2022-07-17] MEDS: fluoxetine 20 mg Capsule 40 MG PO (07:13)
[2022-07-17] MEDS: lisinopril 2.5 mg Tablet PO (07:14)
--- NOTE | 2022-07-17 09:28 | P.ANESASSM_ITS ---
Pre-Anesthetic Assessment Height/Weight: Height 1.63 m Temp Pulse Resp BP Pulse Ox O2 Del Method O2 Flow Rate 97.9 F 71 16 116/53 99 4 07/17/22 08:40 07/17/22 08:40 07/17/22 08:40 07/17/22 08:40 07/17/22 08:40 07/17/22 08:40 07/17/22 08:40 Operation Date: 07/17/22 13:00 Proposed Procedures p Retrograde IM Nail Femur(Right) - Nag [place], Familial anesthetic complications: None Was Beta Edmnudo taken within 24 hours: N/A Was Clonidine taken within 24 hours: N/A Last intake: Intake Last Liquid Date 07/16/22 Last Liquid Time 22:00 Last Solid Date 07/16/22 Last Solid Time 22:00 Social Tobacco and No alcohol Exam alert, oriented x 3 and regular rate & rhythm Airway Submandibular: within normal limits Cervical ROM: within normal limits Mallampati: Class II Dentition: false Pulmonary Chronic Obstructive Pulmonary Disease Home O2 CV/HEM Coronary Artery Disease and Hypertension GI Gastroesophageal Reflux Disease Metabolic Hyperlipidemia and Morbid Obesity [facility] Lower Back Pain Anesthetic Plan ASA status: 3 Anesthesia: Choice (SAB v GA/LMA (?of spine surgery)) Medications/Allergies Home Medications Medication Instructions Recorded Confirmed Last Taken Type albuterol sulfate 2.5 mg inhalation Q4H PRN 12/23/19 07/16/22 02/01/20 History Shortness Of Breath gemfibrozil 600 mg tablet 600 mg PO BID@12/23/19 07/16/22 07/16/22 History naloxone 4 mg/actuation nasal See Rx Instructions .Route 12/23/19 07/16/22 Unknown History spray (Narcan) .COMPLEX PRN overdose pantoprazole 20 mg tablet,delayed 20 mg PO BID@12/23/19 07/16/22 07/16/22 History release simvastatin 40 mg tablet 40 mg PO BEDTIME 12/23/19 07/16/22 07/15/22 History fluoxetine 40 mg capsule 40 mg PO QAM 02/08/21 07/16/22 07/16/22 History hydrocodone 10 mg-acetaminophen See Rx Instructions .Route .COMPLEX 02/08/21 07/16/22 07/16/22 10:00 History 325 mg tablet albuterol sulfate 90 mcg/actuation 2 puff inhalation Q6H PRN 06/18/22 07/16/22 Unknown History aerosol inhaler Shortness Of Breath fentanyl 100 mcg/hr transdermal 100 mcg transdermal Q72H 06/18/22 07/16/22 07/16/22 History patch on pts back per husb lisinopril 2.5 mg tablet 2.5 mg PO QAM 06/18/22 07/16/22 07/16/22 History lorazepam 2 mg/mL oral concentrate 0.5 - 1 mg PO Q2H PRN Anxiety 06/18/22 07/16/22 Unknown History (Lorazepam Intensol) nitrofurantoin 100 mg PO BID 06/18/22 07/16/22 07/16/22 History monohydrate/macrocrystals 100 mg capsule (Macrobid) ondansetron 4 mg disintegrating 4 mg PO Q6H PRN Nausea 06/18/22 07/16/22 Unknown History tablet tiotropium bromide 18 mcg capsule 1 cap inhalation DAILY 06/18/22 07/16/22 Unknown History with inhalation device (Spiriva with HandiHaler) exemestane 25 mg tablet 25 mg PO QAM 07/16/22 07/16/22 07/16/22 History nitroglycerin 0.4 mg sublingual 0.4 mg sublingual Q5M PRN Chest 07/16/22 07/16/22 Unknown History tablet (Nitrostat) Pain nystatin 100,000 unit/gram topical 1 applic topical BID 07/16/22 07/16/22 Unknown History powder (Nystop) ropinirole 0.5 mg tablet 1 mg PO BEDTIME 07/16/22 07/16/22 07/15/22 History Allergies Allergy/AdvReac Type Severity Reaction Status Date / Time adhesive tape Allergy Unknown ALGY-Hives Verified 06/05/22 14:31 heparin (porcine) Allergy Unknown Verified 06/05/22 14:31 morphine Allergy ALGY-Hives Verified 06/05/22 14:31 oxytetracycline Allergy ALGY-Anaphy Verified 06/05/22 14:31 [From Terramycin] laxis Tetanus Vaccines and Toxoid Allergy Unknown Verified 06/05/22 14:31 cimetidine [From Tagamet] AdvReac ADR-Abdominal Verified 06/05/22 14:31 Pain hydromorphone [From Dilaudid] AdvReac ADR-Halluci Verified 06/05/22 14:31 nating Current Medications Generic Name Dose Route Start Last Admin Trade Name Renate PRN Reason Stop Dose Admin Atorvastatin Calcium 20 mg 07/16/22 21:00 07/16/22 22:50 Atorvastatin 40 Mg Tablet PO 20 mg BEDTIME JANIS Administration Exemestane 25 mg 07/17/22 06:00 07/17/22 07:14 Exemestane 25 Mg Tablet PO Not Given QAM JANIS Fentanyl 1 patch 07/16/22 20:00 07/16/22 22:53 Fentanyl 100 Mcg Patch TRANSDERMA Not Given Q72H JANIS Fluoxetine HCl 40 mg 07/17/22 06:00 07/17/22 07:13 Fluoxetine 20 Mg Capsule PO 40 mg QAM JANIS Administration Gemfibrozil 600 mg 07/16/22 21:00 07/17/22 06:35 Gemfibrozil 600 Mg Tablet PO Not Given BID@ JANIS Dextrose/Sodium Chloride 1,000 mls @ 50 mls/hr 07/16/22 16:45 07/17/22 06:35 Dextrose 5%-Sod Chloride 0.9% IV Not Given .Q20H JANIS Lisinopril 2.5 mg 07/17/22 06:00 07/17/22 07:14 Lisinopril 2.5 Mg Tablet PO 2.5 mg QAM JANIS Administration Nitrofurantoin Macrocrystals 100 mg 07/16/22 18:00 07/16/22 21:39 Nitrofurantoin Sr (Bid) 100 Mg Capsule PO 100 mg BID JANIS Administration Oxycodone/Acetaminophen 1 tab 07/16/22 16:38 07/17/22 04:49 Oxycodone-Apap 10-325 Mg Tablet PO 1 tab Q4H PRN Administration SEVERE PAIN Ropinirole HCl 1 mg 07/16/22 21:00 07/16/22 22:48 Ropinirole 1 Mg Tablet PO 1 mg BEDTIME JANIS Administration Tiotropium [place] 18 mcg 07/17/22 09:00 07/17/22 08:39 Tiotropium 18 Mcg Mdi INHALATION Not Given DAILY JANIS PFSH Anesthesia Medical History Anxiety Bilateral malignant neoplasm of breast in female COPD (chronic obstructive pulmonary disease) CVA (cerebral vascular accident) GERD (gastroesophageal reflux disease) Hospice care Hyperlipidemia Hypertension Hyperthyroidism Morbid obesity ROSEMARIE (obstructive sleep apnea) Surgical History H/O cervical spine surgery H/O: hysterectomy History of bilateral breast biopsy History of cholecystectomy History of colon resection History of open reduction and internal fixation (ORIF) procedure left femur Status post right knee replacement Family History Grandfather Diabetes Maternal Grandmother Diabetes Maternal Kidney failure Maternal Grandmother Diabetes Paternal Grandfather Diabetes Paternal Family/Other Diabetes Aunt Mother , Age 99 Hypertension Cancer Leukemia Father Myocardial infarction Hypertension Brother Hypertension Cancer Prostate Denies family history of Anesthesia complication Bleeding disorder Social History Smoking and tobacco status: current every day smoker (1 ppd) cigarettes [ Other cigarette details: 11/27-11/25 PPD] Alcohol intake: never Lives independently: Yes Household members: spouse Marital status: Current occupational status: disabled History of recent travel: No Data Anesthesia : 07/17/22 05:26 07/17/22 05:26 Short CBC 07/16/22 07/17/22 Range/Units 12:00 05:26 WBC 10.5 H 8.1 (4.0-10.0) 10^3/uL Hgb 8.7 L 7.4 L (11.5-15.3) g/dL Hct 28.7 L 25.1 L (37.0-47.0) % MCV 100.0 H 102.9 H (81-99) fl Plt Count 233 218 (130-400) 10^3/cmm Neut % (Auto) 85.5 74.2 % Neut # (Auto) 9.02 H 5.99 (1.8-7.7) 10^3/uL BMP 07/16/22 07/17/22 12:00 05:26 Sodium 140 139 Potassium 5.0 4.9 Chloride 98 99 Carbon Dioxide 32 H 32 H BUN 31 H 35 H Creatinine 1.2 H 1.5 H Glucose 95 95 Calcium 10.2 9.3 Liver Function 07/16/22 07/17/22 Range/Units 12:00 05:26 Total Bilirubin 0.2 0.2 (0.15-1.2) mg/dL AST 12 14 (0-32) U/L ALT < 5 < 5 (0-33) U/L Alkaline Phosphatase 184 H 151 H (35-105) U/L Albumin 3.8 3.3 L (3.5-5.2) g/dL Cardiac Studies: Echocardiogram 05/16/21
[2022-07-17] MEDS: fentaNYL 50 mcg/mL INJ 2mL IVP ×2 (10:02→13:40)
[2022-07-17] MEDS: sodium chloride 0.9% 1,000 ML 30 ML IV (10:03)
--- NOTE | 2022-07-17 10:18 | PC.NURSE ---
0823 Pt was taken to surgery.
--- NOTE | 2022-07-17 15:45 | P.PN_ITS ---
Subjective Subjective: Patient seen and evaluated this morning. Stable with no issues overnight. Plan for or today for right femur ORIF with retrograde nail. Patient understands and agrees with plan. Vitals/I&O/Wt Last Vital Signs Temp 97.9 F 07/17/22 08:40 Pulse 71 07/17/22 14:00 Resp 16 07/17/22 14:00 BP 116/50 07/17/22 14:00 Pulse Ox 98 07/17/22 14:00 O2 Del Method 07/17/22 14:00 O2 Flow Rate 4 07/17/22 14:00 07/17/22 07/17/22 07/17/22 06:59 14:59 22:59 Intake Total 120 / 120 Output Total Balance 119 / 119 Weight last 48 hrs Weight 255 lb Physical Exam Narrative: Orthopedic examination: Patient's right lower extremity in knee immobilizer splint as body habitus could not accommodate posterior splint. Patient resting comfortably. She is able to follow commands. Tenderness to palpation at fracture site right femur. She is able to wiggle her toes plantarflex and dorsiflex the ankle. Denies the sensation intact to the right lower extremity at the tibial, saphenous, sural nerve distribution as well as SPN/DPN. Distal pulses palpable. Right lower extremity warm well perfused Data : 07/17/22 05:26 07/17/22 05:26 A&P Assessment and plan (1) Closed femur fracture: Status: Acute Plan - N.p.o. since midnight -A.m. labs -Review imaging -Obtain consent -Nonweightbearing right lower extremity -Maintain knee immobilizer right lower extremity -Plan for OR today for right femur open reduction internal fixation with retrograde nail Attestations Medical Necessity Statement*: Patient sustained comminuted right periprost hetic distal femur fracture. Fracture displacement comminution will require surgery with right femur retrograde nail fixation. Patient will require more than 2 nights for postoperative follow-up and monitoring. Coding Level of Care Code Acute Brick Chimney Builder for Ted San Diagnoses Closed femur fracture S72.90XA
--- NOTE | 2022-07-17 15:52 | W.PM.OPSUD ---
Surgery/Procedure H&P Update DATE OF PROCEDURE: July 17, 2022 DATE H&P PERFORMED: 07/16/22 CHANGES TO PREVIOUS DOCUMENTATION: None PRIMARY INDICATION FOR PROCEDURE: Comminuted displaced right periprosthetic distal femur fracture PLANNED PROCEDURE: Operation Date: 07/17/22 13:00 Proposed Procedures p Retrograde IM Nail Femur(Right) - Ang Ramirez DO
--- NOTE | 2022-07-17 15:55 | PM.PN ---
Subjective Subjective: No acute overnight and no acute overnight events. Taken for surgery this morning at 8 AM. Medications: Reviewed: Yes Vitals/I&O/Wt Last Vital Signs Temp 97.9 F 07/17/22 08:40 Pulse 71 07/17/22 14:00 Resp 16 07/17/22 14:00 BP 116/50 07/17/22 14:00 Pulse Ox 98 07/17/22 14:00 O2 Del Method 07/17/22 14:00 O2 Flow Rate 4 07/17/22 14:00 07/17/22 07/17/22 07/17/22 06:59 14:59 22:59 Intake Total 120 / 120 Output Total Balance 119 / 119 Weight last 48 hrs Weight 115.666 kg Physical Exam Narrative: General: No acute distress, AO x3 HEENT: PERRLA, pupils bilaterally equal and reactive Chest: Normal vesicular breath sounds, no added sounds, equal good air entry bilaterally CVS: S1-S2 regular, no murmurs, no tachycardia, no gallops, no rubs Abdomen: Soft, nontender, no organomegaly, bowel sounds present Neuro: No focal deficits Data : 07/17/22 05:26 07/17/22 05:26 A&P Assessment and plan (1) Closed femur fracture: Closed fracture of the femur Plan for surgical fixation today Status: Acute (2) COPD (chronic obstructive pulmonary disease): Advanced COPD, patient currently on hospice management for the same. Given her goals of care, will hold off on doing any frequent ABGs. BiPAP if tolerates and compatible with goals of care Status: Acute (3) Hospice care: Discharge back to hospice once fracture is surgically corrected. Status: Acute Plan Optimal pain control, Attestations Medical Necessity Statement*: surgical fixation today Coding Level of Care Code Acute Certified Travel Counselor for g Fwd Diagnoses Closed femur fracture S72.90XA COPD (chronic obstructive pulmonary disease) J44.9 Hospice care Z51.5
[2022-07-17] MEDS: ceFAZolin 3,000 MG in sodium chloride 0.9% (100 ml) 100 ML 200 MG IV (16:08)
--- NOTE | 2022-07-17 18:10 | SUR.OPER ---
called and updated no surgical progress.
--- NOTE | 2022-07-17 18:59 | PM.OP2 ---
Brief Operative Note Date of procedure: 07/17/22 Procedure Done: Right distal femur periprosthetic open reduction internal fixation with retrograde nail Estimated blood loss (mL): 250 Complications: None Post-op Plan: Patient recovering in PACU. Will be allowed weightbearing as tolerated to the right lower extremity for transfers. Patient may resume diet. Postoperative antibiotics. DVT prophylaxis and return to the floor. Coding Level of Care Code Acute Pocketed Spring Machine Operator for Ted San
--- NOTE | 2022-07-17 19:06 | XRR_ITS ---
PROCEDURE INFORMATION: Exam: XR Right Femur Exam date and time: 07/17/2022 7:45 PM Age: 72 years old Clinical indication: Screening exam; Postop; Prior surgery; Surgery date: Post-operative (0-2 days); Additional info: Postop retrograde femur nail TECHNIQUE: Imaging protocol: Radiologic exam of the Right femur. Views: 2 views. COMPARISON: CT lower leg RT wo con* [id number] 07/16/2022 4:51 PM FINDINGS: Bones/joints: Intramedullary marleny in the right femur with 2 proximal locking screws and multiple distal locking screws. Multiple screws transverse the comminuted displaced distal right femur fracture. Multiple large bone fragments are displaced. Right knee arthroplasty hardware. Soft tissues: Multiple skin madelin in the right lateral hip region and along the anterior, medial, and lateral knee. XR/XR femur RT min 2V* [id number] IMPRESSION: 1. Intramedullary marleny fixation of the severely comminuted displaced distal right femur fracture.
--- NOTE | 2022-07-17 19:19 | ANE.PACU2 ---
Inpatient post-anesthesia follow up: Airway intact: Yes Vital signs: Temperature 97.9 F Pulse Rate 71 Respiratory Rate 16 Blood Pressure 116/50 Pulse Oximetry 98 Oxygen Delivery Me thod Nasal Cannula Oxygen Flow Rate 10 Fraction of Inspir ed Oxygen Hydration adequate: Yes Nausea and vomiting: No Pain level: 1 Mental status: Baseline
--- NOTE | 2022-07-17 19:24 | PM.PACU ---
PACU note Narrative: Patient seen and evaluated in PACU. Patient awakened from anesthesia. Patient able to follow commands. Patient mild discomfort secondary to pain. Patient stable. Patient will get postoperative x-rays and return to the floor. Exam: awake, vital signs stable (Length alignment and rotation assessed and comparable clinically to the contralateral extremity) and other (Patient's dressing on in place clean dry intact to the right lower extremity. Patient's right lower extremity warm well-perfused distal pulses palpable. Patient is able to wiggle her toes plantarflex and dorsiflex ankle. Patient endorses sensation intact light touch in the right lower extremity, ) Disposition: back to floor
--- NOTE | 2022-07-17 19:27 | PM.OP ---
Operative Report Date of procedure: July 17, 2022 Pre-op diagnosis: Right periprosthetic distal femur fracture Post-op diagnosis: Same Post-op findings: See procedure note
[2022-07-17] MEDS: atorvastatin 40 mg Tablet 20 MG PO (22:01)
[2022-07-17] MEDS: acetaminophen 500 mg Tablet 1000 MG PO (22:01)
[2022-07-17] MEDS: gemfibrozil 600 mg Tablet PO (22:01)
[2022-07-17] MEDS: ropinirole 1 mg Tablet PO (22:01)
[2022-07-17] MEDS: chlorhexidine gluconate 0.12% Btl 473 mL 30 ML MUCOUS MEM (22:03)
[2022-07-17] MEDS: ketorolac 10 mg Tablet PO (22:10)
--- NOTE | 2022-07-17 23:17 | P.OP_ITS ---
Operative Report Date of procedure: July 17, 2022 Pre-op diagnosis: Right periprosthetic distal femur fracture Post-op diagnosis: Same Post-op findings: See procedure note in detail Procedure done: Right periprosthetic distal femur fracture retrograde nail Implants: [place] supracondylar nail 10 mm x 320 mm Distal locking screws 80 mm, 85 mm, 70 condylar screw, 90 condylar screw Proximal screws 40mm, 40mm Specimens removed/disposition: None Pathology: None Surgeon: Ang Ramirez DO Estimated blood loss: 250 mL None IV fluids: See anesthesia record Complications: None Findings: See detailed procedure note Condition: stable Brief History: Patient 72-year-old female who sustained a right distal femur periprosthetic fracture. She is initially seen and evaluated the emergency department. She was admitted by hospitalist team and medically optimized. Pertinent history to patient's is morbidly obese as well as currently on hospice secondary to COPD and breast cancer. Talking with patient as well as at bedside her baseline functioning status is mobilizes to transfer but minimal ambulation at baseline. We had detailed discussion with her about treatment options as far as nonoperative and operative intervention. This point time feel nonoperative intervention will cause patient to continue to have persistent pain be bed ridden with further complications of pneumonia and decreased mobility. I expressed my concerns that if we left this alone given that patient is on hospice however her anticipated life expectancy talking with on her is beyond 6 weeks at this point time I feel would be appropriate for patient's pain control as well as ability to weight-bear as tolerated with mobility for transfers. Through shared decision making patient as well as understand and agree to proceed with surgical intervention. All questions answered. Consent obtained after detailing the risk benefits complications and alternatives of surgery which include but are not limited to make it better, make it worse heart attack stroke on the table, blood loss infection malunion nonunion, injury to arteries nerves or vessels. Patient understood and agreed to proceed. Procedure: Patient was seen in the preoperative holding area. After patient was medically optimized by the internal medicine team as well as cleared by anesthesia elected to proceed with surgery. Final consent was confirmed with patient in the preoperative holding area. Patient was then brought to the operative suite and underwent spinal anesthesia per the anesthesia department. She was then transferred to flattop [place] table. She was appropriately secured and all bony prominences were well-padded. The right lower extremity was then prepped and draped in standard orthopedic fashion. A final timeout was performed confirming appropriate patient correct site of surgery as well as correct procedure. Initially large fluoroscopic C-arm was then brought in to evaluate fracture pattern as well as its ability for manipulation during her reduction. Once appropriate assessment as well as ability to obtain appropriate imaging we then proceeded with surgery. Previous total knee incision was used starting at the inferior pole of patella to the tibial tubercle. Full-thickness skin flaps directly down to the peritenon which was incised and the patellar tendon was incised at the mid substance. Fracture hematoma was evacuated out of the knee joint. The knee was held over radiolucent triangle with preparation for retrograde nailing. Once hematoma evacuated we then obtained a perfect AP and lateral imaging to obtain her start point with a starting guard guidewire. Once were in center center position we then proceeded. Of note patient did have patella [place] which did cause her starting point to be slightly posterior however given her current condition I feel as though intramedullary device would be most beneficial for this patient as well as minimal incision given her body habitus. This point we elected to proceed with plan that we might have to choose a smaller nail with care not to ream out the the patella. Once were satisfied with our starting point we then utilized an opening reamer and then long ball- tipped guidewire was passed the fracture into the proximal segment was placed in appropriate position just above the lesser trochanter. Once satisfied with our placement we evaluate our fracture site with longitudinal traction as well as placement of bumps we obtained appropriate fracture site reduction maintaining length alignment and rotation. Once this was done we then measured appropriate length nail and began subsequently reaming. It was noted once we got to 11 reamer but this was going to be tight as were entering the knee joint given the patient's patellar baja in order to avoid reaming out the patella with a larger diameter reamer we elected to proceed with a 10 mm nail. Appropriate length was measured to 320 mm. We then loaded the [place] supracondylar nail and then this was impacted appropriate depth with care to allow us to obtain for solid screws distally just above the pegs of the total knee implant. Once were satisfied with our position we then proceeded with our distal locking fixation. We started with our 2 supracondylar bolt switch or placed at the most proximal most distal aspects of the nail. These were done with 2 small incisions both medially and laterally these were drilled measured appropriate length and were then placed with excellent fixation. Once her [address] we then proceeded with our 2 oblique distal locking screws these were subsequently drilled measured and appropriate length screws were placed. These were confirmed with mini C-arm on orthogonal images to be appropriate length and depth. Next while maintaining a reduction and confirming in AP and lateral planes at our fracture was in acceptable length alignment and rotation proceeded with our locking fixation. There was significant comminution at the fracture site there was potentially a subtle extension of the implant compared to baseline however this was for secondary to patient's baja forcing our starting point to be slightly posterior however overall decision was made to continue to proceed as this was I felt appropriate and acceptable for this patient. X perfect kasaan technique was used proximally utilizing 1 incision utilized blunt spreading dissection with tonsils through the quadriceps muscle with care to go directly onto bone. Once on bone utilize perfect kasaan technique to place our 2 locking screws proximally which were drilled measured and appropriate length screws were placed. Once were done we then obtained final imaging of the femur which showed stable fixation with retrograde nail as well as appropriate reduction maintaining length alignment rotation for patient. Wounds were then thoroughly irrigated. Patient incisions were then closed with 0 Vicryl 2-0 Vicryl and madelin. Incisions were then covered with [place] dressings. Patient was then awakened from anesthesia and taken to PACU in stable condition Disposition: Patient will return to the floor. Patient will be weightbearing as tolerated for transfers to the right lower extremity. Receive appropriate postoperative antibiotics, DVT prophylaxis and pain control postoperatively. Patient will get up and work with physical therapy. Patient will follow up in 2 weeks upon discharge.
[2022-07-18] VITALS (33 sets, daily range): BP systolic 73–120; BP diastolic 44–69; PULSE 65–97; RESP 12–24; TEMP 36.6–37.2; O2SAT 94–100
[2022-07-18] MEDS: dextrose 5%-sod chloride 0.9% 1,000 ML 50 ML IV ×2 (01:00→20:19)
[2022-07-18] MEDS: ceFAZolin 3,000 MG in sodium chloride 0.9% (100 ml) 100 ML 200 MG IV ×3 (01:01→17:39)
[2022-07-18 02:02] LABS: Urine Appearance Clear (CLEAR); Urine Color Yellow (Yellow); pH Urine 5 (5-7)
[2022-07-18 02:03] LABS: Add Urine Microscopic? YES; Bilirubin Urine Neg (Negative); Blood Urine 3+ (Negative); Glucose Urine UA Norm (Normal); Ketones Urine Negative (Negative); Leukocyte Esterase Urine 2+ (Negative); Nitrate Urine Negative (Negative); Protein Urine 1+ (Negative); Specific Gravity, Urine 1.015 (1.005-1.030); Urobilinogen Urine Norm (Negative)
[2022-07-18 02:04] LABS: Bacteria Urine 2+ /hpf; RBC Urine TOO NUMEROUS TO CNT /hpf (0-2); Squamous Epithelial Cell Urine 0-4 /hpf (0-5); WBC Urine TOO NUMEROUS TO CNT /hpf (0-5)
[2022-07-18 02:05] LABS: Add Urine Culture? Yes
[2022-07-18] MEDS: sodium chloride 0.9% 500 ML 999 ML IV ×2 (03:17→05:34)
--- NOTE | 2022-07-18 04:11 | PC.NURSE ---
Fentanyl patch was discovered on patient's middle back. Patient was unsure of when the patch was placed, but stated, I believe they placed it on Friday. This nurse removed the patch and wasted it with SORIN Acevedo.
[2022-07-18] MEDS: acetaminophen 500 mg Tablet 1000 MG PO ×3 (05:33→20:14)
[2022-07-18] MEDS: fluoxetine 20 mg Capsule 40 MG PO (05:34)
[2022-07-18 05:50] LABS: Basophils % 0.1 %; Eosinophils % 0.2 %; Lymphocytes # 0.8 10^3/uL (0.8-4.8); Lymphocytes % 9.2 %; Mean Corpuscular HGB Conc 29.3 g/dL (30.0-36.0); Mean Corpuscular Hemoglobin 30.6 pg (28.0-34.0); Mean Corpuscular Volume 104.4 fl (81-99); Mean Platelet Volume 10.8 fL (7.4-10.4); Monocytes # 0.9 10^3/uL (0.2-0.9); Monocytes % 9.5 %; Neutrophils # 7.27 10^3/uL (1.8-7.7); Neutrophils % 80.7 %; Nucleated Red Blood Cells % 0 %; Platelet Count 170 10^3/cmm (130-400); Red Cell Distribution Width 13.2 % (12.1-15.1)
[2022-07-18 06:13] LABS: Hemoglobin 5.5 g/dL (11.5-15.3)
[2022-07-18 06:14] LABS: Hematocrit 18.8 % (37.0-47.0)
[2022-07-18 06:59] LABS: Anion Gap 15.4 (5-19); Blood Urea Nitrogen 41 mg/dL (8-23); Calcium 8.1 mg/dL (8.5-10.5); Carbon Dioxide 26 mmol/L (22-29); Chloride 99 mmol/L (98-107); Glucose 104 mg/dL (65-115); Osmolality Calculated 292 mOsm/kg (285-295); Potassium 4.4 mmol/L (3.5-5.1); Sodium 136 mmol/L (136-145)
[2022-07-18] MEDS: midodrine 5 mg TABLET 10 MG PO ×3 (07:19→22:26)
[2022-07-18] MEDS: lactated ringers 1,000 ML 999 ML IV (07:20)
[2022-07-18] MEDS: multivitamin therapeutic Tablet 1 TAB PO (08:03)
[2022-07-18] MEDS: nitrofurantoin SR (BID) 100 mg Capsule PO ×2 (08:03→17:42)
[2022-07-18] MEDS: sennosides-docusate Tablet 2 TAB PO ×2 (08:03→17:42)
[2022-07-18] MEDS: gemfibrozil 600 mg Tablet PO ×2 (08:03→20:15)
[2022-07-18] MEDS: cholecalciferol (vitamin D3) 1,000 unit Tablet 1000 UNIT PO (08:03)
[2022-07-18] MEDS: pantoprazole 40 mg SDV IVP ×2 (08:03→18:54)
[2022-07-18] MEDS: calcium carb-vit d 600mg/400unit 1 Tablet 1 EACH PO ×2 (08:03→17:42)
[2022-07-18] MEDS: mupirocin oint 22 gm 1 APPLIC NASAL ×2 (08:03→17:42)
[2022-07-18] MEDS: iron polysaccharide complex 150 mg Capsule PO ×2 (08:03→17:42)
[2022-07-18] MEDS: chlorhexidine gluconate 0.12% Btl 473 mL 30 ML MUCOUS MEM ×4 (08:55→20:15)
[2022-07-18] MEDS: nystatin powder 15 gm Btl 1 APPLIC TOPICAL ×2 (10:33→17:42)
[2022-07-18] MEDS: sucralfate 1 gm Tablet PO ×3 (12:08→20:15)
[2022-07-18] MEDS: sodium chloride 0.9% (100 ml) 100 ML ×2 (12:09→14:47)
--- NOTE | 2022-07-18 12:13 | P.PN_ITS ---
Subjective Subjective: Patient seen and examined this morning. Patient denies any issues overnight. States her pain feels much more controlled since surgery. Patient's a.m. labs does show drop in hemoglobin to 5.5. Hospitalist team has 2 units of packed red blood cells ordered and patient about to receive. On my evaluation today this morning she is more alert this morning. Her right lower extremity is examined with no saturation of her dressings and her thigh is warm well perfused and compartment soft compressible. At this point likely secondary to blood loss from surgery as well as dilutional as well as patient starting with a lower hemoglobin prior to surgery. Vitals/I&O/Wt Last Vital Signs Temp 98.8 F 07/18/22 12:04 Pulse 65 07/18/22 12:04 Resp 12 07/18/22 12:04 BP 90/61 07/18/22 12:04 Pulse Ox 100 07/18/22 12:04 O2 Del Method 07/18/22 09:47 O2 Flow Rate 4 07/18/22 09:47 07/17/22 07/18/22 07/18/22 22:59 06:59 14:59 Intake Total 1040 / 1040 970 / 2010 2803.5 / 2803.5 Output Total 450 / 450 200 / 650 Balance 590 / 590 770 / 1360 2803.5 / 2803.5 Weight last 48 hrs Weight 255 lb Physical Exam Narrative: Patient seen examined this morning. She is alert responsive and follows commands. Still tenderness to palpation of the right femur. Patient is able to wiggle toes plantarflex dorsiflex ankle. Patient endorses sensation intact light touch the right lower extremity DP and posterior tib pulses are palpable. Compartments are soft and compressible. Right lower extremity warm well perfused. Dressings are clean dry and intact. Urinary Catheter Management: Carlton: Cath Placed During This Visit: yes Reason for Continuing Indwelling Catheter: Perioperative Use in Selected Surgeries Urinary Catheter Date of Insertion: 07/17/22 Urinary Catheter Time of Insertion: 16:15 Data : 07/18/22 05:35 07/18/22 05:35 Xray Ortho: My impression: Postoperative x-rays demonstrate interval placement of right retrograde nail for right periprosthetic distal femur fracture. A&P Assessment and plan (1) Closed femur fracture: Status: Acute Plan Orthopedics: -Weightbearing as tolerated to the right lower extremity for transfers -Low hemoglobin this morning and receiving 2 units packed red blood cells per primary team -Hospitalist for medical management -Pain control -DVT prophylaxis -PT/OT -X-rays reviewed -Complete postoperative antibiotics Attestations Medical Necessity Statement*: Patient's status post retrograde nail right femur. She will require hospitalization for postoperative monitoring as well as therapy. Coding Level of Care Code Acute Cabinetmaker Apprentice for [facility] Diagnoses Closed femur fracture S72.90XA Time Spent (min) 25
[2022-07-18] MEDS: oxyCODONE-APAP 10-325 mg Tablet 1 TAB PO ×2 (14:54→22:24)
[2022-07-18] MEDS: atorvastatin 40 mg Tablet 20 MG PO (20:15)
[2022-07-18] MEDS: ropinirole 1 mg Tablet PO (20:15)
[2022-07-18 21:43] LABS: Hematocrit 22.3 % (37.0-47.0); Hemoglobin 6.9 g/dL (11.5-15.3)
--- NOTE | 2022-07-18 21:44 | P.PN_ITS ---
Subjective Subjective: Hb dropped to 5.5 this morning. C/o pain post surgery. Started on po midodrine overnight due to soft blood pressure systolic 80s. Getting 2 units blood transfusion today Medications: Reviewed: Yes Vitals/I&O/Wt Last Vital Signs Temp 98.4 F 07/18/22 17:32 Pulse 78 07/18/22 20:18 Resp 20 H 07/18/22 20:18 BP 91/56 07/18/22 17:32 Pulse Ox 96 07/18/22 20:18 O2 Del Method 07/18/22 20:18 O2 Flow Rate 3 07/18/22 20:18 07/18/22 07/18/22 07/18/22 06:59 14:59 22:59 Intake Total 970 / 2010 3493.5 / 3493.5 1112.5 / 4606.0 Output Total 200 / 650 375 / 375 Balance 770 / 1360 3493.5 / 3493.5 737.5 / 4231.0 Weight last 48 hrs Weight 115.666 kg Physical Exam Narrative: General: No acute distress, AO x3, chronically ill woman lying in bed HEENT: PERRLA, pupils bilaterally equal and reactive, pallors not present Chest: Normal vesicular breath sounds anteriorly CVS: S1-S2 regular, no murmurs, no tachycardia, no gallops, no rubs Abdomen: Soft, nontender, no organomegaly, bowel sounds present Extremities: right leg dressing just above the knee Urinary Catheter Management: Carlton: Cath Placed During This Visit: yes Reason for Continuing Indwelling Catheter: Required Immobilization for Trauma or Surgery or Anesthesia Urinary Catheter Date of Insertion: 07/17/22 Urinary Catheter Time of Insertion: 16:15 Data : 07/18/22 21:20 07/18/22 05:35 A&P Assessment and plan (1) Closed femur fracture: Closed fracture of the femur s/p surgical fixation 07/17 post anemia with Hb 5.5 this morning transfused 2 units, check hb post transfusion d/c eliquis for DVT ppx will start ASA 325mg once Hb stabilizes Status: Acute (2) COPD (chronic obstructive pulmonary disease): Advanced COPD, patient currently on hospice management for the same. . Given her goals of care, will hold off on doing any frequent ABGs. BiPAP if tolerates and compatible with goals of care Status: Acute (3) Hospice care: Discharge back to hospice once fracture is surgically corrected. Status: Acute Plan Dispo: D/c back on home hospice once HB improves and stabilizes Attestations Medical Necessity Statement*: acute blood loss anemia, needs transfusion Coding Level of Care Code Acute Loading Unit Operator Powder Charging for [facility] Fwd Diagnoses Closed femur fracture S72.90XA COPD (chronic obstructive pulmonary disease) J44.9 Hospice care Z51.5
[2022-07-19] VITALS (11 sets, daily range): BP systolic 95–119; BP diastolic 44–71; PULSE 61–81; RESP 16–18; TEMP 36.3–37.1; O2SAT 94–99
[2022-07-19] MEDS: sodium chloride 0.9% (100 ml) 100 ML 20 ML (02:15)
[2022-07-19 04:48] LABS: Basophils % 0.2 %; Eosinophils # 0.1 10^3/uL (0.0-0.8); Eosinophils % 0.7 %; Hematocrit 25.1 % (37.0-47.0); Hemoglobin 7.5 g/dL (11.5-15.3); Lymphocytes % 10.5 %; Mean Corpuscular HGB Conc 29.9 g/dL (30.0-36.0); Mean Corpuscular Hemoglobin 29.6 pg (28.0-34.0); Mean Corpuscular Volume 99.2 fl (81-99); Mean Platelet Volume 10.6 fL (7.4-10.4); Monocytes % 10.5 %; Neutrophils % 77.6 %; Nucleated Red Blood Cells % 0 %; Platelet Count 160 10^3/cmm (130-400); Red Blood Count 2.53 10^6/uL (4.1-5.3); Red Cell Distribution Width 15.6 % (12.1-15.1); White Blood Count 9.7 10^3/uL (4.0-10.0)
[2022-07-19] MEDS: acetaminophen 1,000 MG/100 ML PIGGYBACK 400 MG IV ×2 (05:56→14:43)
[2022-07-19] MEDS: pantoprazole 40 mg SDV IVP (06:26)
[2022-07-19] MEDS: midodrine 5 mg TABLET 10 MG PO ×2 (06:26→14:45)
[2022-07-19] MEDS: fluoxetine 20 mg Capsule 40 MG PO (06:26)
[2022-07-19] MEDS: sucralfate 1 gm Tablet PO ×2 (06:26→11:09)
[2022-07-19 07:31] LABS: Alanine Aminotransferase < 5 U/L (0-33); Albumin Level 2.6 g/dL (3.5-5.2); Alkaline Phosphatase 112 U/L (35-105); Aspartate Amino Transferase 19 U/L (0-32); Blood Urea Nitrogen 40 mg/dL (8-23); Calcium 8.6 mg/dL (8.5-10.5); Carbon Dioxide 25 mmol/L (22-29); Chloride 102 mmol/L (98-107); Globulin 2.6 g/dL (1.3-4.6); Glucose 98 mg/dL (65-115); Osmolality Calculated 292 mOsm/kg (285-295); Sodium 136 mmol/L (136-145); Total Bilirubin 0.3 mg/dL (0.15-1.2); Total Protein 5.2 g/dL (6.6-8.7)
--- NOTE | 2022-07-19 08:40 | PM.PN ---
Subjective Subjective: Patient seen and examined this morning. Patient able to have conversation. And follow commands. She does complain of pain in her right leg. Right lower extremity incisions dressings are clean dry and intact. Her right thigh is palpated and compartments are soft and compressible. She has normal postoperative swelling and ecchymosis to the right femur. She is able to wiggle her toes and plantarflex and dorsiflex ankle. Distal pulses palpable. Had discussion with hospitalist this morning and patient was receiving her third and final unit of blood this morning and a recheck was 7.5 which she is chronically anemic. Per hospitalist team will recheck hemoglobin prior to discharge. At this point given she is on hospice and requesting to go home as soon as possible hospitalist was okayed patient for discharge to return to hospice. She will discharge later today if hemoglobin stable. She will discharge home on 325 aspirin daily which the hospitalist and I both discussed and agree would be in patient's best interest. Vitals/I&O/Wt Last Vital Signs Temp 98.3 F 07/19/22 16:07 Pulse 74 07/19/22 16:07 Resp 16 07/19/22 16:07 BP 119/67 07/19/22 16:07 Pulse Ox 96 07/19/22 16:07 O2 Del Method 07/19/22 08:00 O2 Flow Rate 3 07/19/22 08:00 07/19/22 07/20/22 07/20/22 22:59 06:59 14:59 Intake Total 100 / 700 Balance 100 / -1300 Physical Exam Narrative: Patient seen and examined this morning. She is alert responsive follows commands. Tenderness palpation at fracture site. Patient's incisions are clean dry and intact she is able to wiggle her toes, plantarflex and dorsiflex her ankle. Sensation intact to light touch to the right lower extremity. Distal pulses palpable. And compared to contralateral extremity overall length alignment and rotation appear comparable Urinary Catheter Management: Carlton: Cath Placed During This Visit: yes Reason for Continuing Indwelling Catheter: Required Immobilization for Trauma or Surgery or Anesthesia Urinary Catheter Date of Insertion: 07/17/22 Urinary Catheter Time of Insertion: 16:15 Data : 07/19/22 11:34 07/19/22 06:56 Micro: Microbiology 07/18/22 01:15 Urine Culture - Preliminary Urine,Clean Catch A&P Assessment and plan (1) Closed femur fracture: Status: Resolved Plan - May weight-bear as tolerated for transfers to the right lower extremity -Keep incisions clean dry and intact, dressings may remain on and in place until follow-up or may be changed if saturated -Ice as needed -Aspirin 325 DVT prophylaxis -Patient received 3 units PRBC in total during hospitalization hemoglobin up to 7.5 -Hospitalist is primary appreciate their management -PT/OT -Pain control -Plan for discharge home today to hospice Attestations Medical Necessity Statement*: Patient had right periprosthetic distal femur fracture was treated with retrograde nail. Patient's required 3 units PRBC. Hemoglobin stable. Patient's required postoperative monitoring as well as therapy. Coding Level of Care Code Acute Clinical Project Coordinator for [facility] Diagnoses Closed femur fracture S72.90XA Time Spent (min) 25
[2022-07-19] MEDS: nitrofurantoin SR (BID) 100 mg Capsule PO (08:52)
[2022-07-19] MEDS: sennosides-docusate Tablet 2 TAB PO (08:52)
[2022-07-19] MEDS: oxyCODONE-APAP 10-325 mg Tablet 1 TAB PO (08:52)
[2022-07-19] MEDS: cholecalciferol (vitamin D3) 1,000 unit Tablet 1000 UNIT PO (08:53)
[2022-07-19] MEDS: mupirocin oint 22 gm 1 APPLIC NASAL (08:53)
[2022-07-19] MEDS: iron polysaccharide complex 150 mg Capsule PO (08:53)
[2022-07-19] MEDS: calcium carb-vit d 600mg/400unit 1 Tablet 1 EACH PO (08:53)
[2022-07-19] MEDS: chlorhexidine gluconate 0.12% Btl 473 mL 30 ML MUCOUS MEM ×2 (08:56→14:45)
[2022-07-19] MEDS: nystatin powder 15 gm Btl 1 APPLIC TOPICAL (11:09)
[2022-07-19] MEDS: multivitamin therapeutic Tablet 1 TAB PO (11:09)
[2022-07-19] MEDS: gemfibrozil 600 mg Tablet PO (11:09)
--- NOTE | 2022-07-19 11:50 | P.DS_ITS ---
Discharge Providers Date of Admission: 07/16/22 16:02 Date of Discharge: July 19, 2022 Attending Provider at Admission: Magda Michaels MD Attending Provider at Discharge: Magda Michaels MD Primary Care Provider: Elayne Wyatt DO Diagnoses at Discharge Discharge Diagnosis (1) Closed femur fracture: Status: Acute (2) COPD (chronic obstructive pulmonary disease): Status: Acute (3) Hospice care: Status: Acute Reason for Visit Reason for Visit: fall Hospital Course Hospital Course 72 year old female with past medical history of obstructive sleep apnea, COPD, hypertension, hyperlipidemia, recently discharged on 06/19 after management of hypercapnic respiratory failure. Patient is on hospice secondary to COPD and breast cancer with goals of keeping patient comfortable with pain medication for back pain.? She was brought to the hospital after suffering a mechanical fall as she was getting out of bed.? Fell onto her left side.? There was no head injury.? X-ray of the right leg showed comminuted displaced and angulated fracture of the distal metaphysis of the femur.? Additional L1 endplate fracture is noted.?Given patient's location with the fracture there was a chance of neurovascular damage. She elected to proceed with management of the fracture surgically still in keeping with goals of palliation and quality of life. She underwent Right distal femur periprosthetic open reduction internal fixation with retrograde nail on 07/17/22. Post op course has been notable for acute on chronic anemia with HB drop to 5.5 for which she has received 3 units PRBC trans fusion. Hb at discharge is at 7.5. She is being discharged today back on home hospice in stable but chronically ill condition. ASA 325mg s chosen for DVT ppx given worsened anemia. Pain management with opiates, prn NSAIDs. Opiates may be titrated at home with home hospice as deemed appropriate. Physical Exam Narrative: General: No acute distress, AO x3, chronically ill appearing lady HEENT: PERRLA, pupils bilaterally equal and reactive, pallors + Chest: Normal vesicular breath sounds anteriorly CVS: S1-S2 regular, no murmurs, no tachycardia, no gallops, no rubs Abdomen: Soft, nontender, no organomegaly, bowel sounds present Neuro: No new focal motor deficits, no facial deformity, power 5/5 in all limbs Urinary Catheter Management: [place]: Cath Placed During This Visit: yes Reason for Continuing Indwelling Catheter: Required Immobilization for Trauma or Surgery or Anesthesia Urinary Catheter Date of Insertion: 07/17/22 Urinary Catheter Time of Insertion: 16:15 Discharge Data Studies Completed and Pending Completed Studies During Hospitalization Category Date Time Status CT abdomen pelvis w con* [id number] Stat Cat Scan 07/16/22 12:[address] femur RT wo con* [id number] Stat Cat Scan 07/16/22 15:27 Completed XR femur LT min 2V* [id number] Stat Exams 07/16/22 15:27 Completed XR femur RT min 2V* [id number] Routine Exams 07/17/22 00:00 Completed XR femur RT min 2V* [id number] Routine Exams 07/17/22 19:06 Completed XR knee LT 1-2V 40311 Stat Exams 07/16/22 15:27 Completed XR knee RT 3V* [id number] Stat Exams 07/16/22 12:30 Completed XR lumbar spine 2-3V* [id number] Stat Exams 07/16/22 12:22 Completed XR pelvis 1-2V* [id number] Stat Exams 07/16/22 11:16 Completed Pending at discharge Category Date Time Status Basic Metabolic Panel AM LABS Lab 07/20/22 04:00 Ordered Complete Blood Count w/Auto AM LABS Lab 07/20/22 04:00 Ordered HH [Hemoglobin and Hematocrit] Timed Lab 07/19/22 12:00 Ordered Urine Culture Stat Lab 07/18/22 01:15 Results Radiology Impressions Pelvis X-Ray 07/16/22 11:16 IMPRESSION: No definite fracture however, this is a nonstandard view. Lumbar Spine X-Ray 07/16/22 12:22 IMPRESSION: Limited examination due to the patient's size. No definite fracture seen. Abdomen/Pelvis CT 07/16/22 12:24 IMPRESSION: 1. Mild compression of the inferior endplate at L1 with sclerosis appears new or better seen since June 18, 2022. No significant retropulsion. 2. No other visualized compression fractures. 3. No other significant changes compared to June 18, 2022. 4. Previously described RIGHT upper pole renal lesion measuring 14 mm is indeterminant and solid renal neoplasm not excluded. Recommend continued surveillance in 6 months with contrast-enhanced CT abdomen pelvis 5. No other acute findings. Notified Doug Bird DO at 07/16/2022 1:[address] 07/16/22 15:27 IMPRESSION: Comminuted displaced distal femoral metaphyseal fracture above an intact well-aligned total knee prosthesis. Knee X-Ray 07/16/22 15:27 IMPRESSION: Effusion. Other chronic changes with arthritis. Femur X-Ray 07/17/22 19:06 IMPRESSION: 1. Intramedullary marleny fixation of the severely comminuted displaced distal right femur fracture. Laboratory Results WBC 9.7 10^3/uL (4.0-10.0) 07/19/22 04:30 RBC 2.53 10^6/uL (4.1-5.3) L 07/19/22 04:30 Hgb 7.5 g/dL (11.5-15.3) L 07/19/22 04:30 Hct 25.1 % (37.0-47.0) L 07/19/22 04:30 MCV 99.2 fl (81-99) H 07/19/22 04:30 MCH 29.6 pg (28.0-34.0) 07/19/22 04:30 MCHC 29.9 g/dL (30.0-36.0) L 07/19/22 04:30 RDW 15.6 % (12.1-15.1) H 07/19/22 04:30 Plt Count 160 10^3/cmm (130-400) 07/19/22 04:30 MPV 10.6 fL (7.4-10.4) H 07/19/22 04:30 Neut % (Auto) 77.6 % 07/19/22 04:30 Lymph % (Auto) 10.5 % 07/19/22 04:30 [place] % (Auto) 10.5 % 07/19/22 04:30 Eos % (Auto) 0.7 % 07/19/22 04:30 Baso % (Auto) 0.2 % 07/19/22 04:30 Neut # (Auto) 7.50 10^3/uL (1.8-7.7) 07/19/22 04:30 Lymph # (Auto) 1.0 10^3/uL (0.8-4.8) 07/19/22 04:30 [place] # (Auto) 1.0 10^3/uL (0.2-0.9) H 07/19/22 04:30 Eos # (Auto) 0.1 10^3/uL (0.0-0.8) 07/19/22 04:30 Baso # (Auto) 0.0 10^3/uL (0.0-0.1) 07/19/22 04:30 Nucleated RBC % (auto) 0 % 07/19/22 04:30 Nucleated RBCs # 0.0 /100WBC 07/19/22 04:30 Sodium 136 mmol/L (136-145) 07/19/22 06:56 Potassium 4.0 mmol/L (3.5-5.1) 07/19/22 06:56 Chloride 102 mmol/L (98-107) 07/19/22 06:56 Carbon Dioxide 25 mmol/L (22-29) 07/19/22 06:56 Anion Gap 13.0 (5-19) 07/19/22 06:56 BUN 40 mg/dL (8-23) H 07/19/22 06:56 Creatinine 1.5 mg/dL (0.5-0.9) H 07/19/22 06:56 GFR Calculation Not Reportable 07/19/22 06:56 Glucose 98 mg/dL (65-115) 07/19/22 06:56 Calculated Osmolality 292 mOsm/kg (285-295) 07/19/22 06:56 Calcium 8.6 mg/dL (8.5-10.5) 07/19/22 06:56 Total Bilirubin 0.3 mg/dL (0.15-1.2) 07/19/22 06:56 AST 19 U/L (0-32) 07/19/22 06:56 ALT < 5 U/L (0-33) 07/19/22 06:56 Alkaline Phosphatase 112 U/L (35-105) H 07/19/22 06:56 Total Protein 5.2 g/dL (6.6-8.7) L 07/19/22 06:56 Albumin 2.6 g/dL (3.5-5.2) L 07/19/22 06:56 Globulin 2.6 g/dL (1.3-4.6) 07/19/22 06:56 Urine Color Yellow (Yellow) 07/18/22 01:15 Urine Appearance Clear (CLEAR) 07/18/22 01:15 Urine pH 5 (5-7) 07/18/22 01:15 Ur Specific [place] 1.015 (1.005-1.030) 07/18/22 01:15 Urine Protein 1+ (Negative) H 07/18/22 01:15 Urine Glucose (UA) Norm (Normal) 07/18/22 01:15 Urine Ketones Negative (Negative) 07/18/22 01:15 Urine Blood 3+ (Negative) H 07/18/22 01:15 Urine Nitrate Negative (Negative) 07/18/22 01:15 Urine Bilirubin Neg (Negative) 07/18/22 01:15 Urine Urobilinogen Norm mg/dL (Negative) 07/18/22 01:15 Ur Leukocyte Esterase 2+ (Negative) H 07/18/22 01:15 Urine RBC Too numerous to cnt /hpf (0-2) H 07/18/22 01:15 Urine WBC Too numerous to cnt /hpf (0-5) H 07/18/22 01:15 Ur Squamous Epith Cells 0-4 /hpf (0-5) H 07/18/22 01:15 Amorphous Sediment Not Reportable 07/18/22 01:15 Urine Bacteria 2+ /hpf (NONE) H 07/18/22 01:15 Blood Type A Positive 07/17/22 05:26 Rho(D) Type Positive 07/17/22 05:26 Antibody Screen Negative 07/17/22 05:26 Crossmatch See Detail 07/17/22 05:26 Vitals Last Vital Signs Temp 98.3 F 07/19/22 11:21 Pulse 74 07/19/22 11:21 Resp 16 07/19/22 11:21 BP 119/67 07/19/22 11:21 Pulse Ox 96 07/19/22 11:21 O2 Del Method 07/19/22 08:00 O2 Flow Rate 3 07/19/22 08:00 Discharge Plan Discharge Patient Disposition: Hospice - Home Condition: Stable Prescriptions: New Ferrex 150 150 mg iron Capsule 150 mg PO BIDWM 30 Days Qty: 30 0RF aspirin 325 mg capsule 325 mg PO DAILY Qty: 30 0RF Rx Instructions: start on 07/21 Continued pantoprazole 20 mg tablet,delayed release (DR/EC) 20 mg PO BID@ gemfibrozil 600 mg tablet 600 mg PO BID@ simvastatin 40 mg tablet 40 mg PO BEDTIME Narcan 4 mg/actuation spray,non-aerosol See Rx Instructions .ROUTE .COMPLEX PRN (Reason: overdose) Rx Instructions: DIRECTED PRN OVERDOSE albuterol sulfate 2.5 mg /3 mL (0.083 %) solution for nebulization 2.5 mg INHALATION Q4H PRN (Reason: Shortness Of Breath) fluoxetine 40 mg capsule 40 mg PO QAM hydrocodone-acetaminophen 10-325 mg tablet See Rx Instructions .ROUTE .COMPLEX Rx Instructions: 1-2 TABS PO Q4-6H PRN PAIN (MAX OF 8 TABS PER DAY) fentanyl 100 mcg/hr patch 72 hour 100 mcg transdermal Q72H ondansetron 4 mg tablet,disintegrating 4 mg PO Q6H PRN (Reason: Nausea) lisinopril 2.5 mg Tablet 2.5 mg PO QAM nitrofurantoin monohyd/m-cryst [Macrobid] 100 mg Capsule 100 mg PO BID Rx Instructions: must administer with a meal/food albuterol sulfate 90 mcg/actuation Hfa Aerosol Inhaler 2 puff INHALATION Q6H PRN (Reason: Shortness Of Breath) lorazepam [Lorazepam Intensol] 2 mg/mL Concentrate 0.5 - 1 mg PO Q2H PRN (Reason: Anxiety) Spiriva with HandiHaler 18 mcg Capsule, W/Inhalation Device 1 cap INHALATION DAILY Rx Instructions: puncture 1 cap using device; one dose = 2 inhalations exemestane 25 mg tablet 25 mg PO QAM Rx Instructions: must administer after a meal ropinirole 0.5 mg tablet 1 mg PO BEDTIME Nitrostat 0.4 mg Tablet, Sublingual 0.4 mg SUBLINGUAL Q5M PRN (Reason: Chest Pain) Rx Instructions: do not exceed 3 doses per episode Nystop 100,000 unit/gram powder 1 applic TOPICAL BID Discharge Orders: Discharge Order (Routine); Ordered 07/19/22 Ordered By: Magda Michaels Referrals: Jonathan [Outside] Elayne Wyatt DO [Primary Care Provider] - Discharge Diet: Advance as tolerated Discharge Activity: Resume usual activity Patient Instructions: Opioid Safety, Fall Prevention Discharge Attestations Time Spent in Discharge Care*: greater than 30 min Status at Discharge: Cognitive status at discharge: cognitively intact , Behavioral status at discharge: cooperative , Quality Metrics Clinical Quality Measures [ No reported AMI, CVA or VTE this stay] Coding Level of Care Code Acute Chg FW DC note Diagnoses Closed femur fracture S72.90XA COPD (chronic obstructive pulmonary disease) J44.9 Hospice care Z51.5
[2022-07-19 11:51] LABS: Hematocrit 24.5 % (37.0-47.0); Hemoglobin 7.8 g/dL (11.5-15.3)
--- NOTE | 2022-07-19 17:27 | PC.SOCIAL ---
IMM Update IMM Updated and reviewed w/ patient. Copy provided and Copy dated, initialed and placed in chart.
== END 2022-07-19 15:50 | disposition hospice, home (50) | DRG 481 ==
LOC: ER 15:54 → MEDSURG 18:30
PROVIDERS: Student in an Organized Health Care Education/Training Program; Admitting Provider Student in an Organized Health Care Education/Training Program; Emergency Provider Emergency Medicine; PCP Family Medicine; Visit Provider Student in an Organized Health Care Education/Training Program
PROC: 0QSB06Z Reposition Right Lower Femur with Intramedullary Internal Fixation Device, Open Approach (ICD-10-PCS; principal; 2022-07-17 12:50)
DX: S72.451A Displaced supracondylar fracture without intracondylar extension of lower end of right femur, initial encounter for closed fracture (principal); D62 Acute posthemorrhagic anemia; M97.11XA Periprosthetic fracture around internal prosthetic right knee joint, initial encounter; Z68.41 Body mass index [BMI] 40.0-44.9, adult; W18.30XA Fall on same level, unspecified, initial encounter; C50.912 Malignant neoplasm of unspecified site of left female breast; C50.911 Malignant neoplasm of unspecified site of right female breast; J44.9 Chronic obstructive pulmonary disease, unspecified; Z51.5 Encounter for palliative care; Z86.73 Personal history of transient ischemic attack (TIA), and cerebral infarction without residual deficits; K21.9 Gastro-esophageal reflux disease without esophagitis; E78.5 Hyperlipidemia, unspecified; I10 Essential (primary) hypertension; E66.01 Morbid (severe) obesity due to excess calories; G47.33 Obstructive sleep apnea (adult) (pediatric); Z90.49 Acquired absence of other specified parts of digestive tract; Z79.891 Long term (current) use of opiate analgesic; Z79.51 Long term (current) use of inhaled steroids; D64.9 Anemia, unspecified; F17.210 Nicotine dependence, cigarettes, uncomplicated
CPT/HCPCS: 36415; 36430; 51702; 72100; 72170; 73552; 73560; 73562; 73700; 74177; 76000; 80048; 80053; 81001; 85014; 85018; 85025; 86850; 86900; 86920; 87086; 94640; 96374; 96375; 97162; 97166; 97530; 99285; C1713 ×2; C9113; J0690; J1630; J1885; J2370; J2704; J3010; J3490; J7030; J7040; P9016; P9041; Q9967

== ENCOUNTER → 2022-08-15 09:06 | Outpatient (BNVA) | payer MEDICARE, MEDICAID, SELFPAY | PROVIDERS: PCP Family Medicine; Visit Provider Student in an Organized Health Care Education/Training Program | DX: Z98.890 Other specified postprocedural states (principal); S72.401A Unspecified fracture of lower end of right femur, initial encounter for closed fracture; X58.XXXA Exposure to other specified factors, initial encounter | CPT/HCPCS: 73552 ==

== ENCOUNTER 2022-08-26 13:33 | Observation (INO) | payer MEDICARE, SELFPAY ==
[2022-08-26] VITALS (9 sets, daily range): BP systolic 143–155; BP diastolic 62–79; PULSE 64–92; RESP 17–28; TEMP 36.6–36.8; O2SAT 92–99; BMI 42.0
--- NOTE | 2022-08-26 14:03 | XR_ITS ---
WS: [id number] XR chest 1V portable [id number] REASON FOR EXAM: dyspnea/cough FINDINGS: The chest is unchanged compared to 06/18/2022. Moderate tortuosity and ectasia of the thoracic aorta. Heart size is within normal limits. Calcified granulomatous disease in both hemithoraces. Elevation of the right hemidiaphragm. No acute pulmonary parenchymal or pleural abnormality. Moderate to severe degenerative spondylosis in the mid and lower thoracic spine. Severe degenerative arthropathy in the right glenohumeral joint. XR/XR chest 1V portable [id number] IMPRESSION: Stable chest with no acute abnormality identified.
[2022-08-26] MEDS: naloxone 0.4 mg/ml SDV IVP ×2 (14:18→14:28)
--- NOTE | 2022-08-26 14:18 | PC.NURSE ---
PT RESPONDED WELL TO THE NARCAN. PUPILS ARE NO LONGER PINPOINT OR FIXED. PT REQUESTED FAMILY NOT TO COME INTO HER ROOM
--- NOTE | 2022-08-26 14:43 | CT_ITS ---
WS: [id number] CT HEAD TECHNIQUE: Noncontrast CT of the head obtained from the skullbase to the vertex. CLINICAL INFORMATION: AMS COMPARISON: CT head 2018 DLP: 1080.[address] scans at [facility] use at least one of these dose optimization techniques: automated e xposure control; mA and/or kV adjustment per patient size (includes targeted exams where dose is matc hed to clinical indication); or iterative reconstruction. FINDINGS: Images degraded by motion. No evidence of intracranial hemorrhage or mass effect. Ventricular system and basal cisterns are dixon nt. Moderate small vessel changes with moderate parenchymal volume loss. No extra-axial fluid collect ions. No evidence of mass or mass effect. Chronic appearing opacification the mastoid air cells bilaterally. Opacification RIGHT middle ear com patible with otitis media. Air-fluid levels in the sphenoid sinus compatible with sphenoid sinusitis. Sclerotic lesions in the calvarium unchanged since 2018 CT/CT head wo con* [id number] IMPRESSION: 1. No evidence of intracranial hemorrhage or mass effect. 2. Moderate small vessel changes. Moderate parenchymal volume loss. 3. Intracranial vascular calcification. 4. Chronic appearing opacification the mastoid air cells bilaterally. Opacific ation the RIGHT middle ear. 5. Sphenoid sinusitis. 6. No acute intracranial findings.
[2022-08-26 14:55] LABS: Basophils # 0.1 10^3/uL (0.0-0.1); Basophils % 0.5 %; Eosinophils # 0.1 10^3/uL (0.0-0.8); Hematocrit 35.2 % (37.0-47.0); Hemoglobin 10.3 g/dL (11.5-15.3); Lymphocytes # 1.4 10^3/uL (0.8-4.8); Lymphocytes % 13.4 %; Mean Corpuscular HGB Conc 29.3 g/dL (30.0-36.0); Mean Corpuscular Hemoglobin 30.3 pg (28.0-34.0); Mean Corpuscular Volume 103.5 fl (81-99); Mean Platelet Volume 10.5 fL (7.4-10.4); Monocytes # 0.8 10^3/uL (0.2-0.9); Monocytes % 7.7 %; Neutrophils # 8.21 10^3/uL (1.8-7.7); Nucleated Red Blood Cells % 0 %; Platelet Count 265 10^3/cmm (130-400); Red Cell Distribution Width 13.5 % (12.1-15.1); White Blood Count 10.7 10^3/uL (4.0-10.0)
--- NOTE | 2022-08-26 15:08 | ED_ITS ---
HPI - Altered Mental Status General: Chief Complaint: Altered Mental Status Stated Complaint: AMS Source: EMS Mode of arrival: EMS History of Present Illness: 2-year-old female arrives from [facility] with altered mental status evidently she has been altered the last couple of days. She has been getting narcotics regularly for chronic pain. She did a closed fracture of her distal femur and then recently had a nail placed in late July. She has a history of COPD. Initially after she arrived she was given Narcan and did improve. PFSH ED PFSH: Medical History (Updated 08/19/22 @ 16:59 by Ang Ramirez DO) Anxiety Bilateral malignant neoplasm of breast in female Closed fracture of right distal femur COPD (chronic obstructive pulmonary disease) CVA (cerebral vascular accident) GERD (gastroesophageal reflux disease) Hospice care Hyperlipidemia Hypertension Hyperthyroidism Morbid obesity RO[place]ARIE (obstructive sleep apnea) Surgical History H/O cervical spine surgery H/O: hysterectomy History of bilateral breast biopsy History of cholecystectomy History of colon resection History of open reduction and internal fixation (ORIF) procedure left femur Status post right knee replacement Family History Grandfather Diabetes Maternal Grandmother Diabetes Maternal Kidney failure Maternal Grandmother Diabetes Paternal Grandfather Diabetes Paternal Family/Other Diabetes Aunt Mother , Age 99 Hypertension Cancer Leukemia Father Myocardial infarction Hypertension Brother Hypertension Cancer Prostate Denies family history of Anesthesia complication Bleeding disorder Social History Smoking and tobacco status: never smoked Alcohol intake: never Lives independently: Yes Household members: spouse Marital status: Current occupational status: disabled History of recent travel: No Course Vital Signs: Vital signs: Vital Signs Temperature 98.2 F 08/26/22 13:37 Pulse Rate 75 08/26/22 13:55 Respiratory Rate 23 H 08/26/22 13:55 Blood Pressure 152/79 08/26/22 13:55 Pulse Oximetry 93 08/26/22 13:55 Oxygen Delivery Me thod 08/26/22 13:55 Oxygen Flow Rate 5 08/26/22 13:37 MDM - Altered Mental Status Lab Data : 08/26/22 14:47 08/26/22 14:47 Radiology Impressions Chest X-Ray 08/26/22 14:03 IMPRESSION: Stable chest with no acute abnormality identified. Laboratory Results WBC 10.7 10^3/uL (4.0-10.0) H 08/26/22 14:47 RBC 3.40 10^6/uL (4.1-5.3) L 08/26/22 14:47 Hgb 10.3 g/dL (11.5-15.3) L 08/26/22 14:47 Hct 35.2 % (37.0-47.0) L 08/26/22 14:47 MCV 103.5 fl (81-99) H 08/26/22 14:47 MCH 30.3 pg (28.0-34.0) 08/26/22 14:47 MCHC 29.3 g/dL (30.0-36.0) L 08/26/22 14:47 RDW 13.5 % (12.1-15.1) 08/26/22 14:47 Plt Count 265 10^3/cmm (130-400) 08/26/22 14:47 MPV 10.5 fL (7.4-10.4) H 08/26/22 14:47 Neut % (Auto) 77.0 % 08/26/22 14:47 Lymph % (Auto) 13.4 % 08/26/22 14:47 [place] % (Auto) 7.7 % 08/26/22 14:47 Eos % (Auto) 1.0 % 08/26/22 14:47 Baso % (Auto) 0.5 % 08/26/22 14:47 Neut # (Auto) 8.21 10^3/uL (1.8-7.7) H 08/26/22 14:47 Lymph # (Auto) 1.4 10^3/uL (0.8-4.8) 08/26/22 14:47 [place] # (Auto) 0.8 10^3/uL (0.2-0.9) 08/26/22 14:47 Eos # (Auto) 0.1 10^3/uL (0.0-0.8) 08/26/22 14:47 Baso # (Auto) 0.1 10^3/uL (0.0-0.1) 08/26/22 14:47 Nucleated RBC % (auto) 0 % 08/26/22 14:47 Nucleated RBCs # 0.0 /100WBC 08/26/22 14:47 Discharge Plan Discharge Condition: Stable Prescriptions: No Action pantoprazole 20 mg tablet,delayed release (DR/EC) 20 mg PO BID@, gemfibrozil 600 mg tablet 600 mg PO BID@, simvastatin 40 mg tablet 40 mg PO BEDTIME Narcan 4 mg/actuation spray,non-aerosol See Rx Instructions .ROUTE .COMPLEX PRN (Reason: overdose) Rx Instructions: DIRECTED PRN OVERDOSE albuterol sulfate 2.5 mg /3 mL (0.083 %) solution for nebulization 2.5 mg INHALATION Q4H PRN (Reason: Shortness Of Breath) fluoxetine 40 mg capsule 40 mg PO QAM hydrocodone-acetaminophen 10-325 mg tablet See Rx Instructions .ROUTE .COMPLEX Rx Instructions: 1-2 TABS PO Q4-6H PRN PAIN (MAX OF 8 TABS PER DAY) fentanyl 100 mcg/hr patch 72 hour 100 mcg transdermal Q72H ondansetron 4 mg tablet,disintegrating 4 mg PO Q6H PRN (Reason: Nausea) lisinopril 2.5 mg Tablet 2.5 mg PO QAM nitrofurantoin monohyd/m-cryst [Macrobid] 100 mg Capsule 100 mg PO BID Rx Instructions: must administer with a meal/food albuterol sulfate 90 mcg/actuation Hfa Aerosol Inhaler 2 puff INHALATION Q6H PRN (Reason: Shortness Of Breath) lorazepam [Lorazepam Intensol] 2 mg/mL Concentrate 0.5 - 1 mg PO Q2H PRN (Reason: Anxiety) Spiriva with HandiHaler 18 mcg Capsule, W/Inhalation Device 1 cap INHALATION DAILY Rx Instructions: puncture 1 cap using device; one dose = 2 inhalations exemestane 25 mg tablet 25 mg PO QAM Rx Instructions: must administer after a meal ropinirole 0.5 mg tablet 1 mg PO BEDTIME Nitrostat 0.4 mg Tablet, Sublingual 0.4 mg SUBLINGUAL Q5M PRN (Reason: Chest Pain) Rx Instructions: do not exceed 3 doses per episode Nystop 100,000 unit/gram powder 1 applic TOPICAL BID aspirin 325 mg capsule 325 mg PO DAILY Qty: 30 0RF Rx Instructions: start on 07/21 Referrals: Elayne Wyatt DO [Primary Care Provider] - Coding Level of Care Code ED [employer] for Chg Jaswinder
[2022-08-26 15:17] LABS: Alanine Aminotransferase < 5 U/L (0-33); Alkaline Phosphatase 169 U/L (35-105); Aspartate Amino Transferase 13 U/L (0-32); Blood Urea Nitrogen 32 mg/dL (8-23); Calcium 10.4 mg/dL (8.5-10.5); Carbon Dioxide 37 mmol/L (22-29); Chloride 94 mmol/L (98-107); Creatine Phosphokinase 17 U/L (26-192); Globulin 2.8 g/dL (1.3-4.6); Glucose 89 mg/dL (65-115); Osmolality Calculated 302 mOsm/kg (285-295); Sodium 143 mmol/L (136-145); Total Bilirubin 0.3 mg/dL (0.15-1.2); Total Protein 6.8 g/dL (6.6-8.7)
--- NOTE | 2022-08-26 15:19 | W.ED.GENADLT ---
HPI - General Adult General: Chief complaint: Altered Mental Status Stated complaint: AMS Source: EMS Mode of arrival: EMS History of Present Illness: 2-year-old female arrives from home with altered mental status evidently she has been altered the last couple of days. She has been getting narcotics regularly for chronic pain. She did a closed fracture of her distal femur and then recently had a nail placed in late July. She has a history of COPD. Initially after she arrived she was given Narcan and did improve briefly. Per EMS report she had been at home she has multiple different narcotics she had been taking she had a fentanyl patch on did take her fentanyl patch off. In addition to that she was getting oxycodone and hydrocodone and lorazepam. She was getting these every 2 hours. She has also had previous presentations for hypercapnic respiratory failure Onset (ago): day(s) Severity: severe Relieving factors: medication Exacerbating factors: none Associated symptoms: Reports confusion, dyspnea and malaise Treatments prior to arrival: none Review of Systems General: Reports: ROS unobtainable due to mental status Const: Reports: malaise Resp: Reports: dyspnea Neuro: Reports: confusion PFSH ED PFSH: Medical History Anxiety Bilateral malignant neoplasm of breast in female Breast cancer, left Breast cancer, right Closed fracture of right distal femur Compression fracture COPD (chronic obstructive pulmonary disease) CVA (cerebral vascular accident) GERD (gastroesophageal reflux disease) Hospice care Hyperlipidemia Hypertension Hyperthyroidism Morbid obesity ROSEMARIE (obstructive sleep apnea) Surgical History H/O cervical spine surgery H/O: hysterectomy History of bilateral breast biopsy History of cholecystectomy History of colon resection History of open reduction and internal fixation (ORIF) procedure left femur Status post right knee replacement Family History Grandfather Diabetes Maternal Grandmother Diabetes Maternal Kidney failure Maternal Grandmother Diabetes Paternal Grandfather Diabetes Paternal Family/Other Diabetes Aunt Mother , Age 99 Hypertension Cancer Leukemia Father Myocardial infarction Hypertension Brother Hypertension Cancer Prostate Denies family history of Anesthesia complication Bleeding disorder Social History Smoking and tobacco status: never smoked Alcohol intake: never Lives independently: Yes Household members: spouse Marital status: Current occupational status: disabled History of recent travel: No Physical Exam HENMT: COMMON NORMALS: normocephalic and atraumatic HEAD & SCALP: normocephalic and atraumatic Eye: PUPIL: Yes Pinpoint pupils Resp: COMMON NORMALS: normal respiratory effort, No retractions and No use of accessory muscles AUSCULTATION: rales and wheezes Cardio: COMMON NORMALS: regular rate, regular rhythm and No murmurs present (Cardio) RATE: regular rate RHYTHM: regular rhythm GI: COMMON NORMALS: Soft to palpation and No hepatosplenomegaly present AUSCULTATION: Yes normoactive bowel sounds PALPATION: Yes Soft to palpation, No Tenderness to palpation present (GI), No Guarding due to palpation present (GI) and Yes No hepatosplenomegaly present Extremity: COMMON NORMALS: normal to inspection, capillary refill normal, no clubbing, cyanosis or edema, no calf tenderness and no pedal edema Skin: COMMON NORMALS: no rashes or lesions noted GENERAL SKIN EXAM: no rashes or lesions noted Course Vital Signs: Vital signs: Vital Signs Temperature 97.8 F 08/27/22 07:54 Pulse Rate 63 08/27/22 15:06 Respiratory Rate 18 08/27/22 15:06 Blood Pressure 142/81 08/27/22 07:54 Pulse Oximetry 94 08/27/22 15:06 Oxygen Delivery Me thod 08/27/22 11:45 Oxygen Flow Rate 2 08/27/22 11:45 MDM - General Adult Medical Decision Making Patient poorly responsive. Suspect this is largely due to overmedication. She will need to be monitored for a time. Discussed with the family. Discussed with hospitalist will admit. Labs imaging and EKG reviewed as found in the chart Medical Records I reviewed the patient's medical records. Lab Data I reviewed the patient's lab results. : 08/26/22 14:47 08/26/22 14:47 Radiology Impressions Chest X-Ray 08/26/22 14:03 IMPRESSION: Stable chest with no acute abnormality identified. Head CT 08/26/22 14:43 IMPRESSION: 1. No evidence of intracranial hemorrhage or mass effect. 2. Moderate small vessel changes. Moderate parenchymal volume loss. 3. Intracranial vascular calcification. 4. Chronic appearing opacification the mastoid air cells bilaterally. Opacification the RIGHT middle ear. 5. Sphenoid sinusitis. 6. No acute intracranial findings. Laboratory Results WBC 10.7 10^3/uL (4.0-10.0) H 08/26/22 14:47 RBC 3.40 10^6/uL (4.1-5.3) L 08/26/22 14:47 Hgb 10.3 g/dL (11.5-15.3) L 08/26/22 14:47 Hct 35.2 % (37.0-47.0) L 08/26/22 14:47 MCV 103.5 fl (81-99) H 08/26/22 14:47 MCH 30.3 pg (28.0-34.0) 08/26/22 14:47 MCHC 29.3 g/dL (30.0-36.0) L 08/26/22 14:47 RDW 13.5 % (12.1-15.1) 08/26/22 14:47 Plt Count 265 10^3/cmm (130-400) 08/26/22 14:47 MPV 10.5 fL (7.4-10.4) H 08/26/22 14:47 Neut % (Auto) 77.0 % 08/26/22 14:47 Lymph % (Auto) 13.4 % 08/26/22 14:47 [place] % (Auto) 7.7 % 08/26/22 14:47 Eos % (Auto) 1.0 % 08/26/22 14:47 Baso % (Auto) 0.5 % 08/26/22 14:47 Neut # (Auto) 8.21 10^3/uL (1.8-7.7) H 08/26/22 14:47 Lymph # (Auto) 1.4 10^3/uL (0.8-4.8) 08/26/22 14:47 [place] # (Auto) 0.8 10^3/uL (0.2-0.9) 08/26/22 14:47 Eos # (Auto) 0.1 10^3/uL (0.0-0.8) 08/26/22 14:47 Baso # (Auto) 0.1 10^3/uL (0.0-0.1) 08/26/22 14:47 Nucleated RBC % (auto) 0 % 08/26/22 14:47 Nucleated RBCs # 0.0 /100WBC 08/26/22 14:47 Specimen Type Arterial 08/26/22 15:40 Sample Site Radial, right 08/26/22 15:40 ABG pH 7.56 (7.35-7.45) H 08/26/22 15:40 ABG pCO2 40.7 mmHg (35-45) 08/26/22 15:40 ABG pO2 79.4 mmHg (80.0-100.0) L 08/26/22 15:40 ABG HCO3 36.7 mmol/L (22-26) H 08/26/22 15:40 ABG O2 Saturation 99.1 08/26/22 15:40 ABG Base Excess 13.3 mmol/L (-2.0-2.0) H 08/26/22 15:40 Kyle Test Pos 08/26/22 15:40 A-a O2 Gradient 2.7 mmHg (5-10) L 08/26/22 15:40 Hematocrit 30.3 % (37-47) L 08/26/22 15:40 Hgb O2 Saturation 96.5 % (95-100) 08/26/22 15:40 Carboxyhemoglobin 1.9 %THgb (0.4-20.1) 08/26/22 15:40 Methemoglobin 0.8 % (0.4-1.5) 08/26/22 15:40 Total Hemoglobin 9.9 g/dL (12-16) L 08/26/22 15:40 Sodium 145.0 mmol/L (131-143) H 08/26/22 15:40 Potassium 3.8 mmol/L (3.5-5.0) 08/26/22 15:40 Glucose 102.0 mg/dL (70-115) 08/26/22 15:40 Ionized Calcium 1.3 mmol/L (1.1-1.4) 08/26/22 15:40 O2 Delivery Device Nc 08/26/22 15:40 O2 Liters/Min 4.0 % 08/26/22 15:40 [employer] Crewmember ID Hinja 08/26/22 15:40 Sodium 143 mmol/L (136-145) 08/26/22 14:47 Potassium 4.0 mmol/L (3.5-5.1) 08/26/22 14:47 Chloride 94 mmol/L (98-107) L 08/26/22 14:47 Carbon Dioxide 37 mmol/L (22-29) H 08/26/22 14:47 Anion Gap 16.0 (5-19) 08/26/22 14:47 BUN 32 mg/dL (8-23) H 08/26/22 14:47 Creatinine 1.0 mg/dL (0.5-0.9) H 08/26/22 14:47 GFR Calculation Not Reportable 08/26/22 14:47 Glucose 89 mg/dL (65-115) 08/26/22 14:47 Calculated Osmolality 302 mOsm/kg (285-295) H 08/26/22 14:47 Calcium 10.4 mg/dL (8.5-10.5) 08/26/22 14:47 Total Bilirubin 0.3 mg/dL (0.15-1.2) 08/26/22 14:47 AST 13 U/L (0-32) 08/26/22 14:47 ALT < 5 U/L (0-33) 08/26/22 14:47 Alkaline Phosphatase 169 U/L (35-105) H 08/26/22 14:47 Creatine Kinase 17 U/L (26-192) L 08/26/22 14:47 Total Protein 6.8 g/dL (6.6-8.7) 08/26/22 14:47 Albumin 4.0 g/dL (3.5-5.2) 08/26/22 14:47 Globulin 2.8 g/dL (1.3-4.6) 08/26/22 14:47 Urine Color Yellow (Yellow) 08/26/22 17:00 Urine Appearance Clear (CLEAR) 08/26/22 17:00 Urine pH 6.0 (5-7) 08/26/22 17:00 Ur Specific [place] 1.015 (1.005-1.030) 08/26/22 17:00 Urine Protein 1+ (Negative) A 08/26/22 17:00 Urine Glucose (UA) Negative (Normal) 08/26/22 17:00 Urine Ketones 1+ (Negative) A 08/26/22 17:00 Urine Blood Large (Negative) A 08/26/22 17:00 Urine Nitrate Negative 08/26/22 17:00 Urine Bilirubin Small (Negative) 08/26/22 17:00 Urine Urobilinogen 0.2 mg/dL (Negative) 08/26/22 17:00 Ur Leukocyte Esterase Trace (Negative) A 08/26/22 17:00 Urine RBC 25-40 /hpf (0-2) H 08/26/22 17:00 Urine WBC 10-15 /hpf (0-5) H 08/26/22 17:00 Ur Squamous Epith Cells 5-10 /hpf (0-5) H 08/26/22 17:00 Amorphous Sediment Not Reportable 08/26/22 17:00 Urine Bacteria 1+ /hpf (NONE) H 08/26/22 17:00 Discharge Plan Discharge Patient Disposition: Admitted As Inpatient Admit Provider: Henrique Noe Clinical Impression: Altered mental status, Bilateral malignant neoplasm of breast in female, Hospice care, Closed fracture of right distal femur, COPD (chronic obstructive pulmonary disease), Medication side effects Condition: Stable Coding Level of Care Code ED Boating Safety Officer for Chg Fwd Exam Detailed
--- NOTE | 2022-08-26 15:35 | PC.PHAR ---
PT UNABLE TO VERIFY MEDS DUE TO AMS- PT VERIFIED MEDS THAT WERE GIVEN TODAY- UNABLE TO REACH PHARMACY([place]) DUE TO PHARMACY HAVING PHONE ISSUES- UNABLE TO VERIFY LAST FILLED AND DAY SUPPLY ON SOME OF PTS MEDICATIONS
[2022-08-26 15:47] LABS: ABG PCO2 40.7 mmHg (35-45); ABG PH Result 7.56 (7.35-7.45); Alveolar-Arterial Oxygen Gradi 2.7 mmHg (5-10); Arterial Blood Gas Hematocrit 30.3 % (37-47); Base Excess ABG 13.3 mmol/L (-2.0-2.0); Blood Gas Allen Test Pos; Blood Gas Sample Site Radial, right; Blood Gas Sample Type Arterial; Carboxyhemoglobin 1.9 %THgb (0.4-20.1); HCO3 ABG 36.7 mmol/L (22-26); HGB O2 Sat 96.5 % (95-100); Ionized Calcium Level - ABG 1.3 mmol/L (1.1-1.4); Methemoglobin 0.8 % (0.4-1.5); Oxygen Device NC; Oxygen Saturation ABG 99.1; PO2 ABG 79.4 mmHg (80.0-100.0); Potassium Level - ABG 3.8 mmol/L (3.5-5.0); Total Hemoglobin 9.9 g/dL (12-16)
[2022-08-26 17:39] LABS: Bilirubin Urine Small (Negative); Blood Urine Large (Negative); Glucose Urine UA Negative (Normal); Ketones Urine 1+ (Negative); Leukocyte Esterase Urine Trace (Negative); Nitrate Urine Negative; Protein Urine 1+ (Negative); Specific Gravity, Urine 1.015 (1.005-1.030); Urine Appearance Clear (CLEAR); Urine Color Yellow (Yellow); Urobilinogen Urine 0.2 mg/dL (Negative)
[2022-08-26 18:00] LABS: Add Urine Microscopic? YES
[2022-08-26 18:01] LABS: Add Urine Culture? Yes; Bacteria Urine 1+ /hpf; RBC Urine 25-40 /hpf (0-2)
--- NOTE | 2022-08-26 18:08 | P.HP_ITS ---
Providers/Chief Complaint Primary Care Provider: Elayne Wyatt DO Chief Complaint: AMS History of Present Illness Deborah Mchugh is a 72 year old female with past medical history of ROSEMARIE, COPD, hypertension, hyperlipidemia, breast cancer, recurrent admission for hypercapnic respiratory failure, breast cancer who was recently admitted to the hospital for closed femur fracture and underwent ORIF, on hospice care because of all the a franklyn defined illnesses was brought into the hospital today with family via EMS because of decreased mentation, somnolence which has been increasing for last 2 to 3 days along with poor oral intake. As per the family( and son) who was present at bedside patient has been in more pain and recently her pain medications have been changed. They have been giving her pain medications more frequently because of the above and they noticed her mentation to be getting poor for last 2 to 3 days along with poor oral intake so they brought her to the ER. Review of Systems General: Reports: ROS unobtainable due to mental status Medications/Allergies Home Medications Medication Instructions Recorded Confirmed Last Taken Type albuterol sulfate 2.5 mg/3 mL 2.5 mg inhalation Q4H PRN 12/23/19 08/26/22 02/01/20 History (0.083 %) solution for nebulization Shortness Of Breath gemfibrozil 600 mg tablet 600 mg PO BID@12/23/19 08/26/22 07/16/22 History naloxone 4 mg/actuation nasal See Rx Instructions .Route 12/23/19 08/26/22 Unknown History spray (Narcan) .COMPLEX PRN overdose pantoprazole 20 mg tablet,delayed 20 mg PO BID@12/23/19 08/26/22 07/16/22 History release simvastatin 40 mg tablet 40 mg PO BEDTIME 12/23/19 08/26/22 07/15/22 History fluoxetine 40 mg capsule 40 mg PO QAM 02/08/21 08/26/22 07/16/22 History hydrocodone 10 mg-acetaminophen See Rx Instructions .Route .COMPLEX 02/08/21 08/26/22 07/16/22 10:00 History 325 mg tablet albuterol sulfate 90 mcg/actuation 2 puff inhalation Q6H PRN 06/18/22 08/26/22 Unknown History aerosol inhaler Shortness Of Breath fentanyl 100 mcg/hr transdermal 100 mcg transdermal Q72H 06/18/22 08/26/22 08/26/22 History patch lisinopril 2.5 mg tablet 2.5 mg PO QAM 06/18/22 08/26/22 07/16/22 History lorazepam 2 mg/mL oral concentrate 0.5 - 1 mg PO Q2H PRN Anxiety 06/18/22 08/26/22 Unknown History (Lorazepam Intensol) ondansetron 4 mg disintegrating 4 mg PO Q6H PRN Nausea 06/18/22 08/26/22 Unknown History tablet nitroglycerin 0.4 mg sublingual 0.4 mg sublingual Q5M PRN Chest 07/16/22 08/26/22 Unknown History tablet (Nitrostat) Pain nystatin 100,000 unit/gram topical 1 applic topical BID 07/16/22 08/26/22 Unknown History powder (Nystop) ropinirole 0.5 mg tablet 1 mg PO BEDTIME 07/16/22 08/26/22 07/15/22 History oxycodone 20 mg/mL oral concentrate 0.5 mg PO Q2H 08/26/22 08/26/22 08/26/22 History Allergies Allergy/AdvReac Type Severity Reaction Status Date / Time adhesive tape Allergy Unknown ALGY-Hives Verified 08/26/22 15:28 heparin (porcine) Allergy Unknown Verified 08/26/22 15:28 morphine Allergy ALGY-Hives Verified 08/26/22 15:28 oxytetracycline Allergy ALGY-Anaphy Verified 08/26/22 15:28 [From Terramycin] laxis Tetanus Vaccines and Toxoid Allergy Unknown Verified 08/26/22 15:28 cimetidine [From Tagamet] AdvReac ADR-Abdominal Verified 08/26/22 15:28 Pain hydromorphone [From Dilaudid] AdvReac ADR-Halluci Verified 08/26/22 15:28 nating PFSH Acute PFSH: Medical History (Updated 08/26/22 @ 18:12 by Henrique Noe MD) Anxiety Bilateral malignant neoplasm of breast in female Closed fracture of right distal femur Compression fracture COPD (chronic obstructive pulmonary disease) CVA (cerebral vascular accident) GERD (gastroesophageal reflux disease) Hospice care Hyperlipidemia Hypertension Hyperthyroidism Morbid obesity ROSEMARIE (obstructive sleep apnea) Surgical History H/O cervical spine surgery H/O: hysterectomy History of bilateral breast biopsy History of cholecystectomy History of colon resection History of open reduction and internal fixation (ORIF) procedure left femur Status post right knee replacement Family History Grandfather Diabetes Maternal Grandmother Diabetes Maternal Kidney failure Maternal Grandmother Diabetes Paternal Grandfather Diabetes Paternal Family/Other Diabetes Aunt Mother , Age 99 Hypertension Cancer Leukemia Father Myocardial infarction Hypertension Brother Hypertension Cancer Prostate Denies family history of Anesthesia complication Bleeding disorder Social History Smoking and tobacco status: never smoked Alcohol intake: never Lives independently: Yes Household members: spouse Marital status: Current occupational status: disabled History of recent travel: No Vitals/I&O/Wt Last Vital Signs Temp 98.2 F 08/26/22 13:37 Pulse 92 08/26/22 16:25 Resp 28 H 08/26/22 16:25 BP 152/79 08/26/22 13:55 Pulse Ox 98 08/26/22 16:25 O2 Del Method 08/26/22 16:25 O2 Flow Rate 3 08/26/22 16:25 Weight last 48 hrs Weight 111.13 kg Physical Exam Narrative: General: No acute distress, awake, alert to self, occasionally giving few answers HEENT: PERRLA, pupils bilaterally equal and reactive Chest: Bilateral bronchial breath sounds CVS: S1-S2 regular, no murmurs, no tachycardia, no gallops, no rubs Abdomen: Soft, nontender, no organomegaly, bowel sounds present Neuro: No focal deficits, no facial deformity, AO x3, power 5/5 in all limbs Extremities: Tenderness in bilateral extremities Urinary Catheter Management: Carlton: Cath Placed During This Visit: yes Urinary Catheter Date of Insertion: 08/26/22 Urinary Catheter Time of Insertion: 17:19 Data : 08/26/22 14:47 08/26/22 14:47 A&P Assessment and plan (1) Hospice care: (2) COPD (chronic obstructive pulmonary disease): (3) ROSEMARIE (obstructive sleep apnea): (4) Morbid obesity: (5) Breast cancer, right: (6) Breast cancer, left: (7) Closed fracture of right distal femur: (8) Compression fracture: (9) Dehydration: (10) Somnolence: Plan 72-year-old female who was recently placed on hospice because of advanced COPD, breast cancer, recent femur fracture was brought into ER by the family because of decreased mentation and poor oral intake for last 3 days while increased pain medications are given. Somnolence/altered mental status: Most likely secondary to pain medications, could be secondary to worsening of baseline disease along with COPD. Discussed the goals of care discussed in detail with patient's son and at bedside. We discussed that unfortunately patient has advanced COPD and br east cancer with a recent femur fracture the goals were discussed with patient in the past were to be comfortable and go on hospice. Both the son and agree to the above and state the goals are still to remain on hospice care and to be DNR/DNI. Extensive counseling given to the family regarding natural progression of the disease and to manage the pain medication as per pain scale of the patient along with mentation going forward. Both son and are agreeable for no further work-up, extensive treatment. They understand once the patient is discharged it is highly likely that patient will have repeat of the symptoms or worsening of the symptoms and getting the patient to and fro from the hospital is more uncomfortable pill for the patient given her goals of hospice. They both do agree and are understanding that most likely given patient's mentation it is highly likely that patient would unfortunately but the goals are to make sure that she is comfortable during the process. They are both agreeable for DNR/DNI. They are both agreeable for hospice. They both understand the goals and how the pain medication should be given going forward. Continue oxycodone 0.5 every 4 hourly instead of every 2 hourly. Hold off on fentanyl patch for now. Most likely will discharge on lower fentanyl patch. Pleasure feeds. Continue with Protonix. Continue with Requip. Hold off on simvastatin. Start on DuoNebs. No further work-up, blood. Vital checks as per hospice care protocols. IV fluids at 75 cc/h. Discharge planning: Plan to discharge patient within next 24 hours back home with hospice care. Attestations Medical Necessity Statement*: Admission for less than 2 midnights under observation for hospice care. Time Spent in Patient Care: Greater than 35 minutes Coding Level of Care Code Acute Chopper Gun Operator for Chg Fwd Diagnoses Hospice care Z51.5 COPD (chronic obstructive pulmonary disease) J44.9 ROSEMARIE (obstructive sleep apnea) G47.33 Morbid obesity E66.01 Breast cancer, right C50.911 Breast cancer, left C50.912 Closed fracture of right distal femur S72.401A Compression fracture Dehydration E86.0 Somnolence R40.0
[2022-08-26] MEDS: ipratropium-albuterol 3 mL Neb INHALATION (20:12)
[2022-08-26] MEDS: sodium chloride 0.9% 1,000 ML 125 ML IV (20:38)
[2022-08-26] MEDS: pantoprazole 40 mg SDV IVP (20:49)
[2022-08-27] VITALS (7 sets, daily range): BP systolic 139–142; BP diastolic 70–81; PULSE 57–69; RESP 16–18; TEMP 36.6–36.8; O2SAT 94
[2022-08-27] MEDS: sodium chloride 0.9% 1,000 ML 125 ML IV ×2 (04:38→12:27)
[2022-08-27] MEDS: ipratropium-albuterol 3 mL Neb INHALATION ×2 (07:44→11:46)
[2022-08-27] MEDS: docusate sodium 100 mg Capsule PO (09:04)
--- NOTE | 2022-08-27 10:32 | PM.DCS ---
Discharge Providers Date of Admission: 08/26/22 19:50 Date of Discharge: August 27, 2022 Attending Provider at Admission: Henrique Noe MD Attending Provider at Discharge: Henrique Noe MD Primary Care Provider: Elayne Wyatt DO Diagnoses at Discharge Discharge Diagnosis (1) Hospice care: Status: Acute (2) COPD (chronic obstructive pulmonary disease): Status: Acute (3) ROSEMARIE (obstructive sleep apnea): Status: Acute (4) Morbid obesity: Status: Acute (5) Breast cancer, right: Status: Acute (6) Breast cancer, left: Status: Acute (7) Closed fracture of right distal femur: Status: Acute (8) Compression fracture: Status: Acute (9) Dehydration: Status: Acute (10) Somnolence: Status: Acute Reason for Visit Reason for Visit: [facility] Hospital Course Hospital Course Deborah Mchugh is a 72 year old female with past medical history of ROSEMARIE, COPD, hypertension, hyperlipidemia, breast cancer, recurrent admission for hypercapnic respiratory failure, breast cancer who was recently admitted to the hospital for closed femur fracture and underwent ORIF, on hospice care because of all the above defined illnesses was brought into the hospital today with family via EMS because of decreased mentation, somnolence which has been increasing for last 2 to 3 days along with poor oral intake.? As per the family( and son) who was present at bedside patient has been in more pain and recently her pain medications have been changed.? They have been giving her pain medications more frequently because of the above and they noticed her mentation to be getting poor for last 2 to 3 days along with poor oral intake so they brought her to the ER. It is believed patient's symptoms on presentation to the ER were secondary to over pain medications leading to somnolence and poor oral intake and dehydration. Patient's goal of care along with CODE STATUS of confirmed and discussed in detail again with patient's son and at bedside. They both wanted patient to continue with hospice care because her goals were to remain comfortable without any active treatment. Family was counseled regarding expectations and natural progression of patient on high pain medications on hospice care. It was discussed that going forward if taking patient is in pain or uncomfortable they should give pain medications but be mindful of the fact that pain medication will cause her to be confused, somnolent sometimes and given poor oral intake. Patient's pain medications after discussing with family members were changed to Q4 hourly as needed along with dose of fentanyl patch was decreased to 50 mcg daily. Family members were agreeable. By next morning patient was back to her baseline mentation. She is been discharged home and comfortable status with hospice care. Physical Exam Narrative: General: No acute distress, awake, AO x2-3, occasionally slow to respond HEENT: PERRLA, pupils bilaterally equal and reactive Chest: Bilateral bronchial breath sounds CVS: S1-S2 regular, no murmurs, no tachycardia, no gallops, no rubs Abdomen: Soft, nontender, no organomegaly, bowel sounds present Neuro: No focal deficits, no facial deformity, AO x3, power 5/5 in all limbs Extremities: Tenderness in bilateral extremities Urinary Catheter Management: Carlton: Cath Placed During This Visit: yes Reason for Continuing Indwelling Catheter: Hospice/Comfort/Palliative Care Urinary Catheter Date of Insertion: 08/26/22 Urinary Catheter Time of Insertion: 17:19 Discharge Data Studies Completed and Pending Completed Studies During Hospitalization Category Date Time Status CT head wo con* [id number] Stat Cat Scan 08/26/22 14:43 Completed XR chest 1V portable [id number] Stat Exams 08/26/22 14:03 Completed Pending at discharge Category Date Time Status Urine Culture Stat Lab 08/26/22 17:00 Received Radiology Impressions Chest X-Ray 08/26/22 14:03 IMPRESSION: Stable chest with no acute abnormality identified. Head CT 08/26/22 14:43 IMPRESSION: 1. No evidence of intracranial hemorrhage or mass effect. 2. Moderate small vessel changes. Moderate parenchymal volume loss. 3. Intracranial vascular calcification. 4. Chronic appearing opacification the mastoid air cells bilaterally. Opacification the RIGHT middle ear. 5. Sphenoid sinusitis. 6. No acute intracranial findings. Laboratory Results WBC 10.7 10^3/uL (4.0-10.0) H 08/26/22 14:47 RBC 3.40 10^6/uL (4.1-5.3) L 08/26/22 14:47 Hgb 10.3 g/dL (11.5-15.3) L 08/26/22 14:47 Hct 35.2 % (37.0-47.0) L 08/26/22 14:47 MCV 103.5 fl (81-99) H 08/26/22 14:47 MCH 30.3 pg (28.0-34.0) 08/26/22 14:47 MCHC 29.3 g/dL (30.0-36.0) L 08/26/22 14:47 RDW 13.5 % (12.1-15.1) 08/26/22 14:47 Plt Count 265 10^3/cmm (130-400) 08/26/22 14:47 MPV 10.5 fL (7.4-10.4) H 08/26/22 14:47 Neut % (Auto) 77.0 % 08/26/22 14:47 Lymph % (Auto) 13.4 % 08/26/22 14:47 Meagher % (Auto) 7.7 % 08/26/22 14:47 Eos % (Auto) 1.0 % 08/26/22 14:47 Baso % (Auto) 0.5 % 08/26/22 14:47 Neut # (Auto) 8.21 10^3/uL (1.8-7.7) H 08/26/22 14:47 Lymph # (Auto) 1.4 10^3/uL (0.8-4.8) 08/26/22 14:47 Meagher # (Auto) 0.8 10^3/uL (0.2-0.9) 08/26/22 14:47 Eos # (Auto) 0.1 10^3/uL (0.0-0.8) 08/26/22 14:47 Baso # (Auto) 0.1 10^3/uL (0.0-0.1) 08/26/22 14:47 Nucleated RBC % (auto) 0 % 08/26/22 14:47 Nucleated RBCs # 0.0 /100WBC 08/26/22 14:47 Specimen Type Arterial 08/26/22 15:40 Sample Site Radial, right 08/26/22 15:40 ABG pH 7.56 (7.35-7.45) H 08/26/22 15:40 ABG pCO2 40.7 mmHg (35-45) 08/26/22 15:40 ABG pO2 79.4 mmHg (80.0-100.0) L 08/26/22 15:40 ABG HCO3 36.7 mmol/L (22-26) H 08/26/22 15:40 ABG O2 Saturation 99.1 08/26/22 15:40 ABG Base Excess 13.3 mmol/L (-2.0-2.0) H 08/26/22 15:40 Kyle Test Pos 08/26/22 15:40 A-a O2 Gradient 2.7 mmHg (5-10) L 08/26/22 15:40 Hematocrit 30.3 % (37-47) L 08/26/22 15:40 Hgb O2 Saturation 96.5 % (95-100) 08/26/22 15:40 Carboxyhemoglobin 1.9 %THgb (0.4-20.1) 08/26/22 15:40 Methemoglobin 0.8 % (0.4-1.5) 08/26/22 15:40 Total Hemoglobin 9.9 g/dL (12-16) L 08/26/22 15:40 Sodium 145.0 mmol/L (131-143) H 08/26/22 15:40 Potassium 3.8 mmol/L (3.5-5.0) 08/26/22 15:40 Glucose 102.0 mg/dL (70-115) 08/26/22 15:40 Ionized Calcium 1.3 mmol/L (1.1-1.4) 08/26/22 15:40 O2 Delivery Device Nc 08/26/22 15:40 O2 Liters/Min 4.0 % 08/26/22 15:40 Poultry Hatchery Laborer ID Hinja 08/26/22 15:40 Sodium 143 mmol/L (136-145) 08/26/22 14:47 Potassium 4.0 mmol/L (3.5-5.1) 08/26/22 14:47 Chloride 94 mmol/L (98-107) L 08/26/22 14:47 Carbon Dioxide 37 mmol/L (22-29) H 08/26/22 14:47 Anion Gap 16.0 (5-19) 08/26/22 14:47 BUN 32 mg/dL (8-23) H 08/26/22 14:47 Creatinine 1.0 mg/dL (0.5-0.9) H 08/26/22 14:47 GFR Calculation Not Reportable 08/26/22 14:47 Glucose 89 mg/dL (65-115) 08/26/22 14:47 Calculated Osmolality 302 mOsm/kg (285-295) H 08/26/22 14:47 Calcium 10.4 mg/dL (8.5-10.5) 08/26/22 14:47 Total Bilirubin 0.3 mg/dL (0.15-1.2) 08/26/22 14:47 AST 13 U/L (0-32) 08/26/22 14:47 ALT < 5 U/L (0-33) 08/26/22 14:47 Alkaline Phosphatase 169 U/L (35-105) H 08/26/22 14:47 Creatine Kinase 17 U/L (26-192) L 08/26/22 14:47 Total Protein 6.8 g/dL (6.6-8.7) 08/26/22 14:47 Albumin 4.0 g/dL (3.5-5.2) 08/26/22 14:47 Globulin 2.8 g/dL (1.3-4.6) 08/26/22 14:47 Urine Color Yellow (Yellow) 08/26/22 17:00 Urine Appearance Clear (CLEAR) 08/26/22 17:00 Urine pH 6.0 (5-7) 08/26/22 17:00 Ur Specific Trimble 1.015 (1.005-1.030) 08/26/22 17:00 Urine Protein 1+ (Negative) A 08/26/22 17:00 Urine Glucose (UA) Negative (Normal) 08/26/22 17:00 Urine Ketones 1+ (Negative) A 08/26/22 17:00 Urine Blood Large (Negative) A 08/26/22 17:00 Urine Nitrate Negative 08/26/22 17:00 Urine Bilirubin Small (Negative) 08/26/22 17:00 Urine Urobilinogen 0.2 mg/dL (Negative) 08/26/22 17:00 Ur Leukocyte Esterase Trace (Negative) A 08/26/22 17:00 Urine RBC 25-40 /hpf (0-2) H 08/26/22 17:00 Urine WBC 10-15 /hpf (0-5) H 08/26/22 17:00 Ur Squamous Epith Cells 5-10 /hpf (0-5) H 08/26/22 17:00 Amorphous Sediment Not Reportable 08/26/22 17:00 Urine Bacteria 1+ /hpf (NONE) H 08/26/22 17:00 Vitals Last Vital Signs Temp 97.8 F 08/27/22 07:54 Pulse 57 L 08/27/22 07:54 Resp 18 08/27/22 07:54 BP 142/81 08/27/22 07:54 Pulse Ox 94 08/27/22 07:54 O2 Del Method 08/27/22 07:54 O2 Flow Rate 2 08/27/22 07:35 Discharge Plan Discharge Patient Disposition: Hospice - Home Condition: Stable Prescriptions: Continued pantoprazole 20 mg tablet,delayed release (DR/EC) 20 mg PO BID@, gemfibrozil 600 mg tablet 600 mg PO BID@, simvastatin 40 mg tablet 40 mg PO BEDTIME Narcan 4 mg/actuation spray,non-aerosol See Rx Instructions .ROUTE .COMPLEX PRN (Reason: overdose) Rx Instructions: DIRECTED PRN OVERDOSE albuterol sulfate 2.5 mg /3 mL (0.083 %) solution for nebulization 2.5 mg INHALATION Q4H PRN (Reason: Shortness Of Breath) fluoxetine 40 mg capsule 40 mg PO QAM hydrocodone-acetaminophen 10-325 mg tablet See Rx Instructions .ROUTE .COMPLEX Rx Instructions: 1-2 TABS PO Q4-6H PRN PAIN (MAX OF 8 TABS PER DAY) fentanyl 100 mcg/hr patch 72 hour 100 mcg transdermal Q72H ondansetron 4 mg tablet,disintegrating 4 mg PO Q6H PRN (Reason: Nausea) lisinopril 2.5 mg Tablet 2.5 mg PO QAM albuterol sulfate 90 mcg/actuation Hfa Aerosol Inhaler 2 puff INHALATION Q6H PRN (Reason: Shortness Of Breath) lorazepam [Lorazepam Intensol] 2 mg/mL Concentrate 0.5 - 1 mg PO Q2H PRN (Reason: Anxiety) ropinirole 0.5 mg tablet 1 mg PO BEDTIME nitroglycerin [Nitrostat] 0.4 mg Tablet, Sublingual 0.4 mg SUBLINGUAL Q5M PRN (Reason: Chest Pain) Rx Instructions: do not exceed 3 doses per episode nystatin [Nystop] 100,000 unit/gram powder 1 applic TOPICAL BID oxycodone 20 mg/mL concentrate 0.5 mg PO Q2H Discharge Orders: Discharge Order (Routine); Ordered 08/27/22 Ordered By: Henrique Noe Referrals: Elayne Wyatt DO [Primary Care Provider] - Patient Instructions: Dehydration - Adult, Hospice Care, COPD Stoplight, Opioid Safety Activity Restrictions/Additional Instructions: Frequency of oxycodone should be changed to every 4 hourly from every 2 hourly. Fentanyl patch dose should be changed to 50 mcg to 100 mcg. Above changes have been discussed in detail with patient's family. Discharge Attestations Time Spent in Discharge Care*: greater than 30 min Specific Discharge Activities: educating and/or supporting family/caregiver, discussing with telephonic case manager/social workers/dc planners, documenting/other paperwork and evaluating patient/reviewing data Status at Discharge: Cognitive status at discharge: moderately impaired cognition, Behavioral status at discharge: cooperative, Functional status at discharge: bed bound, Overall status at discharge: patient has a new baseline Quality Metrics Clinical Quality Measures [ No reported AMI, CVA or VTE this stay] Coding Level of Care Code Acute [facility] note Diagnoses Hospice care Z51.5 COPD (chronic obstructive pulmonary disease) J44.9 ROSEMARIE (obstructive sleep apnea) G47.33 Morbid obesity E66.01 Breast cancer, right C50.911 Breast cancer, left C50.912 Closed fracture of right distal femur S72.401A Compression fracture Dehydration E86.0 Somnolence R40.0
--- NOTE | 2022-08-27 11:07 | PC.CHAP ---
Pastoral Care Encounter/Spiritual Assessment Type of Contact [] Declined delicatessen manager visit [] Patient/Family/Request visit [] Outpatient visit [] Follow-up visit [] Physician referral [] Code/Alert [x] Routine visit [] Staff referral [] Actively dying [] Patient sleeping [] Family support [] [] Out of room [] Palliative care [] [] Receiving care in room [] Pre-surgical visit [] Trauma [] Long length of stay [] ICU visit [] Other: Relational/Emotional Strength [] Patient feels connected with others/family/visitors/staff [] Distress [] Loneliness/isolation [] Abandonment Spirituality of Patient [x] Person of Yadi [] Attends Yazidism of their Yadi []x Believes in Prayer [] Reads Bible or Mormonism materials [] There are Spiritual issues to be addressed Welfare Worker Interventions []x Prayer [] Active listening []x Non-anxious presence [] Spiritual/emotional support [] Crisis/trauma care [] Spiritual counseling [] Bereavement support [] Provided bereavement packet [] Provided Bible/devotional materials [] Provided toy/stuffed animal, coloring book to patient or family member x [] Provided Communion [] Anointing/Hankamer [] Salvation x]x Completed spiritual assessment [] Other: Impact on Illness or Injury [] Angry [] Fearful [] Anxious [] Often cries [] Exhaustion [] Unable to work [] Unable to attend latter day [] Unable to walk/stand [] Unable to read [] Unable to drive [] Unable to eat/drink [] Unable to sleep [] Unable to be with family [] Patient intubated [] Other: Summary Time spent with patient 10 min
== END 2022-08-27 15:07 | disposition hospice, home (50) ==
LOC: ER 15:09 → MEDSURG 19:34
PROVIDERS: Admitting Provider Student in an Organized Health Care Education/Training Program; Emergency Provider Family Medicine; PCP Family Medicine; Visit Provider Student in an Organized Health Care Education/Training Program
DX: Z51.5 Encounter for palliative care (principal); J44.9 Chronic obstructive pulmonary disease, unspecified; G47.33 Obstructive sleep apnea (adult) (pediatric); E66.01 Morbid (severe) obesity due to excess calories; Z68.41 Body mass index [BMI] 40.0-44.9, adult; C50.911 Malignant neoplasm of unspecified site of right female breast; C50.912 Malignant neoplasm of unspecified site of left female breast; E86.0 Dehydration; R40.0 Somnolence; I10 Essential (primary) hypertension; E78.5 Hyperlipidemia, unspecified; F41.9 Anxiety disorder, unspecified; Z86.73 Personal history of transient ischemic attack (TIA), and cerebral infarction without residual deficits; S72.401D Unspecified fracture of lower end of right femur, subsequent encounter for closed fracture with routine healing; X58.XXXD Exposure to other specified factors, subsequent encounter
CPT/HCPCS: 36600; 51702; 70450; 71045; 80051; 80053; 81001; 82330; 82550; 82805; 85025; 87077; 87086; 87186; 94640; 94664; 99285; C9113; G0378; J2310; J7030

== ENCOUNTER → 2022-10-07 10:26 | Outpatient (BNVA) | payer MEDICARE, SELFPAY | PROVIDERS: PCP Family Medicine; Visit Provider Student in an Organized Health Care Education/Training Program | DX: S72.401A Unspecified fracture of lower end of right femur, initial encounter for closed fracture (principal); X58.XXXA Exposure to other specified factors, initial encounter | CPT/HCPCS: 73562; 99024 ==

== ENCOUNTER → 2022-11-22 10:11 | Outpatient (BNVA) | payer OTHER, MEDICARE, SELFPAY | PROVIDERS: PCP Family Medicine; Visit Provider Student in an Organized Health Care Education/Training Program | DX: S72.401A Unspecified fracture of lower end of right femur, initial encounter for closed fracture (principal); Z98.890 Other specified postprocedural states; X58.XXXA Exposure to other specified factors, initial encounter | CPT/HCPCS: 73562 ==

== ENCOUNTER → 2023-02-20 13:17 | Outpatient (BNVA) | payer MEDICARE, SELFPAY | PROVIDERS: PCP Family Medicine; Visit Provider Student in an Organized Health Care Education/Training Program | DX: S72.401A Unspecified fracture of lower end of right femur, initial encounter for closed fracture (principal); X58.XXXA Exposure to other specified factors, initial encounter | CPT/HCPCS: 73562 ==

== ENCOUNTER 2023-03-18 13:37 | Oncology outpatient (recurring) (ONCR) | payer OTHER, SELFPAY | END 2023-03-23 23:59 | disposition home or self-care (01) | LOC: ONCMED 13:38 | PROVIDERS: PCP Family Medicine; Visit Provider Nurse Practitioner | DX: Z53.9 Procedure and treatment not carried out, unspecified reason (principal) ==

== ENCOUNTER 2023-06-14 16:09 | Emergency (ER) | payer MEDICARE, MEDICAID, SELFPAY ==
[2023-06-14] VITALS (12 sets, daily range): BP systolic 134–155; BP diastolic 59–80; PULSE 57–78; RESP 15–18; TEMP 37.6; O2SAT 95–100
--- NOTE | 2023-06-14 16:27 | W.ED.CHESTPA ---
HPI - Chest Pain General: Chief Complaint: Chest Pain Stated Complaint: CHEST PAIN Time Seen by Provider: 06/14/23 16:10 History of Present Illness: Morbidly obese 73-year-old female with complex medical history including hyperlipidemia, GERD, hypertension, CVA, COPD, hypothyroidism and sleep apnea. Sent to emergency room via EMS due to for complaint of epigastric and upper chest pain that started few hours ago. Initially patient presents emergency room via EMS thinking chest pain but upon my examination and questioning patient was complaining of epigastric pain and described pain as burning sensation with severity of 7 out of 10. With some nausea but no vomiting. Blood or coughing up blood. No dysuria, hematuria urine frequency. Associated symptoms: Reports abdominal pain and nausea; Deny diaphoresis or fever(s) Review of Systems General: Reports: 10 or more systems reviewed and unremarkable except in HPI and below Const: Denies: fever(s), chills, body aches, change in appetite, change in weight, fatigue, malaise, diaphoresis or change in sleep pattern GI: Reports: abdominal pain and nausea; Denies: coffee ground emesis, dysphagia, heartburn, early satiety, diarrhea, constipation, bloating, GI cramping, belching, excessive flatus, fecal incontinence, change in bowel habits, pain on defecation or rectal swelling PFS ED PFSH: Medical History Anxiety Bilateral breast cancer Closed fracture of right distal femur Compression fracture COPD (chronic obstructive pulmonary disease) CVA (cerebral vascular accident) GERD (gastroesophageal reflux disease) Hospice care Hyperlipidemia Hypertension Hyperthyroidism Morbid obesity ROSEMARIE (obstructive sleep apnea) Surgical History H/O cervical spine surgery H/O: hysterectomy History of bilateral breast biopsy History of cholecystectomy History of colon resection History of open reduction and internal fixation (ORIF) procedure left femur Status post right knee replacement Family History Grandfather Diabetes Maternal Grandmother Diabetes Maternal Kidney failure Maternal Grandmother Diabetes Paternal Grandfather Diabetes Paternal Family/Other Diabetes Aunt Mother , Age 99 Hypertension Cancer Leukemia Father Myocardial infarction Hypertension Brother Hypertension Cancer Prostate Denies family history of Anesthesia complication Bleeding disorder Social History Smoking and tobacco status: never smoked Alcohol intake: never Substance/Drug Use: never Lives independently: Yes Household members: spouse Marital status: Current occupational status: disabled Physical Exam Const: EXAM LIMITATIONS: physical limitations; no language barrier GENERAL APPEARANCE: cooperative; not anxious, not combative, not disheveled, not lethargic, not ill appearing, not frail appearing, not Limp noted, does not appear older than stated age, not diaphoretic and not Edematous NUTRITIONAL APPEARANCE: obese and overweight ORIENTATION/CONSCIOUSNESS: not lethargic HENMT: COMMON NORMALS: normocephalic, atraumatic, hearing grossly normal bilaterally, external ears normal, EAC's normal, TM's normal bilaterally, Normal external nose present, Normal nasal mucous membranes and turbinates present, moist oral mucous membranes, oropharynx normal, dentition normal and gingiva normal HEAD & SCALP: normocephalic and atraumatic NOSE: Normal external nose present and Normal nasal mucous membranes and turbinates present EXTERNAL EAR: Yes external ears normal EXTERNAL AUDITORY CANAL: EAC's normal TYMPANIC MEMBRANE: TM's normal bilaterally Chest: COMMONS NORMALS: normal inspection of the chest, normal palpation of entire chest wall, normal inspection of the breasts and normal palpation of the breasts Breast/axilla inspection: Yes normal inspection of the breasts BREAST/AXILLA PALPATION: Yes normal palpation of the breasts Resp: COMMON NORMALS: normal respiratory effort, No retractions, No use of accessory muscles, clear to auscultation bilaterally and percussion normal AUSCULTATION: clear to auscultation bilaterally PERCUSSION: percussion normal GI: COMMON NORMALS: Soft to palpation and No hepatosplenomegaly present INSPECTION: No abdominal wall ecchymosis, No Abdominal wall edema, No abdominal distension, No Fluid wave present, No Localized GI swelling present and No Laceration(s) present (GI) PALPATION: Yes Soft to palpation, Yes Tenderness to palpation present (GI) Details: other (Epigastric), No Guarding due to palpation present (GI), No Rigid due to palpation, Yes No hepatosplenomegaly present, No Hepatomegaly present, No Splenomegaly present, No Pulsatile mass present and No Ascites present PERCUSSION: no fluid wave RECTAL EXAM: no laceration(s) noted Neuro: SENSORIUM/ORIENTATION: No lethargic Skin: COMMON NORMALS: no rashes or lesions noted, no wounds, turgor normal, no jaundice, no petechiae and no mottling GENERAL SKIN EXAM: no rashes or lesions noted and turgor normal Course Vital Signs: Vital signs: Vital Signs Temperature 99.7 F H 06/14/23 16:12 Pulse Rate 65 06/14/23 20:00 Respiratory Rate 18 06/14/23 17:00 Blood Pressure 145/64 06/14/23 20:00 Pulse Oximetry 95 06/14/23 20:00 Oxygen Delivery Me thod Nasal Cannula 06/14/23 20:00 Oxygen Flow Rate 5 06/14/23 20:00 MDM - Chest Pain Medical Decision Making Patient made comfortable emergency room and had extensive work-up including troponin, CBC, CMP, CT scan of abdomen pelvis. Upon reassessment patient reveals significant reduction of her pain after treatment. Discussed CT findings with patient and . She would like to be discharged home. She was told to continue her pain medication as directed and follow-up with PCP. Differential Diagnosis Likely acute massive pulmonary embolism, acute respiratory failure, acute myocardial infarction, cardiac arrest and sudden cardiac Lab Data 06/14/23 16:48 06/14/23 16:48 Radiology Impressions Abdomen/Pelvis CT 06/14/23 16:28 IMPRESSION: 1. No acute intra-abdominal or intrapelvic pathology. 2. Small left pleural effusion with adjacent atelectasis. Laboratory Results WBC 7.6 10^3/uL (4.0-10.0) 06/14/23 16:48 RBC 3.20 10^6/uL (4.1-5.3) L 06/14/23 16:48 Hgb 9.0 g/dL (11.5-15.3) L 06/14/23 16:48 Hct 32.4 % (37.0-47.0) L 06/14/23 16:48 MCV 101.3 fl (81-99) H 06/14/23 16:48 MCH 28.1 pg (28.0-34.0) 06/14/23 16:48 MCHC 27.8 g/dL (30.0-36.0) L 06/14/23 16:48 RDW 13.4 % (12.1-15.1) 06/14/23 16:48 Plt Count 217 10^3/cmm (130-400) 06/14/23 16:48 MPV 10.2 fL (7.4-10.4) 06/14/23 16:48 Neut % (Auto) 75.7 % 06/14/23 16:48 Lymph % (Auto) 13.5 % 06/14/23 16:48 Hernando % (Auto) 7.3 % 06/14/23 16:48 Eos % (Auto) 2.8 % 06/14/23 16:48 Baso % (Auto) 0.4 % 06/14/23 16:48 Neut # (Auto) 5.74 10^3/uL (1.8-7.7) 06/14/23 16:48 Lymph # (Auto) 1.0 10^3/uL (0.8-4.8) 06/14/23 16:48 Hernando # (Auto) 0.6 10^3/uL (0.2-0.9) 06/14/23 16:48 Eos # (Auto) 0.2 10^3/uL (0.0-0.8) 06/14/23 16:48 Baso # (Auto) 0.0 10^3/uL (0.0-0.1) 06/14/23 16:48 Nucleated RBC % (auto) 0 % 06/14/23 16:48 Nucleated RBCs # 0.0 /100WBC 06/14/23 16:48 Sodium 144 mmol/L (136-145) 06/14/23 16:48 Potassium 4.7 mmol/L (3.5-5.1) 06/14/23 16:48 Chloride 100 mmol/L (98-107) 06/14/23 16:48 Carbon Dioxide 40 mmol/L (22-29) H 06/14/23 16:48 Anion Gap 8.7 (5-19) 06/14/23 16:48 BUN 22 mg/dL (8-23) 06/14/23 16:48 Creatinine 0.9 mg/dL (0.5-0.9) 06/14/23 16:48 GFR Calculation Not Reportable 06/14/23 16:48 Glucose 85 mg/dL (65-115) 06/14/23 16:48 Calculated Osmolality 301 mOsm/kg (285-295) H 06/14/23 16:48 Calcium 8.8 mg/dL (8.5-10.5) 06/14/23 16:48 Total Bilirubin 0.2 mg/dL (0.15-1.2) 06/14/23 16:48 AST 10 U/L (0-32) 06/14/23 16:48 ALT 6 U/L (0-33) 06/14/23 16:48 Alkaline Phosphatase 106 U/L (35-105) H 06/14/23 16:48 Troponin T Baseline 29 ng/L (0-10) H 06/14/23 16:48 Troponin T 120 Minute 28.42 ng/L (0-10) H 06/14/23 19:00 Delta Troponin T -0.58 ABS# (0-10) L 06/14/23 19:00 Total Protein 5.6 g/dL (6.6-8.7) L 06/14/23 16:48 Albumin 3.7 g/dL (3.5-5.2) 06/14/23 16:48 Globulin 1.9 g/dL (1.3-4.6) 06/14/23 16:48 Lipase 44 U/L (13-60) 06/14/23 16:48 EKG Data EKG 1: Interpretation: Sinus rhythm rate of [address] changes. IL interval 178 QT 414 Discharge Plan Discharge Patient Disposition: Home Clinical Impression: GERD (gastroesophageal reflux disease), Atypical chest pain, Abdominal pain Condition: Stable Prescriptions: No Action pantoprazole 20 mg tablet,delayed release (DR/EC) 20 mg PO BID@ gemfibrozil 600 mg tablet 600 mg PO BID@ simvastatin 40 mg tablet 40 mg PO BEDTIME Narcan 4 mg/actuation spray,non-aerosol See Rx Instructions .ROUTE .COMPLEX PRN (Reason: overdose) Rx Instructions: DIRECTED PRN OVERDOSE exemestane 25 mg tablet 25 mg PO DAILY Qty: 30 0RF Rx Instructions: must administer after a meal fluoxetine 40 mg capsule 40 mg PO QAM hydrocodone-acetaminophen 10-325 mg tablet See Rx Instructions .ROUTE .COMPLEX Rx Instructions: 1-2 TABS PO Q4-6H PRN PAIN (MAX OF 8 TABS PER DAY) furosemide 40 mg tablet 60 mg PO DAILY anastrozole 1 mg tablet 1 mg PO DAILY amoxicillin-pot clavulanate 500-125 mg tablet 1 tab PO Q8H Rx Instructions: FOR 10 DAYS fentanyl 100 mcg/hr patch 72 hour 100 mcg transdermal Q72H ondansetron 4 mg tablet,disintegrating 4 mg PO Q6H PRN (Reason: Nausea) lisinopril 2.5 mg Tablet 2.5 mg PO QAM ropinirole 0.5 mg tablet 1 mg PO BEDTIME nitroglycerin [Nitrostat] 0.4 mg Tablet, Sublingual 0.4 mg SUBLINGUAL Q5M PRN (Reason: Chest Pain) Rx Instructions: do not exceed 3 doses per episode nystatin [Nystop] 100,000 unit/gram powder 1 applic TOPICAL BID Discharge Orders: Discharge ED (Routine); Ordered 06/14/23 Ordered By: Newton Short Referrals: Elayne Wyatt DO [Primary Care Provider] - Discharge Diet: Advance as tolerated Discharge Activity: Resume usual activity Patient Instructions: Abdominal Pain (ED), Opioid Safety, Pain Management Coding Level of Care Code ED Core Measures Abstractor for Ted San
--- NOTE | 2023-06-14 16:28 | CTR_ITS ---
PROCEDURE INFORMATION: Exam: CT Abdomen And Pelvis With Contrast Exam date and time: 06/14/2023 5:38 PM Age: 73 years old Clinical indication: Abdominal pain; Generalized TECHNIQUE: Imaging protocol: Computed tomography of the abdomen and pelvis with contrast. Radiation optimization: All CT scans at this facility use at least one of these dose optimization techniques: automated exposure control; mA and/or kV adjustment per patient size (includes targeted exams where dose is matched to clinical indication); or iterative reconstruction. Contrast material: OMNI 350; Contrast volume: 100 ml; Contrast route: INTRAVENOUS (IV); REPORTING DATA: Count of CT and Cardiac NM exams in prior 12 months: This patient has received 5 known CTs and 0 known cardiac nuclear medicine studies in the 12 months prior to the current study. COMPARISON: CT abdomen pelvis w con* [id number] 07/16/2022 1:13 PM RADIATION DOSE METRICS: Total DLP (mGy-cm): 1240.58 FINDINGS: Pleural spaces: There is a small left pleural effusion with adjacent atelectasis. Tiny calcified granulomas are seen in both lungs. Heart: Mildly enlarged heart. Coronary atherosclerotic calcifications seen. No pericardial effusion. Liver: There is tiny calcific densities scattered throughout the liver, likely sequela of previous granulomatous disease. The liver is otherwise unremarkable. Gallbladder and bile ducts: Normal. No calcified stones. No ductal dilation. Pancreas: Normal. No ductal dilation. Spleen: There is tiny calcific densities scattered throughout the spleen, likely sequela of previous granulomatous disease. The spleen is otherwise unremarkable. The spleen is surgically absent. Adrenal glands: Normal. No mass. Kidneys and ureters: Normal. No hydronephrosis. Stomach and bowel: There is mild thickening of the gastric wall, likely secondary to underdistention. No obstruction. Appendix: The appendix is not seen and may be absent. Intraperitoneal space: Few surgical clips noted in the left hemiabdomen. No free air. No fluid collection. Vasculature: Mild diffuse atherosclerotic disease is present. Lymph nodes: Small subcarinal right hilar calcified lymph nodes noted, likely sequela of previous granulomatous disease. Urinary bladder: Unremarkable as visualized. Reproductive: The uterus is surgically absent. Bones/joints: Degenerative changes of the spine seen. Bilateral femoral ORIF hardware noted. Chronic mild compression fracture deformity of L1 re-identified. Soft tissues: A small fat containing ventral hernias noted in the supraumbilical region. CT/CT abdomen pelvis w con* [id number] IMPRESSION: 1. No acute intra-abdominal or intrapelvic pathology. 2. Small left pleural effusion with adjacent atelectasis.
--- NOTE | 2023-06-14 16:37 | ECG_ITS ---
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 Measurements Intervals [place] Rate: 70 P: 60 PA: 178 QRS: 8 QRSD: 108 T: 61 QT: 393 QTc: 427 Interpretive Statements SINUS RHYTHM Compared to ECG 06/18/2022 05:56:22 Myocardial infarct finding no longer present Electronically Signed On 06-15-2023 11:24:30 CDT by Sheyla Rea M.D. [id number]
--- NOTE | 2023-06-14 16:55 | PC.PHAR ---
PT HAS MULTIPLE BOTTLES OF HER PRESCRIPTIONS IN HER ROOM- PTS STATES THEIR PHARMACY FILLS SCRIPTS BEFORE THEY NEED TO BE FILLED AND THAT HE DUMPS NEW SCRIPTS INTO OLD BOTTLES- UNSURE OF WHEN PT LAST TOOK MEDICATIONS AND IF SHE TAKES DIRECTED
[2023-06-14 17:01] LABS: Basophils % 0.4 %; Eosinophils # 0.2 10^3/uL (0.0-0.8); Eosinophils % 2.8 %; Hematocrit 32.4 % (37.0-47.0); Lymphocytes % 13.5 %; Mean Corpuscular HGB Conc 27.8 g/dL (30.0-36.0); Mean Corpuscular Hemoglobin 28.1 pg (28.0-34.0); Mean Corpuscular Volume 101.3 fl (81-99); Mean Platelet Volume 10.2 fL (7.4-10.4); Monocytes # 0.6 10^3/uL (0.2-0.9); Monocytes % 7.3 %; Neutrophils # 5.74 10^3/uL (1.8-7.7); Neutrophils % 75.7 %; Nucleated Red Blood Cells % 0 %; Platelet Count 217 10^3/cmm (130-400); Red Cell Distribution Width 13.4 % (12.1-15.1); White Blood Count 7.6 10^3/uL (4.0-10.0)
[2023-06-14] MEDS: pantoprazole 40 mg SDV IVP (17:10)
[2023-06-14] MEDS: nitroglycerin 1 gm/inch oint Pkt 0.5 INCH TOPICAL (17:10)
[2023-06-14 17:17] LABS: Alanine Aminotransferase 6 U/L (0-33); Albumin Level 3.7 g/dL (3.5-5.2); Alkaline Phosphatase 106 U/L (35-105); Anion Gap 8.7 (5-19); Aspartate Amino Transferase 10 U/L (0-32); Blood Urea Nitrogen 22 mg/dL (8-23); Calcium 8.8 mg/dL (8.5-10.5); Carbon Dioxide 40 mmol/L (22-29); Chloride 100 mmol/L (98-107); Globulin 1.9 g/dL (1.3-4.6); Glucose 85 mg/dL (65-115); Lipase 44 U/L (13-60); Osmolality Calculated 301 mOsm/kg (285-295); Potassium 4.7 mmol/L (3.5-5.1); Sodium 144 mmol/L (136-145); Total Bilirubin 0.2 mg/dL (0.15-1.2); Total Protein 5.6 g/dL (6.6-8.7)
[2023-06-14 17:25] LABS: Troponin(5th) Baseline 29 ng/L (0-10)
[2023-06-14] MEDS: iohexol 350 mg/mL 500 mL Btl (per mL) IV (17:41)
[2023-06-14 19:27] LABS: Troponin 5 2HR 28.42 ng/L (0-10)
[2023-06-14 19:28] LABS: Troponin 5 2HR Delta -0.58 ABS# (0-10)
--- NOTE | 2023-06-14 20:00 | PC.NURSE ---
PATIENT NOTIFIED OF DISCHARGE INSTRUCTIONS. PATIENT UNABLE TO AMBULATE AND WILL NEED AMBULANCE RIDE. PAPERWORK FILLED OUT TO START THE PROCESS OF GETTING AN EMS RIDE BACK HOME.
--- NOTE | 2023-06-14 21:05 | PC.NURSE ---
PATIENT UPDATED ON TIME FRAME FROM [facility] OF THEM POSSIBLY NOT ABLE TO TRANSPORT UNTIL 2300 OR 0000.
[2023-06-15] VITALS: BP 100/73; PULSE 65; O2SAT 91
== END 2023-06-15 00:28 | disposition home or self-care (01) ==
PROVIDERS: Emergency Provider Family Medicine; PCP Family Medicine
DX: R07.89 Other chest pain (principal); K21.9 Gastro-esophageal reflux disease without esophagitis; Z85.3 Personal history of malignant neoplasm of breast; J44.9 Chronic obstructive pulmonary disease, unspecified; Z86.73 Personal history of transient ischemic attack (TIA), and cerebral infarction without residual deficits; E78.5 Hyperlipidemia, unspecified; I10 Essential (primary) hypertension
CPT/HCPCS: 36415; 74177; 80053; 83690; 84484; 85025; 93005; 96374; 99285; C9113; Q9967

== ENCOUNTER 2023-08-07 21:23 | Emergency (ER) | payer MEDICARE, MEDICAID, SELFPAY ==
[2023-08-07 21:24] VITALS: BP 106/68; PULSE 66; RESP 18; TEMP 37.1; O2SAT 96; BMI 42.9
--- NOTE | 2023-08-07 22:05 | XRR_ITS ---
PROCEDURE INFORMATION: Exam: XR Chest Exam date and time: 08/07/2023 10:24 PM Age: 73 years old Clinical indication: Dyspnea; Additional info: Weakness dyspnea TECHNIQUE: Imaging protocol: Radiologic exam of the chest. Views: 1 view. COMPARISON: CR XR chest 1V portable [id number] 08/26/2022 2:17 PM FINDINGS: Lungs: Low lung volumes with bronchovascular crowding. Pleural spaces: No pleural effusion. No pneumothorax. Heart/Mediastinum: Mild stable cardiomegaly. Calcified hilar and mediastinal lymph nodes are similar to prior. Bones/joints: Cervical fusion hardware is noted. Subjective bony demineralization. Advanced shoulder arthropathy is present bilaterally. XR/XR chest 1V portable [id number] IMPRESSION: 1. Low lung volumes noted with bronchovascular crowding. No convincing airspace disease. 2. Stable cardiomegaly.
--- NOTE | 2023-08-07 22:14 | W.ED.WEAKNES ---
HPI - Weakness General: Chief complaint: Weakness Stated complaint: WEAKNESS Time Seen by Provider: 08/07/23 21:26 History of Present Illness: Patient presents to the ER with complaints of being weak all over. Patient is on 6 L of oxygen currently and is currently chronically on 6 L of oxygen. EMS states they have transported to the patient several times and this is her normal is always being weak and unable to ambulate. Patient states she hurts all over. Patient states she did not be able get out of bed that she broke her leg about a month ago. Review of Systems General: Reports: 10 or more systems reviewed and unremarkable except in HPI and below PFSH ED PFSH: Medical History Anxiety Bilateral breast cancer Closed fracture of right distal femur Compression fracture COPD (chronic obstructive pulmonary disease) CVA (cerebral vascular accident) GERD (gastroesophageal reflux disease) Hospice care Hyperlipidemia Hypertension Hyperthyroidism Morbid obesity ROSEMARIE (obstructive sleep apnea) Surgical History H/O cervical spine surgery H/O: hysterectomy History of bilateral breast biopsy History of cholecystectomy History of colon resection History of open reduction and internal fixation (ORIF) procedure left femur Status post right knee replacement Family History Grandfather Diabetes Maternal Grandmother Diabetes Maternal Kidney failure Maternal Grandmother Diabetes Paternal Grandfather Diabetes Paternal Family/Other Diabetes Aunt Mother , Age 99 Hypertension Cancer Leukemia Father Myocardial infarction Hypertension Brother Hypertension Cancer Prostate Denies family history of Anesthesia complication Bleeding disorder Social History Smoking and tobacco status: never smoked Alcohol intake: never Substance/Drug Use: never Lives independently: Yes Household members: spouse Marital status: Current occupational status: disabled Physical Exam Const: COMMON NORMALS: no acute distress, average body habitus, patient oriented x3, no limitations, healthy appearing, alert and well nourished HENMT: COMMON NORMALS: normocephalic, atraumatic, hearing grossly normal bilaterally, external ears normal, Normal external nose present and moist oral mucous membranes HEAD & SCALP: normocephalic and atraumatic NOSE: Normal external nose present EXTERNAL EAR: Yes external ears normal Eye: COMMON NORMALS: Equal, round and reactive pupils present, EOMs intact bilaterally, conjunctivae normal and no scleral icterus CONJUNCTIVA: Yes conjunctivae normal PUPIL: Yes Equal, round and reactive pupils present Neck/C-Spine: COMMON NORMALS: full ROM, no lymphadenopathy, supple, no meningeal signs, no JVD and Thyroid normal THYROID: Thyroid normal Lymph: LYMPHATIC: no lymphadenopathy noted Chest: COMMONS NORMALS: normal inspection of the chest and normal palpation of entire chest wall Resp: COMMON NORMALS: normal respiratory effort, No retractions, No use of accessory muscles and clear to auscultation bilaterally AUSCULTATION: clear to auscultation bilaterally Cardio: COMMON NORMALS: no JVD, regular rate, regular rhythm, S1 normal heart sound present, S2 normal heart sound present, No gallops present (Cardio), No clicks present (Cardio), No murmurs present (Cardio) and No rub (Cardio) RATE: regular rate RHYTHM: regular rhythm HEART SOUNDS: S1 normal heart sound present and S2 normal heart sound present GI: COMMON NORMALS: Normal to inspection, nondistended, normoactive bowel sounds present, Soft to palpation, non-tender, No hepatosplenomegaly present and no masses PALPATION: Yes Soft to palpation and Yes No hepatosplenomegaly present Neuro: COMMON NORMALS: patient oriented x3 SENSORIUM/ORIENTATION: Yes alert MENINGEAL SIGNS: Yes no meningeal signs Course Vital Signs: Vital signs: Vital Signs Temperature 98.8 F 08/07/23 21:24 Pulse Rate 66 08/07/23 21:24 Respiratory Rate 18 08/07/23 21:24 Blood Pressure 106/68 08/07/23 21:24 Pulse Oximetry 96 08/07/23 21:24 Oxygen Delivery Me thod Nasal Cannula 08/07/23 21:24 Oxygen Flow Rate 6 08/07/23 21:24 MDM - Weakness Medical Decision Making Patient was brought in by EMS for generalized weakness EMS stated that this is patient's normal patient is on 6 L of oxygen which is her normal. Patient was stuck multiple times and trying to get blood from her to the point that she just said that she will not have any more needle sticks and wants to go home. Patient be discharged home with diagnosis of generalized weakness. Differential Diagnosis Unlikely acute myocardial infarction, anemia, hypoglycemia, hypothyroidism, rhabdomyolysis, sepsis or dehydration Medical Records I reviewed the patient's medical records. Lab Data I reviewed the patient's lab results. Radiology Impressions Chest X-Ray 08/07/23 22:05 IMPRESSION: 1. Low lung volumes noted with bronchovascular crowding. No convincing airspace disease. 2. Stable cardiomegaly. All radiology interpretation(s) finalized by discharge EKG Data EKG 1: I personally reviewed and interpreted this EKG as follows: EKG interpretation date: 08/06/23 EKG interpretation time: 23:11 Prior EKG tracings: not available for review Interpretation: EKG showed ventricular rate 67 bpm, DC interval 172, QRS duration 90, QTc of 434, sinus rhythm, no ST-T wave changes Discharge Plan Discharge Patient Disposition: Home Clinical Impression: Generalized weakness Condition: Stable Prescriptions: No Action pantoprazole 20 mg tablet,delayed release (DR/EC) 20 mg PO BID@, gemfibrozil 600 mg tablet 600 mg PO BID@, simvastatin 40 mg tablet 40 mg PO BEDTIME Narcan 4 mg/actuation spray,non-aerosol See Rx Instructions .ROUTE .COMPLEX PRN (Reason: overdose) Rx Instructions: DIRECTED PRN OVERDOSE exemestane 25 mg tablet 25 mg PO DAILY Qty: 30 0RF Rx Instructions: must administer after a meal fluoxetine 40 mg capsule 40 mg PO QAM hydrocodone-acetaminophen 10-325 mg tablet See Rx Instructions .ROUTE .COMPLEX Rx Instructions: 1-2 TABS PO Q4-6H PRN PAIN (MAX OF 8 TABS PER DAY) furosemide 40 mg tablet 60 mg PO DAILY anastrozole 1 mg tablet 1 mg PO DAILY amoxicillin-pot clavulanate 500-125 mg tablet 1 tab PO Q8H Rx Instructions: FOR 10 DAYS fentanyl 100 mcg/hr patch 72 hour 100 mcg transdermal Q72H ondansetron 4 mg tablet,disintegrating 4 mg PO Q6H PRN (Reason: Nausea) lisinopril 2.5 mg Tablet 2.5 mg PO QAM ropinirole 0.5 mg tablet 1 mg PO BEDTIME nitroglycerin [Nitrostat] 0.4 mg Tablet, Sublingual 0.4 mg SUBLINGUAL Q5M PRN (Reason: Chest Pain) Rx Instructions: do not exceed 3 doses per episode nystatin [Nystop] 100,000 unit/gram powder 1 applic TOPICAL BID Discharge Orders: Discharge ED (Routine); Ordered 08/07/23 Ordered By: Janes Mcnulty Referrals: Elayne Wyatt DO [Primary Care Provider] - 1 week Patient Instructions: Weakness (ED) Activity Restrictions/Additional Instructions: Please follow-up with your family practice physician for further evaluation and testing. Coding Level of Care Code ED Computer Forwarding System Markup Clerk for Ted San
--- NOTE | 2023-08-07 23:11 | ECG_ITS ---
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 Measurements Intervals [place] Rate: 67 P: 47 [place]: 172 QRS: 27 QRSD: 90 T: 58 QT: 418 QTc: 444 Interpretive Statements SINUS RHYTHM Compared to ECG 06/14/2023 16:37:16 No significant changes Electronically Signed On 08-08-2023 19:04:29 CDT by Shelya Rea M.D. [id number]
--- NOTE | 2023-08-08 01:14 | PC.NURSE ---
Pt. was difficult to get I.V. on and lab was unsuccessful at venipuncture. Pt. has refused to have any more sticks and requested to go home. Pt. waiting on ambulance to take her home.
--- NOTE | 2023-08-08 01:16 | PC.NURSE ---
Pt.'s waiting in doorway for ambulance to arrive.
== END 2023-08-08 02:58 | disposition home or self-care (01) ==
PROVIDERS: Emergency Provider Emergency Medicine; PCP Family Medicine
DX: R53.1 Weakness (principal); Z85.3 Personal history of malignant neoplasm of breast; J44.9 Chronic obstructive pulmonary disease, unspecified; Z86.73 Personal history of transient ischemic attack (TIA), and cerebral infarction without residual deficits; E78.5 Hyperlipidemia, unspecified; I10 Essential (primary) hypertension
CPT/HCPCS: 71045; 93005; 99284

== ENCOUNTER → 2023-10-24 09:28 | Outpatient (BNVA) | payer MEDICARE, MEDICAID, SELFPAY | PROVIDERS: PCP Family Medicine; Visit Provider Physician Assistant | DX: S72.491A Other fracture of lower end of right femur, initial encounter for closed fracture; X58.XXXA Exposure to other specified factors, initial encounter | CPT/HCPCS: 73552; 73560; 73562; 99213 ==

== ENCOUNTER 2023-11-25 10:59 | Oncology outpatient (recurring) (ONCR) | payer MEDICARE, MEDICAID, SELFPAY | END 2023-12-24 23:59 | disposition home or self-care (01) | PROVIDERS: PCP Family Medicine; Visit Provider Internal Medicine | DX: C50.911 Malignant neoplasm of unspecified site of right female breast (principal); C50.912 Malignant neoplasm of unspecified site of left female breast; Z79.899 Other long term (current) drug therapy; Z17.0 Estrogen receptor positive status [ER+] | CPT/HCPCS: 99214 ==

== ENCOUNTER 2023-12-03 16:24 | Emergency (ER) | payer MEDICARE, MEDICAID, SELFPAY ==
[2023-12-03 16:27] VITALS: BP 133/68; PULSE 58; TEMP 37.3; O2SAT 96; BMI 47.2
--- NOTE | 2023-12-03 16:29 | ECG_ITS ---
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 Measurements Intervals [place] Rate: 61 P: 67 [place]: 178 QRS: -26 QRSD: 105 T: 39 QT: 435 QTc: 441 Interpretive Statements SINUS RHYTHM POSSIBLE ANTERIOR MYOCARDIAL INFARCTION , OF INDETERMINATE AGE [30 ms Q WAVE IN V3/V4, OR R < 0.2 mV IN V4] Compared to ECG 08/07/2023 23:11:20 Myocardial infarct finding now present Electronically Signed On 12-03-2023 18:56:13 MANAGER COMMERCIAL REAL ESTATE by Rakan Jensen M.D. [email or web address] [email or web address] [email or web address]/[id number] f
[2023-12-03 16:34] VITALS: BP 133/68; PULSE 54; RESP 22; O2SAT 97
--- NOTE | 2023-12-03 16:37 | XRR_ITS ---
PROCEDURE INFORMATION: Exam: XR Chest Exam date and time: 12/03/2023 5:39 PM Age: 73 years old Clinical indication: Dyspnea; Chest wall pain; Additional info: Left sided chest pain and some dyspnea; HX breast cancer TECHNIQUE: Imaging protocol: Radiologic exam of the chest. Views: 1 view. COMPARISON: CR (CHEST, ) 08/07/2023 10:24 PM FINDINGS: Lungs: Lungs appear free of acute disease. Pleural spaces: Unremarkable. No pleural effusion. No pneumothorax. Heart/Mediastinum: Mild cardiomegaly. Bones/joints: Cervical spine metallic plate is seen. No acute findings. XR/XR chest 1V portable [id number] IMPRESSION: No acute findings.
[2023-12-03 17:10] LABS: Basophils % 0.4 %; Eosinophils # 0.2 10^3/uL (0.0-0.8); Eosinophils % 2.9 %; Hematocrit 31.3 % (36-47); Lymphocytes % 13.3 %; Mean Corpuscular HGB Conc 30.7 g/dL (30-55); Mean Corpuscular Hemoglobin 29.5 pg (27-33); Mean Corpuscular Volume 96.3 fl (85-98); Mean Platelet Volume 9.5 fL (7.4-10.4); Monocytes # 0.5 10^3/uL (0.2-0.9); Monocytes % 7.1 %; Nucleated Red Blood Cells % 0 %; Platelet Count 183 10^3/cmm (157-399); Red Blood Count 3.25 10^6/uL (3.85-5.65); Red Cell Distribution Width 12.9 % (12.1-15.1); White Blood Count 7.62 10^3/uL (3.29-11.43)
--- NOTE | 2023-12-03 17:13 | ED_ITS ---
HPI - Chest Pain 2 General: Chief Complaint: Chest Pain Stated Complaint: Chest Pain Time Seen by Provider: 12/03/23 16:25 History of Present Illness: 71-year-old female presents emergency de partment with chief complaint of bilateral anterior shoulder pain and left upper chest pain. She noticed this today. It is typically when she is moving from 1 position to another. The patient is bedbound. Her uses a Susie lift to get her from her bed to a wheelchair and then from a wheelchair to a recliner. She does not go anywhere else. She wears depends for bowel movements and urine. She has chronic hypoxic respiratory failure and wears 5 to 6 L of oxygen at all times. reports that she has been very fatigued and sleeping most of the day the last 4 days. He believes that she has a urinary tract infection. He has started her on Augmentin which they have at home because of recurrent UTIs. She has taken 2 doses. She seems to be doing better after taking her second dose. Patient reports her chest pains are nonexertional, nonpleuritic, and without any mucus production, hemoptysis, or associated shortness of breath, nausea, diaphoresis, syncope or palpitations. As noted above, she is very sedentary but has never had a pulmonary embolism to their knowledge. Associated symptoms: Deny abdominal pain, dyspnea, fever(s), syncope or vomiting Review of Systems 2 General: Reports: 10 or more systems reviewed and unremarkable except in HPI and below Const: Denies: fever(s), chills or body aches Eyes: Denies: change in vision ENMT: Denies: throat pain Card: Denies: edema or syncope Resp: Denies: dyspnea or productive cough GI: Denies: abdominal pain, vomiting or diarrhea : Denies: flank pain, dysuria or urinary frequency Musc: Denies: neck pain, back pain, extremity pain or extremity swelling Skin/Breast: Denies: rash or erythema Neuro: Denies: headache(s) or lack of coordination PFSH ED 2 PFSH: Medical History Anxiety Bilateral breast cancer Closed fracture of right distal femur Compression fracture COPD (chronic obstructive pulmonary disease) CVA (cerebral vascular accident) GERD (gastroesophageal reflux disease) Hospice care Hyperlipidemia Hypertension Hyperthyroidism Morbid obesity ROSEMARIE (obstructive sleep apnea) Surgical History H/O cervical spine surgery H/O: hysterectomy History of bilateral breast biopsy History of cholecystectomy History of colon resection History of open reduction and internal fixation (ORIF) procedure left femur Status post right knee replacement Family History Grandfather Diabetes Maternal Grandmother Diabetes Maternal Kidney failure Maternal Grandmother Diabetes Paternal Grandfather Diabetes Paternal Family/Other Diabetes Aunt Mother , Age 99 Hypertension Cancer Leukemia Father Myocardial infarction Hypertension Brother Hypertension Cancer Prostate Denies family history of Anesthesia complication Bleeding disorder Social History Smoking and tobacco/nicotine status: never used tobacco/nicotine Alcohol intake: never Substance/Drug Use: never Lives independently: Yes Household members: spouse Marital status: Current occupational status: disabled Physical Exam 2 Narrative: EXAM NARRATIVE: This is an elderly appearing, deconditioned, morbidly obese 73-year-old female. She is in no acute distress. She is hard of hearing but can communicate effectively as long as I stand close to her ear. Her is here and is an independent historian. Patient has reproducible pain on palpation of her shoulders, clavicles, and anterior chest and around her sternum. She does have mild bradycardia on examination. She cannot sit up and she is too big for me to hold her up on my own. I cannot listen to her posterior lungs but anteriorly I do not hear any crackles. Const: COMMON NORMALS: alert and well nourished HENMT: COMMON NORMALS: normocephalic, atraumatic and external ears normal H EAD & SCALP: normocephalic and atraumatic EXTERNAL EAR: Yes external ears normal MOUTH: no muffled voice Eye: COMMON NORMALS: conjunctivae normal and no scleral icterus C ONJUNCTIVA: Yes conjunctivae normal Neck/C-Spine: GENERAL: Yes normal visual inspection and Yes trachea midline Resp: COMMON NORMALS: No retractions and clear to auscultation bilaterally AUSCULTATION: clear to auscultation bilaterally Cardio: COMMON NORMALS: regular rate and regular rhythm RATE: regular rate RHYTHM: regular rhythm GI: COMMON NORMALS: Soft to palpation and non-tender PALPATION: Yes Soft to palpation and No Guarding due to palpation present (GI) Extremity: COMMON NORMALS: normal to inspection Neuro: COMMON NORMALS: no focal motor deficits and no sensory deficits noted SENSORIUM/ORIENTATION: Yes alert SPEECH: speech normal Psych: COMMON NORMALS: mental status grossly normal, Normal thought process present, cooperative, normal affect and speech normal SPEECH: Yes normal speech THOUGHT PROCESS: Normal thought process present Skin: COMMON NORMALS: turgor normal and no jaundice GENERAL SKIN EXAM: t urgor normal Course 2 Vital Signs: Vital signs: Vital Signs Temperature 99.1 F 12/03/23 16:27 Pulse Rate 56 L 12/03/23 19:49 Respiratory Rate 19 H 12/03/23 19:49 Blood Pressure 133/68 12/03/23 16:34 Pulse Oximetry 96 12/03/23 19:49 Oxygen Delivery Me thod Room Air 12/03/23 19:49 Oxygen Flow Rate 5 12/03/23 16:34 MDM - Chest Pain Medical Decision Making 73-year-old female presents with chief complaint of chest pain. It is atypical. It is reproducible on examination. She has known arthritis in her shoulders. She is tender not only in the shoulders but around the clavicle and anterior chest wall bilaterally. It is worse with position changes and going from a sitting to a lying position. She does have a history of CHF, history of breast cancer, and is sedentary. It is reasonable to evaluate for acute coronary syndrome, heart failure, pulmonary embolism, pneumothorax, effusion, etc. The reports has been sleeping more than usual. She is alert and oriented at this time. She is moving all extremities and has no focal neurologic findings nor any signs of encephalopathy. He reports that he suspects he has a UTI. He would like us to check a urine analysis. She is on Augmentin and has had 2 doses so far for presumed UTI. UPDATE: White blood cell count normal, hemoglobin 9.6 (stable), age-adjusted D-dimer with low risk for pulmonary embolism, troponin baseline 33, 120-minute troponin 32, BNP elevated significantly. Chest x-ray however does not show any pulmonary edema. The patient has not required any increased oxygen. She does not have crackles on examination. I am any give 1 dose of IV Lasix. Urine analysis does show UTI. Rocephin was given here in the emergency department. has amoxicillin with clavulanic acid at home that he can continue for the next 7 days. At this time, I think patient is a candidate for discharge and home therapy. She has a poor baseline status and has a high risk of readmission. However, I do not think there is anything that we need to do emergently or that requires hospitalization at this time. Lab Data 12/03/23 17:04 12/03/23 17:04 Radiology Impressions Chest X-Ray 12/03/23 16:37 IMPRESSION: No acute findings. Laboratory Results WBC 7.62 10^3/uL (3.29-11.43) 12/03/23 17:04 RBC 3.25 10^6/uL (3.85-5.65) L 12/03/23 17:04 Hgb 9.60 g/dL (11.27-16.99) L 12/03/23 17:04 Hct 31.3 % (36-47) L 12/03/23 17:04 MCV 96.3 fl (85-98) 12/03/23 17:04 MCH 29.5 pg (27-33) 12/03/23 17:04 MCHC 30.7 g/dL (30-55) 12/03/23 17:04 RDW 12.9 % (12.1-15.1) 12/03/23 17:04 Plt Count 183 10^3/cmm (157-399) 12/03/23 17:04 MPV 9.5 fL (7.4-10.4) 12/03/23 17:04 Neut % (Auto) 76.0 % 12/03/23 17:04 Lymph % (Auto) 13.3 % 12/03/23 17:04 [place] % (Auto) 7.1 % 12/03/23 17:04 Eos % (Auto) 2.9 % 12/03/23 17:04 Baso % (Auto) 0.4 % 12/03/23 17:04 Neut # (Auto) 5.80 10^3/uL (1.8-7.7) 12/03/23 17:04 Lymph # (Auto) 1.0 10^3/uL (0.8-4.8) 12/03/23 17:04 [place] # (Auto) 0.5 10^3/uL (0.2-0.9) 12/03/23 17:04 Eos # (Auto) 0.2 10^3/uL (0.0-0.8) 12/03/23 17:04 Baso # (Auto) 0.0 10^3/uL (0.0-0.1) 12/03/23 17:04 Nucleated RBC % (auto) 0 % 12/03/23 17:04 Nucleated RBCs # 0.0 /100WBC 12/03/23 17:04 PT 13.80 SECONDS (12.1-14.9) 12/03/23 17:04 INR 1.03 (0.8-1.2) 12/03/23 17:04 APTT 23.9 SECONDS (23.9-36.7) 12/03/23 17:04 D-Dimer 0.84 ug/mLFEU (0-0.59) H 12/03/23 17:04 Sodium 138 mmol/L (136-145) 12/03/23 17:04 Potassium 4.5 mmol/L (3.5-5.1) 12/03/23 17:04 Chloride 99 mmol/L (98-107) 12/03/23 17:04 Carbon Dioxide 32 mmol/L (22-29) H 12/03/23 17:04 Anion Gap 11.5 (5-19) 12/03/23 17:04 BUN 31 mg/dL (8-23) H 12/03/23 17:04 Creatinine 0.8 mg/dL (0.5-0.9) 12/03/23 17:04 GFR Calculation Not Reportable 12/03/23 17:04 Glucose 99 mg/dL (65-115) 12/03/23 17:04 Calculated Osmolality 293 mOsm/kg (285-295) 12/03/23 17:04 Calcium 9.0 mg/dL (8.5-10.5) 12/03/23 17:04 Total Bilirubin 0.2 mg/dL (0.15-1.2) 12/03/23 17:04 AST 15 U/L (0-32) 12/03/23 17:04 ALT 6 U/L (0-33) 12/03/23 17:04 Alkaline Phosphatase 82 U/L (35-105) 12/03/23 17:04 Troponin T Baseline 33 ng/L (0-10) H 12/03/23 17:04 Troponin T 120 Minute 32.16 ng/L (0-10) H 12/03/23 19:30 Delta Troponin T -0.84 ABS# (0-10) L 12/03/23 19:30 NT-Pro-B Natriuret Pep 4893 pg/mL (0-450) H 12/03/23 17:04 Total Protein 5.3 g/dL (6.6-8.7) L 12/03/23 17:04 Albumin 3.3 g/dL (3.5-5.2) L 12/03/23 17:04 Globulin 2.0 g/dL (1.3-4.6) 12/03/23 17:04 Urine Color Yellow (Yellow) 12/03/23 17:42 Urine Appearance Cloudy (CLEAR) A 12/03/23 17:42 Urine pH 5 (5-7) 12/03/23 17:42 Ur Specific [place] 1.010 (1.005-1.030) 12/03/23 17:42 Urine Protein Trace (Negative) 12/03/23 17:42 Urine Glucose (UA) Norm (Normal) 12/03/23 17:42 Urine Ketones Negative (Negative) 12/03/23 17:42 Urine Blood 3+ (Negative) H 12/03/23 17:42 Urine Nitrate Negative (Negative) 12/03/23 17:42 Urine Bilirubin Neg (Negative) 12/03/23 17:42 Urine Urobilinogen Norm mg/dL (Negative) 12/03/23 17:42 Ur Leukocyte Esterase 2+ (Negative) H 12/03/23 17:42 Urine RBC 25-40 /hpf (0-2) H 12/03/23 17:42 Urine WBC Too numerous to cnt /hpf (0-5) H 12/03/23 17:42 Ur Squamous Epith Cells 5-10 /hpf (0-5) H 12/03/23 17:42 Ur Transition Epith Cell 0-4 /hpf 12/03/23 17:42 Amorphous Sediment Not Reportable 12/03/23 17:42 Urine Bacteria 1+ /hpf (NONE) H 12/03/23 17:42 Urine Mucus 1+ /hpf 12/03/23 17:42 All radiology interpretation(s) finalized by discharge ED provider radiology interpretation(s): Chest x-ray portable, 1 view, EP interpretation, borderline cardiomegaly, no significant pulmonary edema pattern, no significant effusions, elevation of the right hemidiaphragm appears chronic. Discharge Plan Discharge Patient Disposition: Home Clinical Impression: Atypical chest pain, Acute UTI, CHF, chronic Condition: Stable Prescriptions: No Action pantoprazole 20 mg tablet,delayed release (DR/EC) 20 mg PO BID@08,21 gemfibrozil 600 mg tablet 600 mg PO BID@08,21 simvastatin 40 mg tablet 40 mg PO BEDTIME Narcan 4 mg/actuation spray,non-aerosol See Rx Instructions .ROUTE .COMPLEX PRN (Reason: overdose) Rx Instructions: DIRECTED PRN OVERDOSE exemestane 25 mg tablet 25 mg PO DAILY Qty: 90 2RF Rx Instructions: must administer after a meal fluoxetine 40 mg capsule 40 mg PO QAM hydrocodone-acetaminophen 10-325 mg tablet See Rx Instructions .ROUTE .COMPLEX Rx Instructions: 1-2 TABS PO Q4-6H PRN PAIN (MAX OF 8 TABS PER DAY) furosemide 40 mg tablet 60 mg PO DAILY anastrozole 1 mg tablet 1 mg PO DAILY amoxicillin-pot clavulanate 500-125 mg tablet 1 tab PO Q8H Rx Instructions: FOR 10 DAYS fentanyl 100 mcg/hr patch 72 hour 100 mcg transdermal Q72H ondansetron 4 mg tablet,disintegrating 4 mg PO Q6H PRN (Reason: Nausea) lisinopril 2.5 mg Tablet 2.5 mg PO QAM ropinirole 0.5 mg tablet 1 mg PO BEDTIME nitroglycerin [Nitrostat] 0.4 mg Tablet, Sublingual 0.4 mg SUBLINGUAL Q5M PRN (Reason: Chest Pain) Rx Instructions: do not exceed 3 doses per episode nystatin [Nystop] 100,000 unit/gram powder 1 applic TOPICAL BID Discharge Orders: Discharge ED (Routine); Ordered 12/03/23 Ordered By: Ciaran Yanes Referrals: Elayne Wyatt DO [Primary Care Provider] - 4-7 days (Chest pain and UTI--ER f/u) Patient Instructions: Chest Pain (ED), Urinary Tract Infection - Women Activity Restrictions/Additional Instructions: Continue taking Augmentin twice a day. We did not find any signs of heart attack today. Please closely monitor your chest pain symptoms. If you have unprovoked nausea, sweating, jaw pain, arm pain, chest pressure that does not resolve with repositioning or taking a deep breath, or other emergent symptoms then return to the ER. Coding Level of Care Code ED Asbestos Cloth Inspector for Ted San
[2023-12-03 17:23] LABS: INR 1.03 (0.8-1.2)
[2023-12-03 17:24] LABS: Partial Thromboplastin Time 23.9 SECONDS (23.9-36.7)
[2023-12-03 17:26] LABS: D Dimer 0.84 ug/mLFEU (0-0.59)
[2023-12-03 17:31] LABS: Troponin(5th) Baseline 33 ng/L (0-10)
[2023-12-03 17:39] LABS: Alanine Aminotransferase 6 U/L (0-33); Albumin Level 3.3 g/dL (3.5-5.2); Alkaline Phosphatase 82 U/L (35-105); Anion Gap 11.5 (5-19); Aspartate Amino Transferase 15 U/L (0-32); Blood Urea Nitrogen 31 mg/dL (8-23); Carbon Dioxide 32 mmol/L (22-29); Chloride 99 mmol/L (98-107); Glucose 99 mg/dL (65-115); NT Pro B Type Natriuretic Pept 4893 pg/mL (0-450); Osmolality Calculated 293 mOsm/kg (285-295); Potassium 4.5 mmol/L (3.5-5.1); Sodium 138 mmol/L (136-145); Total Bilirubin 0.2 mg/dL (0.15-1.2); Total Protein 5.3 g/dL (6.6-8.7)
[2023-12-03 17:53] LABS: Urine Appearance Cloudy (CLEAR); Urine Color Yellow (Yellow); pH Urine 5 (5-7)
[2023-12-03 17:54] LABS: Add Urine Microscopic? YES; Bilirubin Urine Neg (Negative); Blood Urine 3+ (Negative); Glucose Urine UA Norm (Normal); Ketones Urine Negative (Negative); Leukocyte Esterase Urine 2+ (Negative); Nitrate Urine Negative (Negative); Protein Urine Trace (Negative); Urobilinogen Urine Norm (Negative)
[2023-12-03 18:07] LABS: Add Urine Culture? Yes; Bacteria Urine 1+ /hpf; Mucus Urine 1+ /hpf; RBC Urine 25-40 /hpf (0-2); Transitional Epi Cells Urine 0-4 /hpf; WBC Urine TOO NUMEROUS TO CNT /hpf (0-5)
--- NOTE | 2023-12-03 18:37 | ECG_ITS ---
[facility] Test Date: 2023-12-03 Pat Name: Deborah Mchugh Department: Room: Gender: Female Rn Disease Management: : 1950 Requested By: Ciaran Yanes Order Number: [id number] James MD: Rakan Jensen M.D. Measurements Intervals [place] Rate: 62 P: 78 IN: 187 QRS: -22 QRSD: 108 T: 46 QT: 451 QTc: 460 Interpretive Statements SINUS RHYTHM WITH OCCASIONAL VENTRICULAR PREMATURE COMPLEXES MODERATE INTRAVENTRICULAR CONDUCTION DELAY [105+ ms QRS DURATION, 80+ ms Q/S IN V1/V2, NO Q AND 60+ ms R IN I/aVL/V5/V6] Compared to ECG 12/03/2023 16:29:38 Ventricular premature complex(es) now present Intraventricular conduction delay now present Myocardial infarct finding no longer present Electronically Signed On 12-03-2023 19:41:26 PROFESSIONAL DEVELOPMENT DIRECTOR by Rakan Jensen M.D. [id number]
[2023-12-03 18:43] VITALS: PULSE 57; RESP 18; O2SAT 95
[2023-12-03] MEDS: cefTRIAXone 1,000 MG in sodium chloride 0.9% (plus) 50 ML 100 MG IV (19:22)
[2023-12-03 19:49] VITALS: PULSE 56; RESP 19; O2SAT 96
[2023-12-03 20:26] LABS: Troponin 5 2HR 32.16 ng/L (0-10)
[2023-12-03 20:27] LABS: Troponin 5 2HR Delta -0.84 ABS# (0-10)
[2023-12-03 21:28] VITALS: BP 170/77; PULSE 63; RESP 24; O2SAT 97
[2023-12-03] MEDS: FUROsemide 10 mg/mL SDV 10mL 80 MG IVP (21:29)
[2023-12-03 22:28] VITALS: BP 170/77; PULSE 63; RESP 24; O2SAT 97
== END 2023-12-03 22:41 | disposition home or self-care (01) ==
PROVIDERS: Emergency Provider Emergency Medicine; PCP Family Medicine
DX: R07.89 Other chest pain (principal); N39.0 Urinary tract infection, site not specified; I11.0 Hypertensive heart disease with heart failure; I50.9 Heart failure, unspecified; Z85.3 Personal history of malignant neoplasm of breast; J44.9 Chronic obstructive pulmonary disease, unspecified; Z86.73 Personal history of transient ischemic attack (TIA), and cerebral infarction without residual deficits; E78.5 Hyperlipidemia, unspecified
CPT/HCPCS: 36415; 51701; 71045; 80053; 81001; 83880; 84484; 85025; 85378; 85610; 85730; 87086; 87186; 93005; 96365; 96375; 99285; J0696; J1940

== ENCOUNTER 2023-12-11 11:26 | Outpatient (CLI) | payer MEDICARE, MEDICAID, SELFPAY ==
--- NOTE | 2023-12-11 11:30 | MM_ITS ---
WS: [id number] RIGHT 3D TOMOSYNTHESIS DIGITAL MAMMOGRAPHY WITH CAD CLINICAL INFORMATION: HXCA; RT BR LUMP HISTORY: RIGHT breast lump. 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 No s urgery performed. Chemoradiation only. COMPARISON: 2019 TECHNIQUE: 3 views of the right breast were obtained. FINDINGS: Scattered fibroglandular densities of the right breast. Previously biopsied nodule near the 12 o'cloc k position with adjacent biopsy clip measuring 12 mm today compared to 16 mm previous. Interval chemo radiation of this nodule with prior biopsy demonstrating invasive ductal carcinoma. Punctate and lucent centered calcifications. Secretory calcifications. Skin thickening RIGHT breast w ith treatment-related changes. Palpable markers outer RIGHT breast with no visualized underlying abno rmalities. Ultrasound of this area is pending. ULTRASOUND BREAST RIGHT TECHNIQUE: Ultrasound right breast focused area of concern. CLINICAL INFORMATION: HXCA; RT BR LUMP COMPARISON: 09/24/2019 FINDINGS: Ultrasound RIGHT breast 12 o'clock position and in the areas of palpable concern. Previously biopsied nodular invasive ductal carcinoma at the 12 o'clock position 4 cm from the nipple with adjacent biopsy clip. Interval treatment with chemoradiation. Hypoechoic lobulated neoplasm has decreased in size compared to previous today measuring 1.1 x 0.8 x 0.9 cm. Adjacent visualized biops y clip. Previously this lesion measured 1.5 x 1.6 x 1.5 cm Ultrasound areas of concern at the 9:00 and 10:00 positions. Incidental small cyst at the 10 o'clock position measuring 9 x 5 mm. At the 9 o'clock position in the area of concern there is diffuse subcut aneous edema with skin and parenchymal thickening. This is presumably due to treatment related change s from chemoradiation. No suspicious lesions in this area to target for biopsy. IMPRESSION: 1. Known invasive ductal carcinoma at the 12 o'clock position has decreased in size with interval c hemoradiation. 2. No new suspicious findings in the areas of concern today at the 9 and 10:00 positions. MM/[place] [id number] BI-RADS: 6-Known Biopsy-Proven Malignancy FOLLOW UP: See Report Recommend follow-up with Oncology as indicated
== END 2023-12-11 11:27 | disposition home or self-care (01) ==
LOC: RAD 11:27
PROVIDERS: PCP Family Medicine; Visit Provider Family Medicine
DX: N63.13 Unspecified lump in the right breast, lower outer quadrant (principal); Z85.3 Personal history of malignant neoplasm of breast
CPT/HCPCS: 76642; 77061; G0279

== ENCOUNTER 2024-01-28 13:19 | Inpatient (IN) | payer MEDICARE, MEDICAID, SELFPAY ==
[2024-01-28] VITALS (11 sets, daily range): BP systolic 131–139; BP diastolic 63–101; PULSE 59–80; RESP 17–26; TEMP 36.3–36.9; O2SAT 94–100
--- NOTE | 2024-01-28 13:56 | ED_ITS ---
HPI - Weakness 2 General: Chief complaint: Weakness Stated complaint: weakness Time Seen by Provider: 01/28/24 13:29 Source: patient and family Mode of arrival: EMS History of Present Illness: 73-year-old female presents emergency ro om complaining of generally hurting everywhere she is encephalopathic. She has been coughing up thick mucus last couple days she been sick for the last week she was seen yesterday diagnosed with a cystitis. She was prescribed oral antibiotics but has not yet started them. She has a history of breast cancer she was previously on hospice but maintained well so that she was taken off of hospice. She is chronically on oxygen at home 5 or 6 L/min. She is maintaining her sats on her baseline oxygen at this time. She is difficult to get history from she is confused she states she she knows she is in the bed but does not know where the bed is. Other questions were asked her she was not able to answer well often her had to answer for her. MD Complaint: generalized weakness Onset (ago): day(s) Duration: constant Migration: none Relieving factors: none Exacerbating factors: none Associated symptoms: Reports chills, confusion, decreased appetite, dysuria, fever(s), headache(s), myalgias, nausea and short of breath; Denies chest pain, melena, easy bruising, rash, syncope or vomiting Review of Systems 2 Const: Reports: fever(s) and chills Card: Denies: chest pain or syncope Resp: Reports: dyspnea and productive cough GI: Reports: abdominal pain and nausea; Denies: vomiting or melena : Reports: dysuria; Denies: urinary frequency or urinary urgency Musc: Denies: neck pain or back pain Neuro: Reports: headache(s) and confusion Jeovanny/Lymph: Denies: easy bruising PFSH ED 2 PFSH: Medical History Bilateral breast cancer Closed fracture of right distal femur Compression fracture Hospice care Morbid obesity CVA (cerebral vascular accident) Anxiety COPD (chronic obstructive pulmonary disease) Hyperthyroidism Hyperlipidemia Hypertension GERD (gastroesophageal reflux disease) ROSEMARIE (obstructive sleep apnea) Surgical History Status post right knee replacement History of open reduction and internal fixation (ORIF) procedure left femur H/O cervical spine surgery History of colon resection H/O: hysterectomy History of cholecystectomy History of bilateral breast biopsy Family History Grandfather Diabetes Maternal Grandmother Diabetes Maternal Kidney failure Maternal Grandmother Diabetes Paternal Grandfather Diabetes Paternal Family/Other Diabetes Aunt Mother , Age 99 Hypertension Cancer Leukemia Father Myocardial infarction Hypertension Brother Hypertension Cancer Prostate Denies family history of Anesthesia complication Bleeding disorder Social History Smoking and tobacco/nicotine status: never used tobacco/nicotine Alcohol intake: never Substance/Drug Use: never Lives independently: Yes Household members: spouse Marital status: Current occupational status: disabled Physical Exam 2 Const: GENERAL APPEARANCE: cooperative and comfortable O RIENTATION/CONSCIOUSNESS: Yes awake, Yes oriented to person, Yes oriented to place and Yes oriented to time HENMT: COMMON NORMALS: normocephalic, atraumatic and hearing grossly normal bilaterally HEAD & SCALP: normocephalic and atraumatic Resp: EFFORT & INSPECTION: Yes tachypneic AUSCULTATION: rhonchi and wheezes Cardio: COMMON NORMALS: regular rhythm and No murmurs present (Cardio) R ATE: bradycardic RHYTHM: regular rhythm GI: COMMON NORMALS: No hepatosplenomegaly present AUSCULTATION: Yes normoactive bowel sounds PALPATION: Yes Tenderness to palpation present (GI) (Right side and right flank), No Guarding due to palpation present (GI) and Yes No hepatosplenomegaly present Extremity: GENERAL: Yes edema Neuro: SENSORIUM/ORIENTATION: Yes oriented to person, Yes oriented to place and Yes oriented to time Skin: COMMON NORMALS: no rashes or lesions noted GENERAL SKIN EXAM: no rashes or lesions noted Course 2 Vital Signs: Vital signs: Vital Signs Temperature 98.5 F 01/28/24 13:25 Pulse Rate 61 01/28/24 16:55 Respiratory Rate 26 H 01/28/24 16:55 Blood Pressure 134/73 01/28/24 16:00 Pulse Oximetry 97 01/28/24 16:55 Oxygen Delivery Me thod Nasal Cannula 01/28/24 16:55 Oxygen Flow Rate 3 01/28/24 16:55 MDM - Weakness Medical Decision Making Patient is encephalopathic. Respiratory status is actually pretty good per her baseline although she is reporting productive cough. She does have a normal white count but has significant cystitis. CT did not show acute abnormality. Given her encephalopathy and untreated cystitis will admit her lactic acid was normal discussed with Dr. Taylor orders written Medical Records I reviewed the patient's medical records. Lab Data I reviewed the patient's lab results. 01/28/24 14:30 01/28/24 14:30 Radiology Impressions Abdomen/Pelvis CT 01/28/24 14:48 IMPRESSION: 1. No acute intra-abdominal findings. 2. Interval development subtle tree-in-bud opacities in right lower lobe. This can be associated with atypical infections. Initial further evaluation with dedicated chest CT recommended. Laboratory Results WBC 6.53 10^3/uL (3.29-11.43) 01/28/24 14:30 RBC 3.15 10^6/uL (3.85-5.65) L 01/28/24 14:30 Hgb 9.50 g/dL (11.27-16.99) L 01/28/24 14:30 Hct 30.6 % (36-47) L 01/28/24 14:30 MCV 97.1 fl (85-98) 01/28/24 14:30 MCH 30.2 pg (27-33) 01/28/24 14:30 MCHC 31.0 g/dL (30-55) 01/28/24 14:30 RDW 13.5 % (12.1-15.1) 01/28/24 14:30 Plt Count 173 10^3/cmm (157-399) 01/28/24 14:30 MPV 10.0 fL (7.4-10.4) 01/28/24 14:30 Neut % (Auto) 74.5 % 01/28/24 14:30 Lymph % (Auto) 13.8 % 01/28/24 14:30 [place] % (Auto) 8.3 % 01/28/24 14:30 Eos % (Auto) 2.9 % 01/28/24 14:30 Baso % (Auto) 0.2 % 01/28/24 14:30 Neut # (Auto) 4.87 10^3/uL (1.8-7.7) 01/28/24 14:30 Lymph # (Auto) 0.9 10^3/uL (0.8-4.8) 01/28/24 14:30 [place] # (Auto) 0.5 10^3/uL (0.2-0.9) 01/28/24 14:30 Eos # (Auto) 0.2 10^3/uL (0.0-0.8) 01/28/24 14:30 Baso # (Auto) 0.0 10^3/uL (0.0-0.1) 01/28/24 14:30 Nucleated RBC % (auto) 0 % 01/28/24 14:30 Nucleated RBCs # 0.0 /100WBC 01/28/24 14:30 PT 12.80 SECONDS (12.1-14.9) 01/28/24 14:30 INR 0.93 (0.8-1.2) 01/28/24 14:30 D-Dimer 2.33 ug/mLFEU (0-0.59) H 01/28/24 14:30 Sodium 132 mmol/L (136-145) L 01/28/24 14:30 Potassium 5.8 mmol/L (3.5-5.1) H 01/28/24 14:30 Chloride 98 mmol/L (98-107) 01/28/24 14:30 Carbon Dioxide 27 mmol/L (22-29) 01/28/24 14:30 Anion Gap 12.8 (5-19) 01/28/24 14:30 BUN 44 mg/dL (8-23) H 01/28/24 14:30 Creatinine 0.9 mg/dL (0.5-0.9) 01/28/24 14:30 GFR Calculation Not Reportable 01/28/24 14:30 Glucose 97 mg/dL (65-115) 01/28/24 14:30 Calculated Osmolality 285 mOsm/kg (285-295) 01/28/24 14:30 Lactic Acid 1.1 mmol/L (0.5-2.2) 01/28/24 14:30 Calcium 8.9 mg/dL (8.5-10.5) 01/28/24 14:30 Total Bilirubin 0.3 mg/dL (0.15-1.2) 01/28/24 14:30 AST 14 U/L (0-32) 01/28/24 14:30 ALT 6 U/L (0-33) 01/28/24 14:30 Alkaline Phosphatase 78 U/L (35-105) 01/28/24 14:30 Ammonia 28 umol/L (11-51) 01/28/24 14:30 Creatine Kinase 12 U/L (26-192) L 01/28/24 14:30 Troponin T Baseline 37 ng/L (0-10) H 01/28/24 14:30 NT-Pro-B Natriuret Pep 663 pg/mL (0-450) H 01/28/24 14:30 Total Protein 5.6 g/dL (6.6-8.7) L 01/28/24 14:30 Albumin 3.1 g/dL (3.5-5.2) L 01/28/24 14:30 Globulin 2.5 g/dL (1.3-4.6) 01/28/24 14:30 Lipase 29 U/L (13-60) 01/28/24 14:30 Urine Color Yellow (Yellow) 01/28/24 14:30 Urine Appearance Cloudy (CLEAR) A 01/28/24 14:30 Urine pH 5 (5-7) 01/28/24 14:30 Ur Specific [place] 1.010 (1.005-1.030) 01/28/24 14:30 Urine Protein Neg (Negative) 01/28/24 14:30 Urine Glucose (UA) Norm (Normal) 01/28/24 14:30 Urine Ketones Negative (Negative) 01/28/24 14:30 Urine Blood 2+ (Negative) H 01/28/24 14:30 Urine Nitrate Negative (Negative) 01/28/24 14:30 Urine Bilirubin Neg (Negative) 01/28/24 14:30 Urine Urobilinogen Norm mg/dL (Negative) 01/28/24 14:30 Ur Leukocyte Esterase 2+ (Negative) H 01/28/24 14:30 Urine RBC 5-10 /hpf (0-2) H 01/28/24 14:30 Urine WBC Too numerous to cnt /hpf (0-5) H 01/28/24 14:30 Ur Squamous Epith Cells 0-4 /hpf (0-5) H 01/28/24 14:30 Amorphous Sediment Not Reportable 01/28/24 14:30 Urine Bacteria 1+ /hpf (NONE) H 01/28/24 14:30 Urine Mucus 1+ /hpf 01/28/24 14:30 Urine Yeast 1+ /hpf H 01/28/24 14:30 Serum Ketones Negative (Negative) 01/28/24 14:30 All radiology interpretation(s) finalized by discharge Discharge Plan Discharge Patient Disposition: Admitted As Inpatient Admit Provider: Samson Conner Clinical Impression: Cystitis, Bilateral breast cancer, Pyelonephritis of right kidney, Acute encephalopathy, COPD (chronic obstructive pulmonary disease) Condition: Stable Coding Level of Care Code ED Master [employer] [facility]
--- NOTE | 2024-01-28 13:59 | XR_ITS ---
WS: [id number] Portable AP upright chest, 01/28/2024 Clinical Data: dyspnea/cough Comparison: Portable chest, 12/03/2023 Findings: No nodules, masses or effusions are seen. The heart is normal. The pulmonary vascularity is not increased. No pneumonia or pneumothorax is seen. The aortic arch and descending thoracic aorta s how tortuosity. There are monitor leads on the chest wall. The right diaphragm is minimally elevated. There is an anterior cervical disc fusion. Impression: Atherosclerosis.
--- NOTE | 2024-01-28 14:10 | CT_ITS ---
WS: [id number] CT HEAD TECHNIQUE: Noncontrast CT of the head obtained from the skullbase to the vertex. CLINICAL INFORMATION: AMS COMPARISON: CT 2021 DLP: 1298.[address] scans at [facility] use at least one of these dose optimization techniques: automated e xposure control; mA and/or kV adjustment per patient size (includes targeted exams where dose is matc hed to clinical indication); or iterative reconstruction. FINDINGS: No evidence of intracranial hemorrhage or mass effect. Ventricular system and basal cisterns are dixon nt. Moderate small vessel changes with moderate parenchymal volume loss. No extra-axial fluid collect ions. No evidence of mass or mass effect. Tiny chronic lacunar infarcts in the LEFT tirado radiata an d RIGHT caudate. Intracranial vascular calcification. Mild mucosal thickening in the ethmoid air cells. Frothy secretions in the sphenoid sinus compatible with sinusitis. Mucosal thickening in the mastoid tips. Normal posterior nasopharynx. IMPRESSION: 1. No evidence of intracranial hemorrhage or mass effect. 2. Moderate small vessel changes with moderate parenchymal volume loss. 3. Chronic lacunar infarcts in the LEFT tirado radiata and RIGHT caudate. 4. Intracranial vascular calcification. 5. Sphenoid sinusitis. 6. No acute intracranial findings.
--- NOTE | 2024-01-28 14:26 | PC.PHAR ---
pts verified pts medications-states the pt is only taking the medications entered-pts states he hasnt picked up the triamcinolone 0.1% cream or macrobid 100mg bid both filled 01/28/24-or the lactulose 15mg po daily prn filled 01/27/24-pts states the pt is still taking anastrozole 1mg daily [place] states last filled 11/19/23 30d/s along with exemestane 25mg daily filled 01/27/24 90d/s norco 10-325mg one tab qid prn,fentanyl 75mcg every third day,zocor 40mg hs,lisinopril 2.5mg daily and zofran 4mg prn-pts states the pt hasnt taken any steroids recently states she has been on antibiotics recently ext shows pt had bactrim ds 1 tab bid for 10 days filled 01/02/24-
[2024-01-28 14:38] LABS: Basophils % 0.2 %; Eosinophils # 0.2 10^3/uL (0.0-0.8); Eosinophils % 2.9 %; Hematocrit 30.6 % (36-47); Lymphocytes # 0.9 10^3/uL (0.8-4.8); Lymphocytes % 13.8 %; Mean Corpuscular Hemoglobin 30.2 pg (27-33); Mean Corpuscular Volume 97.1 fl (85-98); Monocytes # 0.5 10^3/uL (0.2-0.9); Monocytes % 8.3 %; Neutrophils # 4.87 10^3/uL (1.8-7.7); Neutrophils % 74.5 %; Nucleated Red Blood Cells % 0 %; Platelet Count 173 10^3/cmm (157-399); Red Blood Count 3.15 10^6/uL (3.85-5.65); Red Cell Distribution Width 13.5 % (12.1-15.1); White Blood Count 6.53 10^3/uL (3.29-11.43)
[2024-01-28 14:47] LABS: Ketone (Acetest) Serum Negative (Negative)
--- NOTE | 2024-01-28 14:48 | CTR_ITS ---
PROCEDURE INFORMATION: Exam: CT Abdomen And Pelvis Without Contrast Exam date and time: 01/28/2024 3:01 PM Age: 73 years old Clinical indication: Abdominal pain; Generalized; Prior surgery; Surgery date: 6+ months; Surgery type: Hyst, colon resection, radha; Patient HX: HX of breast cancer TECHNIQUE: Imaging protocol: Computed tomography of the abdomen and pelvis without contrast. Radiation optimization: All CT scans at this facility use at least one of these dose optimization techniques: automated exposure control; mA and/or kV adjustment per patient size (includes targeted exams where dose is matched to clinical indication); or iterative reconstruction. COMPARISON: CT abdomen pelvis w con* [id number] 06/14/2023 5:38 PM RADIATION DOSE METRICS: Total DLP (mGy-cm): 965.53 FINDINGS: Lungs: Calcified right middle lobe granuloma. Subtle tree-in-bud appearance right lower lobe which was not present on the prior study. Liver: Multiple calcified granulomata within the liver. Gallbladder and bile ducts: Previous cholecystectomy. Pancreas: Normal. No ductal dilation. Spleen: Multiple calcified granulomata within the spleen. Adrenal glands: Normal. No mass. Kidneys and ureters: Bilaterally atrophic kidneys. Evidence for renal obstruction. Stomach and bowel: Unremarkable. No obstruction. No mucosal thickening. Appendix: No evidence of appendicitis. Intraperitoneal space: Unremarkable. No free air. No significant fluid collection. Vasculature: Unremarkable. No abdominal aortic aneurysm. Lymph nodes: Calcified right hilar and mediastinal nodes as seen previously. Urinary bladder: Carlton catheter within collapsed bladder. Reproductive: Unremarkable as visualized. Bones/joints: Right hip pinning. Degenerative changes in the lower lumbar spine. Mild stenosis at L2-L3, L3-L4 and L4-L5. Nonacute mild L1 compression deformity. Soft tissues: Unremarkable. CT/CT abdomen pelvis wo con [id number] IMPRESSION: 1. No acute intra-abdominal findings. 2. Interval development subtle tree-in-bud opacities in right lower lobe. This can be associated with atypical infections. Initial further evaluation with dedicated chest CT recommended.
[2024-01-28 14:51] LABS: Glucose Urine UA Norm (Normal); Ketones Urine Negative (Negative); Protein Urine Neg (Negative); Urine Appearance Cloudy (CLEAR); Urine Color Yellow (Yellow); pH Urine 5 (5-7)
[2024-01-28 14:52] LABS: Add Urine Microscopic? YES; Bilirubin Urine Neg (Negative); Blood Urine 2+ (Negative); Leukocyte Esterase Urine 2+ (Negative); Nitrate Urine Negative (Negative); Urobilinogen Urine Norm (Negative)
[2024-01-28 14:53] LABS: Lactic Sepsis W/Reflex 1.1 mmol/L (0.5-2.2)
[2024-01-28 14:59] LABS: Ammonia 28 umol/L (11-51)
[2024-01-28 15:04] LABS: Alanine Aminotransferase 6 U/L (0-33); Albumin Level 3.1 g/dL (3.5-5.2); Alkaline Phosphatase 78 U/L (35-105); Anion Gap 12.8 (5-19); Aspartate Amino Transferase 14 U/L (0-32); Blood Urea Nitrogen 44 mg/dL (8-23); Calcium 8.9 mg/dL (8.5-10.5); Carbon Dioxide 27 mmol/L (22-29); Chloride 98 mmol/L (98-107); Creatine Phosphokinase 12 U/L (26-192); Creatinine Clr Calc Pharmacy 70.5249; Globulin 2.5 g/dL (1.3-4.6); Glucose 97 mg/dL (65-115); Lipase 29 U/L (13-60); NT Pro B Type Natriuretic Pept 663 pg/mL (0-450); Osmolality Calculated 285 mOsm/kg (285-295); Potassium 5.8 mmol/L (3.5-5.1); Sodium 132 mmol/L (136-145); Total Bilirubin 0.3 mg/dL (0.15-1.2); Total Protein 5.6 g/dL (6.6-8.7)
[2024-01-28 15:22] LABS: Bacteria Urine 1+ /hpf; Mucus Urine 1+ /hpf; Squamous Epithelial Cell Urine 0-4 /hpf (0-5); WBC Urine TOO NUMEROUS TO CNT /hpf (0-5)
[2024-01-28 15:23] LABS: Add Urine Culture? Yes
--- NOTE | 2024-01-28 16:15 | P.HP_ITS ---
Providers/Chief Complaint 2 Primary Care Provider: Elayne Wyatt DO Chief Complaint: weakness History of Present Illness Deborah Mchugh is a 73 year old female with a past medical history of bilateral breast cancer, grade 2 invasion ductal carcinoma, COPD on 6 L, high risk due to coronary disease, did not go under any surgical or chemotherapy interventions, is on anastrozole, was on hospice at 1 point, currently off hospice, chronic pain on fentanyl, morbidly obese, bedbound, requires a Susie lift, is primary caregiver, she does not ambulate or get up out of bed due to bilateral lower extremity weakness, denies any deep tissue injuries, who presents to [facility] due to fatigue, malaise, poor appetite, nausea, vomiting, altered mental status. Currently patient is alert to person, not to place, to time, she can reasonably answer any detailed questions, although currently she has no complaints currently on 6 L her only complaint right now she is complaining of right flank pain, she has a Carlton catheter in place with evidence of UTI increased urine sedimentation, tells me that she gets frequent UTIs, in the emergency room, she is normotensive, on 6 L, normal sinus rhythm, respiratory rate 20, 98.5, Review of Systems 2 Card: Denies: chest pain Resp: Denies: dyspnea GI: Reports: abdominal pain and nausea : Reports: flank pain Medications/Allergies Home Medications Medication Instructions Recorded Confirmed Last Taken Type naloxone 4 mg/actuation nasal See Rx Instructions .Route 12/23/19 01/28/24 Unknown History spray (Narcan) .COMPLEX PRN overdose simvastatin 40 mg tablet 40 mg PO BEDTIME 12/23/19 01/28/24 07/15/22 History hydrocodone 10 mg-acetaminophen 1 tab PO QID PRN Pain 02/08/21 01/28/24 01/28/24 History 325 mg tablet lisinopril 2.5 mg tablet 2.5 mg PO QAM 06/18/22 01/28/24 07/16/22 History ondansetron 4 mg disintegrating 4 mg PO Q6H PRN Nausea 06/18/22 01/28/24 Unknown History tablet nitroglycerin 0.4 mg sublingual 0.4 mg sublingual Q5M PRN Chest 07/16/22 01/28/24 Unknown History tablet (Nitrostat) Pain anastrozole 1 mg tablet 1 mg PO DAILY 06/14/23 01/28/24 01/27/24 History last filled 11/19/23 exemestane 25 mg tablet 25 mg PO DAILY #90 tabs 11/19/23 01/28/24 01/27/24 Rx fentanyl 75 mcg/hr transdermal See Rx Instructions .Route .COMPLEX 01/28/24 01/28/24 01/28/24 History patch on right side of erlinda lactulose 10 gram/15 mL oral 15 ml PO DAILY PRN Constipation 01/28/24 01/28/24 Unknown History solution nitrofurantoin 100 mg PO BID 01/28/24 01/28/24 Unknown History monohydrate/macrocrystals 100 mg capsule triamcinolone acetonide 0.1 % 1 applic topical BID 01/28/24 01/28/24 Unknown History topical cream Allergies Allergy/AdvReac Type Severity Reaction Status Date / Time adhesive tape Allergy Unknown ALGY-Hives Verified 01/28/24 14:24 heparin (porcine) Allergy Unknown Verified 01/28/24 14:24 morphine Allergy ALGY-Hives Verified 01/28/24 14:24 oxytetracycline Allergy ALGY-Anaphy Verified 01/28/24 14:24 [From Terramycin] laxis Tetanus Vaccines and Toxoid Allergy Unknown Verified 01/28/24 14:24 cimetidine [From Tagamet] AdvReac ADR-Abdominal Verified 01/28/24 14:24 Pain hydromorphone [From Dilaudid] AdvReac ADR-Halluci Verified 01/28/24 14:24 nating PFSH Acute 2 PFSH: Medical History Bilateral breast cancer Closed fracture of right distal femur Compression fracture Hospice care Morbid obesity CVA (cerebral vascular accident) Anxiety COPD (chronic obstructive pulmonary disease) Hyperthyroidism Hyperlipidemia Hypertension GERD (gastroesophageal reflux disease) ROSEMARIE (obstructive sleep apnea) Surgical History Status post right knee replacement History of open reduction and internal fixation (ORIF) procedure left femur H/O cervical spine surgery History of colon resection H/O: hysterectomy History of cholecystectomy History of bilateral breast biopsy Family History Grandfather Diabetes Maternal Grandmother Diabetes Maternal Kidney failure Maternal Grandmother Diabetes Paternal Grandfather Diabetes Paternal Family/Other Diabetes Aunt Mother , Age 99 Hypertension Cancer Leukemia Father Myocardial infarction Hypertension Brother Hypertension Cancer Prostate Denies family history of Anesthesia complication Bleeding disorder Social History Smoking and tobacco/nicotine status: never used tobacco/nicotine Alcohol intake: never Substance/Drug Use: never Lives independently: Yes Household members: spouse Marital status: Current occupational status: disabled Vitals/I&O/Wt Last Vital Signs Temp 98.5 F 01/28/24 13:25 Pulse 60 01/28/24 16:00 Resp 24 H 01/28/24 16:00 BP 134/73 01/28/24 16:00 Pulse Ox 98 01/28/24 16:00 O2 Del Method Nasal Cannula 01/28/24 14:25 O2 Flow Rate 6 01/28/24 15:30 Weight last 48 hrs Weight 124.738 kg Physical Exam 2 Const: COMMON NORMALS: no acute distress EXAM LIMITATIONS: altered mental status ORIENTATION/CONSCIOUSNESS: Yes awake and Yes oriented to person; not oriented to place and not oriented to time HENMT: COMMON NORMALS: normocephalic Eye: COMMON NORMALS: Equal, round and reactive pupils present and EOMs intact bilaterally Neck/C-Spine: COMMON NORMALS: full ROM and no lymphadenopathy Lymph: LYMPHATIC: no lymphadenopathy noted Resp: COMMON NORMALS: normal respiratory effort, No retractions, No use of accessory muscles and clear to auscultation bilaterally AUSCULTATION: clear to auscultation bilaterally Cardio: COMMON NORMALS: regular rate, regular rhythm, S1 normal heart sound present and S2 normal heart sound present RATE: regular rate RHYTHM: r egular rhythm HEART SOUNDS: S1 normal heart sound present and S2 normal heart sound present GI: COMMON NORMALS: Normal to inspection, nondistended, normoactive bowel sounds present, Soft to palpation and non-tender : OTHER: Left CVA tenderness Extremity: COMMON NORMALS: no pedal edema Neuro: SENSORIUM/ORIENTATION: Yes alert, Yes oriented to person, No oriented to place and No oriented to time Urinary Catheter Management: Carlton: Cath Placed During This Visit: yes Urinary Catheter Date of Insertion: 01/28/24 Urinary Catheter Time of Insertion: 14:30 Data 01/28/24 14:30 01/28/24 14:30 A&P Assessment and plan (1) Hypertension: Qualifiers: Hypertension type: essential hypertension Qualified Code(s): I10 - Essential (primary) hypertension (2) Hyperlipidemia: Qualifiers: Hyperlipidemia type: unspecified Qualified Code(s): E78.5 - Hyperlipidemia, unspecified (3) Altered mental status: (4) COPD (chronic obstructive pulmonary disease): (5) Urinary tract infection: (6) Pyelonephritis of right kidney: (7) Acute encephalopathy: (8) GERD (gastroesophageal reflux disease): (9) Bilateral malignant neoplasm of breast in female: (10) Bilateral breast cancer: (11) ROSEMARIE (obstructive sleep apnea): (12) Morbid obesity: Plan Acute encephalopathy, next ?multifactorial, ? From UTI, pyelonephritis, pneumonia Acute pyelonephritis, right, with UTI ? Urine cultures, ? Blood cultures ? Continue meropenem, vancomycin Pneumonia ? Seen on CT, ?does not look like she is in respiratory distress, is on 6 L which is her baseline ? Sputum cultures, blood cultures and viral respiratory panel next ?continue vancomycin meropenem as above Morbid obesity Obstructive sleep apnea Bilateral breast cancer ? Has not gone under surgical intervention or chemotherapy due to high risks given her comorbidities, Is on anastrozole ? CT head within normal limits -Was on hospice, currently revoked Full code ? Lovenox for DVT prophylaxis ? Disposition Home with , is a Susie lift, completely dependent on for activities of daily living Attestations 2 Medical Necessity Statement*: Patient requires hospitalization, inpatient, greater than 2 midnights, for acute encephalopathy multifactorial, from left pyelonephritis, UTI, pneumonia, requiring inpatient admission, hyperkalemia Diagnoses Essential hypertension I10 Hypertension type: essential hypertension Hyperlipidemia, unspecified hyperlipidemia type E78.5 Hyperlipidemia type: unspecified Altered mental status R41.82 COPD (chronic obstructive pulmonary disease) J44.9 Urinary tract infection N39.0 Pyelonephritis of right kidney N12 Acute encephalopathy G93.40 GERD (gastroesophageal reflux disease) K21.9 Bilateral malignant neoplasm of breast in female C50.911; C50.912 Bilateral breast cancer C50.911; C50.912 ROSEMARIE (obstructive sleep apnea) G47.33 Morbid obesity E66.01
--- NOTE | 2024-01-28 16:27 | ECG_ITS ---
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 Measurements Intervals [place] Rate: 58 P: 69 VA: 182 QRS: 18 QRSD: 101 T: 77 QT: 397 QTc: 391 Interpretive Statements SINUS BRADYCARDIA Compared to ECG 12/03/2023 19:37:25 Sinus rhythm no longer present Ventricular premature complex(es) no longer present Intraventricular conduction delay no longer present Electronically Signed On 01-29-2024 14:46:30 REGIONAL MANAGER by Rakan Jensen M.D. [id number]
[2024-01-28] MEDS: calcium chloride 10% Syr 10 mL 1 GM IVP (16:31)
[2024-01-28 16:54] LABS: Troponin(5th) Baseline 37 ng/L (0-10)
[2024-01-28 17:12] LABS: Arterial Blood Gas Hematocrit 36.4 % (37-47); Base Excess ABG 7.7 mmol/L (-2.0-2.0); Blood Gas Allen Test Pos; Blood Gas Operator Identificat glc; Blood Gas Sample Site Radial, left; Blood Gas Sample Type Arterial; HCO3 ABG 28.1 mmol/L (22-26); Oxygen Device NC; PO2 FiO2 Ratio Arterial Blood 0
[2024-01-28] MEDS: albuterol 2.5 mg/3 mL Neb 10 MG INHALATION (17:15)
[2024-01-28 17:18] LABS: INR 0.93 (0.8-1.2)
[2024-01-28 17:19] LABS: ABG PH Result 7.64 (7.35-7.45)
[2024-01-28 17:21] LABS: D Dimer 2.33 ug/mLFEU (0-0.59)
[2024-01-28 17:35] LABS: Magnesium 2.4 mg/dL (1.7-2.3)
[2024-01-28 17:43] LABS: Procalcitonin 0.11 ng/mL (0-0.5)
[2024-01-28] MEDS: enoxaparin 40 mg/0.4 mL Syringe SUBCUT (18:20)
[2024-01-28] MEDS: pantoprazole 40 mg SDV IVP (18:20)
[2024-01-28] MEDS: sodium chloride 0.9% 1,000 ML 50 ML IV (18:20)
[2024-01-28] MEDS: vancomycin 1,500 MG/300 ML PIGGYBACK 200 MG IV (18:20)
--- NOTE | 2024-01-28 18:21 | PC.NURSE ---
at approx. 1820 removed undated fentnyl patch from pts right mid back
--- NOTE | 2024-01-28 18:27 | ECG_ITS ---
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 Measurements Intervals [place] Rate: 80 P: 87 NV: 165 QRS: 18 QRSD: 91 T: 57 QT: 383 QTc: 442 Interpretive Statements SINUS RHYTHM Compared to ECG 01/28/2024 16:39:41 Sinus bradycardia no longer present Electronically Signed On 01-29-2024 14:52:07 FREIGHT DELIVERY DRIVER by Rakan Jensen M.D. [email or web address] [email or web address],Incmarymount hospitalGate[facility]/store/[id number]
[2024-01-28 20:19] LABS: Troponin 5 6HR 36.61 ng/L (0-10)
[2024-01-28 20:22] LABS: Troponin 5 6HR Delta -0.39 ng/L (0-12)
[2024-01-28 20:28] LABS: Chol HDL Ratio 2.52 mg/dL (0.0-4.40); Cholesterol 116 mg/dL (0-200); HDL Cholesterol 46 mg/dL (60-100); LDL Cholesterol Calculated 51 mg/dL (50-129); LDL HDL Ratio 1.11 RATIO (0.00-3.22); Thyroid Stimulating Hormone 1.27 uIU/mL (0.27-4.20); Triglycerides 94 mg/dL (0-150)
[2024-01-28 20:54] LABS: Estmated Average Glucose 88; Hemoglobin A1C 4.7 % (4.0-6.0)
[2024-01-28] MEDS: ipratropium-albuterol 3 mL Neb INHALATION (21:06)
--- NOTE | 2024-01-28 22:27 | ECG_ITS ---
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 Measurements Intervals [place] Rate: 66 P: 96 W[place]: 176 QRS: 18 QRSD: 97 T: 56 QT: 423 QTc: 444 Interpretive Statements SINUS RHYTHM POSSIBLE ANTERIOR MYOCARDIAL INFARCTION , PROBABLY OLD [30 ms Q WAVE IN V3/V4, OR R < 0.2 mV IN V4] Compared to ECG 01/28/2024 18:34:01 Myocardial infarct finding now present Electronically Signed On 01-29-2024 14:51:46 FIELD SUPPORT ENGINEER by Rakan Jensen M.D. [id number]
[2024-01-28] MEDS: meropenem 1,000 MG in sodium chloride 0.9% (plus) 50 ML 100 MG IV (22:32)
[2024-01-29] VITALS (8 sets, daily range): BP systolic 104–125; BP diastolic 64–68; PULSE 58–70; RESP 16–20; TEMP 36.6–36.9; O2SAT 91–100; BMI 36.0
[2024-01-29] MEDS: HYDROcodone-acetaminophen 10-325 mg Tablet 1 TAB PO ×2 (05:09→15:30)
[2024-01-29] MEDS: meropenem 1,000 MG in sodium chloride 0.9% (plus) 50 ML 100 MG IV ×3 (05:15→21:43)
[2024-01-29 05:21] LABS: Basophils % 0.5 %; Eosinophils # 0.1 10^3/uL (0.0-0.8); Lymphocytes % 16.1 %; Mean Corpuscular Hemoglobin 29.6 pg (27-33); Mean Corpuscular Volume 98.7 fl (85-98); Mean Platelet Volume 9.9 fL (7.4-10.4); Monocytes # 0.4 10^3/uL (0.2-0.9); Neutrophils # 4.42 10^3/uL (1.8-7.7); Neutrophils % 74.1 %; Nucleated Red Blood Cells % 0 %; Platelet Count 172 10^3/cmm (157-399); Red Blood Count 3.04 10^6/uL (3.85-5.65); Red Cell Distribution Width 13.5 % (12.1-15.1); White Blood Count 5.97 10^3/uL (3.29-11.43)
[2024-01-29 06:10] LABS: Alanine Aminotransferase 6 U/L (0-33); Albumin Level 2.8 g/dL (3.5-5.2); Alkaline Phosphatase 73 U/L (35-105); Anion Gap 12.6 (5-19); Aspartate Amino Transferase 10 U/L (0-32); Blood Urea Nitrogen 38 mg/dL (8-23); Calcium 8.9 mg/dL (8.5-10.5); Carbon Dioxide 28 mmol/L (22-29); Chloride 101 mmol/L (98-107); Creatinine Clr Calc Pharmacy 58.9419; Globulin 2.2 g/dL (1.3-4.6); Glucose 86 mg/dL (65-115); Magnesium 2.2 mg/dL (1.7-2.3); Osmolality Calculated 290 mOsm/kg (285-295); Phosphorus 2.9 mg/dL (2.5-4.5); Potassium 5.6 mmol/L (3.5-5.1); Sodium 136 mmol/L (136-145); Total Bilirubin 0.3 mg/dL (0.15-1.2)
[2024-01-29 06:11] LABS: NT Pro B Type Natriuretic Pept 1482 pg/mL (0-450)
--- NOTE | 2024-01-29 07:56 | USCV_ITS ---
Deborah Mchugh Age: 73 Gender: F : 1950 Exam Date: 01/29/2024 08:03 Ordering Phys: Samson Conner MD Technologist: Exam Location: [facility] Indication: bilat swelling PROCEDURES: Venous duplex imaging was performed Bilateral lower extremity. The following venous structures were evaluated: common femoral vein, profunda vein, proximal portion of the greater saphenous vein, superficial femoral vein, and the popliteal vein. In addition, the posterior tibial and peroneal trunk were evaluated. FINDINGS: There is occluding dvt in the rt Popleteal ,perineal trunk and ptv. There is non occluding dvt in the lt perineal trunk CONCLUSIONS Occlusive DVT RIGHT popliteal, peroneal, and ptv. Non occlusive DVT LEFT peroneal trunk Prelim to provider at time of exam by belt machine operator Manas Iraheta MD (Electronically Signed) Final Date: 29 January 2024 09:53 Amended: 30 January 2024 13:23 C
[2024-01-29] MEDS: ipratropium-albuterol 3 mL Neb INHALATION ×3 (08:34→20:46)
[2024-01-29] MEDS: FUROsemide 10 mg/mL SDV 4mL 40 MG IVP (08:49)
--- NOTE | 2024-01-29 09:35 | CT_ITS ---
WS: [id number] CTA OF THE CHEST WITH PULMONARY EMBOLISM PROTOCOL TECHNIQUE: High-resolution contrast enhanced CTA of the chest with coronal and sagittal reformatted i mages with pulmonary embolism protocol. MIP images are also reviewed. CLINICAL INFORMATION: lower extremity dvt, breast ca COMPARISON: CT abdomen pelvis 01/28/2024 DLP: 485.[address] scans at [facility] use at least one of these dose optimization techniques: automated e xposure control; mA and/or kV adjustment per patient size (includes targeted exams where dose is matc hed to clinical indication); or iterative reconstruction. FINDINGS: Proximal main pulmonary arteries are normal. Normal segmental and subsegmental pulmonary arteries. No evidence of pulmonary embolus. Normal caliber thoracic aorta. Aortic calcification. No mediastinal o r hilar lymphadenopathy. Chronic emphysematous changes. Calcified granuloma RIGHT upper lobe. Bibasilar atelectasis. Patchy no dular infiltrates in the RIGHT lower lobe with a few tree-in-bud opacities. This is likely infectious or inflammatory. No focal consolidation. Slight dependent atelectasis LEFT lower lobe. Hepatic and splenic granulomas. Small esophageal hiatal hernia. Hypertrophic changes thoracic spine. Postoperative changes lower cervical spine. Osteopenia. Normal caliber thoracic aorta. Aortic calcification. Advanced joint arthritis both shoulders with sub coracoid bursal fluid similar to 2020. IMPRESSION: 1. No evidence of pulmonary embolus. 2. Slight patchy nodular infiltrates in the RIGHT lower lobe likely infectious or inflammatory. A fe w tree-in-bud opacities. 3. Slight dependent atelectasis LEFT lower lobe. 4. No other acute findings.
[2024-01-29] MEDS: enoxaparin 100 mg/mL Syringe SUBCUT ×2 (12:43→21:42)
--- NOTE | 2024-01-29 13:02 | P.PN_ITS ---
Subjective 2 Subjective: Patient was seen this morning she is alert to person, not to place, not to time, she does not follow commands, remains encephalopathic afebrile overnight, normotensive, spoke to cath lab radiology technician patient has bilateral DVTs lower extremity venous ultrasound, patient was switched to therapeutic Lovenox, ordered CT angiogram of the chest Vitals/I&O/Wt Last Vital Signs Temp 98.1 F 01/29/24 11:26 Pulse 69 01/29/24 11:26 Resp 19 H 01/29/24 11:26 BP 108/67 01/29/24 11:26 Pulse Ox 96 01/29/24 11:26 O2 Del Method Nasal Cannula 01/29/24 11:26 O2 Flow Rate 3 01/29/24 08:00 01/28/24 01/29/24 01/29/24 22:59 06:59 14:59 Intake Total 300 / 300 100 / 400 600 / 600 Output Total 650 / 650 Balance 300 / 300 -550 / -250 600 / 600 Weight last 48 hrs Weight 95.3 kg Weight 90.775 kg Weight 124.738 kg Physical Exam 2 Const: COMMON NORMALS: no acute distress ORIENTATION/CONSCIOUSNESS: Yes awake, Yes oriented to person and Yes confused; not oriented to place and not oriented to time Resp: COMMON NORMALS: normal respiratory effort, No retractions, No use of accessory muscles and clear to auscultation bilaterally AUSCULTATION: clear to auscultation bilaterally Cardio: COMMON NORMALS: regular rate, regular rhythm, S1 normal heart sound present and S2 normal heart sound present RATE: regular rate RHYTHM: r egular rhythm HEART SOUNDS: S1 normal heart sound present and S2 normal heart sound present GI: COMMON NORMALS: Normal to inspection, nondistended, normoactive bowel sounds present and non-tender Extremity: COMMON NORMALS: no pedal edema Neuro: SENSORIUM/ORIENTATION: Yes oriented to person, No oriented to place and No oriented to time Psych: COMMON NORMALS: mental status grossly normal Urinary Catheter Management: Carlton: Cath Placed During This Visit: yes Reason for Continuing Indwelling Catheter: Acute Urinary Retention or Obstruction Urinary Catheter Date of Insertion: 01/28/24 Urinary Catheter Time of Insertion: 14:30 Data 01/29/24 04:31 01/29/24 04:31 Micro: Microbiology 01/28/24 16:44 Blood Culture - Preliminary Blood SPECIMEN COLLECTED 01/28/24 16:44 Blood Culture - Preliminary Blood SPECIMEN COLLECTED A&P Assessment and plan (1) Hypertension: Qualifiers: Hypertension type: essential hypertension Qualified Code(s): I10 - Essential (primary) hypertension (2) Hyperlipidemia: Qualifiers: Hyperlipidemia type: unspecified Qualified Code(s): E78.5 - Hyperlipidemia, unspecified (3) Altered mental status: (4) COPD (chronic obstructive pulmonary disease): (5) Urinary tract infection: (6) Pyelonephritis of right kidney: (7) Acute encephalopathy: (8) GERD (gastroesophageal reflux disease): (9) Bilateral malignant neoplasm of breast in female: (10) Bilateral breast cancer: (11) ROSEMARIE (obstructive sleep apnea): (12) Morbid obesity: (13) DVT (deep venous thrombosis): Plan Acute encephalopathy, ?multifactorial, ? From UTI, pyelonephritis, pneumonia Acute pyelonephritis, right, with UTI ? Urine cultures, ? Blood cultures ? Continue meropenem, vancomycin Pneumonia ? Seen on CT of the abdomen ?does not look like she is in respiratory distress, is on 6 L which is her baseline ? Sputum cultures, blood cultures and viral respiratory panel next ?continue vancomycin meropenem as above Morbid obesity Obstructive sleep apnea Bilateral breast cancer ? Has not gone under surgical intervention or chemotherapy due to high risks given her comorbidities, Is on anastrozole ? CT head within normal limits -Was on hospice, currently revoked Bilateral lower extremity DVT ?FINDINGS: There is occluding dvt in the rt Popleteal ,perineal trunk and ptv. There is non occluding dvt in the lt perineal trunk CONCLUSIONS Occlusive DVT RIGHT popliteal, peroneal, and ptv. Non occlusive DVT LEFT peroneal trunk Prelim to provider at time of exam by stock repairer ? Plan to ? Patient has a history of breast cancer, has not gotten any treatment for this given her comorbidities, is in a hypercoagulable state ? Therapeutic Lovenox ?CT angio of the chest ordered Full code ? Lovenox for DVT prophylaxis ? Disposition Home with , is a Susie lift, completely dependent on for activities of daily living Attestations 2 Medical Necessity Statement*: Patient requires hospitalization, inpatient, greater than 2 minutes for altered mental status, UTI, pneumonia now with DVT with high concern for PE,, spoke to nursing staff spoke to patient, spoke to radiology, CT angiogram of the chest ordered continue IV antibiotics, continue neurochecks Diagnoses Essential hypertension I10 Hypertension type: essential hypertension Hyperlipidemia, unspecified hyperlipidemia type E78.5 Hyperlipidemia type: unspecified Altered mental status R41.82 COPD (chronic obstructive pulmonary disease) J44.9 Urinary tract infection N39.0 Pyelonephritis of right kidney N12 Acute encephalopathy G93.40 GERD (gastroesophageal reflux disease) K21.9 Bilateral malignant neoplasm of breast in female C50.911; C50.912 Bilateral breast cancer C50.911; C50.912 ROSEMARIE (obstructive sleep apnea) G47.33 Morbid obesity E66.01 DVT (deep venous thrombosis) I82.409
[2024-01-29] MEDS: iohexol 350 mg/mL 500 mL Btl (per mL) IV (13:30)
[2024-01-29] MEDS: pantoprazole 40 mg SDV IVP (17:15)
[2024-01-29] MEDS: vancomycin 1,500 MG/300 ML PIGGYBACK 200 MG IV (17:15)
[2024-01-29] MEDS: polyethylene glycol 3350 Pkt 17 gm PO (17:15)
[2024-01-29] MEDS: atorvastatin 40 mg Tablet PO (21:42)
[2024-01-30] VITALS (12 sets, daily range): BP systolic 107–149; BP diastolic 64–80; PULSE 60–79; RESP 14–18; TEMP 36.6–37; O2SAT 90–99; BMI 35.3
[2024-01-30 04:49] LABS: Basophils % 0.4 %; Eosinophils # 0.2 10^3/uL (0.0-0.8); Eosinophils % 3.4 %; Hematocrit 31.8 % (36-47); Lymphocytes # 1.1 10^3/uL (0.8-4.8); Lymphocytes % 20.3 %; Mean Corpuscular HGB Conc 30.2 g/dL (30-55); Mean Corpuscular Hemoglobin 29.4 pg (27-33); Mean Corpuscular Volume 97.2 fl (85-98); Mean Platelet Volume 9.9 fL (7.4-10.4); Monocytes # 0.4 10^3/uL (0.2-0.9); Monocytes % 7.7 %; Neutrophils # 3.79 10^3/uL (1.8-7.7); Neutrophils % 67.8 %; Nucleated Red Blood Cells % 0 %; Platelet Count 188 10^3/cmm (157-399); Red Blood Count 3.27 10^6/uL (3.85-5.65); Red Cell Distribution Width 13.9 % (12.1-15.1); White Blood Count 5.58 10^3/uL (3.29-11.43)
[2024-01-30 05:21] LABS: Alanine Aminotransferase 8 U/L (0-33); Albumin Level 3.1 g/dL (3.5-5.2); Alkaline Phosphatase 81 U/L (35-105); Anion Gap 12.3 (5-19); Aspartate Amino Transferase 13 U/L (0-32); Blood Urea Nitrogen 29 mg/dL (8-23); Carbon Dioxide 28 mmol/L (22-29); Chloride 101 mmol/L (98-107); Creatinine Clr Calc Pharmacy 68.0457; Globulin 2.3 g/dL (1.3-4.6); Glucose 91 mg/dL (65-115); Magnesium 1.9 mg/dL (1.7-2.3); Osmolality Calculated 287 mOsm/kg (285-295); Phosphorus 3.1 mg/dL (2.5-4.5); Potassium 5.3 mmol/L (3.5-5.1); Sodium 136 mmol/L (136-145); Total Bilirubin 0.2 mg/dL (0.15-1.2); Total Protein 5.4 g/dL (6.6-8.7)
[2024-01-30] MEDS: meropenem 1,000 MG in sodium chloride 0.9% (plus) 50 ML 100 MG IV ×3 (05:39→22:04)
[2024-01-30] MEDS: ipratropium-albuterol 3 mL Neb INHALATION ×4 (07:39→20:45)
[2024-01-30] MEDS: polyethylene glycol 3350 Pkt 17 gm PO (09:29)
[2024-01-30] MEDS: enoxaparin 100 mg/mL Syringe SUBCUT ×2 (09:29→22:03)
[2024-01-30 10:15] LABS: NT Pro B Type Natriuretic Pept 2426 pg/mL (0-450)
--- NOTE | 2024-01-30 11:16 | P.PN_ITS ---
Subjective 2 Subjective: Patient was seen this morning, spoke to patient, and at bedside she is alert to person, to place, not to time she follows all commands, we discussed her UTI, her pneumonia, now her bilateral extremity DVTs etiology is likely from her bilateral breast cancer, for which she has not received any treatment, due to her increased risks, it is only have her follow-up with oncology as outpatient, I have her on blood thinners and following her urine cultures and blood cultures 1 blood culture has shown Staph epidermidis but I think it is likely contamination but I would continue vancomycin repeat blood cultures have been ordered, she remains bedbound, Susie lift, which is her baseline Vitals/I&O/Wt Last Vital Signs Temp 97.8 F 01/30/24 07:56 Pulse 68 01/30/24 07:56 Resp 16 01/30/24 07:56 BP 115/64 01/30/24 07:56 Pulse Ox 97 01/30/24 07:56 O2 Del Method Nasal Cannula 01/30/24 07:56 O2 Flow Rate 4 01/30/24 08:00 01/29/24 01/30/24 01/30/24 22:59 06:59 14:59 Intake Total 1640 / 2840 50 / 2890 360 / 360 Output Total 1000 / 2800 1500 / 4300 Balance 640 / 40 -1450 / -1410 360 / 360 Weight last 48 hrs Weight 93.395 kg Weight 95.3 kg Weight 90.775 kg Weight 124.738 kg Physical Exam 2 Const: COMMON NORMALS: no acute distress ORIENTATION/CONSCIOUSNESS: Yes awake, Yes oriented to person and Yes oriented to place; not oriented to time Resp: COMMON NORMALS: normal respiratory effort, No retractions, No use of accessory muscles and clear to auscultation bilaterally AUSCULTATION: clear to auscultation bilaterally Cardio: COMMON NORMALS: regular rate, regular rhythm, S1 normal heart sound present and S2 normal heart sound present RATE: regular rate RHYTHM: r egular rhythm HEART SOUNDS: S1 normal heart sound present and S2 normal heart sound present GI: COMMON NORMALS: Normal to inspection, nondistended, normoactive bowel sounds present and non-tender Extremity: COMMON NORMALS: no pedal edema Neuro: SENSORIUM/ORIENTATION: Yes oriented to person, Yes oriented to place and No oriented to time Psych: COMMON NORMALS: mental status grossly normal Urinary Catheter Management: Carlton: Cath Placed During This Visit: yes Reason for Continuing Indwelling Catheter: Other Urinary Catheter Date of Insertion: 01/28/24 Urinary Catheter Time of Insertion: 14:30 Data 01/30/24 04:29 01/30/24 04:29 Micro: Microbiology 01/28/24 14:30 Urine Culture - Preliminary Urine,Clean Catch Yeast 01/30/24 09:27 Blood Culture - Preliminary Blood SPECIMEN COLLECTED 01/30/24 09:20 Blood Culture - Preliminary Blood SPECIMEN COLLECTED 01/28/24 16:44 Blood Culture - Preliminary Blood NEGATIVE TO DATE 01/28/24 16:44 Blood Culture - Preliminary Blood Staphylococcus epidermidis A&P Assessment and plan (1) Hypertension: Qualifiers: Hypertension type: essential hypertension Qualified Code(s): I10 - Essential (primary) hypertension (2) Hyperlipidemia: Qualifiers: Hyperlipidemia type: unspecified Qualified Code(s): E78.5 - Hyperlipidemia, unspecified (3) Altered mental status: (4) COPD (chronic obstructive pulmonary disease): (5) Urinary tract infection: (6) Pyelonephritis of right kidney: (7) Acute encephalopathy: (8) GERD (gastroesophageal reflux disease): (9) Bilateral malignant neoplasm of breast in female: (10) Bilateral breast cancer: (11) ROSEMARIE (obstructive sleep apnea): (12) Morbid obesity: (13) DVT (deep venous thrombosis): Plan Acute encephalopathy, ?multifactorial, ? From UTI, pyelonephritis, pneumonia Acute pyelonephritis, right, with UTI ? Urine cultures, ? Blood cultures ? Continue meropenem, vancomycin Pneumonia -ct angio ? MPRESSION: 1. No evidence of pulmonary embolus. 2. Slight patchy nodular infiltrates in the RIGHT lower lobe likely infectious or inflammatory. A few tree-in-bud opacities. 3. Slight dependent atelectasis LEFT lower lobe. 4. No other acute findings. ?does not look like she is in respiratory distress, is on 6 L which is her baseline ? Sputum cultures, blood cultures and viral respiratory panel next ?continue vancomycin meropenem as above Staph epidermidis bacteremia, 1 of 4 blood cultures positive likely contamination but will repeat blood cultures continue vancomycin Morbid obesity Obstructive sleep apnea Bilateral breast cancer ? Has not gone under surgical intervention or chemotherapy due to high risks given her comorbidities, Is on anastrozole ? CT head within normal limits -Was on hospice, currently revoked Bilateral lower extremity DVT ?FINDINGS: There is occluding dvt in the rt Popleteal ,perineal trunk and ptv. There is non occluding dvt in the lt perineal trunk CONCLUSIONS Occlusive DVT RIGHT popliteal, peroneal, and ptv. Non occlusive DVT LEFT peroneal trunk Prelim to provider at time of exam by vest presser ? Plan to ? Patient has a history of breast cancer, has not gotten any treatment for this given her comorbidities, is in a hypercoagulable state ? Therapeutic Lovenox Full code ? Lovenox for DVT prophylaxis ? Disposition Home with , is a Susie lift, completely dependent on for activities of daily living Plan for today, continue therapeutic Lovenox, continue broad-spectrum antibiotic therapy follow repeat blood cultures Attestations 2 Medical Necessity Statement*: Patient requires hospitalization for UTI, pneumonia, bilateral extremity DVT, concerns for Staph epidermidis bacteremia requiring inpatient monitoring Diagnoses Essential hypertension I10 Hypertension type: essential hypertension Hyperlipidemia, unspecified hyperlipidemia type E78.5 Hyperlipidemia type: unspecified Altered mental status R41.82 COPD (chronic obstructive pulmonary disease) J44.9 Urinary tract infection N39.0 Pyelonephritis of right kidney N12 Acute encephalopathy G93.40 GERD (gastroesophageal reflux disease) K21.9 Bilateral malignant neoplasm of breast in female C50.911; C50.912 Bilateral breast cancer C50.911; C50.912 ROSEMARIE (obstructive sleep apnea) G47.33 Morbid obesity E66.01 DVT (deep venous thrombosis) I82.409
[2024-01-30] MEDS: vancomycin 1,500 MG/300 ML PIGGYBACK 200 MG IV (17:55)
[2024-01-30] MEDS: pantoprazole 40 mg SDV IVP (18:24)
[2024-01-30] MEDS: atorvastatin 40 mg Tablet PO (22:03)
[2024-01-31] VITALS (13 sets, daily range): BP systolic 97–126; BP diastolic 62–72; PULSE 62–82; RESP 15–26; TEMP 36.6–37; O2SAT 93–98
[2024-01-31 03:25] LABS: Basophils % 0.3 %; Eosinophils # 0.2 10^3/uL (0.0-0.8); Eosinophils % 3.2 %; Hematocrit 32.5 % (36-47); Lymphocytes # 1.4 10^3/uL (0.8-4.8); Lymphocytes % 20.4 %; Mean Corpuscular HGB Conc 30.5 g/dL (30-55); Mean Corpuscular Hemoglobin 29.7 pg (27-33); Mean Corpuscular Volume 97.6 fl (85-98); Mean Platelet Volume 10.3 fL (7.4-10.4); Monocytes # 0.5 10^3/uL (0.2-0.9); Monocytes % 7.5 %; Neutrophils # 4.73 10^3/uL (1.8-7.7); Neutrophils % 68.3 %; Nucleated Red Blood Cells % 0 %; Platelet Count 203 10^3/cmm (157-399); Red Blood Count 3.33 10^6/uL (3.85-5.65); White Blood Count 6.92 10^3/uL (3.29-11.43)
[2024-01-31 03:45] LABS: Alanine Aminotransferase 6 U/L (0-33); Alkaline Phosphatase 71 U/L (35-105); Aspartate Amino Transferase 12 U/L (0-32); Blood Urea Nitrogen 20 mg/dL (8-23); Calcium 9.2 mg/dL (8.5-10.5); Carbon Dioxide 28 mmol/L (22-29); Chloride 99 mmol/L (98-107); Creatinine Clr Calc Pharmacy 67.3148; Globulin 2.3 g/dL (1.3-4.6); Glucose 85 mg/dL (65-115); Magnesium 1.8 mg/dL (1.7-2.3); Osmolality Calculated 280 mOsm/kg (285-295); Phosphorus 2.9 mg/dL (2.5-4.5); Sodium 134 mmol/L (136-145); Total Bilirubin 0.2 mg/dL (0.15-1.2); Total Protein 5.3 g/dL (6.6-8.7)
[2024-01-31 04:09] LABS: Anion Gap 12.1 (5-19); Potassium 5.1 mmol/L (3.5-5.1)
[2024-01-31] MEDS: meropenem 1,000 MG in sodium chloride 0.9% (plus) 50 ML 100 MG IV ×3 (05:47→23:12)
[2024-01-31] MEDS: HYDROcodone-acetaminophen 10-325 mg Tablet 1 TAB PO ×2 (06:44→21:26)
[2024-01-31] MEDS: ipratropium-albuterol 3 mL Neb INHALATION ×3 (07:41→20:41)
[2024-01-31] MEDS: FUROsemide 10 mg/mL SDV 4mL 40 MG IVP (09:43)
[2024-01-31] MEDS: enoxaparin 100 mg/mL Syringe SUBCUT ×2 (10:34→21:27)
[2024-01-31] MEDS: fluconazole premix 100 MG in empty flexible container 1 EACH 50 MG IV (10:34)
[2024-01-31] MEDS: polyethylene glycol 3350 Pkt 17 gm PO (10:34)
--- NOTE | 2024-01-31 11:26 | P.PN_ITS ---
Subjective 2 Subjective: Patient was seen this morning, at bedside, does report shortness of breath, increased lower extremity edema, nausea, vomiting, alert to person, to place, not to time Vitals/I&O/Wt Last Vital Signs Temp 97.8 F 01/31/24 08:00 Pulse 62 01/31/24 11:02 Resp 16 01/31/24 11:02 BP 98/63 01/31/24 08:00 Pulse Ox 95 01/31/24 11:02 O2 Del Method Nasal Cannula 01/31/24 11:02 O2 Flow Rate 4 01/31/24 11:02 01/30/24 01/31/24 01/31/24 22:59 06:59 14:59 Intake Total 880 / 1600 290 / 1890 240 / 240 Output Total 2800 / 2800 Balance 880 / 1600 -2510 / -910 240 / 240 Weight last 48 hrs Weight 92.193 kg Weight 93.395 kg Physical Exam 2 Const: COMMON NORMALS: no acute distress Resp: COMMON NORMALS: normal respiratory effort, No retractions and No use of accessory muscles AUSCULTATION: crackles and wheezes Cardio: COMMON NORMALS: regular rate, regular rhythm, S1 normal heart sound present and S2 normal heart sound present RATE: regular rate RHYTHM: r egular rhythm HEART SOUNDS: S1 normal heart sound present and S2 normal heart sound present GI: COMMON NORMALS: Normal to inspection, nondistended, normoactive bowel sounds present and non-tender Extremity: NARRATIVE EXTREMITY EXAM: 1+ pitting edema Psych: COMMON NORMALS: mental status grossly normal Urinary Catheter Management: Carlton: Cath Placed During This Visit: yes Reason for Continuing Indwelling Catheter: Acute Urinary Retention or Obstruction Urinary Catheter Date of Insertion: 01/28/24 Urinary Catheter Time of Insertion: 14:30 Data 01/31/24 02:25 01/31/24 02:25 Micro: Microbiology 01/30/24 09:27 Blood Culture - Preliminary Blood NEGATIVE TO DATE 01/30/24 09:20 Blood Culture - Preliminary Blood NEGATIVE TO DATE 01/28/24 14:30 Urine Culture - Preliminary Urine,Clean Catch Yeast A&P Assessment and plan (1) Hypertension: Qualifiers: Hypertension type: essential hypertension Qualified Code(s): I10 - Essential (primary) hypertension (2) Hyperlipidemia: Qualifiers: Hyperlipidemia type: unspecified Qualified Code(s): E78.5 - Hyperlipidemia, unspecified (3) Altered mental status: (4) COPD (chronic obstructive pulmonary disease): (5) Urinary tract infection: (6) Pyelonephritis of right kidney: (7) Acute encephalopathy: (8) GERD (gastroesophageal reflux disease): (9) Bilateral malignant neoplasm of breast in female: (10) Bilateral breast cancer: (11) ROSEMARIE (obstructive sleep apnea): (12) Morbid obesity: (13) DVT (deep venous thrombosis): Plan Acute encephalopathy, resolved ?multifactorial, ? From UTI, pyelonephritis, pneumonia Acute pyelonephritis, right, with UTI ? Urine cultures, ? Blood cultures ? Continue meropenem, vancomycin Pneumonia -ct angio ? MPRESSION: 1. No evidence of pulmonary embolus. 2. Slight patchy nodular infiltrates in the RIGHT lower lobe likely infectious or inflammatory. A few tree-in-bud opacities. 3. Slight dependent atelectasis LEFT lower lobe. 4. No other acute findings. ?does not look like she is in respiratory distress, is on 6 L which is her baseline ? Sputum cultures, blood cultures and viral respiratory panel next ?continue vancomycin meropenem as above Staph epidermidis bacteremia, 1 of 4 blood cultures positive likely contamination but will repeat blood cultures continue vancomycin Morbid obesity Obstructive sleep apnea Bilateral breast cancer ? Has not gone under surgical intervention or chemotherapy due to high risks given her comorbidities, Is on anastrozole ? CT head within normal limits -Was on hospice, currently revoked Bilateral lower extremity DVT ?FINDINGS: There is occluding dvt in the rt Popleteal ,perineal trunk and ptv. There is non occluding dvt in the lt perineal trunk CONCLUSIONS Occlusive DVT RIGHT popliteal, peroneal, and ptv. Non occlusive DVT LEFT peroneal trunk Prelim to provider at time of exam by construction equipment mechanic helper ? Plan to ? Patient has a history of breast cancer, has not gotten any treatment for this given her comorbidities, is in a hypercoagulable state ? Therapeutic Lovenox Full code ? Lovenox for DVT prophylaxis ? Disposition Home with , is a Susie lift, completely dependent on for activities of daily living Plan for today, continue therapeutic Lovenox continue IV antibiotics start IV Diflucan, is fluid overloaded likely diastolic CHF exacerbation with fluid overload, will give 1 dose IV Lasix Attestations 2 Medical Necessity Statement*: Patient requires hospitalization for UTI, pneumonia, DVT, yeast UTI, now with diastolic CHF exacerbation requiring IV diuresis, concerns for Staph epidermidis bacteremia requiring IV antibiotics Diagnoses Essential hypertension I10 Hypertension type: essential hypertension Hyperlipidemia, unspecified hyperlipidemia type E78.5 Hyperlipidemia type: unspecified Altered mental status R41.82 COPD (chronic obstructive pulmonary disease) J44.9 Urinary tract infection N39.0 Pyelonephritis of right kidney N12 Acute encephalopathy G93.40 GERD (gastroesophageal reflux disease) K21.9 Bilateral malignant neoplasm of breast in female C50.911; C50.912 Bilateral breast cancer C50.911; C50.912 ROSEMARIE (obstructive sleep apnea) G47.33 Morbid obesity E66.01 DVT (deep venous thrombosis) I82.409
[2024-01-31] MEDS: pantoprazole 40 mg SDV IVP (18:09)
[2024-01-31 20:29] LABS: Vancomycin Trough 16.8 ug/mL (10-15)
--- NOTE | 2024-01-31 20:44 | PC.NURSE ---
pharmacy notified of trough delay due to lab delay, admin time for vanc changed from 1800 to 2100
[2024-01-31] MEDS: vancomycin 1,500 MG/300 ML PIGGYBACK 200 MG IV (21:21)
[2024-01-31] MEDS: atorvastatin 40 mg Tablet PO (21:27)
[2024-02-01] VITALS (11 sets, daily range): BP systolic 100–118; BP diastolic 56–71; PULSE 63–76; RESP 16–22; TEMP 36.4–36.9; O2SAT 93–99
[2024-02-01 06:07] LABS: Basophils % 0.3 %; Eosinophils # 0.2 10^3/uL (0.0-0.8); Eosinophils % 3.2 %; Hematocrit 30.9 % (36-47); Lymphocytes # 1.6 10^3/uL (0.8-4.8); Lymphocytes % 20.9 %; Mean Corpuscular HGB Conc 31.1 g/dL (30-55); Mean Corpuscular Hemoglobin 29.9 pg (27-33); Mean Corpuscular Volume 96.3 fl (85-98); Mean Platelet Volume 10.2 fL (7.4-10.4); Monocytes # 0.7 10^3/uL (0.2-0.9); Neutrophils # 4.89 10^3/uL (1.8-7.7); Neutrophils % 66.1 %; Nucleated Red Blood Cells % 0 %; Platelet Count 207 10^3/cmm (157-399); Red Blood Count 3.21 10^6/uL (3.85-5.65); Red Cell Distribution Width 14.2 % (12.1-15.1); White Blood Count 7.41 10^3/uL (3.29-11.43)
[2024-02-01] MEDS: meropenem 1,000 MG in sodium chloride 0.9% (plus) 50 ML 100 MG IV ×3 (06:09→22:23)
[2024-02-01] MEDS: HYDROcodone-acetaminophen 10-325 mg Tablet 1 TAB PO ×2 (06:10→14:46)
[2024-02-01 06:34] LABS: Alanine Aminotransferase < 5 U/L (0-33); Albumin Level 2.9 g/dL (3.5-5.2); Alkaline Phosphatase 70 U/L (35-105); Anion Gap 12.7 (5-19); Aspartate Amino Transferase 12 U/L (0-32); Blood Urea Nitrogen 21 mg/dL (8-23); Calcium 8.9 mg/dL (8.5-10.5); Carbon Dioxide 28 mmol/L (22-29); Chloride 99 mmol/L (98-107); Creatinine Clr Calc Pharmacy 67.9414; Globulin 2.1 g/dL (1.3-4.6); Glucose 90 mg/dL (65-115); Magnesium 1.6 mg/dL (1.7-2.3); Osmolality Calculated 283 mOsm/kg (285-295); Potassium 4.7 mmol/L (3.5-5.1); Sodium 135 mmol/L (136-145); Total Bilirubin 0.3 mg/dL (0.15-1.2)
[2024-02-01 06:37] LABS: NT Pro B Type Natriuretic Pept 805 pg/mL (0-450)
[2024-02-01] MEDS: ipratropium-albuterol 3 mL Neb INHALATION ×4 (07:45→21:18)
[2024-02-01] MEDS: polyethylene glycol 3350 Pkt 17 gm PO (08:31)
[2024-02-01] MEDS: apixaban 5 mg Tablet 10 MG PO ×2 (09:26→20:44)
[2024-02-01] MEDS: FUROsemide 10 mg/mL SDV 4mL 40 MG IVP (09:26)
[2024-02-01] MEDS: fluconazole premix 100 MG in empty flexible container 1 EACH 50 MG IV (10:11)
--- NOTE | 2024-02-01 12:08 | PM.PN ---
Subjective Subjective: Patient was seen this morning, is at bedside, we discussed her overall goals of care she remains a full code, clarifies that she was on hospice because of her COPD, we discussed her breast cancer, patient wants to potentially consider treatment, will have her follow-up with Dr. Ledbetter as outpatient she is reporting fluid overload, with lower extremity edema, shortness of breath will give her another dose of Lasix currently on 4 L Vitals/I&O/Wt Last Vital Signs Temp 97.7 F 02/01/24 07:41 Pulse 66 02/01/24 11:05 Resp 18 02/01/24 11:05 BP 106/64 02/01/24 07:41 Pulse Ox 96 02/01/24 11:05 O2 Del Method Nasal Cannula 02/01/24 11:05 O2 Flow Rate 4 02/01/24 11:05 01/31/24 02/01/24 02/01/24 21:59 06:59 14:59 Intake Total 340 / 340 Output Total Balance 340 / 340 Weight last 48 hrs Weight 95.028 kg Weight 92.193 kg Physical Exam Const: COMMON NORMALS: no acute distress and patient oriented x3 Resp: COMMON NORMALS: normal respiratory effort, No retractions and No use of accessory muscles AUSCULTATION: crackles Cardio: COMMON NORMALS: regular rate, regular rhythm, S1 normal heart sound present and S2 normal heart sound present RATE: regular rate RHYTHM: regular rhythm HEART SOUNDS: S1 normal heart sound present and S2 normal heart sound present GI: COMMON NORMALS: Normal to inspection, nondistended, normoactive bowel sounds present and non-tender Extremity: NARRATIVE EXTREMITY EXAM: 1+ edema Neuro: COMMON NORMALS: patient oriented x3 Psych: COMMON NORMALS: mental status grossly normal Urinary Catheter Management: Carlton: Cath Placed During This Visit: yes Reason for Continuing Indwelling Catheter: Acute Urinary Retention or Obstruction Urinary Catheter Date of Insertion: 01/28/24 Urinary Catheter Time of Insertion: 14:30 Data 02/01/24 05:02 02/01/24 05:02 Micro: Microbiology 01/28/24 14:30 Urine Culture - Final Urine,Clean Catch Niharika albicans 01/30/24 09:27 Blood Culture - Preliminary Blood NEGATIVE TO DATE 01/30/24 09:20 Blood Culture - Preliminary Blood NEGATIVE TO DATE A&P Assessment and plan (1) Hypertension: Qualifiers: Hypertension type: essential hypertension Qualified Code(s): I10 - Essential (primary) hypertension (2) Hyperlipidemia: Qualifiers: Hyperlipidemia type: unspecified Qualified Code(s): E78.5 - Hyperlipidemia, unspecified (3) Altered mental status: (4) COPD (chronic obstructive pulmonary disease): (5) Urinary tract infection: (6) Pyelonephritis of right kidney: (7) Acute encephalopathy: (8) GERD (gastroesophageal reflux disease): (9) Bilateral malignant neoplasm of breast in female: (10) Bilateral breast cancer: (11) ROSEMARIE (obstructive sleep apnea): (12) Morbid obesity: (13) DVT (deep venous thrombosis): (14) CHF exacerbation: Plan Acute encephalopathy, resolved ?multifactorial, ? From UTI, pyelonephritis, pneumonia Acute pyelonephritis, right, with UTI ? Urine cultures, ? Blood cultures ? Continue meropenem Pneumonia -ct angio ? MPRESSION: 1. No evidence of pulmonary embolus. 2. Slight patchy nodular infiltrates in the RIGHT lower lobe likely infectious or inflammatory. A few tree-in-bud opacities. 3. Slight dependent atelectasis LEFT lower lobe. 4. No other acute findings. ?does not look like she is in respiratory distress, is on 6 L which is her baseline ? Sputum cultures, blood cultures and viral respiratory panel next ?continue vancomycin meropenem as above Staph epidermidis bacteremia, 1 of 4 blood cultures positive likely contamination but will repeat blood cultures continue vancomycin Morbid obesity Obstructive sleep apnea Bilateral breast cancer ? Has not gone under surgical intervention or chemotherapy due to high risks given her comorbidities, Is on anastrozole ? CT head within normal limits -Was on hospice, currently revoked Bilateral lower extremity DVT ?FINDINGS: There is occluding dvt in the rt Popleteal ,perineal trunk and ptv. There is non occluding dvt in the lt perineal trunk CONCLUSIONS Occlusive DVT RIGHT popliteal, peroneal, and ptv. Non occlusive DVT LEFT peroneal trunk Prelim to provider at time of exam by court recording monitor ? Plan to ? Patient has a history of breast cancer, has not gotten any treatment for this given her comorbidities, is in a hypercoagulable state ? Therapeutic Lovenox CHF exacerbation, requiring diuresis Lasix 40 mg IV Full code ? Lovenox for DVT prophylaxis ? Disposition Home with , is a Susie lift, completely dependent on for activities of daily living Plan for today, continue diuresis, continue IV antibiotics, follow cultures, switch to Eliquis Attestations Medical Necessity Statement*: Patient requires hospitalization for respiratory failure secondary to fluid overload, pneumonia, staph epidermis bacteremia, DVT Diagnoses Essential hypertension I10 Hypertension type: essential hypertension Hyperlipidemia, unspecified hyperlipidemia type E78.5 Hyperlipidemia type: unspecified Altered mental status R41.82 COPD (chronic obstructive pulmonary disease) J44.9 Urinary tract infection N39.0 Pyelonephritis of right kidney N12 Acute encephalopathy G93.40 GERD (gastroesophageal reflux disease) K21.9 Bilateral malignant neoplasm of breast in female C50.911; C50.912 Bilateral breast cancer C50.911; C50.912 ROSEMARIE (obstructive sleep apnea) G47.33 Morbid obesity E66.01 DVT (deep venous thrombosis) I82.409 CHF exacerbation I50.9
[2024-02-01] MEDS: pantoprazole 40 mg SDV IVP (17:22)
[2024-02-01] MEDS: atorvastatin 40 mg Tablet PO (20:44)
[2024-02-01] MEDS: vancomycin 1,500 MG/300 ML PIGGYBACK 200 MG IV (20:44)
[2024-02-02] VITALS (9 sets, daily range): BP systolic 97–131; BP diastolic 61–73; PULSE 60–72; RESP 17–19; TEMP 36.2–36.6; O2SAT 98–99
[2024-02-02 03:16] LABS: Basophils % 0.3 %; Eosinophils # 0.2 10^3/uL (0.0-0.8); Eosinophils % 2.6 %; Hematocrit 29.5 % (36-47); Lymphocytes # 1.3 10^3/uL (0.8-4.8); Lymphocytes % 16.6 %; Mean Corpuscular HGB Conc 30.8 g/dL (30-55); Mean Corpuscular Hemoglobin 29.5 pg (27-33); Mean Corpuscular Volume 95.8 fl (85-98); Mean Platelet Volume 10.5 fL (7.4-10.4); Monocytes # 0.6 10^3/uL (0.2-0.9); Monocytes % 7.8 %; Neutrophils # 5.58 10^3/uL (1.8-7.7); Neutrophils % 72.3 %; Nucleated Red Blood Cells % 0 %; Platelet Count 204 10^3/cmm (157-399); Red Blood Count 3.08 10^6/uL (3.85-5.65); Red Cell Distribution Width 14.3 % (12.1-15.1); White Blood Count 7.71 10^3/uL (3.29-11.43)
[2024-02-02 03:50] LABS: Alanine Aminotransferase 8 U/L (0-33); Albumin Level 2.9 g/dL (3.5-5.2); Alkaline Phosphatase 72 U/L (35-105); Anion Gap 12.8 (5-19); Aspartate Amino Transferase 13 U/L (0-32); Blood Urea Nitrogen 27 mg/dL (8-23); Calcium 8.9 mg/dL (8.5-10.5); Carbon Dioxide 28 mmol/L (22-29); Chloride 98 mmol/L (98-107); Creatinine Clr Calc Pharmacy 67.9414; Globulin 2.2 g/dL (1.3-4.6); Glucose 91 mg/dL (65-115); Magnesium 1.6 mg/dL (1.7-2.3); Osmolality Calculated 283 mOsm/kg (285-295); Phosphorus 3.3 mg/dL (2.5-4.5); Potassium 4.8 mmol/L (3.5-5.1); Sodium 134 mmol/L (136-145); Total Bilirubin 0.2 mg/dL (0.15-1.2); Total Protein 5.1 g/dL (6.6-8.7)
[2024-02-02 03:59] LABS: NT Pro B Type Natriuretic Pept 568 pg/mL (0-450)
[2024-02-02] MEDS: meropenem 1,000 MG in sodium chloride 0.9% (plus) 50 ML 100 MG IV (05:59)
[2024-02-02] MEDS: ipratropium-albuterol 3 mL Neb INHALATION (07:43)
[2024-02-02] MEDS: polyethylene glycol 3350 Pkt 17 gm PO (09:14)
[2024-02-02] MEDS: apixaban 5 mg Tablet 10 MG PO (09:14)
[2024-02-02] MEDS: magnesium sulfate premix 2 GM/50 ML PIGGYBACK IV (09:16)
--- NOTE | 2024-02-02 09:40 | P.DS_ITS ---
Discharge Providers Date of Admission: 01/28/24 16:48 Date of Discharge: February 02, 2024 Attending Provider at Admission: Samson Conner MD Attending Provider at Discharge: Samson Conner MD Primary Care Provider: Elayne Wyatt DO Diagnoses at Discharge Discharge Diagnosis (1) Hypertension: Status: Acute Qualifiers: Hypertension type: essential hypertension Qualified Code(s): I10 - Essential (primary) hypertension (2) Hyperlipidemia: Status: Acute Qualifiers: Hyperlipidemia type: unspecified Qualified Code(s): E78.5 - Hyperlipidemia, unspecified (3) Altered mental status: Status: Acute (4) COPD (chronic obstructive pulmonary disease): Status: Acute (5) Urinary tract infection: Status: Inactive (6) Pyelonephritis of right kidney: Status: Acute (7) Acute encephalopathy: Status: Acute (8) GERD (gastroesophageal reflux disease): Status: Acute (9) Bilateral malignant neoplasm of breast in female: Status: Acute (10) Bilateral breast cancer: Status: Acute (11) ROSEMARIE (obstructive sleep apnea): Status: Inactive (12) Morbid obesity: Status: Inactive (13) DVT (deep venous thrombosis): Status: Acute (14) CHF exacerbation: Status: Acute Reason for Visit Reason for Visit: weakness Hospital Course Hospital Course Deborah Mchugh is a 73 year old female with a past medical history of bilateral breast cancer, grade 2 invasion ductal carcinoma, COPD on 6 L, high risk due to coronary disease, did not go under any surgical or chemotherapy interventions, is on anastrozole, was on hospice at 1 point, currently off hospice, chronic pain on fentanyl, morbidly obese, bedbound, requires a Susie lift, is primary caregiver, she does not ambulate or get up out of bed due to bilateral lower extremity weakness, denies any deep tissue injuries, who presents to [facility] due to fatigue, malaise, poor appetite, nausea, vomitin g, altered mental status. Currently patient is alert to person, not to place, to time, she can reasonably answer any detailed questions, although currently she has no complaints currently on 6 L her only complaint right now she is complaining of right flank pain, she has a Carlton catheter in place with evidence of UTI increased urine sedimentation, tells me that she gets frequent UTIs, in the emergency room, she is normotensive, on 6 L, normal sinus rhythm, respiratory rate 20, 98.5, This is a 73-year-old female, who presents [facility] for acute encephalopathy UTI, pyelonephritis, pneumonia For UTI pyelonephritis, she received IV antibiotics during hospitalization, urine cultures negative for bacterial infection, has received about 6 days of IV antibiotics as inpatient, discharged on ciprofloxacin as outpatient For her pneumonia she completed antibiotic therapy as inpatient, discharged on doxycycline Patient did have Staph epidermidis bacteremia 1 out of 2 blood cultures positive likely contamination repeat blood cultures negative Patient was also found to have bilateral lower extremity DVTs likely secondary to immobility, no history of breast cancer, managed on IV heparin during hospitalization, CT angiogram of the chest negative for PE discharged on Eliquis For her history of breast cancer, patient wants to consider undergoing interventions for her breast cancer, follow-up with Dr. Ledbetter Physical Exam Const: COMMON NORMALS: no acute distress and patient oriented x3 Resp: COMMON NORMALS: normal respiratory effort, No retractions, No use of accessory muscles and clear to auscultation bilaterally AUSCULTATION: clear to auscultation bilaterally Cardio: COMMON NORMALS: regular rate, regular rhythm, S1 normal heart sound present and S2 normal heart sound present RATE: regular rate RHYTHM: regular rhythm HEART SOUNDS: S1 normal heart sound present and S2 normal heart sound present GI: COMMON NORMALS: Normal to inspection, nondistended, normoactive bowel sounds present and non-tender Extremity: COMMON NORMALS: no pedal edema Neuro: COMMON NORMALS: patient oriented x3 Psych: COMMON NORMALS: mental status grossly normal Urinary Catheter Management: Carlton: Cath Placed During This Visit: yes Reason for Continuing Indwelling Catheter: Other Urinary Catheter Date of Insertion: 01/28/24 Urinary Catheter Time of Insertion: 14:30 Discharge Data Studies Completed and Pending Completed Studies During Hospitalization Category Date Time Status CT abdomen pelvis wo con [id number] Stat Cat Scan 01/28/24 14:[address] angio chest PE protcl [id number] Stat Cat Scan 01/29/24 09:[address] head wo con* [id number] Stat Cat Scan 01/28/24 14:10 Completed XR chest 1V portable [id number] Stat Exams 01/28/24 13:59 [place] [id number] Routine Ultrasound 01/29/24 07:56 Completed Pending at discharge Category Date Time Status Blood Culture Stat Lab 01/28/24 16:44 Results Blood Culture Stat Lab 01/30/24 09:27 Results Complete Blood Count w/Auto AM LABS Lab 02/03/24 04:00 Ordered Comprehensive Metabolic Panel AM LABS Lab 02/03/24 04:00 Ordered Magnesium AM LABS Lab 02/03/24 04:00 Ordered NT Pro B Type Natriuretic Pept QAM Lab 02/03/24 06:00 Ordered Phosphorus AM LABS Lab 02/03/24 04:00 Ordered Radiology Impressions Abdomen/Pelvis CT 01/28/24 14:48 IMPRESSION: 1. No acute intra-abdominal findings. 2. Interval development subtle tree-in-bud opacities in right lower lobe. This can be associated with atypical infections. Initial further evaluation with dedicated chest CT recommended. Laboratory Results WBC 7.71 10^3/uL (3.29-11.43) 02/02/24 01:49 RBC 3.08 10^6/uL (3.85-5.65) L 02/02/24 01:49 Hgb 9.10 g/dL (11.27-16.99) L 02/02/24 01:49 Hct 29.5 % (36-47) L 02/02/24 01:49 MCV 95.8 fl (85-98) 02/02/24 01:49 MCH 29.5 pg (27-33) 02/02/24 01:49 MCHC 30.8 g/dL (30-55) 02/02/24 01:49 RDW 14.3 % (12.1-15.1) 02/02/24 01:49 Plt Count 204 10^3/cmm (157-399) 02/02/24 01:49 MPV 10.5 fL (7.4-10.4) H 02/02/24 01:49 Neut % (Auto) 72.3 % 02/02/24 01:49 Lymph % (Auto) 16.6 % 02/02/24 01:49 [place] % (Auto) 7.8 % 02/02/24 01:49 Eos % (Auto) 2.6 % 02/02/24 01:49 Baso % (Auto) 0.3 % 02/02/24 01:49 Neut # (Auto) 5.58 10^3/uL (1.8-7.7) 02/02/24 01:49 Lymph # (Auto) 1.3 10^3/uL (0.8-4.8) 02/02/24 01:49 [place] # (Auto) 0.6 10^3/uL (0.2-0.9) 02/02/24 01:49 Eos # (Auto) 0.2 10^3/uL (0.0-0.8) 02/02/24 01:49 Baso # (Auto) 0.0 10^3/uL (0.0-0.1) 02/02/24 01:49 Nucleated RBC % (auto) 0 % 02/02/24 01:49 Nucleated RBCs # 0.0 /100WBC 02/02/24 01:49 PT 12.80 SECONDS (12.1-14.9) 01/28/24 14:30 INR 0.93 (0.8-1.2) 01/28/24 14:30 D-Dimer 2.33 ug/mLFEU (0-0.59) H 01/28/24 14:30 Specimen Type Arterial 01/28/24 16:55 Sample Site Radial, left 01/28/24 16:55 ABG pH 7.64 (7.35-7.45) H* 01/28/24 16:55 ABG pCO2 26.0 mmHg (35-45) L 01/28/24 16:55 ABG pO2 120.0 mmHg (80.0-100.0) H 01/28/24 16:55 ABG PO2/FiO2 Ratio 0 01/28/24 16:55 ABG HCO3 28.1 mmol/L (22-26) H 01/28/24 16:55 ABG Base Excess 7.7 mmol/L (-2.0-2.0) H 01/28/24 16:55 Kyle Test Pos 01/28/24 16:55 Hematocrit 36.4 % (37-47) L 01/28/24 16:55 O2 Delivery Device Nc 01/28/24 16:55 O2 Liters/Min 3.0 % 01/28/24 16:55 FiO2 32.0 % 01/28/24 16:55 Drier Helper ID glc 01/28/24 16:55 Sodium 134 mmol/L (136-145) L 02/02/24 01:49 Potassium 4.8 mmol/L (3.5-5.1) 02/02/24 01:49 Chloride 98 mmol/L (98-107) 02/02/24 01:49 Carbon Dioxide 28 mmol/L (22-29) 02/02/24 01:49 Anion Gap 12.8 (5-19) 02/02/24 01:49 BUN 27 mg/dL (8-23) H 02/02/24 01:49 Creatinine 0.8 mg/dL (0.5-0.9) 02/02/24 01:49 GFR Calculation Not Reportable 02/02/24 01:49 Glucose 91 mg/dL (65-115) 02/02/24 01:49 Estimat Average Glucose 88 01/28/24 19:30 Hemoglobin A1c 4.7 % (4.0-6.0) 01/28/24 19:30 Calculated Osmolality 283 mOsm/kg (285-295) L 02/02/24 01:49 Lactic Acid 1.1 mmol/L (0.5-2.2) 01/28/24 14:30 Calcium 8.9 mg/dL (8.5-10.5) 02/02/24 01:49 Phosphorus 3.3 mg/dL (2.5-4.5) 02/02/24 01:49 Magnesium 1.6 mg/dL (1.7-2.3) L 02/02/24 01:49 Total Bilirubin 0.2 mg/dL (0.15-1.2) 02/02/24 01:49 AST 13 U/L (0-32) 02/02/24 01:49 ALT 8 U/L (0-33) 02/02/24 01:49 Alkaline Phosphatase 72 U/L (35-105) 02/02/24 01:49 Ammonia 28 umol/L (11-51) 01/28/24 14:30 Creatine Kinase 12 U/L (26-192) L 01/28/24 14:30 Troponin T Baseline 37 ng/L (0-10) H 01/28/24 14:30 Troponin T Hi Sens 6Hr 36.61 ng/L (0-10) H 01/28/24 19:30 Troponin T Hi Sens 6Hr Delta -0.39 ng/L (0-12) L 01/28/24 19:30 NT-Pro-B Natriuret Pep 568 pg/mL (0-450) H 02/02/24 01:49 Total Protein 5.1 g/dL (6.6-8.7) L 02/02/24 01:49 Albumin 2.9 g/dL (3.5-5.2) L 02/02/24 01:49 Globulin 2.2 g/dL (1.3-4.6) 02/02/24 01:49 Triglycerides 94 mg/dL (0-150) 01/28/24 14:30 Cholesterol 116 mg/dL (0-200) 01/28/24 14:30 LDL Cholesterol, Calc 51 mg/dL (50-129) 01/28/24 14:30 HDL Cholesterol 46 mg/dL (60-100) L 01/28/24 14:30 LDL/HDL Ratio 1.11 RATIO (0.00-3.22) 01/28/24 14:30 Cholesterol/HDL Ratio 2.52 mg/dL (0.0-4.40) 01/28/24 14:30 Lipase 29 U/L (13-60) 01/28/24 14:30 Procalcitonin 0.11 ng/mL (0-0.5) 01/28/24 14:30 TSH 1.27 uIU/mL (0.27-4.20) 01/28/24 14:30 Urine Color Yellow (Yellow) 01/28/24 14:30 Urine Appearance Cloudy (CLEAR) A 01/28/24 14:30 Urine pH 5 (5-7) 01/28/24 14:30 Ur Specific [place] 1.010 (1.005-1.030) 01/28/24 14:30 Urine Protein Neg (Negative) 01/28/24 14:30 Urine Glucose (UA) Norm (Normal) 01/28/24 14:30 Urine Ketones Negative (Negative) 01/28/24 14:30 Urine Blood 2+ (Negative) H 01/28/24 14:30 Urine Nitrate Negative (Negative) 01/28/24 14:30 Urine Bilirubin Neg (Negative) 01/28/24 14:30 Urine Urobilinogen Norm mg/dL (Negative) 01/28/24 14:30 Ur Leukocyte Esterase 2+ (Negative) H 01/28/24 14:30 Urine RBC 5-10 /hpf (0-2) H 01/28/24 14:30 Urine WBC Too numerous to cnt /hpf (0-5) H 01/28/24 14:30 Ur Squamous Epith Cells 0-4 /hpf (0-5) H 01/28/24 14:30 Amorphous Sediment Not Reportable 01/28/24 14:30 Urine Bacteria 1+ /hpf (NONE) H 01/28/24 14:30 Urine Mucus 1+ /hpf 01/28/24 14:30 Urine Yeast 1+ /hpf H 01/28/24 14:30 Vancomycin Trough 16.8 ug/mL (10-15) H 01/31/24 19:42 Serum Ketones Negative (Negative) 01/28/24 14:30 Vitals Last Vital Signs Temp 97.7 F 02/02/24 07:36 Pulse 68 02/02/24 07:43 Resp 19 H 02/02/24 07:36 BP 111/61 02/02/24 07:36 Pulse Ox 99 02/02/24 07:36 O2 Del Method Nasal Cannula 02/02/24 07:36 O2 Flow Rate 4 02/02/24 07:35 Discharge Plan Discharge Patient Disposition: Home Condition: Stable Prescriptions: New fluconazole [Diflucan] 100 mg tablet 100 mg PO DAILY 7 Days Qty: 7 0RF Eliquis DVT-PE Treat 30D Start 5 mg (74 tabs) tablets,dose pack See Rx Instructions .ROUTE .COMPLEX Qty: 74 0RF Rx Instructions: orally per package directions Continued simvastatin 40 mg tablet 40 mg PO BEDTIME Narcan 4 mg/actuation spray,non-aerosol See Rx Instructions .ROUTE .COMPLEX PRN (Reason: overdose) Rx Instructions: DIRECTED PRN OVERDOSE exemestane 25 mg tablet 25 mg PO DAILY Qty: 90 2RF Rx Instructions: must administer after a meal hydrocodone-acetaminophen 10-325 mg tablet 1 tab PO QID PRN (Reason: Pain) anastrozole 1 mg tablet 1 mg PO DAILY triamcinolone acetonide 0.1 % cream 1 applic TOPICAL BID Rx Instructions: not picked up as of 01/28/24 rx filled 01/28/24 fentanyl 75 mcg/hr patch 72 hour See Rx Instructions .ROUTE .COMPLEX Rx Instructions: Apply ONE PATCH TO SKIN directed EVERY third DAY. Max daily AMOUNT One PATCH. lactulose 10 gram/15 mL solution 15 ml PO DAILY PRN (Reason: Constipation) Rx Instructions: not picked up as of 01/28/24 rx filled 01/27/24 ondansetron 4 mg tablet,disintegrating 4 mg PO Q6H PRN (Reason: Nausea) nitroglycerin [Nitrostat] 0.4 mg Tablet, Sublingual 0.4 mg SUBLINGUAL Q5M PRN (Reason: Chest Pain) Rx Instructions: do not exceed 3 doses per episode Discontinued nitrofurantoin monohyd/m-cryst 100 mg capsule 100 mg PO BID Rx Instructions: not picked up as of 01/28/24 rx filled 01/28/24 lisinopril 2.5 mg Tablet 2.5 mg PO QAM Discharge Orders: Discharge Order (Routine); Ordered 02/02/24 Ordered By: Samson Conner Referrals: Remigio Ledbetter MD [Hospitalist] - 1 month Elayne Wyatt DO [Primary Care Provider] - Discharge Diet: Cardiac Discharge Activity: Resume usual activity Patient Instructions: Opioid Safety Activity Restrictions/Additional Instructions: - have discharged on Eliquis, which is a strong blood thinner, if you develop bloody or black stools please go to the emergency room Discharge Attestations Time Spent in Discharge Care*: greater than 30 min Status at Discharge: Cognitive status at discharge: moderately impaired cognition , Behavioral status at discharge: cooperative , Quality Metrics Clinical Quality Measures [ Venous Thromboembolism { Contraindication to Overlap Therapy: Overlap treatment not indicated; VTE Discharge Education: Education about anticoagulant therapy/Care Notes given;}] Coding Level of Care Code 50198 Total time (in minutes) for Discharge: 45 Diagnoses Essential hypertension I10 Hypertension type: essential hypertension Hyperlipidemia, unspecified hyperlipidemia type E78.5 Hyperlipidemia type: unspecified Altered mental status R41.82 COPD (chronic obstructive pulmonary disease) J44.9 Urinary tract infection N39.0 Pyelonephritis of right kidney N12 Acute encephalopathy G93.40 GERD (gastroesophageal reflux disease) K21.9 Bilateral malignant neoplasm of breast in female C50.911; C50.912 Bilateral breast cancer C50.911; C50.912 ROSEMARIE (obstructive sleep apnea) G47.33 Morbid obesity E66.01 DVT (deep venous thrombosis) I82.409 CHF exacerbation I50.9
--- NOTE | 2024-02-02 10:40 | PC.NURSE ---
Pt's discharge is delayed, waiting on medicaid ride
[2024-02-02] MEDS: fluconazole premix 100 MG in empty flexible container 1 EACH 50 MG IV (11:01)
--- NOTE | 2024-02-02 11:59 | PC.SOCIAL ---
IMM Updated Updated pt & spouse on IMM. No questions voiced. Provided pt a copy. Initialed, dated, & timed copy in chart.
== END 2024-02-02 16:39 | disposition home health service (06) | DRG 193 ==
LOC: ER 13:57 → MEDSURG 16:49
PROVIDERS: Admitting Provider Family Medicine; Emergency Provider Family Medicine; PCP Family Medicine; Visit Provider Family Medicine
DX: J18.9 Pneumonia, unspecified organism (principal); I50.31 Acute diastolic (congestive) heart failure; N12 Tubulo-interstitial nephritis, not specified as acute or chronic; J44.0 Chronic obstructive pulmonary disease with (acute) lower respiratory infection; G93.40 Encephalopathy, unspecified; I82.453 Acute embolism and thrombosis of peroneal vein, bilateral; I82.431 Acute embolism and thrombosis of right popliteal vein; I82.441 Acute embolism and thrombosis of right tibial vein; C50.912 Malignant neoplasm of unspecified site of left female breast; C50.911 Malignant neoplasm of unspecified site of right female breast; G89.29 Other chronic pain; E66.01 Morbid (severe) obesity due to excess calories; F41.9 Anxiety disorder, unspecified; E78.5 Hyperlipidemia, unspecified; I11.0 Hypertensive heart disease with heart failure; K21.9 Gastro-esophageal reflux disease without esophagitis; G47.33 Obstructive sleep apnea (adult) (pediatric); E87.5 Hyperkalemia; E87.70 Fluid overload, unspecified; Z79.811 Long term (current) use of aromatase inhibitors; Z99.81 Dependence on supplemental oxygen; Z68.35 Body mass index [BMI] 35.0-35.9, adult; Z74.01 Bed confinement status; Z87.440 Personal history of urinary (tract) infections; Z86.73 Personal history of transient ischemic attack (TIA), and cerebral infarction without residual deficits
CPT/HCPCS: 36415; 36600; 51702; 70450; 71045; 71275; 74176; 80053; 80061; 80202; 81001; 82009; 82140; 82550; 82803; 83036; 83605; 83690; 83735; 83880; 84100; 84145; 84443; 84484; 85025; 85378; 85610; 87040; 87077; 87086; 87106; 87150; 87186; 87205; 93005; 93970; 94640; 96372; 99285; C9113; J1450; J1650; J1940; J2185; J3370; J3475; J3490; J7030; J7613; Q9967

== ENCOUNTER 2024-03-08 14:01 | Emergency (ER) | payer MEDICARE, MEDICAID, SELFPAY ==
[2024-03-08 14:02] VITALS: BMI 34.3
--- NOTE | 2024-03-08 14:04 | ECG_ITS ---
[facility] Test Date: 2024-03-08 Pat Name: Deborah Mchugh Department: Room: Gender: Female Infrastructure Developer: : [id number] Requested By: Leeroy Knight Order Number: [id number] James MD: Rose Blanca M.D. Measurements Intervals [place] Rate: 74 P: 75 ND: 184 QRS: 39 QRSD: 100 T: 78 QT: 427 QTc: 475 Interpretive Statements SINUS RHYTHM LOW QRS VOLTAGE IN PRECORDIAL LEADS [QRS DEFLECTION < 1.0 mV IN CHEST LEADS] Compared to ECG 01/28/2024 21:31:40 Low QRS voltage now present Myocardial infarct finding no longer present Electronically Signed On 03-08-2024 19:28:13 CDT by Rose Blanca M.D. [id number]
--- NOTE | 2024-03-08 14:04 | XR_ITS ---
WS: [id number] Exam: XR chest 1V portable [id number] Date/Time of Exam: 03/08/2024 2:12 PM Reason For Exam: cp Comparison 01/28/2024. The lungs are clear and fully expanded. Cardiomediastinal silhouette is unremarkable for technique. N o pleural effusions. Moderately advanced degenerative changes of both shoulders of the RIGHT more adv anced than the LEFT. Fusion hardware seen in the lower C-spine. IMPRESSION: 1. No acute cardiopulmonary finding.
[2024-03-08 14:06] VITALS: BP 96/53; PULSE 75; RESP 16; TEMP 36.9; O2SAT 84
[2024-03-08 14:10] VITALS: O2SAT 92
--- NOTE | 2024-03-08 14:14 | ED_ITS ---
HPI - Extremity Problem 2 General: Chief complaint: Extremity Problem,Nontraumatic Stated complaint: Chest pain Time Seen by Provider: 03/08/24 14:03 Source: patient and EMS Mode of arrival: EMS Limitations: no limitations History of Present Illness: 73-year-old female with extensive histor y including breast cancer. States she woke up this morning having a sharp pain in her left neck and left side of her chest. States pain is much worse with movement and palpation. She denies any increased shortness of breath she is on 5 L of oxygen at baseline is 95% here on her 5 L denies any cough or fever denies any known injuries. Associated symptoms: Reports chest pain; Deny fever(s) or rash Review of Systems 2 Const: Denies: fever(s), chills, body aches or change in appetite ENMT: Denies: throat pain or dental pain Card: Reports: chest pain Resp: Denies: dyspnea GI: Denies: abdominal pain, nausea, vomiting or diarrhea : Denies: dysuria Musc: Denies: neck pain or back pain Skin/Breast: Denies: rash Neuro: Denies: headache(s) PFSH ED 2 PFSH: Medical History Bilateral breast cancer Closed fracture of right distal femur Compression fracture Morbid obesity CVA (cerebral vascular accident) Anxiety COPD (chronic obstructive pulmonary disease) Hyperthyroidism Hyperlipidemia Hypertension GERD (gastroesophageal reflux disease) ROSEMARIE (obstructive sleep apnea) Surgical History Status post right knee replacement History of open reduction and internal fixation (ORIF) procedure left femur H/O cervical spine surgery History of colon resection H/O: hysterectomy History of cholecystectomy History of bilateral breast biopsy Family History Grandfather Diabetes Maternal Grandmother Diabetes Maternal Kidney failure Maternal Grandmother Diabetes Paternal Grandfather Diabetes Paternal Family/Other Diabetes Aunt Mother , Age 99 Hypertension Cancer Leukemia Father Myocardial infarction Hypertension Brother Hypertension Cancer Prostate Denies family history of Anesthesia complication Bleeding disorder Social History Smoking and tobacco/nicotine status: never used tobacco/nicotine Alcohol intake: never Substance/Drug Use: never Lives independently: Yes Household members: spouse Marital status: Current occupational status: disabled Physical Exam 2 Const: COMMON NORMALS: no acute distress, patient oriented x3 and healthy appearing HENMT: COMMON NORMALS: normocephalic and atraumatic HEAD & SCALP: n ormocephalic and atraumatic Eye: COMMON NORMALS: conjunctivae normal CONJUNCTIVA: Yes conjunctivae normal Neck/C-Spine: COMMON NORMALS: full ROM and supple Chest: COMMONS NORMALS: normal inspection of the chest OTHER: point tender over left chest reproduces pain Resp: COMMON NORMALS: normal respiratory effort, No retractions, No use of accessory muscles and clear to auscultation bilaterally AUSCULTATION: clear to auscultation bilaterally Cardio: COMMON NORMALS: regular rate, regular rhythm and No murmurs present (Cardio) RATE: regular rate RHYTHM: regular rhythm Extremity: COMMON NORMALS: normal to inspection and full ROM Neuro: COMMON NORMALS: patient oriented x3, moves all extremities and no focal motor deficits Psych: COMMON NORMALS: mental status grossly normal, Normal thought process present and cooperative THOUGHT PROCESS: Normal thought process present Skin: COMMON NORMALS: no rashes or lesions noted and no wounds GENERAL SKIN EXAM: no rashes or lesions noted Course 2 Vital Signs: Vital signs: Vital Signs Temperature 98.4 F 03/08/24 14:06 Pulse Rate 63 03/08/24 16:15 Respiratory Rate 14 03/08/24 16:15 Blood Pressure 125/75 03/08/24 16:15 Pulse Oximetry 97 03/08/24 16:15 Oxygen Delivery Me thod Nasal Cannula 03/08/24 14:10 Oxygen Flow Rate 5 03/08/24 14:30 MDM - Extremity (Nontraumatic) Medical Decision Making Patient presents here with left arm pain likely muscular in nature she is tender over her shoulder no obvious deformity distal pulses intact her x-ray blood work all normal here she stable for discharge follow-up with PCP return if worsening. Lab Data I reviewed the patient's lab results. 03/08/24 14:19 03/08/24 14:19 Laboratory Results WBC 7.13 10^3/uL (3.29-11.43) 03/08/24 14:19 RBC 2.87 10^6/uL (3.85-5.65) L 03/08/24 14:19 Hgb 8.70 g/dL (11.27-16.99) L 03/08/24 14:19 Hct 28.3 % (36-47) L 03/08/24 14:19 MCV 98.6 fl (85-98) H 03/08/24 14:19 MCH 30.3 pg (27-33) 03/08/24 14:19 MCHC 30.7 g/dL (30-55) 03/08/24 14:19 RDW 13.3 % (12.1-15.1) 03/08/24 14:19 Plt Count 295 10^3/cmm (157-399) 03/08/24 14:19 MPV 9.9 fL (7.4-10.4) 03/08/24 14:19 Neut % (Auto) 68.3 % 03/08/24 14:19 Lymph % (Auto) 18.2 % 03/08/24 14:19 Addison % (Auto) 6.7 % 03/08/24 14:19 Eos % (Auto) 5.9 % 03/08/24 14:19 Baso % (Auto) 0.6 % 03/08/24 14:19 Neut # (Auto) 4.87 10^3/uL (1.8-7.7) 03/08/24 14:19 Lymph # (Auto) 1.3 10^3/uL (0.8-4.8) 03/08/24 14:19 Addison # (Auto) 0.5 10^3/uL (0.2-0.9) 03/08/24 14:19 Eos # (Auto) 0.4 10^3/uL (0.0-0.8) 03/08/24 14:19 Baso # (Auto) 0.0 10^3/uL (0.0-0.1) 03/08/24 14:19 Nucleated RBC % (auto) 0 % 03/08/24 14:19 Nucleated RBCs # 0.0 /100WBC 03/08/24 14:19 PT 16.10 SECONDS (12.1-14.9) H 03/08/24 14:19 INR 1.25 (0.8-1.2) H 03/08/24 14:19 Sodium 138 mmol/L (136-145) 03/08/24 14:19 Potassium 3.9 mmol/L (3.5-5.1) 03/08/24 14:19 Chloride 101 mmol/L (98-107) 03/08/24 14:19 Carbon Dioxide 29 mmol/L (22-29) 03/08/24 14:19 Anion Gap 11.9 (5-19) 03/08/24 14:19 BUN 26 mg/dL (8-23) H 03/08/24 14:19 Creatinine 1.0 mg/dL (0.5-0.9) H 03/08/24 14:19 GFR Calculation Not Reportable 03/08/24 14:19 Glucose 92 mg/dL (65-115) 03/08/24 14:19 Calculated Osmolality 290 mOsm/kg (285-295) 03/08/24 14:19 Calcium 9.3 mg/dL (8.5-10.5) 03/08/24 14:19 Total Bilirubin 0.2 mg/dL (0.15-1.2) 03/08/24 14:19 AST 17 U/L (0-32) 03/08/24 14:19 ALT 9 U/L (0-33) 03/08/24 14:19 Alkaline Phosphatase 152 U/L (35-105) H 03/08/24 14:19 Troponin T Baseline 32 ng/L (0-10) H 03/08/24 14:19 Troponin T 120 Minute 31.07 ng/L (0-10) H 03/08/24 16:30 Delta Troponin T -0.93 ABS# (0-10) L 03/08/24 16:30 NT-Pro-B Natriuret Pep 293 pg/mL (0-450) 03/08/24 14:19 Total Protein 5.9 g/dL (6.6-8.7) L 03/08/24 14:19 Albumin 3.3 g/dL (3.5-5.2) L 03/08/24 14:19 Globulin 2.6 g/dL (1.3-4.6) 03/08/24 14:19 Lipase 38 U/L (13-60) 03/08/24 14:19 All radiology interpretation(s) finalized by discharge EKG Data EKG 1: I personally reviewed and interpreted this EKG as follows: EKG interpretation date: 03/08/24 EKG interpretation time: 14:08 Interpretation: nsr hr [address] or t wave abnormalities qrs 100 qtc 454 Discharge Plan Discharge Patient Disposition: Home Clinical Impression: Arm pain, left Condition: Stable Prescriptions: No Action simvastatin 40 mg tablet 40 mg PO BEDTIME Narcan 4 mg/actuation spray,non-aerosol See Rx Instructions .ROUTE .COMPLEX PRN (Reason: overdose) Rx Instructions: DIRECTED PRN OVERDOSE exemestane 25 mg tablet 25 mg PO DAILY Qty: 90 2RF Rx Instructions: must administer after a meal pantoprazole [Protonix] 40 mg tablet,delayed release (DR/EC) 40 mg PO DAILY Qty: 30 3RF hydrocodone-acetaminophen 10-325 mg tablet 1 tab PO QID PRN (Reason: Pain) triamcinolone acetonide 0.1 % cream 1 applic TOPICAL BID Rx Instructions: not picked up as of 01/28/24 rx filled 01/28/24 fentanyl 75 mcg/hr patch 72 hour 75 mcg transdermal Q72H lactulose 10 gram/15 mL solution 15 ml PO DAILY PRN (Reason: Constipation) Rx Instructions: not picked up as of 01/28/24 rx filled 01/27/24 amoxicillin-pot clavulanate 500-125 mg tablet 1 tab PO BID Eliquis DVT-PE Treat 30D Start 5 mg (74 tabs) tablets,dose pack 5 mg PO BID ondansetron 4 mg tablet,disintegrating 4 mg PO Q6H PRN (Reason: Nausea) nitroglycerin [Nitrostat] 0.4 mg Tablet, Sublingual 0.4 mg SUBLINGUAL Q5M PRN (Reason: Chest Pain) Rx Instructions: do not exceed 3 doses per episode Discharge Orders: Discharge ED (Routine); Ordered 03/08/24 Ordered By: Leeroy Knight Referrals: Elayne Wyatt DO [Primary Care Provider] - 1-3 days Discharge Diet: Advance as tolerated Discharge Activity: Resume usual activity Patient Instructions: Arm Pain (ED) Coding Level of Care Code ED Operations Mgr for Ted San
[2024-03-08 14:27] LABS: Basophils % 0.6 %; Eosinophils # 0.4 10^3/uL (0.0-0.8); Eosinophils % 5.9 %; Hematocrit 28.3 % (36-47); Lymphocytes # 1.3 10^3/uL (0.8-4.8); Lymphocytes % 18.2 %; Mean Corpuscular HGB Conc 30.7 g/dL (30-55); Mean Corpuscular Hemoglobin 30.3 pg (27-33); Mean Corpuscular Volume 98.6 fl (85-98); Mean Platelet Volume 9.9 fL (7.4-10.4); Monocytes # 0.5 10^3/uL (0.2-0.9); Monocytes % 6.7 %; Neutrophils # 4.87 10^3/uL (1.8-7.7); Neutrophils % 68.3 %; Nucleated Red Blood Cells % 0 %; Platelet Count 295 10^3/cmm (157-399); Red Blood Count 2.87 10^6/uL (3.85-5.65); Red Cell Distribution Width 13.3 % (12.1-15.1); White Blood Count 7.13 10^3/uL (3.29-11.43)
[2024-03-08 14:30] VITALS: BP 98/59; PULSE 64; RESP 16; O2SAT 96
[2024-03-08 14:46] LABS: INR 1.25 (0.8-1.2)
[2024-03-08 14:52] LABS: Troponin(5th) Baseline 32 ng/L (0-10)
[2024-03-08 15:01] LABS: Alanine Aminotransferase 9 U/L (0-33); Albumin Level 3.3 g/dL (3.5-5.2); Alkaline Phosphatase 152 U/L (35-105); Anion Gap 11.9 (5-19); Aspartate Amino Transferase 17 U/L (0-32); Blood Urea Nitrogen 26 mg/dL (8-23); Calcium 9.3 mg/dL (8.5-10.5); Carbon Dioxide 29 mmol/L (22-29); Chloride 101 mmol/L (98-107); Globulin 2.6 g/dL (1.3-4.6); Glucose 92 mg/dL (65-115); Lipase 38 U/L (13-60); NT Pro B Type Natriuretic Pept 293 pg/mL (0-450); Osmolality Calculated 290 mOsm/kg (285-295); Potassium 3.9 mmol/L (3.5-5.1); Sodium 138 mmol/L (136-145); Total Bilirubin 0.2 mg/dL (0.15-1.2); Total Protein 5.9 g/dL (6.6-8.7)
[2024-03-08 15:09] LABS: Creatinine Clr Calc Pharmacy 53.0302
[2024-03-08 15:21] VITALS: BP 118/79; PULSE 62; RESP 14; O2SAT 97
[2024-03-08] MEDS: HYDROcodone-acetaminophen 7.5-325 mg Tablet 1 TAB PO (15:27)
[2024-03-08 15:45] VITALS: BP 126/72; PULSE 60; RESP 15; O2SAT 95
[2024-03-08 16:15] VITALS: BP 125/75; PULSE 63; RESP 14; O2SAT 97
[2024-03-08 17:04] LABS: Troponin 5 2HR 31.07 ng/L (0-10)
[2024-03-08 17:05] LABS: Troponin 5 2HR Delta -0.93 ABS# (0-10)
== END 2024-03-08 18:44 | disposition home or self-care (01) ==
PROVIDERS: Emergency Provider Emergency Medicine; PCP Family Medicine
DX: M79.602 Pain in left arm (principal); Z79.01 Long term (current) use of anticoagulants; Z85.3 Personal history of malignant neoplasm of breast; Z86.73 Personal history of transient ischemic attack (TIA), and cerebral infarction without residual deficits; J44.9 Chronic obstructive pulmonary disease, unspecified; E78.5 Hyperlipidemia, unspecified; I10 Essential (primary) hypertension
CPT/HCPCS: 36415; 71045; 80053; 83690; 83880; 84484; 85025; 85610; 93005; 99285

== ENCOUNTER 2024-04-01 10:46 | Oncology outpatient (recurring) (ONCR) | payer MEDICARE, MEDICAID, SELFPAY ==
[2024-04-01 11:40] LABS: Basophils % 0.3 %; Eosinophils # 1.2 10^3/uL (0.0-0.8); Eosinophils % 13.3 %; Hematocrit 31.8 % (36-47); Lymphocytes # 1.9 10^3/uL (0.8-4.8); Lymphocytes % 20.8 %; Mean Corpuscular HGB Conc 28.6 g/dL (30-55); Mean Corpuscular Hemoglobin 30.8 pg (27-33); Mean Corpuscular Volume 107.8 fl (85-98); Mean Platelet Volume 9.9 fL (7.4-10.4); Monocytes # 0.6 10^3/uL (0.2-0.9); Monocytes % 6.8 %; Neutrophils # 5.31 10^3/uL (1.8-7.7); Neutrophils % 58.6 %; Nucleated Red Blood Cells % 0 %; Platelet Count 313 10^3/cmm (157-399); Red Blood Count 2.95 10^6/uL (3.85-5.65); White Blood Count 9.08 10^3/uL (3.29-11.43)
[2024-04-01 11:59] LABS: Alanine Aminotransferase < 5 U/L (0-33); Albumin Level 3.2 g/dL (3.5-5.2); Alkaline Phosphatase 147 U/L (35-105); Aspartate Amino Transferase 14 U/L (0-32); Blood Urea Nitrogen 27 mg/dL (8-23); Calcium 9.3 mg/dL (8.5-10.5); Carbon Dioxide 25 mmol/L (22-29); Chloride 100 mmol/L (98-107); Creatinine Clr Calc Pharmacy 59.5739; Glucose 85 mg/dL (65-115); Osmolality Calculated 288 mOsm/kg (285-295); Sodium 137 mmol/L (136-145); Total Bilirubin 0.2 mg/dL (0.15-1.2); Total Protein 6.2 g/dL (6.6-8.7)
[2024-04-01 12:02] LABS: Anion Gap 15.9 (5-19); Potassium 3.9 mmol/L (3.5-5.1)
== END 2024-04-23 23:59 | disposition home or self-care (01) ==
PROVIDERS: Nurse Practitioner Family; PCP Family Medicine; Visit Provider Internal Medicine
DX: C50.911 Malignant neoplasm of unspecified site of right female breast (principal); C50.912 Malignant neoplasm of unspecified site of left female breast
CPT/HCPCS: 36415; 80053; 85025

== ENCOUNTER 2024-09-28 10:29 | Oncology outpatient (recurring) (ONCR) | payer MEDICARE, MEDICAID, SELFPAY ==
[2024-09-28 10:53] LABS: Basophils % 0.4 %; Eosinophils # 0.3 10^3/uL (0.0-0.8); Eosinophils % 3.4 %; Mean Corpuscular HGB Conc 28.6 g/dL (30-55); Mean Corpuscular Hemoglobin 27.5 pg (27-33); Mean Corpuscular Volume 96.1 fl (85-98); Mean Platelet Volume 9.8 fL (7.4-10.4); Monocytes # 0.6 10^3/uL (0.2-0.9); Neutrophils # 6.42 10^3/uL (1.8-7.7); Neutrophils % 76.8 %; Nucleated Red Blood Cells % 0 %; Platelet Count 253 10^3/cmm (157-399); Red Blood Count 3.85 10^6/uL (3.85-5.65); Red Cell Distribution Width 13.7 % (12.1-15.1); White Blood Count 8.34 10^3/uL (3.29-11.43)
[2024-09-28 11:13] LABS: Alanine Aminotransferase 6 U/L (0-33); Albumin Level 3.7 g/dL (3.5-5.2); Alkaline Phosphatase 89 U/L (35-105); Anion Gap 9.4 (5-19); Aspartate Amino Transferase 10 U/L (0-32); Blood Urea Nitrogen 23 mg/dL (8-23); Calcium 9.1 mg/dL (8.5-10.5); Carbon Dioxide 36 mmol/L (22-29); Chloride 101 mmol/L (98-107); Glucose 95 mg/dL (65-115); Osmolality Calculated 297 mOsm/kg (285-295); Potassium 4.4 mmol/L (3.5-5.1); Sodium 142 mmol/L (136-145); Total Bilirubin 0.2 mg/dL (0.15-1.2); Total Protein 5.7 g/dL (6.6-8.7)
== END 2024-10-23 23:59 | disposition home or self-care (01) ==
PROVIDERS: Nurse Practitioner Family; PCP Family Medicine; Visit Provider Internal Medicine
DX: C50.911 Malignant neoplasm of unspecified site of right female breast (principal); C50.912 Malignant neoplasm of unspecified site of left female breast; Z79.899 Other long term (current) drug therapy; Z17.0 Estrogen receptor positive status [ER+]
CPT/HCPCS: 36415; 80053; 85025; 99213

== ENCOUNTER 2025-03-29 13:22 | Inpatient (IN) | payer OTHER, MEDICAID, SELFPAY ==
[2025-03-29] VITALS (9 sets, daily range): BP systolic 115–162; BP diastolic 73–87; PULSE 60–78; RESP 16–18; TEMP 36.8–37.1; O2SAT 92–99; BMI 38.6
--- NOTE | 2025-03-29 13:44 | CT_ITS ---
WS: [id number] CT ABDOMEN PELVIS TECHNIQUE: Contrast-enhanced CT of the abdomen and pelvis with coronal and sagittal reformatted images. CLINICAL INFORMATION: abd pain COMPARISON: None. DLP: 957.[address] scans at [facility] use at least one of these dose optimization techniques: automated exposure control; mA and/or kV adjustment per patient size (includes targeted exams where dose is matched to clinical indication); or iterative reconstruction. FINDINGS: Calcified granuloma RIGHT middle lobe. A few patchy opacities likely inflammatory in the RIGHT lower lobe. Prior hysterectomy. Cholecystectomy. Hepatic and splenic granulomas. Small esophageal hiatal hernia. Mild prominence of the common bile duct unchanged. This is likely physiologic postcholecystecto my. Normal portal vein and splenic vein. Fatty atrophy of the pancreas. Normal caliber abdominal aorta. Vascular calcification. Adrenal glands are normal. RIGHT adrenal nodule likely adenoma unchanged. Normal caliber abdominal aorta. Aortic calcification. Bilateral renal cortical atrophy. No hydronephrosis in either kidney. Area of nodular enhancement mid anterior RIGHT kidney measuring 1.9 cm. Renal cell carcinoma not excluded. RIGHT ventral abdominal wall hernia with abutting colon. No entrapped bowel. Mild diffuse bladder wall thickening. Small RIGHT anterolateral cystocele. Recommend correlation for chronic cystitis. No evidence of small or large bowel obstruction. Osteopenia. Chronic compression inferior endplate L1 unchanged. Postoperative changes both femurs. Suspicious solid-appearing 2.4 cm RIGHT breast mass suspicious for neoplasm. Recommend further evaluation with RIGHT breast diagnostic mammography and ultrasound. CT/CT abdomen pelvis w con* [id number] IMPRESSION: 1. Solid-appearing suspicious breast mass in the RIGHT breast measuring approx imately 2.4 cm. Recommend further evaluation with RIGHT breast diagnostic mammo graphy and ultrasound. This is suspicious for neoplasm. 2. Suspicious solid-appearing 2.4 cm RIGHT renal lesion anteriorly suspicious for renal cell carcinoma. Recommend urology consultation. 3. Bilateral renal cortical atrophy. No hydronephrosis. 4. Mild diffuse bladder wall thickening with slight induration. Recommend imelda elation for chronic cystitis. Small anterolateral cystocele. 5. Additional chronic findings similar to the prior study as described above. 6. Prior hysterectomy and cholecystectomy.
--- NOTE | 2025-03-29 13:44 | XR_ITS ---
WS: [id number] XR chest 1V portable [id number] REASON FOR EXAM: ams FINDINGS: Chest is unchanged compared to 03/08/2024. Moderate to significant tortuosity and ectasia of the thoracic aorta. Moderate cardiac enlargement. Calcified calcified granulomatous disease in both hemithoraces. No acute pulmonary parenchymal or pleural abnormality. Significant osteoarthritis in both shoulder joints. Moderate dextroscoliosis and degenerative spondylosis in the thoracic spine. XR/XR chest 1V portable [id number] IMPRESSION: Cardiomegaly. Stable chest with no acute abnormality identified.
--- NOTE | 2025-03-29 13:44 | CT_ITS ---
WS: [id number] CT HEAD TECHNIQUE: Noncontrast CT of the head obtained from the skullbase to the vertex. CLINICAL INFORMATION: ams COMPARISON: CT 01/28/2024 DLP: 1317.[address] scans at [facility] use at least one of these dose optimization techniques: automated exposure control; mA and/or kV adjustment per patient size (includes targeted exams where dose is matched to clinical indication); or iterative reconstruction. FINDINGS: No evidence of intracranial hemorrhage or mass effect. Ventricular system and basal cisterns are patent. Moderate small vessel changes with moderate parenchymal volume loss. No extra-axial fluid collections. No evidence of mass or mass effect. Tiny chronic lacunar infarct LEFT tirado radiata. Tiny chronic lacunar infarct RIGHT caudate. Mild mucosal thickening in the paranasal sinuses. Secretions within the sphenoid sinus CT/CT head wo con* [id number] IMPRESSION: 1. No evidence of intracranial hemorrhage or mass effect. 2. No acute intracranial findings.
--- NOTE | 2025-03-29 13:51 | ECG_ITS ---
[email or web address] 2025-[facility]29 Pat Name: Deborah Mchugh Department: Room: Gender: Female [employer] Selector: : 1950 Requested By: Norma Hunt Order Number: [id number] James MD: Rose Blanca M.D. Measurements Intervals [place] Rate: 78 P: 65 UT: 168 QRS: -28 QRSD: 109 T: 76 QT: 461 QTc: 526 Interpretive Statements SINUS RHYTHM BORDERLINE LEFT AXIS DEVIATION [QRS AXIS < -20] PROLONGED QT INTERVAL Compared to ECG 03/08/2024 14:08:45 Prolonged QT interval now present Electronically Signed On 03-30-2025 17:45:27 CDT by Rose Blanca M.D. [email or web address]
[2025-03-29] MEDS: sodium chloride 0.9% 500 ML 999 ML IV (13:56)
[2025-03-29] MEDS: acetaminophen 325 mg Tablet 650 MG PO (13:56)
[2025-03-29 13:59] LABS: Basophils % 0.4 %; Eosinophils # 0.1 10^3/uL (0.0-0.8); Hematocrit 35.3 % (36-47); Lymphocytes # 1.2 10^3/uL (0.8-4.8); Mean Corpuscular HGB Conc 30.9 g/dL (30-55); Mean Corpuscular Hemoglobin 26.5 pg (27-33); Mean Corpuscular Volume 85.7 fl (85-98); Mean Platelet Volume 10.8 fL (7.4-10.4); Monocytes # 0.6 10^3/uL (0.2-0.9); Monocytes % 6.1 %; Neutrophils # 8.13 10^3/uL (1.8-7.7); Neutrophils % 80.2 %; Nucleated Red Blood Cells % 0 %; Platelet Count 272 10^3/cmm (157-399); Red Blood Count 4.12 10^6/uL (3.85-5.65); Red Cell Distribution Width 14.2 % (12.1-15.1); White Blood Count 10.14 10^3/uL (3.29-11.43)
[2025-03-29 14:06] LABS: Bilirubin Urine Negative (Negative); Blood Urine 1+ (Negative); Glucose Urine UA Negative (Normal); Ketones Urine Negative (Negative); Leukocyte Esterase Urine 3+ (Negative); Nitrate Urine Negative (Negative); Protein Urine 1+ (Negative); Specific Gravity, Urine 1.016 (1.005-1.030); Urine Appearance Cloudy (CLEAR); Urine Color Yellow (Yellow); pH Urine >=9.0 (5-7)
[2025-03-29 14:08] LABS: Alanine Aminotransferase < 5 U/L (0-33); Albumin Level 3.4 g/dL (3.5-5.2); Alkaline Phosphatase 85 U/L (35-105); Anion Gap 17.5 (5-19); Aspartate Amino Transferase 13 U/L (0-32); Blood Urea Nitrogen 17 mg/dL (8-23); Calcium 9.2 mg/dL (8.5-10.5); Carbon Dioxide 23 mmol/L (22-29); Chloride 102 mmol/L (98-107); Creatinine Clr Calc Pharmacy 55.6415; Globulin 2.6 g/dL (1.3-4.6); Glucose 98 mg/dL (65-115); Lipase 22 U/L (13-60); Magnesium 1.9 mg/dL (1.7-2.3); Osmolality Calculated 290 mOsm/kg (285-295); Potassium 3.5 mmol/L (3.5-5.1); Sodium 139 mmol/L (136-145); Total Bilirubin 0.3 mg/dL (0.15-1.2); Troponin(5th) Baseline 37 ng/L (0-10)
[2025-03-29 14:10] LABS: Alcohol Level < 10 mg/dL (0-10)
[2025-03-29 14:11] LABS: Add Urine Microscopic? YES; Bacteria Urine 4+ /hpf; Hyaline Casts Urine 9.51 /lpf; Squamous Epithelial Cell Urine 0-5 /hpf (0-5); WBC Urine >100 /hpf (0-5)
[2025-03-29 14:13] LABS: Amphetamines Screen Urine Negative (Negative); Barbiturates Screen Urine Negative (Negative); Benzodiazepines Screen Urine Positive (Negative); Cocaine Screen Urine Negative (Negative); Opiate Screen Urine Negative (Negative); PCP Screen Urine Negative (Negative); THC Screen Urine Negative (Negative)
[2025-03-29 14:21] LABS: Add Urine Culture? Yes
--- NOTE | 2025-03-29 14:25 | W.ED.AMS ---
HPI - Altered Mental Status General: Chief Complaint: Altered Mental Status Stated Complaint: AMS Time Seen by Provider: 03/29/25 13:25 History of Present Illness: 74-year-old female is presenting f from home for generalized malaise, confusion, chills and complaining of being cold for the past 2 days. No cough chest pain or shortness of breath. No headache vomiting diarrhea, had some constipation but finally had a bowel movement. Patient's poor historian but does report some vague chest pain as well as abdominal pain on my exam. She does not mostly complaining of chills. at the bedside states that he is concerned about a potential urinary tract infection as she often gets like this when she has 1. Patient has a history of cancer follows up with oncology. Patient is brought in by EMS reported a temperature of 100, confusion, however upon arrival patient's alert able to state name location date of and is afebrile. Related Data Home Medications ?Medication ?Instructions ?Recorded ?Confirmed naloxone 4 mg/actuation nasal See Rx Instructions .Route 12/23/19 03/29/25 spray (Narcan) .COMPLEX PRN overdose simvastatin 40 mg tablet 40 mg PO BEDTIME 12/23/19 03/29/25 ondansetron 4 mg disintegrating 4 mg PO Q6H PRN Nausea 06/18/22 03/29/25 tablet nitroglycerin 0.4 mg sublingual 0.4 mg sublingual Q5M PRN Chest 07/16/22 03/29/25 tablet (Nitrostat) Pain fentanyl 75 mcg/hr transdermal 75 mcg transdermal Q72H 01/28/24 03/29/25 patch lactulose 10 gram/15 mL oral 15 ml PO DAILY PRN Constipation 01/28/24 03/29/25 solution triamcinolone acetonide 0.1 % 1 applic topical BID PRN Skin 01/28/24 03/29/25 topical cream Irritation apixaban 5 mg (74 tabs) tablets in 5 mg PO BID 03/08/24 03/29/25 a dose pack ([employer]quis DVT-PE Treat 30D Start) exemestane 25 mg tablet 25 mg PO DAILY 03/29/25 03/29/25 fluoxetine 40 mg capsule 40 mg PO DAILY 03/29/25 03/29/25 oxycodone-acetaminophen 10 mg-325 1 tab PO Q6H PRN Pain, Severe 05/06/25 05/06/25 mg tablet pantoprazole 40 mg tablet,delayed 40 mg PO DAILY 03/29/25 03/29/25 release Allergies Allergy/AdvReac Type Severity Reaction Status Date / Time adhesive tape Allergy Unknown ALGY-Hives Verified 09/28/24 12:26 heparin (porcine) Allergy Unknown Verified 09/28/24 12:26 morphine Allergy ALGY-Hives Verified 09/28/24 12:26 oxytetracycline (From Allergy ALGY-Anaphy Verified 09/28/24 12:26 Terramycin) laxis Tetanus Vaccines and Toxoid Allergy Unknown Verified 09/28/24 12:26 cimetidine (From Tagamet) AdvReac ADR-Abdominal Verified 09/28/24 12:26 Pain hydromorphone (From Dilaudid) AdvReac ADR-Halluci Verified 09/28/24 12:26 nating Review of Systems Const: Reports: chills and fatigue; Denies: fever(s) or body aches Eyes: Denies: change in vision ENMT: Denies: throat pain Resp: Denies: dyspnea, productive cough or non-productive cough GI: Reports: abdominal pain; Denies: vomiting or diarrhea : Denies: flank pain, dysuria, urinary frequency or urinary urgency Musc: Denies: back pain, extremity pain or extremity swelling Skin/Breast: Denies: rash Neuro: Reports: confusion; Denies: headache(s) PFS ED PFSH: Medical History Anxiety Bilateral breast cancer Closed fracture of right distal femur Compression fracture COPD (chronic obstructive pulmonary disease) CVA (cerebral vascular accident) GERD (gastroesophageal reflux disease) Hyperlipidemia Hypertension Hyperthyroidism Morbid obesity ROSEMARIE (obstructive sleep apnea) Surgical History H/O cervical spine surgery H/O: hysterectomy History of bilateral breast biopsy History of cholecystectomy History of colon resection History of open reduction and internal fixation (ORIF) procedure left femur Status post right knee replacement Family History Grandfather Diabetes Maternal Grandmother Diabetes Maternal Kidney failure Maternal Grandmother Diabetes Paternal Grandfather Diabetes Paternal Family/Other Diabetes Aunt Mother , Age 99 Hypertension Cancer Leukemia Father Myocardial infarction Hypertension Brother Hypertension Cancer Prostate Denies family history of Anesthesia complication Bleeding disorder Social History Smoking and tobacco/nicotine status: former use of tobacco/nicotine (quit 2023) Alcohol intake: never Substance/Drug Use: never Lives independently: Yes Household members: spouse Marital status: Current occupational status: disabled Physical Exam Const: COMMON NORMALS: no acute distress, patient oriented x3 and alert GENERAL APPEARANCE: cooperative, comfortable and anxious NUTRITIONAL APPEARANCE: obese HENMT: COMMON NORMALS: normocephalic HEAD & SCALP: normocephalic Neck/C-Spine: COMMON NORMALS: supple and no JVD Resp: COMMON NORMALS: normal respiratory effort and clear to auscultation bilaterally AUSCULTATION: clear to auscultation bilaterally, no crackles, no rales, no rhonchi and no wheezes Cardio: COMMON NORMALS: no JVD, regular rate and regular rhythm RATE: regular rate RHYTHM: regular rhythm GI: COMMON NORMALS: Normal to inspection, nondistended, normoactive bowel sounds present (Mild generalized abdominal tenderness to palpation without rebound or guard) and Soft to palpation PALPATION: Yes Soft to palpation : COMMON NORMALS: Yes no CVA tenderness BLADDER/KIDNEY EXAM: Yes no CVA tenderness Back/Pelvis: COMMON NORMALS: no CVA tenderness Extremity: COMMON NORMALS: normal to inspection and full ROM Neuro: COMMON NORMALS: patient oriented x3, no focal motor deficits and no sensory deficits noted SENSORIUM/ORIENTATION: Yes alert Course Vital Signs: Vital signs: Vital Signs Temperature 98.2 F 03/29/25 13:29 Pulse Rate 66 03/29/25 16:01 Respiratory Rate 16 03/29/25 16:01 Blood Pressure 160/85 03/29/25 16:01 Pulse Oximetry 99 03/29/25 16:01 Oxygen Delivery Me thod Nasal Cannula 03/29/25 13:29 Oxygen Flow Rate 2 03/29/25 13:29 MDM - Altered Mental Status Medical Decision Making Multiple incidental findings on the CT abdomen discussed with the family, however no acute findings. There is diffuse bladder wall thickening consistent with chronic cystitis which is consistent with urinalysis that demonstrates acute UTI. Otherwise no significant leukocytosis no significant BRIE no evidence of sepsis or septic shock patient not tachycardic not hypotensive. Discussed all results with the family plan for inpatient admission versus observation as family unable to take patient home, patient is wheelchair-bound at baseline has some confusion and generalized weakness has been unable to care for her. Case discussed with hospitalist Dr. Hardwick who agrees to admit the patient. Lab Data 03/29/25 13:44 03/29/25 13:44 Radiology Impressions Abdomen/Pelvis CT 03/29/25 13:44 IMPRESSION: 1. Solid-appearing suspicious breast mass in the RIGHT breast measuring approximately 2.4 cm. Recommend further evaluation with RIGHT breast diagnostic mammography and ultrasound. This is suspicious for neoplasm. 2. Suspicious solid-appearing 2.4 cm RIGHT renal lesion anteriorly suspicious for renal cell carcinoma. Recommend urology consultation. 3. Bilateral renal cortical atrophy. No hydronephrosis. 4. Mild diffuse bladder wall thickening with slight induration. Recommend correlation for chronic cystitis. Small anterolateral cystocele. 5. Additional chronic findings similar to the prior study as described above. 6. Prior hysterectomy and cholecystectomy. Chest X-Ray 03/29/25 13:44 IMPRESSION: Cardiomegaly. Stable chest with no acute abnormality identified. Head CT 03/29/25 13:44 IMPRESSION: 1. No evidence of intracranial hemorrhage or mass effect. 2. No acute intracranial findings. Laboratory Results WBC 10.14 10^3/uL (3.29-11.43) 03/29/25 13:44 RBC 4.12 10^6/uL (3.85-5.65) 03/29/25 13:44 Hgb 10.90 g/dL (11.27-16.99) L 03/29/25 13:44 Hct 35.3 % (36-47) L 03/29/25 13:44 MCV 85.7 fl (85-98) 03/29/25 13:44 MCH 26.5 pg (27-33) L 03/29/25 13:44 MCHC 30.9 g/dL (30-55) 03/29/25 13:44 RDW 14.2 % (12.1-15.1) 03/29/25 13:44 Plt Count 272 10^3/cmm (157-399) 03/29/25 13:44 MPV 10.8 fL (7.4-10.4) H 03/29/25 13:44 Neut % (Auto) 80.2 % 03/29/25 13:44 Lymph % (Auto) 12.0 % 03/29/25 13:44 [place] % (Auto) 6.1 % 03/29/25 13:44 Eos % (Auto) 1.0 % 03/29/25 13:44 Baso % (Auto) 0.4 % 03/29/25 13:44 Neut # (Auto) 8.13 10^3/uL (1.8-7.7) H 03/29/25 13:44 Lymph # (Auto) 1.2 10^3/uL (0.8-4.8) 03/29/25 13:44 [place] # (Auto) 0.6 10^3/uL (0.2-0.9) 03/29/25 13:44 Eos # (Auto) 0.1 10^3/uL (0.0-0.8) 03/29/25 13:44 Baso # (Auto) 0.0 10^3/uL (0.0-0.1) 03/29/25 13:44 Nucleated RBC % (auto) 0 % 03/29/25 13:44 Nucleated RBCs # 0.0 /100WBC 03/29/25 13:44 Sodium 139 mmol/L (136-145) 03/29/25 13:44 Potassium 3.5 mmol/L (3.5-5.1) 03/29/25 13:44 Chloride 102 mmol/L (98-107) 03/29/25 13:44 Carbon Dioxide 23 mmol/L (22-29) 03/29/25 13:44 Anion Gap 17.5 (5-19) 03/29/25 13:44 BUN 17 mg/dL (8-23) 03/29/25 13:44 Creatinine 1.0 mg/dL (0.5-0.9) H 03/29/25 13:44 GFR Calculation Not Reportable 03/29/25 13:44 Glucose 98 mg/dL (65-115) 03/29/25 13:44 Calculated Osmolality 290 mOsm/kg (285-295) 03/29/25 13:44 Calcium 9.2 mg/dL (8.5-10.5) 03/29/25 13:44 Magnesium 1.9 mg/dL (1.7-2.3) 03/29/25 13:44 Total Bilirubin 0.3 mg/dL (0.15-1.2) 03/29/25 13:44 AST 13 U/L (0-32) 03/29/25 13:44 ALT < 5 U/L (0-33) 03/29/25 13:44 Alkaline Phosphatase 85 U/L (35-105) 03/29/25 13:44 Troponin T Baseline 37 ng/L (0-10) H 03/29/25 13:44 Troponin T 120 Minute 31.96 ng/L (0-10) H 03/29/25 15:36 Delta Troponin T -5.04 ABS# (0-10) L 03/29/25 15:36 Total Protein 6.0 g/dL (6.6-8.7) L 03/29/25 13:44 Albumin 3.4 g/dL (3.5-5.2) L 03/29/25 13:44 Globulin 2.6 g/dL (1.3-4.6) 03/29/25 13:44 Lipase 22 U/L (13-60) 03/29/25 13:44 Urine Color Yellow (Yellow) 03/29/25 13:58 Urine Appearance Cloudy (CLEAR) A 03/29/25 13:58 Urine pH >=9.0 (5-7) A 03/29/25 13:58 Ur Specific [place] 1.016 (1.005-1.030) 03/29/25 13:58 Urine Protein 1+ (Negative) A 03/29/25 13:58 Urine Glucose (UA) Negative (Normal) 03/29/25 13:58 Urine Ketones Negative (Negative) 03/29/25 13:58 Urine Blood 1+ (Negative) A 03/29/25 13:58 Urine Nitrate Negative (Negative) 03/29/25 13:58 Urine Bilirubin Negative (Negative) 03/29/25 13:58 Urine Urobilinogen 1.0 mg/dL (Negative) 03/29/25 13:58 Ur Leukocyte Esterase 3+ (Negative) A 03/29/25 13:58 Urine RBC 6-10 /hpf (0-2) 03/29/25 13:58 Urine WBC >100 /hpf (0-5) H 03/29/25 13:58 Ur Squamous Epith Cells 0-5 /hpf (0-5) 03/29/25 13:58 Amorphous Sediment Not Reportable 03/29/25 13:58 Urine Bacteria 4+ /hpf (NONE) H 03/29/25 13:58 Hyaline Casts 9.51 /lpf 03/29/25 13:58 Urine Opiates Screen Negative ng/mL (Negative) 03/29/25 13:58 Ur Barbiturates Screen Negative ng/mL (Negative) 03/29/25 13:58 Ur Phencyclidine Scrn Negative ng/mL (Negative) 03/29/25 13:58 Ur Amphetamines Screen Negative ng/mL (Negative) 03/29/25 13:58 U Benzodiazepines Scrn Positive ng/mL (Negative) H 03/29/25 13:58 Urine Cocaine Screen Negative ng/mL (Negative) 03/29/25 13:58 U Marijuana (THC) Screen Negative ng/mL (Negative) 03/29/25 13:58 Ethyl Alcohol < 10 mg/dL (0-10) 03/29/25 13:44 All radiology interpretation(s) finalized by discharge Discharge Plan Discharge Patient Disposition: Admitted As Inpatient Clinical Impression: Acute lower UTI, Confusion, Generalized weakness Condition: Stable Coding Level of Care Code ED [employer] for [employer]
[2025-03-29] MEDS: cefTRIAXone 1,000 mg SDV 1000 MG IVP (14:28)
[2025-03-29] MEDS: iohexol 350 mg/mL 500 mL Btl (per mL) IV (14:45)
[2025-03-29 16:07] LABS: Troponin 5 2HR 31.96 ng/L (0-10)
[2025-03-29 16:08] LABS: Troponin 5 2HR Delta -5.04 ABS# (0-10)
--- NOTE | 2025-03-29 17:01 | PM.HP ---
Providers/Chief Complaint Primary Care Provider: Elayne Wyatt DO Chief Complaint: AMS History of Present Illness Deborah Mchugh is a 74 year old female with history of breast cancer , COPD, CVA, hypertension, hyperlipidemia, thyroid disease presents with several day history of not feeling well and dysuria. Has not also reported patient had change in mental status. Mildly confused. She did report feeling a little feverish did not check her temperature. Has chills and fatigue. Reported some dysuria. Denied any cough or sore throat. She does follow with oncology. In the emergency room her urinalysis was abnormal suggestive of a UTI. She was also noted to have a kidney mass. That appears to be new. Review of Systems General: Reports: 10 or more systems reviewed and unremarkable except in HPI and below Const: Reports: fever(s) and body aches Resp: Denies: dyspnea : Reports: dysuria; Denies: flank pain Skin/Breast: Denies: rash or pruritus [place]/Lymph: Denies: easy bruising Medications/Allergies Home Medications ?Medication ?Instructions ?Recorded ?Confirmed ?Last Taken ?Type naloxone 4 mg/actuation nasal See Rx Instructions .Route 12/23/19 03/29/25 Unknown History spray (Narcan) .COMPLEX PRN overdose simvastatin 40 mg tablet 40 mg PO BEDTIME 12/23/19 03/29/25 03/28/25 History ondansetron 4 mg disintegrating 4 mg PO Q6H PRN Nausea 06/18/22 03/29/25 Unknown History tablet nitroglycerin 0.4 mg sublingual 0.4 mg sublingual Q5M PRN Chest 07/16/22 03/29/25 Unknown History tablet (Nitrostat) Pain fentanyl 75 mcg/hr transdermal 75 mcg transdermal Q72H 01/28/24 03/29/25 03/26/25 History patch lactulose 10 gram/15 mL oral 15 ml PO DAILY PRN Constipation 01/28/24 03/29/25 Unknown History solution triamcinolone acetonide 0.1 % 1 applic topical BID PRN Skin 01/28/24 03/29/25 Unknown History topical cream Irritation apixaban 5 mg (74 tabs) tablets in 5 mg PO BID 03/08/24 03/29/25 03/28/25 History a dose pack ([employer] DVT-PE Treat 30D Start) exemestane 25 mg tablet 25 mg PO DAILY 03/29/25 03/29/25 03/28/25 History fluoxetine 40 mg capsule 40 mg PO DAILY 03/29/25 03/29/25 03/28/25 History oxycodone-acetaminophen 10 mg-325 1 tab PO Q6H PRN Pain, Severe 03/29/25 03/29/25 03/29/25 History mg tablet pantoprazole 40 mg tablet,delayed 40 mg PO DAILY 03/29/25 03/29/25 03/28/25 History release Allergies Allergy/AdvReac Type Severity Reaction Status Date / Time adhesive tape Allergy Unknown ALGY-Hives Verified 09/28/24 12:26 heparin (porcine) Allergy Unknown Verified 09/28/24 12:26 morphine Allergy ALGY-Hives Verified 09/28/24 12:26 oxytetracycline (From Allergy ALGY-Anaphy Verified 09/28/24 12:26 Terramycin) laxis Tetanus Vaccines and Toxoid Allergy Unknown Verified 09/28/24 12:26 cimetidine (From Tagamet) AdvReac ADR-Abdominal Verified 09/28/24 12:26 Pain hydromorphone (From Dilaudid) AdvReac ADR-Halluci Verified 09/28/24 12:26 nating PFSH Acute PFSH: Medical History Anxiety Bilateral breast cancer Closed fracture of right distal femur Compression fracture COPD (chronic obstructive pulmonary disease) CVA (cerebral vascular accident) GERD (gastroesophageal reflux disease) Hyperlipidemia Hypertension Hyperthyroidism Morbid obesity ROSEMARIE (obstructive sleep apnea) Surgical History H/O cervical spine surgery H/O: hysterectomy History of bilateral breast biopsy History of cholecystectomy History of colon resection History of open reduction and internal fixation (ORIF) procedure left femur Status post right knee replacement Family History Grandfather Diabetes Maternal Grandmother Diabetes Maternal Kidney failure Maternal Grandmother Diabetes Paternal Grandfather Diabetes Paternal Family/Other Diabetes Aunt Mother , Age 99 Hypertension Cancer Leukemia Father Myocardial infarction Hypertension Brother Hypertension Cancer Prostate Denies family history of Anesthesia complication Bleeding disorder Social History Smoking and tobacco/nicotine status: former use of tobacco/nicotine (quit 2023) Alcohol intake: never Substance/Drug Use: never Lives independently: Yes Household members: spouse Marital status: Current occupational status: disabled Vitals/I&O/Wt Last Vital Signs Temp 98.2 F 03/29/25 13:29 Pulse 66 03/29/25 16:01 Resp 16 03/29/25 16:01 BP 160/85 03/29/25 16:01 Pulse Ox 99 03/29/25 16:01 O2 Del Method Nasal Cannula 03/29/25 13:29 O2 Flow Rate 2 03/29/25 13:29 03/29/25 03/29/25 03/29/25 06:59 14:59 22:59 Intake Total 500 / 500 Balance 500 / 500 Weight last 48 hrs Weight 225 lb Physical Exam Narrative: General: Hard of hearing, reports decreased vision, anxious HEENT: Normocephalic Lungs:CTA, clear CVS:RRR Abd: soft, mild tenderness MSK: No edema Data 03/29/25 13:44 03/29/25 13:44 A&P Assessment and plan (1) Confusion: --unclear baseline, ao --she is [place], and has vision impairment (2) Generalized weakness: PT OT consult in AM (3) Acute lower UTI: IVF, IV ceftriaxone fu CX (4) Dehydration: IVF AM labs (5) Hypertension: restart home meds (6) Hyperlipidemia: restart home meds (7) Bilateral malignant neoplasm of breast in female: follows with oncology renal mass, will need outpatient urology consult Plan DVT PDMP PDMP Reviewed: Not Reviewed Attestations Medical Necessity Statement*: UTI, IV abx, fluids Coding Level of Care Code 70748 Diagnoses Confusion R41.0 Generalized weakness R53.1 Acute lower UTI N39.0 Dehydration E86.0 Essential hypertension I10 Hypertension type: essential hypertension Hyperlipidemia, unspecified hyperlipidemia type E78.5 Hyperlipidemia type: unspecified Bilateral malignant neoplasm of breast in female C50.911; C50.912
[2025-03-29] MEDS: apixaban 5 mg Tablet PO (18:26)
[2025-03-29] MEDS: sodium chloride 0.9% 1,000 ML 75 ML IV (18:26)
[2025-03-29] MEDS: atorvastatin 40 mg Tablet 20 MG PO (20:58)
[2025-03-30 04:00] VITALS: BP 129/64; PULSE 68; RESP 18; TEMP 36.9; O2SAT 92
[2025-03-30 05:33] LABS: Basophils % 0.6 %; Eosinophils # 0.4 10^3/uL (0.0-0.8); Hematocrit 33.6 % (36-47); Lymphocytes # 1.9 10^3/uL (0.8-4.8); Lymphocytes % 27.2 %; Mean Corpuscular HGB Conc 30.1 g/dL (30-55); Mean Corpuscular Hemoglobin 27.3 pg (27-33); Mean Corpuscular Volume 90.8 fl (85-98); Mean Platelet Volume 10.7 fL (7.4-10.4); Monocytes # 0.6 10^3/uL (0.2-0.9); Monocytes % 8.4 %; Neutrophils # 4.05 10^3/uL (1.8-7.7); Neutrophils % 57.7 %; Nucleated Red Blood Cells % 0 %; Platelet Count 233 10^3/cmm (157-399); Red Cell Distribution Width 14.4 % (12.1-15.1); White Blood Count 7.02 10^3/uL (3.29-11.43)
[2025-03-30 05:55] LABS: Alanine Aminotransferase < 5 U/L (0-33); Alkaline Phosphatase 81 U/L (35-105); Anion Gap 12.3 (5-19); Aspartate Amino Transferase 13 U/L (0-32); Blood Urea Nitrogen 16 mg/dL (8-23); Calcium 8.5 mg/dL (8.5-10.5); Carbon Dioxide 28 mmol/L (22-29); Chloride 104 mmol/L (98-107); Creatinine Clr Calc Pharmacy 52.0499; Globulin 2.5 g/dL (1.3-4.6); Glucose 81 mg/dL (65-115); Osmolality Calculated 292 mOsm/kg (285-295); Phosphorus 3.4 mg/dL (2.5-4.5); Potassium 3.3 mmol/L (3.5-5.1); Sodium 141 mmol/L (136-145); Thyroid Stimulating Hormone 3.58 uIU/mL (0.27-4.20); Total Bilirubin 0.3 mg/dL (0.15-1.2); Total Protein 5.5 g/dL (6.6-8.7)
[2025-03-30 07:12] VITALS: BP 175/68; PULSE 70; RESP 15; TEMP 36.6; O2SAT 92
[2025-03-30] MEDS: fluoxetine 20 mg Capsule 40 MG PO (10:43)
[2025-03-30] MEDS: apixaban 5 mg Tablet PO ×2 (10:43→17:34)
[2025-03-30] MEDS: potassium chloride ER 20 mEq Tablet 40 MEQ PO (10:43)
[2025-03-30] MEDS: sodium chloride 0.9% 1,000 ML 75 ML IV ×2 (10:43→23:09)
[2025-03-30] MEDS: pantoprazole DR 40 mg Tablet PO (10:43)
[2025-03-30 11:54] VITALS: BP 143/78; PULSE 63; RESP 17; TEMP 37.2; O2SAT 93
--- NOTE | 2025-03-30 12:31 | P.PN_ITS ---
Subjective 2 Subjective: 74-year-old female admitted yesterday fo r altered mental status UTI Seen briefly with staff. No acute events overnight Vitals/I&O/Wt Last Vital Signs Temp 97.9 F 03/30/25 07:12 Pulse 70 03/30/25 07:12 Resp 15 03/30/25 07:12 BP 175/68 03/30/25 07:12 Pulse Ox 92 03/30/25 07:12 O2 Del Method Room Air 03/30/25 07:12 O2 Flow Rate 2 03/29/25 13:29 03/29/25 03/30/25 03/30/25 22:59 06:59 14:59 Intake Total 400 / 900 1480 / 1480 Balance 400 / 900 1480 / 1480 Weight last 48 hrs Weight 198 lb 12.8 oz Weight 225 lb Physical Exam 2 Narrative: General: Hard of hearing, reports decreased vision, anxious HEENT: Normocephalic Lungs:CTA, clear CVS:RRR Abd: soft MSK: No edema Data 03/30/25 04:00 03/30/25 04:00 Micro: Microbiology 03/30/25 09:44 Blood Culture - Preliminary Blood SPECIMEN COLLECTED 03/30/25 09:49 Blood Culture - Preliminary Blood SPECIMEN COLLECTED A&P Assessment and plan (1) Generalized weakness: (2) Confusion: (3) Acute lower UTI: (4) Hypokalemia: Plan Confusion Urinary tract infection Dehydration History of hypertension Hard of hearing and blind Breast mass, renal mass Plan: Continue IV fluids, IV antibiotics. Potassium was ordered Follow-up cultures Physical therapy Chronic home medications Oncology follow-up for her renal and breast mass Dispo: Likely home with home health her family is doing a great job of taking care of her. She may likely need placement at some point. PDMP PDMP Reviewed: Not Reviewed Attestations 2 Medical Necessity Statement*: treat UTI, continue abx, treat low potassium Coding Level of Care Code 39117 Diagnoses Generalized weakness R53.1 Confusion R41.0 Acute lower UTI N39.0 Hypokalemia E87.6
[2025-03-30 15:34] VITALS: BP 132/68; PULSE 60; RESP 17; TEMP 36.8; O2SAT 98
[2025-03-30] MEDS: cefTRIAXone 1,000 mg SDV 1000 MG IVP (17:34)
[2025-03-30 20:00] VITALS: BP 117/71; PULSE 60; RESP 17; TEMP 36.8; O2SAT 94
[2025-03-30] MEDS: atorvastatin 40 mg Tablet 20 MG PO (20:35)
[2025-03-31] VITALS (7 sets, daily range): BP systolic 120–148; BP diastolic 58–88; PULSE 56–63; RESP 16–20; TEMP 36.8–36.9; O2SAT 95–99
[2025-03-31] MEDS: oxyCODONE-APAP 10-325 mg Tablet 1 TAB PO ×2 (05:59→20:57)
[2025-03-31 06:21] LABS: Basophils % 0.4 %; Eosinophils # 0.5 10^3/uL (0.0-0.8); Eosinophils % 7.2 %; Lymphocytes # 1.8 10^3/uL (0.8-4.8); Lymphocytes % 23.5 %; Mean Corpuscular HGB Conc 28.6 g/dL (30-55); Mean Corpuscular Hemoglobin 26.4 pg (27-33); Mean Corpuscular Volume 92.3 fl (85-98); Mean Platelet Volume 10.6 fL (7.4-10.4); Monocytes # 0.6 10^3/uL (0.2-0.9); Monocytes % 7.9 %; Neutrophils # 4.53 10^3/uL (1.8-7.7); Neutrophils % 60.6 %; Nucleated Red Blood Cells % 0 %; Platelet Count 243 10^3/cmm (157-399); Red Blood Count 4.01 10^6/uL (3.85-5.65); White Blood Count 7.48 10^3/uL (3.29-11.43)
[2025-03-31 06:25] LABS: Alanine Aminotransferase < 5 U/L (0-33); Albumin Level 3.4 g/dL (3.5-5.2); Alkaline Phosphatase 89 U/L (35-105); Anion Gap 11.8 (5-19); Aspartate Amino Transferase 13 U/L (0-32); Blood Urea Nitrogen 17 mg/dL (8-23); Calcium 8.6 mg/dL (8.5-10.5); Carbon Dioxide 28 mmol/L (22-29); Chloride 107 mmol/L (98-107); Creatinine Clr Calc Pharmacy 57.5287; Globulin 2.7 g/dL (1.3-4.6); Glucose 88 mg/dL (65-115); Osmolality Calculated 295 mOsm/kg (285-295); Potassium 4.8 mmol/L (3.5-5.1); Sodium 142 mmol/L (136-145); Total Bilirubin 0.2 mg/dL (0.15-1.2); Total Protein 6.1 g/dL (6.6-8.7)
[2025-03-31] MEDS: apixaban 5 mg Tablet PO ×2 (08:54→17:40)
[2025-03-31] MEDS: fluoxetine 20 mg Capsule 40 MG PO (08:54)
[2025-03-31] MEDS: pantoprazole DR 40 mg Tablet PO (08:54)
--- NOTE | 2025-03-31 10:07 | PC.CHAP ---
Pastoral Care Encounter/Spiritual Assessment Type of Contact [] Declined travel information center supervisor visit [] Patient/Family/Request visit [] Outpatient visit [] Follow-up visit [] Physician referral [] Code/Alert [x] Routine visit [] Staff referral [] Actively dying [] Patient sleeping [] Family support [] [] Out of room [] Palliative care [] [] Receiving care in room [] Pre-surgical visit [] Trauma [] Long length of stay [] ICU visit [] Other: Relational/Emotional Strength [] Patient feels connected with others/family/visitors/staff [] Distress [] Loneliness/isolation [] Abandonment Spirituality of Patient [x] Person of Yadi [] Attends Pentecostal of their Yadi [x] Believes in Prayer [] Reads Bible or Catholic materials [] There are Spiritual issues to be addressed Siderographist Interventions [x] Prayer [x] Active listening [] Non-anxious presence [] Spiritual/emotional support [] Crisis/trauma care [] Spiritual counseling [] Bereavement support [] Provided bereavement packet [] Provided Bible/devotional materials [] Provided toy/stuffed animal, coloring book to patient or family member [] Provided Communion [] Anointing/[place] [] Salvation [x] Completed spiritual assessment [] Other: Impact on Illness or Injury [] Angry [] Fearful [] Anxious [] Often cries [] Exhaustion [] Unable to work [] Unable to attend anglican [] Unable to walk/stand [] Unable to read [] Unable to drive [] Unable to eat/drink [] Unable to sleep [] Unable to be with family [] Patient intubated [] Other: Summary Time spent with patient 5 min
--- NOTE | 2025-03-31 11:12 | P.PN_ITS ---
Subjective 2 Subjective: No acute events overnight. Patient seen at the bedside and has improvement in her symptoms. Her mental status is improved. She is hard of hearing. Vitals/I&O/Wt Last Vital Signs Temp 98.2 F 03/31/25 07:14 Pulse 61 03/31/25 07:14 Resp 17 03/31/25 07:14 BP 128/88 03/31/25 07:14 Pulse Ox 96 03/31/25 07:14 O2 Del Method Nasal Cannula 03/31/25 07:14 O2 Flow Rate 3 03/31/25 07:14 03/30/25 03/31/25 03/31/25 22:59 06:59 14:59 Intake Total 240 / 1720 932.5 / 2652.5 240 / 240 Balance 240 / 1720 932.5 / 2652.5 240 / 240 Weight last 48 hrs Weight 89.267 kg Weight 90.174 kg Weight 102.058 kg Physical Exam 2 Narrative: General: Awake, alert, no acute distress, hard of hearing HEENT : Cephalic, atraumatic, PERRL Lungs: Clear to auscultation bilaterally, no wheezes or crackles CVS: S1, S2, regular rate and rhythm Abd: Soft, nontender, bowel sounds positive Extremities: Signs of chronic venous stasis Neuro: No focal deficits Data 03/31/25 05:57 03/31/25 05:57 Micro: Microbiology 03/29/25 13:58 Urine Culture - Preliminary Urine,Clean Catch Strep species, gamma-hemolytic 03/30/25 09:49 Blood Culture - Preliminary Blood NEGATIVE TO DATE 03/30/25 09:44 Blood Culture - Preliminary Blood NEGATIVE TO DATE A&P Assessment and plan (1) Generalized weakness: (2) Confusion: (3) Acute lower UTI: (4) Hypokalemia: Plan Confusion Urinary tract infection Dehydration History of hypertension Hard of hearing and blind Breast mass, renal mass Plan -Continue IV ceftriaxone - Follow urine cultures -Potassium improved today - PT OT evaluation - Continue chronic home medications Oncology follow-up for her renal and breast mass Dispo: Likely home with home health her family is doing a great job of taking care of her. She may likely need placement at some point. PDMP PDMP Reviewed: Not Reviewed Attestations 2 Medical Necessity Statement*: Patient continues to require IV antibiotics pending urine cultures Coding Level of Care Code Acute Code for Chg Fwd Diagnoses Generalized weakness R53.1 Confusion R41.0 Acute lower UTI N39.0 Hypokalemia E87.6
[2025-03-31] MEDS: sodium chloride 0.9% 1,000 ML 75 ML IV (13:01)
[2025-03-31] MEDS: cefTRIAXone 1,000 mg SDV 1000 MG IVP (17:41)
[2025-03-31] MEDS: atorvastatin 40 mg Tablet 20 MG PO (20:57)
[2025-04-01] VITALS: BP 118/69; PULSE 59; RESP 17; TEMP 36.8; O2SAT 94
[2025-04-01] MEDS: sodium chloride 0.9% 1,000 ML 75 ML IV (00:36)
[2025-04-01 04:00] VITALS: BP 130/77; PULSE 59; RESP 17; TEMP 36.9; O2SAT 92
[2025-04-01 04:53] LABS: Basophils # 0.1 10^3/uL (0.0-0.1); Basophils % 0.7 %; Eosinophils # 0.5 10^3/uL (0.0-0.8); Eosinophils % 6.9 %; Lymphocytes # 1.8 10^3/uL (0.8-4.8); Lymphocytes % 27.5 %; Mean Corpuscular HGB Conc 28.2 g/dL (30-55); Mean Corpuscular Hemoglobin 26.5 pg (27-33); Mean Corpuscular Volume 93.9 fl (85-98); Mean Platelet Volume 10.8 fL (7.4-10.4); Monocytes # 0.5 10^3/uL (0.2-0.9); Monocytes % 7.6 %; Neutrophils # 3.82 10^3/uL (1.8-7.7); Nucleated Red Blood Cells % 0 %; Platelet Count 199 10^3/cmm (157-399); Red Blood Count 3.62 10^6/uL (3.85-5.65); Red Cell Distribution Width 13.9 % (12.1-15.1)
[2025-04-01 05:19] LABS: Alanine Aminotransferase < 5 U/L (0-33); Albumin Level 2.9 g/dL (3.5-5.2); Alkaline Phosphatase 77 U/L (35-105); Anion Gap 10.3 (5-19); Aspartate Amino Transferase 11 U/L (0-32); Blood Urea Nitrogen 14 mg/dL (8-23); Calcium 8.3 mg/dL (8.5-10.5); Carbon Dioxide 27 mmol/L (22-29); Chloride 107 mmol/L (98-107); Globulin 2.6 g/dL (1.3-4.6); Glucose 89 mg/dL (65-115); Osmolality Calculated 290 mOsm/kg (285-295); Potassium 4.3 mmol/L (3.5-5.1); Sodium 140 mmol/L (136-145); Total Bilirubin 0.2 mg/dL (0.15-1.2); Total Protein 5.5 g/dL (6.6-8.7)
[2025-04-01 07:52] VITALS: BP 152/69; PULSE 55; RESP 17; TEMP 36.9; O2SAT 98
[2025-04-01] MEDS: apixaban 5 mg Tablet PO (09:39)
[2025-04-01] MEDS: pantoprazole DR 40 mg Tablet PO (09:39)
[2025-04-01] MEDS: fluoxetine 20 mg Capsule 40 MG PO (09:39)
--- NOTE | 2025-04-01 10:18 | PC.SOCIAL ---
IMM Update pg 2 of IMM Updated and reviewed w/ patient. Copy provided and copy dated, initialed and placed in chart.
[2025-04-01 12:00] VITALS: BP 148/72; PULSE 61; RESP 18; TEMP 37; O2SAT 92
--- NOTE | 2025-04-01 14:04 | P.DS_ITS ---
Discharge Providers Date of Admission: 03/29/25 17:34 Date of Discharge: April 01, 2025 Attending Provider at Admission: lEvis Hardwick MD Attending Provider at Discharge: Mary Noonan MD Primary Care Provider: Elayne Wyatt DO Diagnoses at Discharge Discharge Diagnosis (1) Generalized weakness: Status: Acute (2) Confusion: Status: Acute (3) Acute lower UTI: Status: Acute (4) Hypokalemia: Status: Acute (5) Renal lesion: Status: Acute Reason for Visit Reason for Visit: AMS Hospital Course Hospital Course In summary, Ms Deborah Mchugh is a 74 year old female with history of breast cancer, COPD, CVA, hypertension, hyperlipidemia,who presented for further evaluation of feeling unwell and dysuria. Patient also noted to be mildly confused. The ER, her UA was suggestive of UTI. She was admitted for further evaluation and management. Acute metabolic encephalopathy was in the setting of UTI. Patient received IV antibiotics-ceftriaxone and had improvement in the symptoms of mental status. Urine cultures grew beta-hemolytic strep, after conversation with the microbiology lab, urine cultures thought to be mixed bacteria suggestive of skin selin . Final urine cultures pending at the time of discharge. Patient will complete course of antibiotics with Keflex outpatient and follow with her PCP . Of note , patient noted to have a right renal lesion suspicious for possible renal cell carcinoma. She referred to urology outpatient for further evaluation and management. Physical Exam Narrative: General: Awake, alert, no acute distress, hard of hearing HEENT : Cephalic, atraumatic, PERRL Lungs: Clear to auscultation bilaterally, no wheezes or crackles CVS: S1, S2, regular rate and rhythm Abd: Soft, nontender, bowel sounds positive Extremities: Signs of chronic venous stasis Neuro: No focal deficits Discharge Data Studies Completed and Pending Completed Studies During Hospitalization Category Date Time Status CT abdomen pelvis w con* [id number] Stat Cat Scan 03/29/25 13:[address] head wo con* [id number] Stat Cat Scan 03/29/25 13:44 Completed XR chest 1V portable [id number] Stat Exams 03/29/25 13:44 Completed Pending at discharge Category Date Time Status Blood Culture Stat Lab 03/30/25 09:44 Results Radiology Impressions Abdomen/Pelvis CT 03/29/25 13:44 IMPRESSION: 1. Solid-appearing suspicious breast mass in the RIGHT breast measuring approximately 2.4 cm. Recommend further evaluation with RIGHT breast diagnostic mammography and ultrasound. This is suspicious for neoplasm. 2. Suspicious solid-appearing 2.4 cm RIGHT renal lesion anteriorly suspicious for renal cell carcinoma. Recommend urology consultation. 3. Bilateral renal cortical atrophy. No hydronephrosis. 4. Mild diffuse bladder wall thickening with slight induration. Recommend correlation for chronic cystitis. Small anterolateral cystocele. 5. Additional chronic findings similar to the prior study as described above. 6. Prior hysterectomy and cholecystectomy. Chest X-Ray 03/29/25 13:44 IMPRESSION: Cardiomegaly. Stable chest with no acute abnormality identified. Head CT 03/29/25 13:44 IMPRESSION: 1. No evidence of intracranial hemorrhage or mass effect. 2. No acute intracranial findings. Laboratory Results WBC 6.70 10^3/uL (3.29-11.43) 04/01/25 04:03 RBC 3.62 10^6/uL (3.85-5.65) L 04/01/25 04:03 Hgb 9.60 g/dL (11.27-16.99) L 04/01/25 04:03 Hct 34.0 % (36-47) L 04/01/25 04:03 MCV 93.9 fl (85-98) 04/01/25 04:03 MCH 26.5 pg (27-33) L 04/01/25 04:03 MCHC 28.2 g/dL (30-55) L 04/01/25 04:03 RDW 13.9 % (12.1-15.1) 04/01/25 04:03 Plt Count 199 10^3/cmm (157-399) 04/01/25 04:03 MPV 10.8 fL (7.4-10.4) H 04/01/25 04:03 Neut % (Auto) 57.0 % 04/01/25 04:03 Lymph % (Auto) 27.5 % 04/01/25 04:03 [place] % (Auto) 7.6 % 04/01/25 04:03 Eos % (Auto) 6.9 % 04/01/25 04:03 Baso % (Auto) 0.7 % 04/01/25 04:03 Neut # (Auto) 3.82 10^3/uL (1.8-7.7) 04/01/25 04:03 Lymph # (Auto) 1.8 10^3/uL (0.8-4.8) 04/01/25 04:03 [place] # (Auto) 0.5 10^3/uL (0.2-0.9) 04/01/25 04:03 Eos # (Auto) 0.5 10^3/uL (0.0-0.8) 04/01/25 04:03 Baso # (Auto) 0.1 10^3/uL (0.0-0.1) 04/01/25 04:03 Nucleated RBC % (auto) 0 % 04/01/25 04:03 Nucleated RBCs # 0.0 /100WBC 04/01/25 04:03 Sodium 140 mmol/L (136-145) 04/01/25 04:03 Potassium 4.3 mmol/L (3.5-5.1) 04/01/25 04:03 Chloride 107 mmol/L (98-107) 04/01/25 04:03 Carbon Dioxide 27 mmol/L (22-29) 04/01/25 04:03 Anion Gap 10.3 (5-19) 04/01/25 04:03 BUN 14 mg/dL (8-23) 04/01/25 04:03 Creatinine 0.9 mg/dL (0.5-0.9) 04/01/25 04:03 GFR Calculation Not Reportable 04/01/25 04:03 Glucose 89 mg/dL (65-115) 04/01/25 04:03 Calculated Osmolality 290 mOsm/kg (285-295) 04/01/25 04:03 Calcium 8.3 mg/dL (8.5-10.5) L 04/01/25 04:03 Phosphorus 3.4 mg/dL (2.5-4.5) 03/30/25 04:00 Magnesium 2.0 mg/dL (1.7-2.3) 03/30/25 04:00 Total Bilirubin 0.2 mg/dL (0.15-1.2) 04/01/25 04:03 AST 11 U/L (0-32) 04/01/25 04:03 ALT < 5 U/L (0-33) 04/01/25 04:03 Alkaline Phosphatase 77 U/L (35-105) 04/01/25 04:03 Troponin T Baseline 37 ng/L (0-10) H 03/29/25 13:44 Troponin T 120 Minute 31.96 ng/L (0-10) H 03/29/25 15:36 Delta Troponin T -5.04 ABS# (0-10) L 03/29/25 15:36 Total Protein 5.5 g/dL (6.6-8.7) L 04/01/25 04:03 Albumin 2.9 g/dL (3.5-5.2) L 04/01/25 04:03 Globulin 2.6 g/dL (1.3-4.6) 04/01/25 04:03 Lipase 22 U/L (13-60) 03/29/25 13:44 TSH 3.58 uIU/mL (0.27-4.20) 03/30/25 04:00 Urine Color Yellow (Yellow) 03/29/25 13:58 Urine Appearance Cloudy (CLEAR) A 03/29/25 13:58 Urine pH >=9.0 (5-7) A 03/29/25 13:58 Ur Specific [place] 1.016 (1.005-1.030) 03/29/25 13:58 Urine Protein 1+ (Negative) A 03/29/25 13:58 Urine Glucose (UA) Negative (Normal) 03/29/25 13:58 Urine Ketones Negative (Negative) 03/29/25 13:58 Urine Blood 1+ (Negative) A 03/29/25 13:58 Urine Nitrate Negative (Negative) 03/29/25 13:58 Urine Bilirubin Negative (Negative) 03/29/25 13:58 Urine Urobilinogen 1.0 mg/dL (Negative) 03/29/25 13:58 Ur Leukocyte Esterase 3+ (Negative) A 03/29/25 13:58 Urine RBC 6-10 /hpf (0-2) 03/29/25 13:58 Urine WBC >100 /hpf (0-5) H 03/29/25 13:58 Ur Squamous Epith Cells 0-5 /hpf (0-5) 03/29/25 13:58 Amorphous Sediment Not Reportable 03/29/25 13:58 Urine Bacteria 4+ /hpf (NONE) H 03/29/25 13:58 Hyaline Casts 9.51 /lpf 03/29/25 13:58 Urine Opiates Screen Negative ng/mL (Negative) 03/29/25 13:58 Ur Barbiturates Screen Negative ng/mL (Negative) 03/29/25 13:58 Ur Phencyclidine Scrn Negative ng/mL (Negative) 03/29/25 13:58 Ur Amphetamines Screen Negative ng/mL (Negative) 03/29/25 13:58 U Benzodiazepines Scrn Positive ng/mL (Negative) H 03/29/25 13:58 Urine Cocaine Screen Negative ng/mL (Negative) 03/29/25 13:58 U Marijuana (THC) Screen Negative ng/mL (Negative) 03/29/25 13:58 Ethyl Alcohol < 10 mg/dL (0-10) 03/29/25 13:44 Vitals Last Vital Signs Temp 98.6 F 04/01/25 12:00 Pulse 61 04/01/25 12:00 Resp 18 04/01/25 12:00 BP 148/72 04/01/25 12:00 Pulse Ox 92 04/01/25 12:00 O2 Del Method Nasal Cannula 04/01/25 12:00 O2 Flow Rate 3 04/01/25 04:00 Discharge Plan Discharge Patient Disposition: Home Condition: Stable Prescriptions: New cephalexin 500 mg capsule 500 mg PO BID 3 Days Qty: 6 0RF Continued simvastatin 40 mg tablet 40 mg PO BEDTIME Narcan 4 mg/actuation spray,non-aerosol See Rx Instructions .ROUTE .COMPLEX PRN (Reason: overdose) Rx Instructions: DIRECTED PRN OVERDOSE triamcinolone acetonide 0.1 % cream 1 applic TOPICAL BID PRN (Reason: Skin Irritation) fentanyl 75 mcg/hr patch 72 hour 75 mcg transdermal Q72H lactulose 10 gram/15 mL solution 15 ml PO DAILY PRN (Reason: Constipation) Eliquis DVT-PE Treat 30D Start 5 mg (74 tabs) tablets,dose pack 5 mg PO BID fluoxetine 40 mg capsule 40 mg PO DAILY oxycodone-acetaminophen 10-325 mg tablet 1 tab PO Q6H MDD Max 4 daily PRN (Reason: Pain, Severe) exemestane 25 mg tablet 25 mg PO DAILY Rx Instructions: Must administer AFTER a meal. pantoprazole 40 mg tablet,delayed release (DR/EC) 40 mg PO DAILY ondansetron 4 mg tablet,disintegrating 4 mg PO Q6H PRN (Reason: Nausea) nitroglycerin [Nitrostat] 0.4 mg Tablet, Sublingual 0.4 mg SUBLINGUAL Q5M PRN (Reason: Chest Pain) Rx Instructions: do not exceed 3 doses per episode Discharge Orders: Discharge Order (Routine); Ordered 04/01/25 Ordered By: Mary Noonan Referrals: Evangelist Oneil MD [Referring, Urology] - 1 week Elayne Wyatt DO [Primary Care Provider, [facility]] - 04/05/25 2:00 pm Discharge Diet: Usual diet Discharge Activity: Increase activity as tolerated Patient Instructions: Altered Mental Status (ED), Opioid Safety Activity Restrictions/Additional Instructions: Follow-up with urology within 1 to 2 weeks for further evaluation of right renal mass Discharge Attestations Time Spent in Discharge Care*: less than 30 min Status at Discharge: Cognitive status at discharge: moderately impaired cognition , Behavioral status at discharge: cooperative , Quality Metrics Clinical Quality Measures [ No reported AMI, CVA or VTE this stay] Coding Level of Care Code Acute Code for Chg Fwd Diagnoses Generalized weakness R53.1 Confusion R41.0 Acute lower UTI N39.0 Hypokalemia E87.6 Renal lesion N28.9
--- NOTE | 2025-04-01 14:24 | PM.DCS ---
Discharge Providers Date of Admission: 03/29/25 17:34 Date of Discharge: April 01, 2025 Attending Provider at Admission: Elvis Hardwick MD Attending Provider at Discharge: Mary Noonan MD Primary Care Provider: Elayne Wyatt DO Diagnoses at Discharge Discharge Diagnosis (1) Generalized weakness: Status: Resolved (2) Confusion: Status: Resolved (3) Acute lower UTI: Status: Acute (4) Hypokalemia: Status: Resolved (5) Renal lesion: Status: Acute Reason for Visit Reason for Visit: AMS Hospital Course Hospital Course In summary, Ms Deborah Mchugh is a 74 year old female with history of breast cancer, COPD, CVA, hypertension, hyperlipidemia,who presented for further evaluation of feeling unwell and dysuria. Patient also noted to be mildly confused. The ER, her UA was suggestive of UTI. She was admitted for further evaluation and management. Acute metabolic encephalopathy was in the setting of UTI. Patient received IV antibiotics-ceftriaxone and had improvement in her symptoms and mental status. Urine cultures grew beta-hemolytic strep, after conversation with the microbiology lab, urine cultures thought to be mixed bacteria suggestive of urogenital selin . Final urine cultures pending at the time of discharge. Patient will complete course of antibiotics with Keflex outpatient and follow with her PCP . Of note , patient noted to have a right renal lesion suspicious for possible renal cell carcinoma. She was referred to urology outpatient for further evaluation and management. Discharge Data Studies Completed and Pending Completed Studies During Hospitalization Category Date Time Status CT abdomen pelvis w con* [id number] Stat Cat Scan 03/29/25 13:[address] head wo con* [id number] Stat Cat Scan 03/29/25 13:44 Completed XR chest 1V portable [id number] Stat Exams 03/29/25 13:44 Completed Pending at discharge Category Date Time Status Blood Culture Stat Lab 03/30/25 09:44 Results Radiology Impressions Abdomen/Pelvis CT 03/29/25 13:44 IMPRESSION: 1. Solid-appearing suspicious breast mass in the RIGHT breast measuring approximately 2.4 cm. Recommend further evaluation with RIGHT breast diagnostic mammography and ultrasound. This is suspicious for neoplasm. 2. Suspicious solid-appearing 2.4 cm RIGHT renal lesion anteriorly suspicious for renal cell carcinoma. Recommend urology consultation. 3. Bilateral renal cortical atrophy. No hydronephrosis. 4. Mild diffuse bladder wall thickening with slight induration. Recommend correlation for chronic cystitis. Small anterolateral cystocele. 5. Additional chronic findings similar to the prior study as described above. 6. Prior hysterectomy and cholecystectomy. Chest X-Ray 03/29/25 13:44 IMPRESSION: Cardiomegaly. Stable chest with no acute abnormality identified. Head CT 03/29/25 13:44 IMPRESSION: 1. No evidence of intracranial hemorrhage or mass effect. 2. No acute intracranial findings. Laboratory Results WBC 6.70 10^3/uL (3.29-11.43) 04/01/25 04:03 RBC 3.62 10^6/uL (3.85-5.65) L 04/01/25 04:03 Hgb 9.60 g/dL (11.27-16.99) L 04/01/25 04:03 Hct 34.0 % (36-47) L 04/01/25 04:03 MCV 93.9 fl (85-98) 04/01/25 04:03 MCH 26.5 pg (27-33) L 04/01/25 04:03 MCHC 28.2 g/dL (30-55) L 04/01/25 04:03 RDW 13.9 % (12.1-15.1) 04/01/25 04:03 Plt Count 199 10^3/cmm (157-399) 04/01/25 04:03 MPV 10.8 fL (7.4-10.4) H 04/01/25 04:03 Neut % (Auto) 57.0 % 04/01/25 04:03 Lymph % (Auto) 27.5 % 04/01/25 04:03 [place] % (Auto) 7.6 % 04/01/25 04:03 Eos % (Auto) 6.9 % 04/01/25 04:03 Baso % (Auto) 0.7 % 04/01/25 04:03 Neut # (Auto) 3.82 10^3/uL (1.8-7.7) 04/01/25 04:03 Lymph # (Auto) 1.8 10^3/uL (0.8-4.8) 04/01/25 04:03 [place] # (Auto) 0.5 10^3/uL (0.2-0.9) 04/01/25 04:03 Eos # (Auto) 0.5 10^3/uL (0.0-0.8) 04/01/25 04:03 Baso # (Auto) 0.1 10^3/uL (0.0-0.1) 04/01/25 04:03 Nucleated RBC % (auto) 0 % 04/01/25 04:03 Nucleated RBCs # 0.0 /100WBC 04/01/25 04:03 Sodium 140 mmol/L (136-145) 04/01/25 04:03 Potassium 4.3 mmol/L (3.5-5.1) 04/01/25 04:03 Chloride 107 mmol/L (98-107) 04/01/25 04:03 Carbon Dioxide 27 mmol/L (22-29) 04/01/25 04:03 Anion Gap 10.3 (5-19) 04/01/25 04:03 BUN 14 mg/dL (8-23) 04/01/25 04:03 Creatinine 0.9 mg/dL (0.5-0.9) 04/01/25 04:03 GFR Calculation Not Reportable 04/01/25 04:03 Glucose 89 mg/dL (65-115) 04/01/25 04:03 Calculated Osmolality 290 mOsm/kg (285-295) 04/01/25 04:03 Calcium 8.3 mg/dL (8.5-10.5) L 04/01/25 04:03 Phosphorus 3.4 mg/dL (2.5-4.5) 03/30/25 04:00 Magnesium 2.0 mg/dL (1.7-2.3) 03/30/25 04:00 Total Bilirubin 0.2 mg/dL (0.15-1.2) 04/01/25 04:03 AST 11 U/L (0-32) 04/01/25 04:03 ALT < 5 U/L (0-33) 04/01/25 04:03 Alkaline Phosphatase 77 U/L (35-105) 04/01/25 04:03 Troponin T Baseline 37 ng/L (0-10) H 03/29/25 13:44 Troponin T 120 Minute 31.96 ng/L (0-10) H 03/29/25 15:36 Delta Troponin T -5.04 ABS# (0-10) L 03/29/25 15:36 Total Protein 5.5 g/dL (6.6-8.7) L 04/01/25 04:03 Albumin 2.9 g/dL (3.5-5.2) L 04/01/25 04:03 Globulin 2.6 g/dL (1.3-4.6) 04/01/25 04:03 Lipase 22 U/L (13-60) 03/29/25 13:44 TSH 3.58 uIU/mL (0.27-4.20) 03/30/25 04:00 Urine Color Yellow (Yellow) 03/29/25 13:58 Urine Appearance Cloudy (CLEAR) A 03/29/25 13:58 Urine pH >=9.0 (5-7) A 03/29/25 13:58 Ur Specific [place] 1.016 (1.005-1.030) 03/29/25 13:58 Urine Protein 1+ (Negative) A 03/29/25 13:58 Urine Glucose (UA) Negative (Normal) 03/29/25 13:58 Urine Ketones Negative (Negative) 03/29/25 13:58 Urine Blood 1+ (Negative) A 03/29/25 13:58 Urine Nitrate Negative (Negative) 03/29/25 13:58 Urine Bilirubin Negative (Negative) 03/29/25 13:58 Urine Urobilinogen 1.0 mg/dL (Negative) 03/29/25 13:58 Ur Leukocyte Esterase 3+ (Negative) A 03/29/25 13:58 Urine RBC 6-10 /hpf (0-2) 03/29/25 13:58 Urine WBC >100 /hpf (0-5) H 03/29/25 13:58 Ur Squamous Epith Cells 0-5 /hpf (0-5) 03/29/25 13:58 Amorphous Sediment Not Reportable 03/29/25 13:58 Urine Bacteria 4+ /hpf (NONE) H 03/29/25 13:58 Hyaline Casts 9.51 /lpf 03/29/25 13:58 Urine Opiates Screen Negative ng/mL (Negative) 03/29/25 13:58 Ur Barbiturates Screen Negative ng/mL (Negative) 03/29/25 13:58 Ur Phencyclidine Scrn Negative ng/mL (Negative) 03/29/25 13:58 Ur Amphetamines Screen Negative ng/mL (Negative) 03/29/25 13:58 U Benzodiazepines Scrn Positive ng/mL (Negative) H 03/29/25 13:58 Urine Cocaine Screen Negative ng/mL (Negative) 03/29/25 13:58 U Marijuana (THC) Screen Negative ng/mL (Negative) 03/29/25 13:58 Ethyl Alcohol < 10 mg/dL (0-10) 03/29/25 13:44 Vitals Last Vital Signs Temp 98.6 F 04/01/25 12:00 Pulse 61 04/01/25 12:00 Resp 18 04/01/25 12:00 BP 148/72 04/01/25 12:00 Pulse Ox 92 04/01/25 12:00 O2 Del Method Nasal Cannula 04/01/25 12:00 O2 Flow Rate 3 04/01/25 04:00 Discharge Plan Discharge Patient Disposition: Home Condition: Stable Prescriptions: New cephalexin 500 mg capsule 500 mg PO BID 3 Days Qty: 6 0RF Continued simvastatin 40 mg tablet 40 mg PO BEDTIME Narcan 4 mg/actuation spray,non-aerosol See Rx Instructions .ROUTE .COMPLEX PRN (Reason: overdose) Rx Instructions: DIRECTED PRN OVERDOSE triamcinolone acetonide 0.1 % cream 1 applic TOPICAL BID PRN (Reason: Skin Irritation) fentanyl 75 mcg/hr patch 72 hour 75 mcg transdermal Q72H lactulose 10 gram/15 mL solution 15 ml PO DAILY PRN (Reason: Constipation) Jessicaquis DVT-PE Treat 30D Start 5 mg (74 tabs) tablets,dose pack 5 mg PO BID fluoxetine 40 mg capsule 40 mg PO DAILY oxycodone-acetaminophen 10-325 mg tablet 1 tab PO Q6H MDD Max 4 daily PRN (Reason: Pain, Severe) exemestane 25 mg tablet 25 mg PO DAILY Rx Instructions: Must administer AFTER a meal. pantoprazole 40 mg tablet,delayed release (DR/EC) 40 mg PO DAILY ondansetron 4 mg tablet,disintegrating 4 mg PO Q6H PRN (Reason: Nausea) nitroglycerin [Nitrostat] 0.4 mg Tablet, Sublingual 0.4 mg SUBLINGUAL Q5M PRN (Reason: Chest Pain) Rx Instructions: do not exceed 3 doses per episode Discharge Orders: Discharge Order (Routine); Ordered 04/01/25 Ordered By: Mary Noonan Referrals: Elayne Wyatt DO [Primary Care Provider, [facility]] - 04/05/25 2:00 pm Discharge Diet: Usual diet Discharge Activity: Increase activity as tolerated Patient Instructions: Cephalexin (By mouth) (Bio-Cef, Keflex), Urinary Tract Infection in Women (DC), Altered Mental Status (ED), Opioid Safety Activity Restrictions/Additional Instructions: Follow-up with urology within 1 to 2 weeks for further evaluation of right renal mass Discharge Attestations Status at Discharge: Cognitive status at discharge: moderately impaired cognition, Behavioral status at discharge: cooperative, Coding Level of Care Code Acute Code for Chg Fwd Diagnoses Generalized weakness R53.1 Confusion R41.0 Acute lower UTI N39.0 Hypokalemia E87.6 Renal lesion N28.9
[2025-04-01 15:46] VITALS: BP 148/72; PULSE 61; RESP 18; TEMP 37; O2SAT 92
== END 2025-04-01 15:48 | disposition home or self-care (01) | DRG 689 ==
LOC: ER 16:14 → MEDSURG 17:36
PROVIDERS: Admitting Provider Internal Medicine; Emergency Provider Emergency Medicine; PCP Family Medicine; Visit Provider Student in an Organized Health Care Education/Training Program
DX: N39.0 Urinary tract infection, site not specified (principal); G93.41 Metabolic encephalopathy; E87.6 Hypokalemia; N28.9 Disorder of kidney and ureter, unspecified; Z85.3 Personal history of malignant neoplasm of breast; J44.9 Chronic obstructive pulmonary disease, unspecified; Z86.73 Personal history of transient ischemic attack (TIA), and cerebral infarction without residual deficits; I10 Essential (primary) hypertension; E78.5 Hyperlipidemia, unspecified; B95.4 Other streptococcus as the cause of diseases classified elsewhere; Z79.01 Long term (current) use of anticoagulants; Z79.891 Long term (current) use of opiate analgesic; Z79.811 Long term (current) use of aromatase inhibitors; E66.01 Morbid (severe) obesity due to excess calories; Z68.35 Body mass index [BMI] 35.0-35.9, adult; G47.33 Obstructive sleep apnea (adult) (pediatric); Z87.891 Personal history of nicotine dependence; H54.7 Unspecified visual loss; H91.90 Unspecified hearing loss, unspecified ear; E86.0 Dehydration
CPT/HCPCS: 36415; 70450; 71045; 74177; 80053; 80306; 80307; 81001; 83690; 83735; 84100; 84443; 84484; 85025; 87040; 87086; 93005; 96361; 96374; 96376; 99285; J0696; J7030; J7040; J9999; S0156

== ENCOUNTER 2025-04-16 18:42 | Emergency (ER) | payer OTHER, MEDICAID, SELFPAY ==
[2025-04-16 18:46] VITALS: BP 129/83; PULSE 73; RESP 18; TEMP 36.9; O2SAT 97; BMI 34.3
--- NOTE | 2025-04-16 19:18 | CTR_ITS ---
PROCEDURE INFORMATION: Exam: CT Head Without Contrast Exam date and time: 04/16/2025 7:29 PM Age: 74 years old Clinical indication: Pain; C/O headache TECHNIQUE: Imaging protocol: Computed tomography of the head without contrast. Radiation optimization: All CT scans at this facility use at least one of these dose optimization techniques: automated exposure control; mA and/or kV adjustment per patient size (includes targeted exams where dose is matched to clinical indication); or iterative reconstruction. COMPARISON: CT head wo con* [id number] 03/29/2025 2:37 PM RADIATION DOSE METRICS: Total DLP (mGy-cm): 1768.96 FINDINGS: Brain: Severe nonspecific white matter low attenuation which may be related to microvascular ischemic changes. Bilateral caudate lacunes. No acute confluent lobar ischemic infarct. No acute intracranial hemorrhage. Cerebral ventricles: The ventricles and sulci are prominent in size compatible with moderate atrophy. Paranasal sinuses: No fluid levels. Mastoid air cells: Visualized mastoid air cells are well aerated. Pharynx: Asymmetric appearance of the fossa of [place] with relative effacement of the right side. Underlying mucosal lesion cannot be excluded. Recommend correlation with direct visualization. Bones: No acute calvarial fracture. Soft tissues: Visualized soft tissues are unremarkable. CT/CT head wo con* [id number] IMPRESSION: No acute intracranial abnormality. If symptoms persist, consider further evaluation with MRI, if there are no contraindications to obtaining a MRI scan. Asymmetric appearance of the fossa of [place]muller with relative effacement of the right side. Underlying mucosal lesion cannot be excluded. Recommend correlation with direct visualization.
--- NOTE | 2025-04-16 19:59 | W.ED.GENADLT ---
HPI - General Adult General: Chief complaint: General Medical Stated complaint: PAIN ALL OVER Time Seen by Provider: 04/16/25 18:53 History of Present Illness: 74-year-old female is presenting complaining of facial pain that has now resolved. States her symptoms started today shortly before arrival she started having facial pain that radiated to her left ear but now it is subsided and essentially resolved. She denies any associated headache, nausea vomiting denies nasal congestion sore throat or fever or chills. No chest pain or shortness of breath or cough no abdominal pain diarrhea or urinary symptoms. Patient was recently seen and admitted to the hospital 2 weeks ago for confusion and possible UTI although urine cultures did not grow an organism. Patient otherwise denies complaints. She is accompanied by her who states she is on chronic home O2 on 2 L. She is satting well without oxygen or at this time. They are both poor historians. Patient has not fallen no trauma has normal vital signs at this time. Related Data Home Medications ?Medication ?Instructions ?Recorded ?Confirmed naloxone 4 mg/actuation nasal See Rx Instructions .Route 12/23/19 03/29/25 spray (Narcan) .COMPLEX PRN overdose simvastatin 40 mg tablet 40 mg PO BEDTIME 12/23/19 03/29/25 ondansetron 4 mg disintegrating 4 mg PO Q6H PRN Nausea 06/18/22 03/29/25 tablet nitroglycerin 0.4 mg sublingual 0.4 mg sublingual Q5M PRN Chest 07/16/22 03/29/25 tablet (Nitrostat) Pain fentanyl 75 mcg/hr transdermal 75 mcg transdermal Q72H 01/28/24 03/29/25 patch lactulose 10 gram/15 mL oral 15 ml PO DAILY PRN Constipation 01/28/24 03/29/25 solution triamcinolone acetonide 0.1 % 1 applic topical BID PRN Skin 01/28/24 03/29/25 topical cream Irritation apixaban 5 mg (74 tabs) tablets in 5 mg PO BID 03/08/24 03/29/25 a dose pack ([employer] DVT-PE Treat 30D Start) exemestane 25 mg tablet 25 mg PO DAILY 03/29/25 03/29/25 fluoxetine 40 mg capsule 40 mg PO DAILY 03/29/25 03/29/25 oxycodone-acetaminophen 10 mg-325 1 tab PO Q6H PRN Pain, Severe 03/29/25 03/29/25 mg tablet pantoprazole 40 mg tablet,delayed 40 mg PO DAILY 03/29/25 03/29/25 release Allergies Allergy/AdvReac Type Severity Reaction Status Date / Time adhesive tape Allergy Unknown ALGY-Hives Verified 09/28/24 12:26 heparin (porcine) Allergy Unknown Verified 09/28/24 12:26 morphine Allergy ALGY-Hives Verified 09/28/24 12:26 oxytetracycline (From Allergy ALGY-Anaphy Verified 09/28/24 12:26 Terramycin) laxis Tetanus Vaccines and Toxoid Allergy Unknown Verified 09/28/24 12:26 cimetidine (From Tagamet) AdvReac ADR-Abdominal Verified 09/28/24 12:26 Pain hydromorphone (From Dilaudid) AdvReac ADR-Halluci Verified 09/28/24 12:26 nating Review of Systems Narrative: Const: no fever, no chills Skin: no rashes Eyes: denies blurry vision ENMT: denies nasal congestion, throat pain Card: no chest pain, no palpitations, no edema Resp: no shortness of breath, no cough GI: no abdominal pain, no nausea, no vomiting, no diarrhea : no urinary frequency, no urgency, no dysuria, no flank pain Musc: no neck pain, no back pain, no extremity pain Neuro: +headache(s), no confusion, no numbness, no motor weakness PFSH ED PFSH: Medical History Anxiety Bilateral breast cancer Closed fracture of right distal femur Compression fracture COPD (chronic obstructive pulmonary disease) CVA (cerebral vascular accident) GERD (gastroesophageal reflux disease) Hyperlipidemia Hypertension Hyperthyroidism Morbid obesity ROSEMARIE (obstructive sleep apnea) Surgical History H/O cervical spine surgery H/O: hysterectomy History of bilateral breast biopsy History of cholecystectomy History of colon resection History of open reduction and internal fixation (ORIF) procedure left femur Status post right knee replacement Family History Grandfather Diabetes Maternal Grandmother Diabetes Maternal Kidney failure Maternal Grandmother Diabetes Paternal Grandfather Diabetes Paternal Family/Other Diabetes Aunt Mother , Age 99 Hypertension Cancer Leukemia Father Myocardial infarction Hypertension Brother Hypertension Cancer Prostate Denies family history of Anesthesia complication Bleeding disorder Social History Smoking and tobacco/nicotine status: former use of tobacco/nicotine (quit 2023) Alcohol intake: never Substance/Drug Use: never Lives independently: Yes Household members: spouse Marital status: Current occupational status: disabled Physical Exam Narrative: EXAM NARRATIVE: GEN: Obese body habitus, otherwise nontoxic appearing, in no acute distress Head: normocephalic, atraumatic Eyes: pupils, equal, round and reactive to light, extraocular movements are intact, no conjunctival redness or discharge. Ears: external ears are normal. TMs normal bilaterally Nose: Normal nares. Mouth and throat: MMM. Normal gums, mucosa, + no pharyngeal erythema, no pharyngeal swelling, postsurgical changes including no uvula no tonsils. NECK: Supple, with no masses. CV: RRR, no m/r/g. LUNGS: CTAB, no w/r/c. ABD: Soft, NT/ND, NBS, no masses or organomegaly. SKIN: Warm, well perfused. No skin rashes or abnormal lesions. MSK: No deformity, no tenderness, normal ROM, no edema NEURO: alert and oriented x 3, normal speech, no motor or sensory deficits, no focal neuro deficits. PSYCH: Good Judgment. Pleasant, cooperative. appropriate mood. Course Vital Signs: Vital signs: Vital Signs Temperature 98.4 F 04/16/25 18:46 Pulse Rate 73 04/16/25 18:46 Respiratory Rate 18 04/16/25 18:46 Blood Pressure 129/83 04/16/25 18:46 Pulse Oximetry 97 04/16/25 18:46 MDM - General Adult Medical Decision Making Patient presented with facial pain that have is resolved, there is no evidence for acute infection no facial tenderness, no lymphadenopathy normal TMs normal ears normal oral exam. CT of the head was obtained to evaluate for intracranial pathology given her headache and being on Eliquis however it is negative other than asymmetry of the fossa of Rosenmuller on the CT, perhaps this is due to postsurgical changes as I do not appreciate any acute changes or any masses on visual inspection. She is otherwise with normal vital signs and essentially asymptomatic at this time and improved. She is stable for discharge and outpatient follow-up. Discussed following up incidental findings with PCP Lab Data Radiology Impressions Head CT 04/16/25 19:18 IMPRESSION: No acute intracranial abnormality. If symptoms persist, consider further evaluation with MRI, if there are no contraindications to obtaining a MRI scan. Asymmetric appearance of the fossa of Rosenmuller with relative effacement of the right side. Underlying mucosal lesion cannot be excluded. Recommend correlation with direct visualization. All radiology interpretation(s) finalized by discharge Discharge Plan Discharge Patient Disposition: Home Clinical Impression: Acute facial pain Condition: Stable Prescriptions: No Action simvastatin 40 mg tablet 40 mg PO BEDTIME Narcan 4 mg/actuation spray,non-aerosol See Rx Instructions .ROUTE .COMPLEX PRN (Reason: overdose) Rx Instructions: DIRECTED PRN OVERDOSE triamcinolone acetonide 0.1 % cream 1 applic TOPICAL BID PRN (Reason: Skin Irritation) fentanyl 75 mcg/hr patch 72 hour 75 mcg transdermal Q72H lactulose 10 gram/15 mL solution 15 ml PO DAILY PRN (Reason: Constipation) Jessicaquis DVT-PE Treat 30D Start 5 mg (74 tabs) tablets,dose pack 5 mg PO BID fluoxetine 40 mg capsule 40 mg PO DAILY oxycodone-acetaminophen 10-325 mg tablet 1 tab PO Q6H MDD Max 4 daily PRN (Reason: Pain, Severe) exemestane 25 mg tablet 25 mg PO DAILY Rx Instructions: Must administer AFTER a meal. pantoprazole 40 mg tablet,delayed release (DR/EC) 40 mg PO DAILY ondansetron 4 mg tablet,disintegrating 4 mg PO Q6H PRN (Reason: Nausea) nitroglycerin [Nitrostat] 0.4 mg Tablet, Sublingual 0.4 mg SUBLINGUAL Q5M PRN (Reason: Chest Pain) Rx Instructions: do not exceed 3 doses per episode Discharge Orders: Discharge ED (Routine); Ordered 04/16/25 Ordered By: Norma Hunt Referrals: Elayne Wyatt DO [Primary Care Provider, Family Practice] Print Language: Welsh Coding Level of Care Code ED Salary Manager for Ted San
--- NOTE | 2025-04-16 21:08 | PC.NURSE ---
EMS transport set up and will be here approx 2200. pt notified of ems wait. pt in no obvious distress. at bedside.
[2025-04-16 22:20] VITALS: BP 131/79; PULSE 81; RESP 16; O2SAT 95
== END 2025-04-16 22:20 | disposition home or self-care (01) ==
PROVIDERS: Emergency Provider Emergency Medicine; PCP Family Medicine
DX: R51.9 Headache, unspecified (principal); Z99.81 Dependence on supplemental oxygen
CPT/HCPCS: 70450; 99284

== ENCOUNTER 2025-04-27 14:15 | Emergency (ER) | payer OTHER, MEDICAID, SELFPAY ==
[2025-04-27] VITALS (7 sets, daily range): BP systolic 117–153; BP diastolic 54–96; PULSE 58–66; RESP 14–24; TEMP 36.8; O2SAT 90–98
--- NOTE | 2025-04-27 14:19 | XR_ITS ---
WS: [id number] XR chest 1V portable [id number] REASON FOR EXAM: dyspnea/cough FINDINGS: The chest is unchanged compared to 03/29/2025. Moderate to significant tortuosity and ectasia of the thoracic aorta. Moderate cardiac enlargement. Calcified granulomatous disease bilaterally. Elevation of the right hemidiaphragm. No acute pulmonary parenchymal or pleural abnormality is identified. 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 Mild dextroscoliosis and moderate degenerative spondylosis in the thoracic spine. XR/XR chest 1V portable [id number] IMPRESSION: Stable chest without acute abnormality.
--- NOTE | 2025-04-27 14:19 | ED_ITS ---
HPI - Syncope 2 General: Chief Complaint: Syncope Stated Complaint: stroke like symptoms Time Seen by Provider: 04/27/25 14:18 History of Present Illness: 74-year-old female who presents to the e mergency room she is at the oncology clinic and was getting an infusion they went to start a needle and she got mildly confused and had a syncopal-like episode. She has not had any further symptoms at all. She does have significant decrease in function at 1 point she was even on hospice. She has a history of colon cancer as well as breast cancer. She is unable to ambulate in the use all of your left at home. Associated symptoms: Deny abdominal pain, chest pain or fever(s) Related Data Home Medications ?Medication ?Instructions ?Recorded ?Confirmed naloxone 4 mg/actuation nasal See Rx Instructions .Rou te 12/23/19 04/27/25 spray (Narcan) .COMPLEX PRN overdose simvastatin 40 mg tablet 40 mg PO BEDTIME 12/23/19 ondansetron 4 mg disintegrating 4 mg PO Q6H PRN Nausea 06/18/22 04/27/25 tablet nitroglycerin 0.4 mg sublingual 0.4 mg sublingual Q5M PRN Chest 07/16/22 04/27/25 tablet (Nitrostat) Pain fentanyl 75 mcg/hr transdermal 75 mcg transdermal Q72H PRN Pain 01/28/24 04/27/25 patch lactulose 10 gram/15 mL oral 15 ml PO DAILY PRN Consti pation 01/28/24 04/27/25 solution triamcinolone acetonide 0.1 % 1 applic topical BID PRN Skin 01/28/24 04/27/25 topical cream Irritation exemestane 25 mg tablet 25 mg PO DAILY 03/29/2503/18 fluoxetine 40 mg capsule 40 mg PO DAILY 03/29/2503/18 oxycodone-acetaminophen 10 mg-325 1 tab PO Q6H PRN So n, Severe 03/29/25 04/27/25 mg tablet pantoprazole 40 mg tablet,delayed 40 mg PO DAILY 03/2904/27/25 release apixaban 5 mg tablet (Eliquis) 5 mg PO BID 04/27/25 Previous Rx's ?Medication ?Instructions ?Recorded ciprofloxacin HCl 500 mg tablet 500 mg PO BID #14 tabs 04/27/25 (Cipro) Allergies Allergy/AdvReac Type Severity Reaction Status Date / Time adhesive tape Allergy Unknown ALGY-Hives Verified 09/28/24 12:26 heparin (porcine) Allergy Unknown Verified 09/28/24 12:26 morphine Allergy ALGY-Hives Verified 09/28/24 12:26 oxytetracycline (From Allergy ALGY-Anaphy Verified 09/28/24 12:26 Terramycin) laxis Tetanus Vaccines and Toxoid Allergy Unknown Verified 09/28/24 12:26 cimetidine (From Tagamet) AdvReac ADR-Abdominal Verified 09/28/24 12:26 Pain hydromorphone (From Dilaudid) AdvReac ADR-Halluci Verified 09/28/24 12:26 nating Review of Systems 2 Const: Denies: fever(s) or chills Card: Denies: chest pain Resp: Denies: dyspnea GI: Denies: abdominal pain : Denies: dysuria, urinary frequency or urinary urgency Musc: Denies: neck pain or back pain Skin/Breast: Denies: rash PFSH ED 2 PFSH: Medical History Bilateral breast cancer Closed fracture of right distal femur Compression fracture Morbid obesity CVA (cerebral vascular accident) Anxiety COPD (chronic obstructive pulmonary disease) Hyperthyroidism Hyperlipidemia Hypertension GERD (gastroesophageal reflux disease) ROSEMARIE (obstructive sleep apnea) Surgical History Status post right knee replacement History of open reduction and internal fixation (ORIF) procedure left femur H/O cervical spine surgery History of colon resection H/O: hysterectomy History of cholecystectomy History of bilateral breast biopsy Family History Grandfather Diabetes Maternal Grandmother Diabetes Maternal Kidney failure Maternal Grandmother Diabetes Paternal Grandfather Diabetes Paternal Family/Other Diabetes Aunt Mother , Age 99 Hypertension Cancer Leukemia Father Myocardial infarction Hypertension Brother Hypertension Cancer Prostate Denies family history of Anesthesia complication Bleeding disorder Social History Smoking and tobacco/nicotine status: former use of tobacco/nicotine (quit 2023) Alcohol intake: never Substance/Drug Use: never Lives independently: Yes Household members: spouse Marital status: Current occupational status: disabled Physical Exam 2 Const: COMMON NORMALS: no acute distress GENERAL APPEARANCE: cooperative ORIENTATION/CONSCIOUSNESS: Yes awake HENMT: COMMON NORMALS: normocephalic, atraumatic and hearing grossly normal bilaterally HEAD & SCALP: normocephalic and atraumatic Resp: COMMON NORMALS: normal respiratory effort, No retractions, No use of accessory muscles and clear to auscultation bilaterally AUSCULTATION: clear to auscultation bilaterally Cardio: COMMON NORMALS: regular rate, regular rhythm and No murmurs present (Cardio) RATE: regular rate RHYTHM: regular rhythm GI: COMMON NORMALS: Soft to palpation and No hepatosplenomegaly present A USCULTATION: Yes normoactive bowel sounds PALPATION: Yes Soft to palpation, No Tenderness to palpation present (GI), No Guarding due to palpation present (GI) and Yes No hepatosplenomegaly present Extremity: COMMON NORMALS: normal to inspection, capillary refill normal, no clubbing, cyanosis or edema, no calf tenderness and no pedal edema Skin: COMMON NORMALS: no rashes or lesions noted GENERAL SKIN EXAM: no rashes or lesions noted Course 2 Vital Signs: Vital signs: Vital Signs Temperature 98.3 F 04/27/25 14:18 Pulse Rate 64 04/27/25 20:23 Respiratory Rate 14 04/27/25 20:23 Blood Pressure 142/73 04/27/25 20:23 Pulse Oximetry 98 04/27/25 20:23 Oxygen Delivery Me thod Nasal Cannula 04/27/25 18:30 Oxygen Flow Rate 3 04/27/25 17:05 MDM - Syncope Medical Decision Making 74-year-old female who had a syncopal episode while having her blood drawn. She is about at her baseline at this point no focal neurologic deficits are noted nothing suggestive of stroke CT head does not show anything acute. who is her main caregiver agree she is at her baseline now she did have a mild UTI white count is with a normal white count we will treat as an outpatient given Rocephin here discharged home on cefdinir. Medical Records I reviewed the patient's medical records. Lab Data I reviewed the patient's lab results. 04/27/25 14:39 04/27/25 14:39 Radiology Impressions Chest X-Ray 04/27/25 14:19 IMPRESSION: Stable chest without acute abnormality. Head CT 04/27/25 14:27 IMPRESSION: 1. No evidence of intracranial hemorrhage or mass effect. 2. Tiny chronic lacunar infarcts in the LEFT tirado radiata and RIGHT caudate. 3. Vascular calcification. 4. No acute intracranial findings. Notified Anoop Gaytan DO at 04/27/2025 2:57 PM. Laboratory Results WBC 9.24 10^3/uL (3.29-11.43) 04/27/25 14:39 RBC 4.24 10^6/uL (3.85-5.65) 04/27/25 14:39 Hgb 11.30 g/dL (11.27-16.99) 04/27/25 14:39 Hct 39.1 % (36-47) 04/27/25 14:39 MCV 92.2 fl (85-98) 04/27/25 14:39 MCH 26.7 pg (27-33) L 04/27/25 14:39 MCHC 28.9 g/dL (30-55) L 04/27/25 14:39 RDW 14.2 % (12.1-15.1) 04/27/25 14:39 Plt Count 235 10^3/cmm (157-399) 04/27/25 14:39 MPV 10.3 fL (7.4-10.4) 04/27/25 14:39 Neut % (Auto) 84.8 % 04/27/25 14:39 Lymph % (Auto) 8.8 % 04/27/25 14:39 [place] % (Auto) 4.4 % 04/27/25 14:39 Eos % (Auto) 1.4 % 04/27/25 14:39 Baso % (Auto) 0.3 % 04/27/25 14:39 Neut # (Auto) 7.83 10^3/uL (1.8-7.7) H 04/27/25 14:39 Lymph # (Auto) 0.8 10^3/uL (0.8-4.8) 04/27/25 14:39 [place] # (Auto) 0.4 10^3/uL (0.2-0.9) 04/27/25 14:39 Eos # (Auto) 0.1 10^3/uL (0.0-0.8) 04/27/25 14:39 Baso # (Auto) 0.0 10^3/uL (0.0-0.1) 04/27/25 14:39 Nucleated RBC % (auto) 0 % 04/27/25 14:39 Nucleated RBCs # 0.0 /100WBC 04/27/25 14:39 Sodium 142 mmol/L (136-145) 04/27/25 14:39 Potassium 4.6 mmol/L (3.5-5.1) 04/27/25 14:39 Chloride 103 mmol/L (98-107) 04/27/25 14:39 Carbon Dioxide 28 mmol/L (22-29) 04/27/25 14:39 Anion Gap 15.6 (5-19) 04/27/25 14:39 BUN 31 mg/dL (8-23) H 04/27/25 14:39 Creatinine 1.0 mg/dL (0.5-0.9) H 04/27/25 14:39 GFR Calculation Not Reportable 04/27/25 14:39 Glucose 107 mg/dL (65-115) 04/27/25 14:39 Calculated Osmolality 301 mOsm/kg (285-295) H 04/27/25 14:39 Lactic Acid 1.2 mmol/L (0.5-2.2) 04/27/25 11:39 Calcium 9.4 mg/dL (8.5-10.5) 04/27/25 14:39 Total Bilirubin 0.2 mg/dL (0.15-1.2) 04/27/25 14:39 AST 20 U/L (0-32) 04/27/25 14:39 ALT 15 U/L (0-33) 04/27/25 14:39 Alkaline Phosphatase 121 U/L (35-105) H 04/27/25 14:39 Troponin T Baseline 32 ng/L (0-10) H 04/27/25 14:39 Troponin T 120 Minute 30.68 ng/L (0-10) H 04/27/25 16:04 Delta Troponin T -1.32 ABS# (0-10) L 04/27/25 16:04 Total Protein 6.2 g/dL (6.6-8.7) L 04/27/25 14:39 Albumin 3.8 g/dL (3.5-5.2) 04/27/25 14:39 Globulin 2.4 g/dL (1.3-4.6) 04/27/25 14:39 Urine Color Yellow (Yellow) 04/27/25 15:01 Urine Appearance Turbid (CLEAR) A 04/27/25 15:01 Urine pH 5.5 (5-7) 04/27/25 15:01 Ur Specific [place] 1.016 (1.005-1.030) 04/27/25 15:01 Urine Protein 1+ (Negative) A 04/27/25 15:01 Urine Glucose (UA) Negative (Normal) 04/27/25 15:01 Urine Ketones Negative (Negative) 04/27/25 15:01 Urine Blood 2+ (Negative) A 04/27/25 15:01 Urine Nitrate Negative (Negative) 04/27/25 15:01 Urine Bilirubin Negative (Negative) 04/27/25 15:01 Urine Urobilinogen 1.0 mg/dL (Negative) 04/27/25 15:01 Ur Leukocyte Esterase 3+ (Negative) A 04/27/25 15:01 Urine RBC 3-5 /hpf (0-2) 04/27/25 15:01 Urine WBC Too numerous to cnt /hpf (0-5) H 04/27/25 15:01 Ur Squamous Epith Cells 0-5 /hpf (0-5) 04/27/25 15:01 Amorphous Sediment Not Reportable 04/27/25 15:01 Urine Bacteria Exceeds /hpf (NONE) 04/27/25 15:01 Hyaline Casts 7.42 /lpf 04/27/25 15:01 All radiology interpretation(s) finalized by discharge Discharge Plan Discharge Patient Disposition: Home Clinical Impression: Vasovagal syncope, Cystitis Condition: Stable Prescriptions: New ciprofloxacin HCl [Cipro] 500 mg tablet 500 mg PO BID Qty: 14 0RF No Action simvastatin 40 mg tablet 40 mg PO BEDTIME Narcan 4 mg/actuation spray,non-aerosol See Rx Instructions .ROUTE .COMPLEX PRN (Reason: overdose) Rx Instructions: DIRECTED PRN OVERDOSE triamcinolone acetonide 0.1 % cream 1 applic TOPICAL BID PRN (Reason: Skin Irritation) fentanyl 75 mcg/hr patch 72 hour 75 mcg transdermal Q72H PRN (Reason: Pain) lactulose 10 gram/15 mL solution 15 ml PO DAILY PRN (Reason: Constipation) fluoxetine 40 mg capsule 40 mg PO DAILY oxycodone-acetaminophen 10-325 mg tablet 1 tab PO Q6H MDD Max 4 daily PRN (Reason: Pain, Severe) exemestane 25 mg tablet 25 mg PO DAILY Rx Instructions: Must administer AFTER a meal. pantoprazole 40 mg tablet,delayed release (DR/EC) 40 mg PO DAILY ondansetron 4 mg tablet,disintegrating 4 mg PO Q6H PRN (Reason: Nausea) nitroglycerin [Nitrostat] 0.4 mg Tablet, Sublingual 0.4 mg SUBLINGUAL Q5M PRN (Reason: Chest Pain) Rx Instructions: do not exceed 3 doses per episode Eliquis 5 mg tablet 5 mg PO BID Discharge Orders: Discharge ED (Routine); Ordered 04/27/25 Ordered By: Anoop Gaytan Referrals: Elayne Wyatt DO [Primary Care Provider, Family Practice] Discharge Diet: Usual diet Discharge Activity: Resume usual activity Patient Instructions: Opioid Safety, Pain Management Activity Restrictions/Additional Instructions: Thank you for choosing [facility] for your healthcare needs today. It is very important that you follow up as instructed or that you return to the Emergency Department should you have concerns or if your condition changes or worsens in any way. You were seen in the emergency room after a vasovagal episode while they were drawing her blood. On exam there is no sign of acute stroke. You were found to have a bladder infection which you are given antibiotic in the emergency room. You can start the oral antibiotic tomorrow. Follow-up with your primary care doctor as needed. Print Language: Lao Coding Level of Care Code ED Part Time Flexible Clerk for Ted San
--- NOTE | 2025-04-27 14:27 | CT_ITS ---
WS: [id number] CT HEAD TECHNIQUE: Noncontrast CT of the head obtained from the skullbase to the vertex. CLINICAL INFORMATION: Altered mental status COMPARISON: 04/16/2025 DLP: 1283.[address] scans at [facility] use at least one of these dose optimization techniques: automated exposure control; mA and/or kV adjustment per patient size (includes targeted exams where dose is matched to clinical indication); or iterative reconstruction. FINDINGS: No evidence of intracranial hemorrhage or mass effect. Ventricular system and basal cisterns are patent. Moderate small vessel changes with moderate parenchymal volume loss. No extra-axial fluid collections. No evidence of mass or mass effect. Tiny chronic lacunar infarct RIGHT caudate. Chronic lacunar infarcts in the LEFT tirado radiata. Vascular calcification. Mastoid air cells are well aerated. Paranasal sinuses demonstrate mild mucosal thickening. Secretions within the sphenoid sinus. CT/CT head wo con* [id number] IMPRESSION: 1. No evidence of intracranial hemorrhage or mass effect. 2. Tiny chronic lacunar infarcts in the LEFT tirado radiata and RIGHT caudate. 3. Vascular calcification. 4. No acute intracranial findings. Notified Anoop Gaytan DO at 04/27/2025 2:57 PM.
[2025-04-27 14:48] LABS: Basophils % 0.3 %; Eosinophils # 0.1 10^3/uL (0.0-0.8); Eosinophils % 1.4 %; Hematocrit 39.1 % (36-47); Lymphocytes # 0.8 10^3/uL (0.8-4.8); Lymphocytes % 8.8 %; Mean Corpuscular HGB Conc 28.9 g/dL (30-55); Mean Corpuscular Hemoglobin 26.7 pg (27-33); Mean Corpuscular Volume 92.2 fl (85-98); Mean Platelet Volume 10.3 fL (7.4-10.4); Monocytes # 0.4 10^3/uL (0.2-0.9); Monocytes % 4.4 %; Neutrophils # 7.83 10^3/uL (1.8-7.7); Neutrophils % 84.8 %; Nucleated Red Blood Cells % 0 %; Platelet Count 235 10^3/cmm (157-399); Red Blood Count 4.24 10^6/uL (3.85-5.65); Red Cell Distribution Width 14.2 % (12.1-15.1); White Blood Count 9.24 10^3/uL (3.29-11.43)
--- NOTE | 2025-04-27 14:56 | ECG_ITS ---
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
[2025-04-27 15:06] LABS: Lactic Sepsis W/Reflex 1.2 mmol/L (0.5-2.2)
[2025-04-27 15:16] LABS: Troponin(5th) Baseline 32 ng/L (0-10)
[2025-04-27 15:18] LABS: Alanine Aminotransferase 15 U/L (0-33); Albumin Level 3.8 g/dL (3.5-5.2); Alkaline Phosphatase 121 U/L (35-105); Anion Gap 15.6 (5-19); Aspartate Amino Transferase 20 U/L (0-32); Blood Urea Nitrogen 31 mg/dL (8-23); Calcium 9.4 mg/dL (8.5-10.5); Carbon Dioxide 28 mmol/L (22-29); Chloride 103 mmol/L (98-107); Creatinine Clr Calc Pharmacy 54.2706; Globulin 2.4 g/dL (1.3-4.6); Glucose 107 mg/dL (65-115); Osmolality Calculated 301 mOsm/kg (285-295); Potassium 4.6 mmol/L (3.5-5.1); Sodium 142 mmol/L (136-145); Total Bilirubin 0.2 mg/dL (0.15-1.2); Total Protein 6.2 g/dL (6.6-8.7)
--- NOTE | 2025-04-27 16:46 | ECG_ITS ---
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: : 1950 Requested By: Anoop Vang Order Number: [id number] Reading MD: JOSE M BAPTISTE Measurements Intervals [place] Rate: 69 P: 0 NV: 0 QRS: -30 QRSD: 114 T: 65 QT: 445 QTc: 479 Interpretive Statements ATRIAL FIBRILLATION BORDERLINE LEFT AXIS DEVIATION [QRS AXIS < -20] MODERATE INTRAVENTRICULAR CONDUCTION DELAY [110+ ms QRS DURATION] ABNORMAL RHYTHM ECG Compared to ECG 04/27/2025 14:56:02 Intraventricular conduction delay now present Sinus rhythm no longer present Sinus arrhythmia no longer present Electronically Signed On 04-27-2025 23:09:10 CDT by JOSE M BAPTISTE [email or web address]
[2025-04-27 16:55] LABS: Troponin 5 2HR 30.68 ng/L (0-10)
[2025-04-27 16:56] LABS: Troponin 5 2HR Delta -1.32 ABS# (0-10)
[2025-04-27 17:38] LABS: Bilirubin Urine Negative (Negative); Blood Urine 2+ (Negative); Glucose Urine UA Negative (Normal); Ketones Urine Negative (Negative); Leukocyte Esterase Urine 3+ (Negative); Nitrate Urine Negative (Negative); Protein Urine 1+ (Negative); Specific Gravity, Urine 1.016 (1.005-1.030); Urine Appearance Turbid (CLEAR); Urine Color Yellow (Yellow); pH Urine 5.5 (5-7)
[2025-04-27 17:43] LABS: Add Urine Microscopic? YES; Bacteria Urine EXCEEDS /hpf; Hyaline Casts Urine 7.42 /lpf; Squamous Epithelial Cell Urine 0-5 /hpf (0-5)
[2025-04-27 18:08] LABS: Add Urine Culture? Yes; UA Slide Review UA Slide Review Perf; WBC Urine TOO NUMEROUS TO CNT /hpf (0-5)
[2025-04-27] MEDS: cefTRIAXone 1,000 MG in water for injection-sterile 2.1 ML 2.1 MG IM (18:37)
== END 2025-04-27 20:05 | disposition home or self-care (01) ==
PROVIDERS: Emergency Provider Family Medicine; PCP Family Medicine
DX: R55 Syncope and collapse (principal); N30.90 Cystitis, unspecified without hematuria; Z79.01 Long term (current) use of anticoagulants; Z87.891 Personal history of nicotine dependence; Z86.73 Personal history of transient ischemic attack (TIA), and cerebral infarction without residual deficits; J44.9 Chronic obstructive pulmonary disease, unspecified; E78.5 Hyperlipidemia, unspecified; I10 Essential (primary) hypertension; Z85.3 Personal history of malignant neoplasm of breast
CPT/HCPCS: 36415; 70450; 71045; 80053; 81001; 83605; 84484; 85025; 87040; 87077; 87086; 87186; 93005; 96372; 99285; J0696